=== PATIENT | male | born 1970 | race Caucasian/White ===

== ENCOUNTER 2016-03-28 13:10 | Emergency (ER) | payer SELFPAY ==
[~2016-03-28] VITALS: Ht 172.7 cm; Wt 111.6 kg
[~2016-03-28 13:10] MED LIST: AML5T; CEPH250C PO; CEPH500C PO; CEPH500T PO; CLIN-80 PO; CLIN-81 PO; CLIN150C17 PO; CLIN300C3 PO; DOXY100T2 PO; HYDR-1231 PO; HYDR-3714 PO; HYDR-3816 PO; HYDR-757 PO; HYDR1TAB PO; HYDR25TA4 PO; IBP800T PO; IBUP-30 PO; LISI20TA PO; METO25TA2 PO; METO50TA7; MINO50CA2 PO; MPR22T TOP; MPR22T TP; MUPI22OI2 TOP; NAPR500T PO; SILD100T PO; SILD50TA PO; SULF-222 PO; SULF1TAB35; SULF1TAB38 PO; SULF1TAB7 PO; TRAM50TA2 PO; VIAGRA; [UNRECOGNIZED DRUG - CODE] TP
--- OUTSIDE RECORDS SUMMARY | 2016-03-28 13:15 | XMS REPORT | Continuity of Care Document ---
Author Author [facility] Organization [facility] Address Unknown Phone Unavailable Care Team Providers Care Agricultural Engineering Technicians Name Role Phone Database, Not In PCP Unavailable Source Comments Some departments are not documenting in the electronic medical record. If you do not see the information that you expected, contact Release of Information in the Health Information Management department at [phone] for further assistance in locating additional records.[facility] Active Allergies and Adverse Reactions Not on File Current Medications Not on file Active Problems Not on file Social History Tobacco Use Types Packs/Day Years Used Date Never Assessed Plan of Care Health Maintenance Due Date Last Done Comments Physical (Comprehensive) 1977 Exam Pertussis Vaccine 1981 Tetanus Vaccine 12/28/1987 Influenza Vaccine 11/26/2014 Results from Last 3 Months Not on file
[2016-03-28] MEDS ORDERED: LORA2TAB (13:23)
[2016-03-28] MEDS ORDERED: NAPR500T PO (13:54)
--- NOTE | 2016-03-28 13:54 | ED General ---
General Chief Complaint: General Problems/Pain Stated Complaint: R SIDE JAW PAIN Nursing Triage Note: C/O PAIN BEHINDE R EAR FOR 2 DAYS Nursing Sepsis Screen: No Definite Risk History of Present Illness Time Seen by Provider: 13:45 Initial Comments Patient presents with complaints of right ear pain. Pain is actually anterior to the ear over the TMJ. Timing/Duration: 2-3 Days Modifying Factors: improves with Rest Associated Systoms: Denies Symptoms Allergies and Home Medications Allergies Coded Allergies: vancomycin (Verified Allergy, Intermediate, RASH, 07/06/15) Erythema and itching Penicillins (Unverified Allergy, Mild, 07/20/08) penicillin G (Verified Allergy, Unknown, 01/05/06) Uncoded Allergies: PCN (Allergy, Mild, 07/21/08) Home Medications Lorazepam 2 Mg Tablet #60 (Reported) Naproxen 500 Mg Tablet #30 500 MG PO BID Prescribed by: GISELL MARIO on 03/28/16 1354 Constitutional: no symptoms reported see HPI EENTM: ear pain (right) see HPINo dental problems, No eye pain, No mouth pain , No mouth swelling Respiratory: no symptoms reported see HPI Cardiovascular: no symptoms reported see HPI Gastrointestinal: no symptoms reported see HPI Genitourinary: no symptoms reported see HPI Musculoskeletal: no symptoms reported see HPI Skin: no symptoms reported see HPI Psychiatric/Neurological: No Symptoms Reported See HPI Hematologic/Lymphatic: No Symptoms Reported See HPI Immunological/Allergic: no symptoms reported see HPI All Other Systems Reviewed Negative Unless Noted: Yes Past Pcelupm-Oxyvsw-Oypcuy Hx Patient Social History Alcohol Use: Occasionally Uses Recreational Drug Use: No Smoking Status: Heavy Tobacco Smoker Type Used: Cigarettes (quit smoking for 3 years, recently resumed 2 months ago. Reports he is a chain-smoker to deal with stress) Former Smoker/When Quit: Apr 02, 2014 Recent Foreign Travel: No Contact w/Someone Who Travel: No Recent Infectious Disease Expo: No Recent Hopitalizations: No Physical Abuse Screen: No Sexual Abuse: No Immunizations Up To Date Tetanus Booster (TDap): Unknown PED Vaccines UTD: No Seasonal Allergies Seasonal Allergies: No Surgeries HX Surgeries: Yes (biopsy lymph node8 yo, Left knee surgery-meniscus tear ) Surgeries: Orthopedic, Vasectomy Respiratory Hx Respiratory Disorders: Yes (small "spot" on bottom left lung states is monitoring) Cardiovascular Hx Cardiac Disorders: Yes Cardiac Disorders: Hypertension Neurological Hx Neurological Disorders: No Reproductive System Hx Reproductive Disorders: No Sexually Transmitted Disease: No HIV/AIDS: No Genitourinary Hx Genitourinary Disorders: No Gastrointestinal Hx Gastrointestinal Disorders: No Musculoskeletal Hx Musculoskeletal Disorders: Yes Musculoskeletal Disorders: Arthritis Endocrine Hx Endocrine Disorders: No HEENT HX ENT Disorders: Yes Loss of Vision: Denies Hearing Impairment: Hard of Hearing Cancer Hx Cancer: No Psychosocial Hx Psychiatric Problems: No Integumentary HX Skin/Integumentary Disorder: Yes (recurrent MSSA abscesses) Blood Transfusions Hx Blood Disorders: No Adverse Reaction to a Blood Tr: No Reviewed Nursing Assessment Reviewed/Agree w Nursing PMH: Yes Family Medical History Significant Family History: Cancer, Hypertension Family Medial History: Alcoholism 19 FATHER G8 BROTHER Cancer 19 FATHER Cardiovascular disease 19 MOTHER Completed stroke 19 MOTHER Congestive heart failure 19 MOTHER Diabetes mellitus 19 MOTHER FH: brain aneurysm G8 SISTER, Onset:40's - 50 FHx: lung cancer 19 FATHER Family history: Allergy Family history: Arthritis 19 MOTHER Family history: Cardiovascular disease 19 MOTHER Family history: Diabetes mellitus Family history: Hypertension 19 MOTHER Headache 19 MOTHER Hearing loss 19 FATHER Heart disease 19 MOTHER History of drug abuse Myocardial infarction 19 MOTHER Myocardial infarction 19 MOTHER Stroke Visual impairment No Family History of: AIDS Abdominal aortic aneurysm Abdominal aortic aneurysm Power's disease Power's disease Aphasia Cancer of colon Cataract Cataracts Chest pain Congenital disease Congenital heart disease Congenital heart disease Coronary thrombosis Cystic fibrosis Cystic fibrosis Dementia Dementia Drug abuse Dysphagia Family history: Alzheimer's disease Family history: Asthma Family history: Breast disease Family history: Coronary thrombosis Family history: Gastrointestinal disease Family history: Glaucoma Family history: Osteoporosis Family history: Thyroid disorder Fibrocystic disease of breast Hereditary disease History of - anemia History of - disorder History of - respiratory disease Human immunodeficiency virus (HIV) seropositivity Hypercholesterolemia Infertile Kidney disease Malignant neoplasm of lung Parkinson's disease Prostate cancer Psychotic disorder Seizure disorder Tuberculosis Physical Exam Vital Signs Vital Sign - Last 12Hours 03/28/16 03/28/16 13:13 14:14 Temp 97.4 Pulse 87 Resp 18 B/P 141/100 Pulse Ox 95 O2 Delivery Room Air Capillary Refill : Less Than 3 Seconds General Appearance: No Apparent Distress WD/WN Eyes: Bilateral Eye EOMI, Bilateral Eye Normal Inspection, Bilateral Eye PERRL HEENT: PERRL/EOMI TMs Normal Normal ENT Inspection Pharynx Normal Other ( tender over the TMJ no crepitus noted) Neck: Full Range of Motion Normal Inspection Non Tender Supple Respiratory: Chest Non Tender Lungs Clear Normal Breath Sounds Cardiovascular: Regular Rate, Rhythm No Edema No Murmur Normal Peripheral Pulses Neurologic/Psychiatric: Alert Oriented x3 No Motor/Sensory Deficits Normal Mood/Affect Skin: Normal Color Warm/Dry Progress/Results/Core Measures Results/Orders My Orders Orders-GISELL MARIO Tramadol Tablet (Ultram Tablet) (03/28/16 13:51) Vital Signs/I&O Vital Sign - Last 12Hours 03/28/16 03/28/16 13:13 14:14 Temp 97.4 Pulse 87 87 Resp 18 18 B/P 141/100 Pulse Ox 95 O2 Delivery Room Air Blood Pressure Mean: 114 Progress Note : Progress Note Discussed with the patient about TMJ. He has not seen a dentist in over 10 years. With his smoking history I encouraged that he get routine dental exams and oral cancer screening. Departure Impression Impression: Primary Impression: TMJ inflammation Disposition: 01 HOME, SELF-CARE Condition: Stable Departure-Patient Inst. Referrals: [facility] (PCP/Family) Primary Care Physician Patient Instructions: Temporomandibular Joint (TMJ) Disorders (DC) Add. Discharge Instructions: All discharge instructions reviewed with patient and/or family. Voiced understanding. Warm moist compresses to area of pain. Scripts Naproxen (Naprosyn)500 Mg [id number] Mg PO BID #30 TAB Ref 1 Prov:GISELL MARIO 03/28/16 GISELL MARIO Mar 28, 2016 13:54
[2016-03-28 14:14] VITALS: BP 142/100
== END 2016-03-28 14:14 | disposition home or self-care (01) ==
LOC: EDUNIT# 13:10 → ER 13:12
DX: M26.69 Other specified disorders of temporomandibular joint (principal); F17.210 Nicotine dependence, cigarettes, uncomplicated

== ENCOUNTER 2016-04-21 07:49 | Emergency (ER) | payer SELFPAY ==
[~2016-04-21] VITALS: Ht 172.7 cm; Wt 108.9 kg
[~2016-04-21 07:49] MED LIST changes: +LORA2TAB
--- OUTSIDE RECORDS SUMMARY | 2016-04-21 07:55 | XMS REPORT | Continuity of Care Document ---
Author Author [facility] Organization [facility] Address Unknown Phone Unavailable Care Team Providers Care Organizational Development Director Name Role Phone Database, Not In PCP Unavailable Source Comments Some departments are not documenting in the electronic medical record. If you do not see the information that you expected, contact Release of Information in the Health Information Management department at [phone] for further assistance in locating additional records.[facility] Active Allergies and Adverse Reactions Not [...]
[2016-04-21] MEDS ORDERED: zoloft (08:00)
[2016-04-21] MEDS ORDERED: SCOPOLAMINE 1.5 MG (TRANSDERM-SCOP) PATCH TD ONE (08:30)
[2016-04-21] MEDS ORDERED: ONDANSETRON 4 MG (ZOFRAN) ORAL DISSOLVE TAB PO ONE (08:30)
[2016-04-21] MEDS ORDERED: MECLIZINE 25 MG (ANTIVERT) TAB PO ONE (08:30)
[2016-04-21 08:37] LABS: BASOPHILS % (AUTO) 0 % (0-10); EOSINOPHILS # (AUTO) 0.2 10^3/uL (0.0-0.3); EOSINOPHILS % (AUTO) 2 % (0-10); LYMPHOCYTES # (AUTO) 2.5 X 10^3 (1.0-4.0); LYMPHOCYTES % (AUTO) 22 % (12-44); MEAN CORPUSCULAR HEMOGLOBIN 32 PG (25-34); MEAN CORPUSCULAR HGB CONC 35 G/DL (32-36); MEAN CORPUSCULAR VOLUME 93 FL (80-99); MEAN PLATELET VOLUME 9.9 FL (7.4-10.4); MONOCYTES # (AUTO) 0.7 X 10^3 (0.0-1.0); MONOCYTES % (AUTO) 6 % (0-12); NEUTROPHILS # (AUTO) 8.1 X 10^3 (1.8-7.8); NEUTROPHILS % (AUTO) 70 % (42-75); PLATELET COUNT 310 10^3/uL (130-400); RED BLOOD COUNT 5.03 10^6/uL (4.35-5.85); RED CELL DISTRIBUTION WIDTH 13.5 % (10.0-14.5); WHITE BLOOD COUNT 11.6 10^3/uL (4.3-11.0)
--- NOTE | 2016-04-21 08:38 | ED General ---
General Chief Complaint: Dizziness/Syncope Stated Complaint: LIGHTHEADED/DIZZINESS CHEST PAIN Nursing Triage Note: AMB TO ROOM REPORTS NOT FEELING WELL REPORTS FEELING DIZZY WHEN GETTING OUT OF BED. Nursing Sepsis Screen: No Definite Risk Source of Information: Patient History of Present Illness Time Seen by Provider: 08:00 Initial Comments C/O SEVERE DIZZINESS ON WAKING THIS AM AT 0650 STATES HE FEELS OFF BALANCE AND DIZZINESS IS WORSE WITH MOVEMENTS/WALKING- STATES HE FELT LIKE HE MIGHT PASS OUT WHEN HE WAS WALKING, DUE TO DIZZINESS + NAUSEA, NO VOMITING HAS BLURRY VISION C/O SLIGHT ACHING IN LEFT SHOULDER FEELS SLIGHTLY SHORT OF BREATH LEFT HAND AND FOOT FEEL TINGLY, BUT NOT WHOLE LEFT ARM OR LEFT LEG NO MOTOR DEFICITS NO HEADACHE NO PRIOR HISTORY OF SIMILAR PT STATES SHE HAS BEEN DX WITH HTN, BUT HAS REFUSED TO TAKE MEDICATIONS. PCP: JAY-NICOLETTE, ENDER PATRICK Allergies and Home Medications Allergies Coded Allergies: vancomycin (Verified Allergy, Intermediate, RASH, 07/06/15) Erythema and itching Penicillins (Unverified Allergy, Mild, 07/20/08) penicillin G (Verified Allergy, Unknown, 01/05/06) Uncoded Allergies: PCN (Allergy, Mild, 07/21/08) Home Medications Meclizine HCl 25 Mg Tablet #30 25-50 MG PO Q6H Prescribed by: KEKE BAJWA on 04/21/16921 Ondansetron 4 Mg Tab.rapdis #10 4 MG PO Q4H Prescribed by: KEKE BAJWA on 04/21/16921 Constitutional: see HPINo chills, No diaphoresis, dizzinessNo fever EENTM: blurred vision see HPI Respiratory: see HPI short of breath Cardiovascular: no symptoms reportedNo chest pain, No edema, No palpitations, No syncope, No vascular heart diseas Gastrointestinal: see HPINo abdominal pain, nauseaNo vomiting Genitourinary: no symptoms reported Musculoskeletal: see HPI (LEFT SHOULDER PAIN ) Skin: no symptoms reported Psychiatric/Neurological: See HPIDenies Headache, Paresthesia TinglingDenies Weakness Hematologic/Lymphatic: No Symptoms Reported Immunological/Allergic: no symptoms reported Past Hjjxufz-Bncylg-Orfyih Hx Patient Social History Alcohol Use: Regular Use (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, NOW JUST DRINKS "A COUPLE OF BEERS ON THE WEEKENDS") Recreational Drug Use: No Smoking Status: Current Everyday Smoker (1 PPD) Type Used: Cigarettes Recent Foreign Travel: No Contact w/Someone Who Travel: No Recent Infectious Disease Expo: No Recent Hopitalizations: No Physical Abuse Screen: No Sexual Abuse: No Immunizations Up To Date Tetanus Booster (TDap): Unknown PED Vaccines UTD: No Seasonal Allergies Seasonal Allergies: No Surgeries HX Surgeries: Yes (biopsy lymph node8 yo, Left knee surgery-meniscus tear ) Surgeries: Orthopedic, Vasectomy Respiratory Hx Respiratory Disorders: Yes (small "spot" on bottom left lung states is monitoring) Cardiovascular Hx Cardiac Disorders: Yes (HAS REFUSED TO TAKE MEDICATIONS IN PAST) Cardiac Disorders: Hypertension Neurological Hx Neurological Disorders: No Reproductive System Hx Reproductive Disorders: No Sexually Transmitted Disease: No HIV/AIDS: No Genitourinary Hx Genitourinary Disorders: No Gastrointestinal Hx Gastrointestinal Disorders: No Musculoskeletal Hx Musculoskeletal Disorders: Yes Musculoskeletal Disorders: Arthritis Endocrine Hx Endocrine Disorders: No HEENT HX ENT Disorders: Yes Loss of Vision: Denies Hearing Impairment: Hard of Hearing Cancer Hx Cancer: No Psychosocial Hx Psychiatric Problems: Yes Behavioral Health Disorders: Anxiety, Depression Integumentary HX Skin/Integumentary Disorder: Yes (recurrent MSSA abscesses) Blood Transfusions Hx Blood Disorders: No Adverse Reaction to a Blood Tr: No Physical Exam Vital Signs Vital Sign - Last 12Hours 04/21/16 04/21/16 07:49 10:21 Temp 96.6 Pulse 88 Resp 18 B/P 158/108 Pulse Ox 96 O2 Delivery Room Air Capillary Refill : Less Than 3 Seconds General Appearance: No Apparent Distress WD/WN Other (REEKS OF CIGARETTES) HEENT: PERRL/EOMI Neck: Full Range of Motion Normal Inspection Non Tender SuppleNo Carotid Bruit , No JVD Respiratory: Normal Breath Sounds No Accessory Muscle Use No Respiratory Distress Cardiovascular: Regular Rate, Rhythm No Edema No JVD No Murmur Normal Peripheral Pulses Gastrointestinal: Normal Bowel Sounds No Organomegaly No Pulsatile Mass Non Tender Soft Back: Normal Inspection Extremity: Normal Capillary Refill Normal Inspection Normal Range of Motion Non Tender No Calf Tenderness No Pedal Edema Neurologic/Psychiatric: Alert Oriented x3 No Motor/Sensory Deficits Normal Mood/Affect air pollution compliance inspector II-XII Norm as TestedNo Abnormal Cerebellar Tests Reflexes: 2+ Bicep (R), 2+ Bicep (L), 2+ Knee (R), 2+ Knee (L) Skin: Normal Color Warm/Dry Tattoos/Piercings (MULTIPLE PIERCINGS AND TATTOOS) Progress/Results/Core Measures Results/Orders Lab Results Laboratory Tests Test 04/21/16 08:22 Range/Units Activated Partial Thromboplast Time 28 24-35 SEC Alanine Aminotransferase (ALT/SGPT) 17 0-55 U/L Albumin 4.2 3.2-4.5 G/DL Alkaline Phosphatase 67 40-136 U/L Anion Gap 11 5-14 MMOL/L Aspartate Amino Transf (AST/SGOT) 11 5-34 U/L B-Type Natriuretic Peptide < 10.0 <100.0 PG/ML BUN/Creatinine Ratio 17 Basophils # (Auto) 0.0 0.0-0.1 10^3/uL Basophils (%) (Auto) 0 0-10 % Blood Urea Nitrogen 13 7-18 MG/DL Calcium Level 9.2 8.5-10.1 MG/DL Carbon Dioxide Level 22 21-32 MMOL/L Chloride Level 107 98-107 MMOL/L Creatine Kinase MB 0.8 <6.6 NG/ML Creatinine 0.78 0.60-1.30 MG/DL Eosinophils # (Auto) 0.2 0.0-0.3 10^3/uL Eosinophils (%) (Auto) 2 0-10 % Estimat Glomerular Filtration Rate > 60 Glucose Level 98 70-105 MG/DL Hematocrit 47 40-54 % Hemoglobin 16.1 13.3-17.7 G/DL INR Comment 1.1 0.8-1.4 Lymphocytes # (Auto) 2.5 1.0-4.0 X 10^3 Lymphocytes (%) (Auto) 22 12-44 % Magnesium Level 2.1 1.8-2.4 MG/DL Mean Corpuscular Hemoglobin 32 25-34 PG Mean Corpuscular Hemoglobin Concent 35 32-36 G/DL Mean Corpuscular Volume 93 80-99 FL Mean Platelet Volume 9.9 7.4-10.4 FL Monocytes # (Auto) 0.7 0.0-1.0 X 10^3 Monocytes (%) (Auto) 6 0-12 % Neutrophils # (Auto) 8.1 H 1.8-7.8 X 10^3 Neutrophils (%) (Auto) 70 42-75 % Platelet Count 310 130-400 10^3/uL Potassium Level 3.7 3.6-5.0 MMOL/L Prothrombin Time 13.6 12.2-14.7 SEC Red Blood Count 5.03 4.35-5.85 10^6/uL Red Cell Distribution Width 13.5 10.0-14.5 % Serum Alcohol < 10 <10 MG/DL Sodium Level 140 135-145 MMOL/L TSH Parrott Testing 2.12 0.35-4.94 UIU/ML Total Bilirubin 0.5 0.1-1.0 MG/DL Total Creatine Kinase 49 30-200 U/L Total Protein 6.1 L 6.4-8.2 G/DL Troponin I < 0.30 <0.30 NG/ML White Blood Count 11.6 H 4.3-11.0 10^3/uL My Orders Orders-KEKE BAJWA DO Cbc With Automated Diff (04/21/16 08:01) Comprehensive Metabolic Panel (04/21/16 08:01) Creatine Kinase (04/21/16 08:01) Creatine Kinase Mb (04/21/16 08:01) Partial Thromboplastin Time (04/21/16 08:01) Protime With Inr (04/21/16 08:01) Troponin I (04/21/16 08:01) Chest 1 View, Ap/Pa Only (04/21/16 08:01) O2 (04/21/16 08:01) Ekg Tracing (04/21/16 08:01) BNP (04/21/16 08:01) Monitor-Rhythm Ecg Trace Only (04/21/16 08:01) Alcohol (04/21/16 08:01) Magnesium (04/21/16 08:01) Thyroid Analyzer (04/21/16 08:01) Ct Head Wo (04/21/16 08:05) Ondansetron Oral Dissolve Tab (Zofran (04/21/16 08:30) Scopolamine Patch (Transderm-Scop Patch) (04/21/16 08:30) Meclizine Tablet (Antivert Tablet) (04/21/16 08:30) Medications Given in ED Current Medications Medications Dose Ordered Sig/Ellis Route Start Time Stop Time Status Last Admin Dose Admin Meclizine HCl 50 mg ONCE ONCE PO 04/21/16 08:30 04/21/16 08:31 DC 04/21/16 08:23 50 MG Ondansetron HCl 4 mg ONCE ONCE PO 04/21/16 08:30 04/21/16 08:31 DC 04/21/16 08:23 4 MG Scopolamine 1.5 mg ONCE ONCE TD 04/21/16 08:30 04/21/16 08:31 DC 04/21/16 08:23 1.5 MG Vital Signs/I&O Vital Sign - Last 12Hours 04/21/16 04/21/16 07:49 10:21 Temp 96.6 Pulse 88 85 Resp 18 18 B/P 158/108 Pulse Ox 96 O2 Delivery Room Air Room Air Blood Pressure Mean: 125 Progress Note : Progress Note NO DIZZINESS WHILE LAYING STILL NAUSEA IMPROVED WITH MEDICATIONS PT REFUSES TO GIVE URINE SAMPLE ECG Initial ECG Impression Time: 07:57 Initial ECG Rate: 85 Initial ECG Rhythm: Normal Sinus Initial ECG Impression: Normal Initial ECG Comparisson: Unchanged Diagnostic Imaging Comments CT HEAD--NO ACUTE PROCESS CXR--NO ACUTE PROCESS PER RADIOLOGIST REPORTS @ 0853 Departure Communication Progress Notes 0915--SPOKE WITH DR. Kobe ORDOÑEZ. ADVISES TO SEND PT HOME AND THEY WILL SEE HIM TOMORROW IN CLINIC FOR FOLLOW UP. SHE IS VERY FAMILIAR WITH PT. Impression Impression: Primary Impression: Vertigo Additional Impressions: LEFT SIDED PARESTHESIAS HTN (hypertension) Disposition: 01 HOME, SELF-CARE Condition: Stable Departure-Patient Inst. Referrals: [facility] (PCP/Family) Primary Care Physician Patient Instructions: High Blood Pressure (DC), Paresthesias (DC), Vertigo (a Type of Dizziness) (DC) Add. Discharge Instructions: SLOW POSITION CHANGES LOTS OF CLEAR LIQUIDS FOLLOW UP WITH [facility], TOMORROW. SOMEONE FROM THE CLINIC WILL CALL YOU TODAY TO ARRANGE APPOINTMENT All discharge instructions reviewed with patient and/or family. Voiced understanding. Scripts Ondansetron (Zofran Odt)4 Mg Tab.rapdis4 Mg PO Q4H Nausea/Vomiting #10 TAB Prov:KEKE BAJWA DO 04/21/16 Meclizine HCl 25 Mg [id number] Mg PO Q6H Dizziness #30 TAB Prov:KEKE BAJWA DO 04/21/16 KEKE BJAWA DO Apr 21, 2016 08:38 1.5 MG Vital Signs/I&O Vital Sign - Last 12Hours 04/21/16 07:49 Temp 96.6 Pulse 88 Resp 18 B/P 158/108 O2 Delivery Room Air Blood Pressure Mean: 125 Progress Note : Progress Note NO DIZZINESS WHILE LAYING STILL ECG Initial ECG Impression Time: 07:57 Initial ECG Rate: 85 Initial ECG Rhythm: Normal Sinus Initial ECG Impression: Normal Initial ECG Comparisson: Unchanged Diagnostic Imaging Comments CT HEAD--NO ACUTE PROCESS CXR--NO ACUTE PROCESS PER RADIOLOGIST REPORTS @ 0853 Departure Communication Progress Notes 0915--SPOKE WITH DR. Kobe ORDOÑEZ. ADVISES TO SEND PT HOME AND THEY WILL SEE HIM TOMORROW IN CLINIC FOR FOLLOW UP. SHE IS VERY FAMILIAR WITH PT. Impression Impression: Primary Impression: Vertigo Additional Impressions: LEFT SIDED PARESTHESIAS HTN (hypertension) Disposition: 01 HOME, SELF-CARE Condition: Stable Departure-Patient Inst. Referrals: [facility] (PCP/Family) Primary Care Physician Patient Instructions: High Blood Pressure (DC), Paresthesias (DC), Vertigo (a Type of Dizziness) (DC) Add. Discharge Instructions: SLOW POSITION CHANGES LOTS OF CLEAR LIQUIDS FOLLOW UP WITH [facility], TOMORROW. SOMEONE FROM THE CLINIC WILL CALL YOU TODAY TO ARRANGE APPOINTMENT All discharge instructions reviewed with patient and/or family. Voiced understanding. Scripts Ondansetron (Zofran Odt)4 Mg Tab.rapdis4 Mg PO Q4H Nausea/Vomiting #10 TAB Prov:KEKE BAJWA DO 04/21/16 Meclizine HCl 25 Mg [id number] Mg PO Q6H Dizziness #30 TAB Prov:KEKE BAJWA DO 04/21/16 KEKE BAJWA DO Apr 21, 2016 08:38
--- NOTE | 2016-04-21 08:39 | Diagnostic Imaging Report ---
PROCEDURE: CT head without contrast. TECHNIQUE: Multiple contiguous axial images were obtained through the brain without the use of intravenous contrast. INDICATION: Dizziness for 2 hours The ventricles are normal in size, shape and position. There are no masses or hemorrhages. There are no extra-axial fluid collections. Impression: Negative CT head Dictated by: Dictated on workstation # [id number]
--- NOTE | 2016-04-21 08:44 | Diagnostic Imaging Report ---
INDICATION: Dizziness Exam compared with 09/13/2011. The lungs are clear. The heart and vessels normal. There is no effusion or pneumothorax. IMPRESSION: No acute appearing abnormality. Dictated by: Dictated on workstation # [id number]
[2016-04-21 08:49] LABS: INR 1.1 (0.8-1.4); PROTHROMBIN TIME PATIENT 13.6 SEC (12.2-14.7)
[2016-04-21 08:55] LABS: ALANINE AMINOTRANSFERASE 17 U/L (0-55); ALBUMIN 4.2 G/DL (3.2-4.5); ALCOHOL < 10 MG/DL (<10); ANION GAP 11 MMOL/L (5-14); ASPARTATE AMINO TRANSFERASE 11 U/L (5-34); BILIRUBIN,TOTAL 0.5 MG/DL (0.1-1.0); BLOOD UREA NITROGEN 13 MG/DL (7-18); BUN/CREATININE RATIO 17; CALCIUM 9.2 MG/DL (8.5-10.1); CARBON DIOXIDE 22 MMOL/L (21-32); CHLORIDE 107 MMOL/L (98-107); CREATINE KINASE 49 U/L (30-200); CREATININE SERUM 0.78 MG/DL (0.60-1.30); GFR ESTIMATED > 60; GLUCOSE 98 MG/DL (70-105); MAGNESIUM 2.1 MG/DL (1.8-2.4); POTASSIUM 3.7 MMOL/L (3.6-5.0); SODIUM 140 MMOL/L (135-145); TOTAL PROTEIN 6.1 G/DL (6.4-8.2)
[2016-04-21 09:14] LABS: TROPONIN I < 0.30 NG/ML (<0.30)
[2016-04-21] MEDS ORDERED: MECL-106 PO (09:22)
[2016-04-21] MEDS ORDERED: ONDA4TAB8 PO (09:22)
[2016-04-21 10:21] VITALS: BP 132/100
== END 2016-04-21 10:13 | disposition home or self-care (01) ==
LOC: EDUNIT# 07:49 → ER 07:52
DX: R42 Dizziness and giddiness (principal); R20.2 Paresthesia of skin; I10 Essential (primary) hypertension; F17.210 Nicotine dependence, cigarettes, uncomplicated
CPT/HCPCS: 36415; 70450; 71010; 80053; 80320; 82550; 82553; 83735; 83880; 84443; 84484; 85025; 85610; 85730; 93005; 93041

== ENCOUNTER 2016-09-07 06:07 | Emergency (ER) | payer SELFPAY ==
[~2016-09-07] VITALS: Ht 172.7 cm; Wt 108.9 kg
[~2016-09-07 06:07] MED LIST changes: +MECL-106 PO; +ONDA4TAB8 PO; +zoloft
[2016-09-07] MEDS ORDERED: AZIT250T5 PO (06:54)
--- NOTE | 2016-09-07 06:54 | ED General ---
General Chief Complaint: Oral/Throat Problems Stated Complaint: SOB,THROAT OBSTRUCTION,BLEEDING IN THROAT Nursing Triage Note: C/O SORE THROAT STARTING LAST NIGHT, COUGHING UP SMALL SPECS OF BLOOD. Nursing Sepsis Screen: No Definite Risk Source of Information: Patient Exam Limitations: No Limitations History of Present Illness Time Seen by Provider: 06:10 Initial Comments This 45 gentleman presents to the emergency room with a fairly intense sore throat that started last night. He rates his pain as 4 or 5 out of 10. He feels like there is something stuck in his throat but he did not consume anything that could get stuck in his throat. The last thing he ate was pizza around 18:00. He has had some flecks of blood with coughing this morning. He denies any fever. He has no other symptoms. Allergies and Home Medications Allergies Coded Allergies: vancomycin (Verified Allergy, Intermediate, RASH, 07/06/15) Erythema and itching Penicillins (Unverified Allergy, Mild, 07/20/08) penicillin G (Verified Allergy, Unknown, 01/05/06) Uncoded Allergies: PCN (Allergy, Mild, 07/21/08) Home Medications Azithromycin 250 Mg Tablet, 250 MG PO DAILY, #4 Prescribed by: YOLANDA RODRIGUEZ on 09/07/16 0654 Constitutional: no symptoms reported EENTM: see HPI Respiratory: see HPI Cardiovascular: no symptoms reported Gastrointestinal: no symptoms reported Genitourinary: no symptoms reported Musculoskeletal: no symptoms reported Skin: no symptoms reported Psychiatric/Neurological: No Symptoms Reported Hematologic/Lymphatic: No Symptoms Reported Past Diejvkp-Ysufxj-Niyvkh Hx Patient Social History Alcohol Use: Past History Recreational Drug Use: No Smoking Status: Current Everyday Smoker Type Used: Cigarettes Recent Foreign Travel: No Contact w/Someone Who Travel: No Recent Infectious Disease Expo: No Recent Hopitalizations: No Immunizations Up To Date Tetanus Booster (TDap): Unknown PED Vaccines UTD: No Seasonal Allergies Seasonal Allergies: No Surgeries HX Surgeries: Yes (biopsy lymph node8 yo, Left knee surgery-meniscus tear ) Surgeries: Orthopedic, Vasectomy Respiratory Hx Respiratory Disorders: Yes (small "spot" on bottom left lung states is monitoring, tobaccoism) Cardiovascular Hx Cardiac Disorders: Yes (HAS REFUSED TO TAKE MEDICATIONS IN PAST) Cardiac Disorders: Hypertension Neurological Hx Neurological Disorders: No Reproductive System Hx Reproductive Disorders: No Sexually Transmitted Disease: No HIV/AIDS: No Genitourinary Hx Genitourinary Disorders: No Gastrointestinal Hx Gastrointestinal Disorders: No Musculoskeletal Hx Musculoskeletal Disorders: Yes Musculoskeletal Disorders: Arthritis Endocrine Hx Endocrine Disorders: No HEENT HX ENT Disorders: Yes Loss of Vision: Denies Hearing Impairment: Hard of Hearing Cancer Hx Cancer: No Psychosocial Hx Psychiatric Problems: Yes Behavioral Health Disorders: Anxiety, Depression Integumentary HX Skin/Integumentary Disorder: Yes (recurrent MSSA abscesses) Blood Transfusions Hx Blood Disorders: No Adverse Reaction to a Blood Tr: No Family Medical History Family Medial History: Alcoholism 19 FATHER G8 BROTHER Cancer 19 FATHER Cardiovascular disease 19 MOTHER Completed stroke 19 MOTHER Congestive heart failure 19 MOTHER Diabetes mellitus 19 MOTHER FH: brain aneurysm G8 SISTER, Onset:40's - 50 FHx: lung cancer 19 FATHER Family history: Allergy Family history: Arthritis 19 MOTHER Family history: Cardiovascular disease 19 MOTHER Family history: Diabetes mellitus Family history: Hypertension 19 MOTHER Headache 19 MOTHER Hearing loss 19 FATHER Heart disease 19 MOTHER History of drug abuse Myocardial infarction 19 MOTHER Myocardial infarction 19 MOTHER Stroke Visual impairment No Family History of: AIDS Abdominal aortic aneurysm Abdominal aortic aneurysm [place]'s disease [place]'s disease Aphasia Cancer of colon Cataract Cataracts Chest pain Congenital disease Congenital heart disease Congenital heart disease Coronary thrombosis Cystic fibrosis Cystic fibrosis Dementia Dementia Drug abuse Dysphagia Family history: Alzheimer's disease Family history: Asthma Family history: Breast disease Family history: Coronary thrombosis Family history: Gastrointestinal disease Family history: Glaucoma Family history: Osteoporosis Family history: Thyroid disorder Fibrocystic disease of breast Hereditary disease History of - anemia History of - disorder History of - respiratory disease Human immunodeficiency virus (HIV) seropositivity Hypercholesterolemia Infertile Kidney disease Malignant neoplasm of lung Parkinson's disease Prostate cancer Psychotic disorder Seizure disorder Tuberculosis Physical Exam Vital Signs Vital Sign - Last 12Hours 09/07/16 06:16 Temp 97.4 Pulse 89 Resp 19 B/P (MAP) 138/97 Pulse Ox 97 O2 Delivery Room Air Capillary Refill : Less Than 3 Seconds General Appearance: No Apparent Distress, WD/WN HEENT: PERRL/EOMI, TMs Normal, Normal ENT Inspection, Pharyngeal Erythema, Other (no significant throat swelling, tonsillar enlargement, or asymmetry) Neck: Normal Inspection, Non Tender, Supple, No Lymphadenopathy (L), No Lymphadenopathy (R) Respiratory: Lungs Clear, Normal Breath Sounds, No Accessory Muscle Use, No Respiratory Distress Cardiovascular: Regular Rate, Rhythm, No Edema, No Murmur Gastrointestinal: Normal Bowel Sounds, Non Tender, Soft Extremity: Normal Inspection, No Pedal Edema Neurologic/Psychiatric: Alert, Oriented x3, No Motor/Sensory Deficits, Normal Mood/Affect, skiver uppers or linings II-XII Norm as Tested Skin: Normal Color, Warm/Dry Progress/Results/Core Measures Results/Orders Lab Results Laboratory Tests Test 09/07/16 06:18 Range/Units Group A Streptococcus Screen NEGATIVE NEGATIVE My Orders Orders - YOLANDA ARCOS MD Rapid Strep A Screen (09/07/16 06:19) Soft Tissue Neck (09/07/16 06:19) Chest Pa/Lat (2 View) (09/07/16 06:19) Azithromycin Tablet (Zithromax Tablet) (09/07/16 07:00) Medications Given in ED Current Medications Medications Dose Ordered Sig/Ellis Route Start Time Stop Time Status Last Admin Dose Admin Azithromycin 500 mg ONCE ONCE PO 09/07/16 07:00 09/07/16 07:00 DC 09/07/16 06:59 500 MG Vital Signs/I&O Vital Sign - Last 12Hours 09/07/16 09/07/16 06:16 06:58 Temp 97.4 97.4 Pulse 89 89 Resp 19 19 B/P (MAP) 138/97 Pulse Ox 97 97 O2 Delivery Room Air Blood Pressure Mean: 111 Progress Note : Progress Note First dose of azithromycin was given in the emergency room. Patient will take Tylenol and ibuprofen which he has at home. Radiographs were unremarkable. Patient was advised to reduce smoking. See discharge instructions. Diagnostic Imaging Diagonstic Imaging: Xray Plain Films/CT/US/NM/MRI: chest Comments Chest x-ray viewed by me and report reviewed. See report below: NAME: FELICIA SHEPPARD MED REC#: [id number] PT STATUS: REG ER : 1970 PHYSICIAN: YOLANDA ARCOS MD ADMIT DATE: 09/07/16/ER Signed Date of Exam:09/07/16 CHEST PA/LAT (2 VIEW) Indication: Cough. Comparison: 04/21/2016 Findings: No focal pneumonic consolidation, pleural effusion or pneumothorax. Normal heart size and pulmonary vasculature. Bilateral nipple piercings are present. Impression: No acute cardiopulmonary process. Dictated by: Dictated on workstation # [id number] Dict: 09/07/1656 Trans: 09/07/16 0656 [facility] [id number] Interpreted by: BERTHA ENGLISH MD Electronically signed by: BERTHA ENGLISH MD 09/07/1656 Diagonstic Imaging: Xray Plain Films/CT/US/NM/MRI: other (soft tissues neck) Comments Neck x-ray viewed by me and report reviewed. See report below: NAME: FELICIA SHEPPARD MED REC#: [id number] PT STATUS: REG ER : 1970 PHYSICIAN: YOLANDA ARCOS MD ADMIT DATE: 09/07/16/ER Draft Date of Exam:09/07/16 SOFT TISSUE NECK INDICATION: Cough and sore throat. COMPARISON: Chest radiograph performed concurrently. FINDINGS: No radiopaque foreign body. No prevertebral soft tissue swelling. No thickening of the epiglottis or aryepiglottic folds is identified. Airway remains widely patent. Lung apices are clear. Degenerative kyphotic curvature of the cervical spine. IMPRESSION: 1. No soft tissue swelling or thickening of the epiglottis. 2. No radiopaque foreign body. Dictated on workstation # [id number] Dict: 09/07/1655 Trans: 09/07/16 0658 [facility] [id number] Interpreted by: BERTHA ENGLISH MD Departure Impression Impression: Primary Impression: Pharyngitis Qualified Codes: J02.9 - Acute pharyngitis, unspecified Disposition: 01 HOME, SELF-CARE Condition: Improved Departure-Patient Inst. Decision time for Depature: 06:40 Referrals: [facility] (PCP/Family) Primary Care Physician Patient Instructions: Sore Throat in Adults Add. Discharge Instructions: Your rapid strep test was negative. A backup throat culture will be performed and results should be available in about 48 hours. Follow-up with your primary care provider this week. Return to the ER if symptoms worsen, especially if you are coughing up more blood. You may take ibuprofen up to 800 mg every 8 hours as needed for pain. Add Tylenol (acetaminophen) up to 1000 mg every 6 hours as needed for additional pain relief. Complete your antibiotics as prescribed. Take your next dose on September 08. All discharge instructions reviewed with patient and/or family. Voiced understanding. Scripts Azithromycin (Azithromycin) 250 Mg Tablet 250 MG PO DAILY, #4 TAB Prov: YOLANDA ARCOS MD 09/07/16 YOLANDA ARCOS MD Sep 07, 2016 06:54
[2016-09-07 06:58] VITALS: BP 138/97
--- NOTE | 2016-09-07 06:58 | Diagnostic Imaging Report ---
INDICATION: Cough and sore throat. COMPARISON: Chest radiograph performed concurrently. FINDINGS: No radiopaque foreign body. No prevertebral soft tissue swelling. No thickening of the epiglottis or aryepiglottic folds is identified. Airway remains widely patent. Lung apices are clear. Degenerative kyphotic curvature of the cervical spine. IMPRESSION: 1. No soft tissue swelling or thickening of the epiglottis. 2. No radiopaque foreign body. Dictated by: Dictated on workstation # [id number]
--- NOTE | 2016-09-07 06:59 | Diagnostic Imaging Report ---
CHEST PA/LAT (2 VIEW) Indication: Cough. Comparison: 04/21/2016 Findings: No focal pneumonic consolidation, pleural effusion or pneumothorax. Normal heart size and pulmonary vasculature. Bilateral nipple piercings are present. Impression: No acute cardiopulmonary process. Dictated by: Dictated on workstation # [id number]
[2016-09-07] MEDS ORDERED: AZITHROMYCIN 250 MG TAB (ZITHROMAX) PO ONE (07:00)
== END 2016-09-07 06:58 | disposition home or self-care (01) ==
LOC: EDUNIT# 06:07 → ER 06:10
DX: J02.9 Acute pharyngitis, unspecified (principal); I10 Essential (primary) hypertension; F17.210 Nicotine dependence, cigarettes, uncomplicated
CPT/HCPCS: 70360; 71020; 87430; 99282

== ENCOUNTER 2017-11-08 14:57 | Emergency (ER) | payer SELFPAY ==
[~2017-11-08] VITALS: Ht 172.7 cm; Wt 108.9 kg
[~2017-11-08 14:57] MED LIST changes: +AZIT250T12 PO; +HYDR-34 PO; -HYDR-3816 PO; +NAPR-1071 PO; -NAPR500T PO
[2017-11-08] MEDS ORDERED: KETOROLAC 30 MG/ML VIAL IVP STA (15:42)
[2017-11-08] MEDS ORDERED: NS IV 1000 ML 1,000 ML IV ONE ×2 (15:42→17:27)
[2017-11-08 15:47] LABS: BASOPHILS % (AUTO) 0 % (0-10); EOSINOPHILS # (AUTO) 0.3 10^3/uL (0.0-0.3); EOSINOPHILS % (AUTO) 4 % (0-10); HEMATOCRIT 44 % (40-54); HEMOGLOBIN 15.6 G/DL (13.3-17.7); LYMPHOCYTES # (AUTO) 2.3 X 10^3 (1.0-4.0); LYMPHOCYTES % (AUTO) 29 % (12-44); MEAN CORPUSCULAR HEMOGLOBIN 32 PG (25-34); MEAN CORPUSCULAR HGB CONC 35 G/DL (32-36); MEAN CORPUSCULAR VOLUME 91 FL (80-99); MONOCYTES # (AUTO) 0.6 X 10^3 (0.0-1.0); MONOCYTES % (AUTO) 8 % (0-12); NEUTROPHILS # (AUTO) 4.6 X 10^3 (1.8-7.8); NEUTROPHILS % (AUTO) 59 % (42-75); PLATELET COUNT 279 10^3/uL (130-400); RED BLOOD COUNT 4.87 10^6/uL (4.35-5.85); RED CELL DISTRIBUTION WIDTH 13.2 % (10.0-14.5); WHITE BLOOD COUNT 7.9 10^3/uL (4.3-11.0)
[2017-11-08 16:01] LABS: ALANINE AMINOTRANSFERASE 24 U/L (0-55); ALBUMIN 4.1 GM/DL (3.2-4.5); ALKALINE PHOSPHATASE 64 U/L (40-136); BILIRUBIN,TOTAL 0.4 MG/DL (0.1-1.0); BUN/CREATININE RATIO 22; CALCIUM 9.1 MG/DL (8.5-10.1); CARBON DIOXIDE 23 MMOL/L (21-32); CHLORIDE 108 MMOL/L (98-107); CREATININE SERUM 0.76 MG/DL (0.60-1.30); GFR ESTIMATED > 60; GLUCOSE 106 MG/DL (70-105); POTASSIUM 3.9 MMOL/L (3.6-5.0); SODIUM 139 MMOL/L (135-145); TOTAL PROTEIN 6.7 GM/DL (6.4-8.2)
--- NOTE | 2017-11-08 16:01 | ED Back Pain ---
General Chief Complaint: Abdominal/GI Problems Stated Complaint: R SIDE PAIN Nursing Triage Note: Pt ambulated to rm 10 w/o difficulty. Pt states he has been having R flank pain for two weeks. Pt states he goes two to three days without urinating. Pt also c/o hesitancy and states he has to strain to go. Pt c/o painful urination. Pt states color of urine is very dark orange in color. Nursing Sepsis Screen: No Definite Risk Source of Information: Patient Exam Limitations: No Limitations (YOLANDA VILLARREAL STUDENT) History of Present Illness Date Seen by Provider: Nov 08, 2017 Time Seen by Provider: 15:05 Initial Comments Patient presents with right flank and lumbar pain and decreased urinary output that began 2 weeks prior. He reports that he went out drinking with his son and woke up the next morning with significant right flank pain. He describes the pain as a constant deep ache that intensifies with movement or pressure. Denies radiation of pain. He attempted taking ibuprofen which did not lessen the pain. Thinking it may have been a kidney stone, the patient reports that he increased fluid intake considerably and the pain went away on its own for a short period. Approximately a week ago, the pain returned and he noticed that he began urinating less frequently and experienced hesitancy when he attempted to urinate. Patient reports that he had a fever last week and he had multiple days in which he did not urinate despite increasing fluid intake and drinking cranberry juice. Patient reports fatigue all weekend and that he was unable to urinate from 11/06/17-11/08/17, he admits to being able to urinate some this morning after forcing it but that the urine was dark yellow/orange in color and was low in volume. Denies nausea and vomiting and bowel or bladder changes. Location: Lumbar Spine (Right), Other (Right flank) Timing/Duration: Other (2 weeks) Severity: Moderate Pain/Injury Location: Back (Right lumbar), Other (Right flank) Method of Injury: Unknown Modifying Factors: Worse With Jarring, Worse With Movement; Improves With Rest Associated Symptoms: fever; No numbness in legs/feet, No tingling in legs/feet ; lower back pain; No loss of bladder control, No loss of bowel control; other ( YOLANDA VILLARREAL STUDENT) Associated Symptoms: No muscle spasms, No weakness (GEORGI VIGIL MD) Allergies and Home Medications Allergies Coded Allergies: vancomycin (Verified Allergy, Intermediate, RASH, 07/06/15) Erythema and itching Penicillins (Unverified Allergy, Mild, 07/20/08) penicillin G (Verified Allergy, Unknown, 01/05/06) Uncoded Allergies: PCN (Allergy, Mild, 07/21/08) Home Medications Azithromycin 250 Mg Tablet, 250 MG PO DAILY Prescribed by: YOLANDA RODRIGUEZ on 09/07/16 0654 Patient Home Medication List Home Medication List Reviewed: Yes (YOLANDA VILLARREAL) Home Medication List Reviewed: Yes (GEORGI VIGIL MD) Constitutional: see HPI, chills, fever, other (fatigue) EENTM: no symptoms reported Respiratory: no symptoms reported Cardiovascular: no symptoms reported Gastrointestinal: No abdominal pain, No constipation, No diarrhea, No loss of appetite, No nausea, No vomiting Genitourinary: decreased output; No hematuria; hesitancy; No incontinence Musculoskeletal: back pain, muscle pain, muscle stiffness, muscle cramps Skin: no symptoms reported Psychiatric/Neurological: Denies Headache, Denies Numbness, Denies Tingling ( YOLANDA VILLARREAL) Genitourinary: dysuria (GEORGI VIGIL MD) All Other Systems Reviewed Negative Unless Noted: Yes (GEORGI VIGIL MD) Past Ofvdlci-Okptmr-Skehda Hx Past Med/Social Hx: Reviewed Nursing Past Med/Soc Hx (GEORGI VIGIL MD) Patient Social History Alcohol Use: Occasionally Uses Recreational Drug Use: No Smoking Status: Current Everyday Smoker Type Used: Cigarettes Former Smoker, Quit: Apr 23, 2014 2nd Hand Smoke Exposure: Yes Recent Foreign Travel: No Contact w/Someone Who Travel: No Recent Infectious Disease Expo: No Recent Hopitalizations: No Physical Abuse: No Sexual Abuse: No (YOLANDA VILLARREAL) Immunizations Up To Date Tetanus Booster (TDap): Unknown PED Vaccines UTD: No (YOLANDA VILLARREAL) Seasonal Allergies Seasonal Allergies: No (YOLANDA VILLARREAL) Past Medical History Surgeries: Yes (biopsy lymph node8 yo, Left knee surgery-meniscus tear ) Orthopedic, Vasectomy Respiratory: Yes (small "spot" on bottom left lung states is monitoring) Currently Using CPAP: No Currently Using BIPAP: No Cardiac: Yes (HAS REFUSED TO TAKE MEDICATIONS IN PAST) Hypertension Neurological: No Reproductive Disorders: No Sexually Transmitted Disease: No HIV/AIDS: No Gastrointestinal: No Musculoskeletal: Yes Arthritis Endocrine: No Loss of Vision: Denies Hearing Impairment: Hard of Hearing Cancer: No Psychosocial: Yes Anxiety, Depression Nursing Suicide Risk Score: 0 Integumentary: Yes (recurrent MSSA abscesses) Blood Disorders: No Adverse Reaction/Blood Tranf: No (YOLANDA VILLARREAL STUDENT) Family Medical History Reviewed Nursing Family Hx (GEORGI VIGIL MD) Alcoholism 19 FATHER G8 BROTHER Cancer 19 FATHER Cardiovascular disease 19 MOTHER Completed stroke 19 MOTHER Congestive heart failure 19 MOTHER Diabetes mellitus 19 MOTHER FH: brain aneurysm G8 SISTER, Onset:40's - 50 FHx: lung cancer 19 FATHER Family history: Allergy Family history: Arthritis 19 MOTHER Family history: Cardiovascular disease 19 MOTHER Family history: Diabetes mellitus Family history: Hypertension 19 MOTHER Headache 19 MOTHER Hearing loss 19 FATHER Heart disease 19 MOTHER History of drug abuse Myocardial infarction 19 MOTHER Myocardial infarction 19 MOTHER Stroke Visual impairment No Family History of: AIDS Abdominal aortic aneurysm Abdominal aortic aneurysm Diogenes's disease [place]'s disease Aphasia Cancer of colon Cataract Cataracts Chest pain Congenital disease Congenital heart disease Congenital heart disease Coronary thrombosis Cystic fibrosis Cystic fibrosis Dementia Dementia Drug abuse Dysphagia Family history: Alzheimer's disease Family history: Asthma Family history: Breast disease Family history: Coronary thrombosis Family history: Gastrointestinal disease Family history: Glaucoma Family history: Osteoporosis Family history: Thyroid disorder Fibrocystic disease of breast Hereditary disease History of - anemia History of - disorder History of - respiratory disease Human immunodeficiency virus (HIV) seropositivity Hypercholesterolemia Infertile Kidney disease Malignant neoplasm of lung Parkinson's disease Prostate cancer Psychotic disorder Seizure disorder Tuberculosis Renal Disease (Renal calculi in son) (YOLANDA VILLARREAL STUDENT) Physical Exam Vital Signs Vital Signs - First Documented 11/08/17 15:04 Temp 97.3 Pulse 86 Resp 12 B/P (MAP) 124/103 (110) Pulse Ox 97 O2 Delivery Room Air (GEORGI VIGIL MD) Vital Signs Capillary Refill : Less Than 3 Seconds (YOLANDA VILLARREAL STUDENT) Height, Weight, BMI Height: 5'8.00" Weight: 240lbs. 1.0oz. 108.948273iu; 40.6 BMI Method:Stated General Appearance: WD/WN, Anxious, Moderate Distress, Obese HEENT: PERRL/EOMI, TMs Normal, Normal ENT Inspection, Pharynx Normal Neck: Full Range of Motion, Normal Inspection, Non Tender, Supple Cardiovascular: Regular Rate, Rhythm, No Edema, No Gallop, No JVD, No Murmur, Normal Peripheral Pulses Respiratory: Chest Non Tender, Lungs Clear, Normal Breath Sounds, No Accessory Muscle Use, No Respiratory Distress, Accessory Muscle Use Peripheral Pulses: 2+ Dorsalis Pedis (R), 2+ Left Dors-Pedis (L), 2+ Radial Pulses (R), 2+ Radial Pulses (L) Gastrointestinal: Normal Bowel Sounds, No Organomegaly, No Pulsatile Mass, Non Tender, Soft Back: Normal Inspection, No Vertebral Tenderness; No CVA Tenderness (L); CVA Tenderness (R), Other Neurologic/Psychiatric: Alert, Oriented x3, No Motor/Sensory Deficits, Normal Mood/Affect Skin: Normal Color, Warm/Dry (YOLANDA VILLARREAL MED STUDENT) General Appearance: WD/WN, Mild Distress Cardiovascular: Regular Rate, Rhythm, No Murmur Respiratory: Lungs Clear, Normal Breath Sounds Back: Normal Inspection, No Vertebral Tenderness; No CVA Tenderness (L); CVA Tenderness (R) Extremity: Normal Range of Motion, Non Tender Neurologic/Psychiatric: Alert, Oriented x3 (GEORGI VIGIL MD) Progress/Results/Core Measures Results/Orders Lab Results Laboratory Tests Test 11/08/17 15:20 11/08/17 17:17 Range/Units White Blood Count 7.9 4.3-11.0 10^3/uL Red Blood Count 4.87 4.35-5.85 10^6/uL Hemoglobin 15.6 13.3-17.7 G/DL Hematocrit 44 40-54 % Mean Corpuscular Volume 91 80-99 FL Mean Corpuscular Hemoglobin 32 25-34 PG Mean Corpuscular Hemoglobin Concent 35 32-36 G/DL Red Cell Distribution Width 13.2 10.0-14.5 % Platelet Count 279 130-400 10^3/uL Mean Platelet Volume 10.0 7.4-10.4 FL Neutrophils (%) (Auto) 59 42-75 % Lymphocytes (%) (Auto) 29 12-44 % Monocytes (%) (Auto) 8 0-12 % Eosinophils (%) (Auto) 4 0-10 % Basophils (%) (Auto) 0 0-10 % Neutrophils # (Auto) 4.6 1.8-7.8 X 10^3 Lymphocytes # (Auto) 2.3 1.0-4.0 X 10^3 Monocytes # (Auto) 0.6 0.0-1.0 X 10^3 Eosinophils # (Auto) 0.3 0.0-0.3 10^3/uL Basophils # (Auto) 0.0 0.0-0.1 10^3/uL Sodium Level 139 135-145 MMOL/L Potassium Level 3.9 3.6-5.0 MMOL/L Chloride Level 108 H 98-107 MMOL/L Carbon Dioxide Level 23 21-32 MMOL/L Anion Gap 8 5-14 MMOL/L Blood Urea Nitrogen 17 7-18 MG/DL Creatinine 0.76 0.60-1.30 MG/DL Estimat Glomerular Filtration Rate > 60 BUN/Creatinine Ratio 22 Glucose Level 106 H 70-105 MG/DL Calcium Level 9.1 8.5-10.1 MG/DL Corrected Calcium 9.0 8.5-10.1 MG/DL Total Bilirubin 0.4 0.1-1.0 MG/DL Aspartate Amino Transf (AST/SGOT) 16 5-34 U/L Alanine Aminotransferase (ALT/SGPT) 24 0-55 U/L Alkaline Phosphatase 64 40-136 U/L Total Protein 6.7 6.4-8.2 GM/DL Albumin 4.1 3.2-4.5 GM/DL Urine Color YELLOW Urine Clarity CLEAR Urine pH 6 5-9 Urine Specific [place] 1.020 1.016-1.022 Urine Protein NEGATIVE NEGATIVE Urine Glucose (UA) NEGATIVE NEGATIVE Urine Ketones NEGATIVE NEGATIVE Urine Nitrite NEGATIVE NEGATIVE Urine Bilirubin NEGATIVE NEGATIVE Urine Urobilinogen NORMAL NORMAL MG/DL Urine Leukocyte Esterase 1+ H NEGATIVE Urine RBC (Auto) 1+ H NEGATIVE Urine RBC 0-2 /HPF Urine WBC 5-10 H /HPF Urine Crystals NONE /LPF Urine Bacteria TRACE /HPF Urine Casts NONE /LPF Urine Mucus SMALL H /LPF Urine Culture Indicated YES (GEORGI VIGIL MD) My Orders Orders - GEORGI VIGIL MD Cbc With Automated Diff (11/08/17 15:42) Comprehensive Metabolic Panel (11/08/17 15:42) Ua Culture If Indicated (11/08/17 15:42) Saline Lock/Iv-Start (11/08/17 15:42) Ns Iv 1000 Ml (Sodium Chloride 0.9%) (11/08/17 15:42) Ct Abd/Pelvis Wo(Kidney Stone) (11/08/17 15:42) Ketorolac Injection (Toradol Injection) (11/08/17 15:42) Saline Lock/Iv-Start (11/08/17 17:27) Ns Iv 1000 Ml (Sodium Chloride 0.9%) (11/08/17 17:27) Azithromycin Tablet (Zithromax Tablet) (11/08/17 17:27) Ceftriaxone Injection (Rocephin Injectio (11/08/17 17:27) Neis Julian Dna Urine Test (11/08/17 17:27) Chlamydia Trachomatis Urine (11/08/17 17:27) Urine Culture (11/08/17 17:17) Ceftriaxone Injection (Rocephin Injectio (11/08/17 17:45) (GEORGI VIGIL MD) Medications Given in ED Current Medications Medications Dose Ordered Sig/Ellis Route Start Time Stop Time Status Last Admin Dose Admin Ceftriaxone Sodium 250 mg/ Sodium Chloride 50 ml @ 100 mls/hr ONCE ONCE IV 11/08/17 17:45 11/08/17 18:14 11/08/17 17:48 100 MLS/HR Sodium Chloride 1,000 ml @ 0 mls/hr Q0M ONCE IV 11/08/17 15:42 11/08/17 15:43 DC 11/08/17 15:47 1,000 MLS/HR Sodium Chloride 1,000 ml @ 0 mls/hr Q0M ONCE IV 11/08/17 17:27 11/08/17 17:31 DC 11/08/17 17:48 1,000 MLS/HR (GEORGI VIGIL MD) Vital Signs/I&O 11/08/17 15:04 Temp 97.3 Pulse 86 Resp 12 B/P (MAP) 124/103 (110) Pulse Ox 97 O2 Delivery Room Air (GEORGI VIGIL MD) Blood Pressure Mean: 110 Progress Progress Note : Progress Note Seen and evaluated the patient and agree with above except as indicated. I have directed the plan of care. Patient is here with decreased urination intermittently over the last 2 weeks and pain in the right side. States started after he had gone out with his son. He admits to me now that later that evening he actually met up with a lady and had unprotected sex and is a little bit worried about STD. Denies discharge but does have dysuria and pain. Urine chlamydia and gonorrhea testing added to other testing previously ordered. CT abdomen and pelvis kidney stone protocol had been ordered and this was reviewed. No acute findings. Normal saline 1 L bolus was given and repeated. We will give Rocephin 250 mg IV as well as Zithromax 1 g by mouth for concerns of STDs. Is a little better after Toradol given earlier. Pending UA. Monitor patient. 1809: Discharge home with return precautions. Patient verbalize understanding instructions and agreement with plan. (GEORGI VIGIL MD) Diagnostic Imaging Diagonstic Imaging: CT Plain Films/CT/US/NM/MRI: abdomen, pelvis Comments NAME: SILVERFELICIA Shawna MED REC#: [id number] PT STATUS: REG ER : 1970 PHYSICIAN: GEORGI VIGIL MD ADMIT DATE: 11/08/17/ER Signed Date of Exam: 11/08/17 CT ABD/PELVIS WO(KIDNEY STONE) PROCEDURE: CT urinary tract, rule out kidney stone. TECHNIQUE: Multiple contiguous axial images were obtained through the abdomen and pelvis without the use of intravenous contrast. INDICATION: Right flank pain for 2 weeks. Multiple days without urinating. COMPARISON: 06/18/2015 FINDINGS: The lung bases are clear. The heart is normal in size. There is no pericardial effusion. No lesions are seen in the liver or spleen. The adrenal glands are unremarkable. Multiple calcifications are seen in the pancreas. There is no hydronephrosis or obstructing renal calculi seen. There is a nonobstructing 4 mm calculus in the left kidney. There is a 3 cm fluid density lesion in the left kidney consistent with a cyst. There is also a 2.3 cm fluid density lesion in the posterior left kidney with layering milk of calcium, also consistent with a cyst. The bowel loops are nondistended without evidence of obstruction. The appendix is normal. No free fluid or free air is seen. There is diverticulosis of the colon without diverticulitis. No free fluid or free air is seen. Degenerative changes are noted in the spine. There are bilateral L5 pars defects with grade 1 anterolisthesis at L5-S1. IMPRESSION: 1. No hydronephrosis or obstructing renal calculi. There is a nonobstructing 4 mm calculus in the left kidney. 2. Thickening of the urinary bladder wall. Please correlate with urinalysis to evaluate for infection. 3. Colonic diverticulosis without diverticulitis. 4. Findings of chronic pancreatitis without acute edema seen. 5. Bilateral L5 pars defects. Dictated by: Dictated on workstation # [id number] Dict: 11/08/17 1625 Trans: 11/08/17 1642 Interpreted by: OTILIA SOLORIO MD Electronically signed by: OTILIA SOLORIO MD 11/08/17 1642 (GEORGI VIGIL MD) Departure Impression Primary Impression: Urinary tract infection Qualified Codes: N30.00 - Acute cystitis without hematuria Disposition: HOME, SELF-CARE Condition: Stable Departure-Patient Inst. Decision time for Depature: 18:11 (GEORGI VIGIL MD) [place]: [facility] [place] Primary Care Physician Patient Instructions: Low Back Pain (DC), Sexually-Transmitted Diseases (DC), Urinary Tract Infection, Adult (DC) Add. Discharge Instructions: All discharge instructions reviewed with patient and/or family. Voiced understanding. Take medications as directed. Follow-up with your Dr. in a few days for recheck. Return for worsening, fever, vomiting, weakness, breathing problems or other concerns as needed. Drink plenty of fluids. You may take ibuprofen 800 mg every 8 hours as needed for fever or pain. You may take Tylenol/ acetaminophen 1000 mg every 8 hours as needed for fever or pain. Take other medications as prescribed. Scripts Cyclobenzaprine HCl (Cyclobenzaprine HCl) 10 Mg Tablet 10 MG PO Q8H PRN for SPASMS, #15 TAB 0 Refills Prov: GEORGI VIGIL MD 11/08/17 Cephalexin (Cephalexin) 500 Mg Tablet 500 MG PO BID, #10 TAB 0 Refills Prov: GEORGI VIGIL MD 11/08/17 YOLANDA VILLARREAL MED STUDENT Nov 08, 2017 16:01 GEORGI VIGIL MD Nov 08, 2017 17:07
--- NOTE | 2017-11-08 16:34 | Diagnostic Imaging Report ---
PROCEDURE: CT urinary tract, rule out kidney stone. TECHNIQUE: Multiple contiguous axial images were obtained through the abdomen and pelvis without the use of intravenous contrast. INDICATION: Right flank pain for 2 weeks. Multiple days without urinating. COMPARISON: 06/18/2015 FINDINGS: The lung bases are clear. The heart is normal in size. There is no pericardial effusion. No lesions are seen in the liver or spleen. The adrenal glands are unremarkable. Multiple calcifications are seen in the pancreas. There is no hydronephrosis or obstructing renal calculi seen. There is a nonobstructing 4 mm calculus in the left kidney. There is a 3 cm fluid density lesion in the left kidney consistent with a cyst. There is also a 2.3 cm fluid density lesion in the posterior left kidney with layering milk of calcium, also consistent with a cyst. The bowel loops are nondistended without evidence of obstruction. The appendix is normal. No free fluid or free air is seen. There is diverticulosis of the colon without diverticulitis. No free fluid or free air is seen. Degenerative changes are noted in the spine. There are bilateral L5 pars defects with grade 1 anterolisthesis at L5-S1. IMPRESSION: 1. No hydronephrosis or obstructing renal calculi. There is a nonobstructing 4 mm calculus in the left kidney. 2. Thickening of the urinary bladder wall. Please correlate with urinalysis to evaluate for infection. 3. Colonic diverticulosis without diverticulitis. 4. Findings of chronic pancreatitis without acute edema seen. 5. Bilateral L5 pars defects. Dictated by: Dictated on workstation # [id number]
[2017-11-08] MEDS ORDERED: AZITHROMYCIN 250 MG TAB (ZITHROMAX) PO STA (17:27)
[2017-11-08 17:29] LABS: BILIRUBIN,URINE NEGATIVE (NEGATIVE); CLARITY,URINE CLEAR; COLOR,URINE YELLOW; GLUCOSE, URINE (UA) NEGATIVE (NEGATIVE); KETONES,URINE NEGATIVE (NEGATIVE); LEUKOCYTE ESTERASE ,URINE 1+ (NEGATIVE); NITRITE,URINE NEGATIVE (NEGATIVE); PH,URINE 6 (5-9); PROTEIN,URINE NEGATIVE (NEGATIVE); UROBILINOGEN,URINE NORMAL (NORMAL)
[2017-11-08 17:39] LABS: BACTERIA,URINE TRACE /HPF; RBC,URINE 0-2 /HPF
[2017-11-08] MEDS ORDERED: cefTRIAXone INJECTION 250 MG in NS (IVPB) 50 ML IV ONE (17:45)
[2017-11-08] MEDS: CEFTRIAXONE IV STA ×2 (17:49→17:51)
[2017-11-08] MEDS ORDERED: CYCL10TA9 PO (18:15)
[2017-11-08] MEDS ORDERED: CEPH500T PO (18:15)
[2017-11-08 19:03] VITALS: BP 124/103
== END 2017-11-08 19:03 | disposition home or self-care (01) ==
LOC: EDUNIT# 14:57 → ER 15:00
DX: N39.0 Urinary tract infection, site not specified (principal); I10 Essential (primary) hypertension; F41.9 Anxiety disorder, unspecified; F32.9 Major depressive disorder, single episode, unspecified; F17.210 Nicotine dependence, cigarettes, uncomplicated; Z88.1 Allergy status to other antibiotic agents; Z88.0 Allergy status to penicillin
CPT/HCPCS: 36415; 74176; 80053; 81000; 85025; 87088; 87491; 87591

== ENCOUNTER 2017-12-06 11:42 | Emergency (ER) | payer OTHER ==
[~2017-12-06] VITALS: Ht 172.7 cm; Wt 106.6 kg
[~2017-12-06 11:42] MED LIST changes: +CYCL10TA9 PO
--- OUTSIDE RECORDS SUMMARY | 2017-12-06 11:48 | XMS REPORT ---
Author Author gamalielAKOSUA COOK Organization [facility] Address [address] [place] [address] Care Team Providers Care Filing Writer Name Role Phone AKOSUA Keane Unavailable PROBLEMS Type Condition ICD9-CM Code TBE19-IY Code Onset Dates Condition Status SNOMED Code Problem Recurrent cellulitis L03.90 Active 205244065 Problem Chronic fatigue R53.82 Active 90358505 Problem Anxiety F41.9 Active 56736020 Problem Erectile dysfunction, unspecified erectile dysfunction type N52.9 Active 077182346 Problem Moderate single current episode of major depressive disorder F32.1 Active 13835559 Problem Primary insomnia F51.01 Active 6760632 Problem Severe episode of recurrent major depressive disorder, without psychotic features F33.2 Active 14596618 Problem Adjustment disorder with depressed mood F43.21 Active 50132794 Problem Major depressive disorder, recurrent episode, moderate F33.1 Active 693290219 ALLERGIES No Information ENCOUNTERS Encounter Location Date Diagnosis [facility] [id number] [place] [address]- 1992 May, Bronchitis J40 [facility] [id number] [place] [address] [id number] Apr, Chronic periodontitis, generalized K05.329 and Dental examination Z01.20 [facility] [id number] [place] [id number] Apr, [facility] [id number] [place] [address] [id number] Apr, [facility] [address] [address] Apr, Dental examination Z01.20 [facility] [address] [address]- [address] Jan, Erectile dysfunction, unspecified erectile dysfunction type N52.9 [facility] [address] [address] Oct, Erectile dysfunction, unspecified erectile dysfunction type N52.9 [facility] [address] [address] Aug, Erectile dysfunction, unspecified erectile dysfunction type N52.9 [facility] [id number] [place] [address] 421914- 8916 July, [facility] [address] [place] [address] 87131- 3344 Jun, Major depressive disorder, recurrent episode, moderate F33.1 [facility] [id number] [place] [address] 23691- 4516 May, Major depressive disorder, recurrent episode, moderate F33.1 [facility] [address] [place] [address] 70360- 0775 Apr, Major depressive disorder, recurrent episode, moderate F33.1 [facility] [address] [place] [address] 34170- 9791 Apr, Major depressive disorder, recurrent episode, moderate F33.1 [facility] [address] [address] Mar, [facility] [id number] [place] [address] 68356- 5085 Mar, Adjustment disorder with depressed mood F43.21 and Moderate single current episode of major depressive disorder F32.1 [facility] [address] [address] 79[address] Mar, [facility] [id number] [place] [address] 79251- 6000 Mar, Major depressive disorder, recurrent episode, moderate F33.1 [facility] [address] [place] [address] 35244- 3818 Mar, [facility] [id number] [place] [address] 11208- 9868 Mar, Major depressive disorder, recurrent episode, moderate F33.1 [facility] [id number] [place] [address] 25795- 2205 Mar, Anxiety F41.9 ; Severe episode of recurrent major depressive disorder, without psychotic features F33.2 and Primary insomnia F51.01 [address] [address]- [address] Mar, Anxiety F41.9 ; Screen for STD (sexually transmitted disease ) Z11.3 ; Unprotected sex Z72.51 ; Chronic fatigue R53.82 and Recurrent cellulitis L03.90 [facility] [id number] [place] [address] 07008- 9892 Feb, [address] [address] [address]- [address] Jan, Anxiety F41.9 [place] [address] [address]442- 9299 Jan, [address] [address] [address]- 3538 Jan, [facility] [id number] [place] [address] 70799- 4088 Dec, Bronchitis J40 [facility] [id number] [place] [address] 95124- 6160 Dec, [facility] [id number] [place] [address] 60532- 6047 Aug, Hidradenitis suppurativa L73.2 and Morbid obesity due to excess calories E66.01 [facility] [id number] [place] [address] 56449- 9617 16 Aug, 2015 [place] [address] 64091- 8240 13 Aug, 2015 [facility] [id number] [place] [address] 59898- 3227 Aug, [facility] [id number] [place] [address] 76643- 9303 Aug, Recurrent cellulitis L03.90 [facility] [id number] [place] [address] 04867- 2380 July, Recurrent cellulitis L03.90 [facility] [id number] [place] [address] 87252- 8015 Jun, Scrotal abscess N49.2 [place] [address] 06641- 4482 Jun, [facility] [id number] [place] [address] 54643- 2301 May, Back contusion, right, subsequent encounter S20.221D [address] [address] 56007- 4958 May, [facility] [id number] [place] [address] 32193- 2876 Apr, Hearing loss H91.90 and ED (erectile dysfunction) N52.9 [facility] [id number] [place] [address] 76555- 8604 Apr, Essential (primary) hypertension I10 [facility] [id number] [place] [address] 75440- 4243 Apr, Essential (primary) hypertension I10 [facility] [id number] [place] [address] 76271- 7083 16 Dec, 2014 Axillary abscess L02.419 and Hand pain, left M79.642 [facility] [id number] [place] [address] 26886- 2991 28 Nov, 2014 Lower back pain 724.2 and Abscess 682.9 [facility] [id number] [place] [address] 16820- 6436 Oct, Cellulitis and abscess of unspecified site 682.9 and Mononeuritis of unspecified site 355.9 [facility] [id number] [place] [address] 28556- 9301 Oct, Abscess 682.9 [facility] [id number] [place] [address] 45924- 8095 Sep, [facility] [id number] [place] [address] 15959- 9630 Sep, Sinusitis 473.9 ; Nasal congestion 478.19 and Wheezing 786.07 [facility] [facility] [id number] [place] [address] 23512- 5905 Sep, [facility] [id number] [place] [address] 91364- 9639 Sep, Cough 786.2 ; Wheezing 786.07 ; Sinusitis 473.9 and 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 [place] [address] [place] [address] 71588- 0664 Sep, Cerumen impaction 380.4 and Abscess and cellulitis 682.9 [place] [address] [place] [address] 91680- 3030 Aug, [place] [address] [place] [address] 48070- 4630 July, Blepharitis of eyelid of right eye 373.00 [address] [address] [place] [address] 29649- 0591 July, Hordeolum 373.11 [facility] [id number] [place] [address] 32435- 2363 July, [facility] [id number] [place] [address] 95330- 1028 July, Cellulitis and abscess of unspecified site 682.9 [facility] [id number] [place] [address] 25067- 0993 July, Cellulitis and abscess of unspecified site 682.9 [facility] [address] [place] 30 Jun, 2014 Cellulitis and abscess of unspecified site 682.9 and 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 [facility] [address] [address]- 9626 Jun, [facility] [address] [facility] [id number] [place] [address]- 6984 Jun, [facility] [address] [address]- 8388 May, [facility] [address] [address]- 9988 May, [facility] [address] [address]- 9387 May, [facility] [address] [address]- 6726 May, [facility] [address] [address]- 2729 Apr, [facility] [address] [address]- 8307 Apr, [facility] [address] [address]- 5484 Mar, [facility] [address] [address]- 6368 Mar, [facility] [address] [place] 3810 Mar, [facility] [address] [place] [address] [address]006 Mar, [facility] [id number] [address]- 4081 Mar, [facility] [address] [id number] [place] [address]- 4572 Mar, [facility] [place] [facility] [address] [id number] [place] [address]- 4691 Mar, [facility] [place] [facility] [address] [id number] [place] [address]- 7820 Nov, [facility] [place] [facility] [address] [id number] [place] [address]- 5049 Nov, [facility] [place] [facility] [address] [id number] [place] [address]- 4195 Sep, [facility] [place] [facility] [address] [id number] [place] [address]- 4491 Sep, [facility] [place] [facility] [address] [id number] [place] [address]- 8901 Aug, [facility] [place] [facility] [address] [id number] [place] [address]- 8756 Aug, [facility] [place] [facility] [address] [id number] [place] [address]- 5067 July, [facility] [place] [facility] [address] [id number] [place] [address]- 7771 July, [facility] [place] [facility] [address] [id number] [place] [address]- 4170 July, [facility] [place] [facility] [address] [id number] [place] [address]- 9239 July, [facility] [place] [facility] [address] [id number] [place] [address]- 9148 July, [facility] [place] [facility] [address] [id number] [place] [address] July, [facility] [place] [facility] [address] [id number] [place] [address]- 7996 Jun, [facility] [place] [facility] [address] [id number] [place] [address]- 7342 Jun, [facility] [address] [facility] [id number] [place] [address]- 1740 Mar, [facility] [address] [id number] [place] [address]- 5658 Mar, [facility] [address] [facility] [id number] [place] [address]- 5139 Oct, [facility] [address] [id number] [place] [address]- 6610 Aug, [facility] [address] [facility] [id number] [place] [address]- 2700 July, [facility] [address] [facility] [id number] [place] [address]- 8654 July, [facility] [address] [facility] [id number] [place] [address]- 9073 Jun, [facility] [address] [facility] [id number] [place] [address]- 4050 Jun, [facility] [address] [facility] [id number] [place] [address]- 2218 Jun, [facility] [address] [facility] [id number] [place] [address]- 6822 Jun, [facility] [address] [facility] [id number] [place] [address]- 9797 Sep, [facility] [address] [facility] [id number] [place] [address]- 0744 Aug, [facility] [address] [facility] [id number] [place] [address]- 6129 Aug, [facility] [address] [facility] [id number] [place] [address]- 7426 Aug, [facility] [address] [facility] [id number] [place] [address]- 4954 Jan, IMMUNIZATIONS No Known Immunizations SOCIAL HISTORY Never Assessed REASON FOR VISIT PLAN OF CARE VITAL SIGNS MEDICATIONS No Known Medications RESULTS No Results PROCEDURES No Known procedures INSTRUCTIONS MEDICATIONS ADMINISTERED No Known Medications MEDICAL (GENERAL) HISTORY Type Description Date Medical History hypertension Medical History lymphnode biopsy; right axilla as a child Medical History hypogonadism Medical History headache Medical History back pain Medical History MRSA Surgical History incision and drainage abscess Surgical History vasectomy Surgical History lymph node biopsy right axilla as a child Surgical History left knee scope Hospitalization History elevated BP, syncope 08/2011 Hospitalization History I&D, IV antibx 07/2013 Hospitalization History Sepsis, Abcess of scrotum (MRSA) 07/05/14 Hospitalization History Sepsis, Scrotal cellulitis-[facility] 09/03/15 Hospitalization History anxiety 02/03/16
--- OUTSIDE RECORDS SUMMARY | 2017-12-06 11:48 | XMS REPORT | Clinical Summary ---
Author Author [facility] Organization [facility] Address Unknown Phone Unavailable Care Team Providers Care City Superintendent Name Role Phone Database, Physician Not In PCP Unavailable Source Comments Some departments are not documenting in the electronic medical record. If you do not see the information that you expected, contact Release of Information in the Health Information Management department at [phone] for further assistance in locating additional records.[facility] Allergies Not on File Current Medications Not on file Active Problems Not on file Social History Tobacco Use Types Packs/Day Years Used Date Never Assessed Sex Assigned at Date Recorded Not on file Last Filed Vital Signs Not on file Plan of Treatment Health Maintenance Due Date Last Done Comments PHYSICAL (COMPREHENSIVE) 1977 EXAM PERTUSSIS VACCINE 1981 HIV SCREENING 1985 TETANUS VACCINE 12/28/1987 INFLUENZA VACCINE 12/26/2017 Results Not on filefrom Last 3 Months
--- OUTSIDE RECORDS SUMMARY | 2017-12-06 11:48 | XMS REPORT ---
Author Author gamalielAKOSUA COOK Organization [facility] Address [address] [place] [address] Care Team Providers Care College Coach Name Role Phone AKOSUA Keane Unavailable PROBLEMS Type Condition ICD9-CM Code WQH22-FW Code Onset Dates Condition Status SNOMED Code Problem Recurrent cellulitis L03.90 Active 288012251 Problem Chronic fatigue R53.82 Active 22818023 Problem Anxiety F41.9 Active 39877707 Problem Erectile dysfunction, unspecified erectile dysfunction type N52.9 Active 476559633 Problem Moderate single current episode of major depressive disorder F32.1 Active 48175178 Problem Primary insomnia F51.01 Active 5240357 Problem Severe episode of recurrent major depressive disorder, without psychotic features F33.2 Active 99680756 Problem Adjustment disorder with depressed mood F43.21 Active 33887703 Problem Major depressive disorder, recurrent episode, moderate F33.1 Active 699029648 ALLERGIES No Information ENCOUNTERS Encounter Location Date Diagnosis [facility] [id number] [place] [address]9093- 8581 May, Bron[address]40 [facility] [id number] [place] [address] [id number] Apr, Chronic periodontitis, generalized K05.329 and Dental examination Z01.20 [facility] [id number] [place] [id number] Apr, [facility] [id number] [place] [address] [id number] Apr, [facility] [address] [address]- [address] Apr, Dental examination Z01.20 [facility] [address] [address]- [address]89 Jan, Erectile dysfunction, unspecified erectile dysfunction type N52.9 [facility] [address] [address] Oct, Erectile dysfunction, unspecified erectile dysfunction type N52.9 [facility] [address] [address] Aug, Erectile dysfunction, unspecified erectile dysfunction type N52.9 [facility] [id number] [place] [address] 351445- 2756 July, [facility] [id number] [place] [address] 20669- 8453 Jun, Major depressive disorder, recurrent episode, moderate F33.1 [facility] [id number] [place] [address] 91337- 4276 May, Major depressive disorder, recurrent episode, moderate F33.1 [facility] [id number] [place] [address] 89012- 4178 Apr, Major depressive disorder, recurrent episode, moderate F33.1 [facility] [id number] [place] [address] 11827- 3774 Apr, Major depressive disorder, recurrent episode, moderate F33.1 [facility] [address], [place] [address] Mar, [facility] [id number] [place] [address] 82989- 9760 Mar, Adjustment disorder with depressed mood F43.21 and Moderate single current episode of major depressive disorder F32.1 [facility] [address] [address] 84[address] Mar, [facility] [id number] [place] [address] 69275- 8092 Mar, Major depressive disorder, recurrent episode, moderate F33.1 [facility] [address] [place] [address] 07269- 9529 Mar, [facility] [id number] [place] [address] 04385- 7777 Mar, Major depressive disorder, recurrent episode, moderate F33.1 [facility] [id number] [place] [address] 15901- 9933 Mar, Anxiety F41.9 ; Severe episode of recurrent major depressive disorder, without psychotic features F33.2 and Primary insomnia F51.01 [place] [address] [address]234- 9382 Mar, Anxiety F41.9 ; Screen for STD (sexually transmitted disease ) Z11.3 ; Unprotected sex Z72.51 ; Chronic fatigue R53.82 and Recurrent cellulitis L03.90 [place] [id number] [place] [address] 68153- 1633 Feb, [place] [address] 47886- 7960 Jan, Anxiety F41.9 [place] [address] 93489- 4539 Jan, [place] [address] 64911- 3392 Jan, [place] [id number] [place] [address] 63486- 6172 Dec, Bronchitis J40 [place] [id number] [place] [address] 27078- 4339 Dec, [place] [id number] [place] [address] 20085- 2341 Aug, Hidradenitis suppurativa L73.2 and Morbid obesity due to excess calories E66.01 [facility] [id number] [place] [address] 55957- 9741 16 Aug, 2015 [place] [address] 99567- 1074 13 Aug, 2015 [facility] [id number] [place] [address] 43705- 9469 Aug, [facility] [id number] [place] [address] 69658- 8063 Aug, Recurrent cellulitis L03.90 [facility] [id number] [place] [address] 94693- 1059 July, Recurrent cellulitis L03.90 [facility] [id number] [place] [address] 17487- 6439 Jun, Scrotal abscess N49.2 [place] [address] 61030- 6519 Jun, [facility] [id number] [place] [address] 84504- 0565 May, Back contusion, right, subsequent encounter S20.221D [place] [address] 83477- 0202 May, [facility] [id number] [place] [address] 99434- 4504 Apr, Hearing loss H91.90 and ED (erectile dysfunction) N52.9 [place] [id number] [place] [address] 92785- 5472 Apr, Essential (primary) hypertension I10 [place] [id number] [place] [address] 80824- 7331 Apr, Essential (primary) hypertension I10 [place] [id number] [place] [address] 12846- 5786 16 Dec, 2014 Axillary abscess L02.419 and Hand pain, left M79.642 [facility] [id number] [place] [address] 33799- 2066 28 Nov, 2014 Lower back pain 724.2 and Abscess 682.9 [place] [id number] [place] [address] 80486- 9206 Oct, Cellulitis and abscess of unspecified site 682.9 and Mononeuritis of unspecified site 355.9 [place] [id number] [place] [address] 66315- 1706 Oct, Abscess 682.9 [place] [id number] [place] [address] 76847- 9757 Sep, [place] [id number] [place] [address] 51122- 2755 Sep, Sinusitis 473.9 ; Nasal congestion 478.19 and Wheezing 786.07 [place] [id number] [place] [address] 28524- 7212 Sep, [place] [id number] [place] [address] 57070- 4515 Sep, Cough 786.2 ; Wheezing 786.07 ; Sinusitis 473.9 and 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 [place] [address] [place] [address] 49063- 6697 Sep, Cerumen impaction 380.4 and Abscess and cellulitis 682.9 [place] [address] [place] [address] 63043- 2295 Aug, [place] [address] [place] [address] 56482- 0192 July, Blepharitis of eyelid of right eye 373.00 [place] [address] [place] [address] 16037- 4240 July, Hordeolum 373.11 [place] [id number] [place] [address] 70201- 9423 July, [place] [id number] [place] [address] 55293- 2116 July, Cellulitis and abscess of unspecified site 682.9 [place] [id number] [place] [address] 73618- 9235 July, Cellulitis and abscess of unspecified site 682.9 [facility] [address] 116[address] 30 Jun, 2014 Cellulitis and abscess of unspecified site 682.9 and 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 [facility] [address], [place] [address]- 6026 Jun, [facility] [address] [facility] [id number] [address]- 4611 Jun, [facility] [address], [place] [address]- 6156 May, [facility] [address], [place] [address]- 6808 May, [facility] [address], [place] [address]- 7176 May, [facility] [address], [place] [address]- 2790 May, [facility] [address], [place] [address]- 2245 Apr, [facility] [address], [place] [address]- 4958 Apr, [facility] [address], [place] [address]- 1509 Mar, [facility] [address], [place] [address]- 9555 Mar, [facility] [address] 7247 Mar, [facility] [id number] 4718 Mar, [facility] [id number] [address]- 3307 Mar, [facility] [address] [id number] [place] [address]- 6017 Mar, [facility] [place] [facility] [address] [id number] [place] [address]- 8044 Mar, [facility] [place] [facility] [address] [id number] [place] [address]- 1240 Nov, [facility] [place] [facility] [address] [id number] [place] [address]- 9110 Nov, [facility] [place] [facility] [address] [id number] [place] [address]- 7837 Sep, [facility] [place] [facility] [address] [id number] [place] [address]- 9371 Sep, [facility] [place] [facility] [address] [id number] [place] [address]- 7888 Aug, [facility] [place] [facility] [address] [id number] [place] [address]- 5246 Aug, [facility] [place] [facility] [address] [id number] [place] [address]- 1808 July, [facility] [place] [facility] [address] [id number] [place] [address]- 3374 July, [facility] [place] [facility] [address] [id number] [place] [address]- 8863 July, [facility] [place] [facility] [address] [id number] [place] [address]- 8508 July, [facility] [place] [facility] [address] [id number] [place] [address]- 5633 July, [facility] [place] [facility] [address] [id number] [place] [address]233 July, [facility] [place] [facility] [address] [id number] [place] [address]- 3569 Jun, [facility] [place] [facility] [address] [id number] [place] [address]- 9463 Jun, [facility] [address] [id number] [place] [address]- 9928 Mar, [facility] [address] [id number] [place] [address]- 1988 Mar, [facility] [address] [facility] [id number] [place] [address]- 2245 Oct, [facility] [address] [id number], [place] [address]- 4341 Aug, [facility] [address] [id number] [place] [address]- 6647 July, [facility] [address] [facility] [id number], [place] [address]- 3020 July, [facility] [address] [facility] [id number] [place] [address]- 3482 Jun, [facility] [address] [facility] [id number], [place] [address]- 4885 Jun, [facility] [address] [facility] [id number], [place] [address]- 1704 Jun, [facility] [address] [facility] [id number], [place] [address]- 5134 Jun, [facility] [address] [facility] [id number], [place] [address]- 4713 Sep, [facility] [address] [facility] [id number], [place] [address]- 1065 Aug, [facility] [address] [facility] [id number], [place] [address]- 1924 Aug, [facility] [address] [facility] [id number], [place] [address]- 7175 Aug, [facility] [address] [facility] [id number], [place] [address]- 3739 Jan, IMMUNIZATIONS No Known Immunizations SOCIAL HISTORY Never Assessed REASON FOR VISIT Pain PLAN OF CARE VITAL SIGNS MEDICATIONS No [...]
--- OUTSIDE RECORDS SUMMARY | 2017-12-06 11:49 | XMS REPORT ---
Author Author ALEXSANDRA PATRICK Organization [facility] Address [address] [place] [address] Care Team Providers Care Drivers' Cash Clerk Name Role Phone ALEXSANDRA PATRICK Unavailable PROBLEMS Type Condition ICD9-CM Code SNB00-NL Code Onset Dates Condition Status SNOMED Code Problem Recurrent cellulitis L03.90 Active 934199497 Problem Chronic fatigue R53.82 Active 25973990 Problem Anxiety F41.9 Active 01479921 Problem Erectile dysfunction, unspecified erectile dysfunction type N52.9 Active 320021900 Problem Moderate single current episode of major depressive disorder F32.1 Active 15357195 Problem Primary insomnia F51.01 Active 0955627 Problem Severe episode of recurrent major depressive disorder, without psychotic features F33.2 Active 06085596 Problem Adjustment disorder with depressed mood F43.21 Active 30299215 Problem Major depressive disorder, recurrent episode, moderate F33.1 Active 009500344 ALLERGIES Substance Reaction Event Type Date Status Penicillin V Potassium Unknown Drug Allergy May, Active ENCOUNTERS Encounter Location Date Diagnosis [facility] [address] [address] May, Bronchitis J40 [facility] [id number] [place] [phone] Apr, Chronic periodontitis, generalized K05.329 and Dental examination Z01.20 [facility] [id number] [place] [id number] Apr, [facility] [address] [id number] Apr, [facility] [address] [address] Apr, Dental examination Z01.20 [facility] [address] [address] Jan, Erectile dysfunction, unspecified erectile dysfunction type N52.9 [facility] [address] [address] Oct, Erectile dysfunction, unspecified erectile dysfunction type N52.9 [facility] [address] [address] Aug, Erectile dysfunction, unspecified erectile dysfunction type N52.9 [facility] [id number] [place] [address] 231131- [address] July, [facility] [id number] [place] [address] [id number]- [address] Jun, Major depressive disorder, recurrent episode, moderate F33.1 [facility] [address] [place] [address]- [address] May, Major depressive disorder, recurrent episode, moderate F33.1 [facility] [id number] [place] [address]96- [address] Apr, Major depressive disorder, recurrent episode, moderate F33.1 [facility] [address] [place] [address]- [address] Apr, Major depressive disorder, recurrent episode, moderate F33.1 [facility] [address] [address] Mar, [facility] [address] [place] [address]56- [address] Mar, Adjustment disorder with depressed mood F43.21 and Moderate single current episode of major depressive disorder F32.1 [facility] [address] [place] [address] 6[address]28- 56[address] Mar, [facility] [address] [place] [address] [id number]- 6660 Mar, Major depressive disorder, recurrent episode, moderate F33.1 [facility] [id number] [place] [address] 8[address]31- 9589 Mar, [facility] [address] [place] [address] 75825- 7614 Mar, Major depressive disorder, recurrent episode, moderate F33.1 [facility] [id number] [place] [address] 11684- 06[address] Mar, Anxiety F41.9 ; Severe episode of recurrent major depressive disorder, without psychotic features F33.2 and Primary insomnia F51.01 [facility] [id number] [place] [address]- 84[address] Mar, Anxiety F41.9 ; Screen for STD (sexually transmitted disease ) Z11.3 ; Unprotected sex Z72.51 ; Chronic fatigue R53.82 and Recurrent cellulitis L03.90 [facility] [id number] [place] [address]- [address] Feb, [facility] [id number] [place] [address]01- 6[address] Jan, Anxiety F41.9 [facility] [id number] [place] [address] 06072- 3[address] Jan, [facility] [id number] [place] [address] 85256- 2925 Jan, [facility] [id number] [place] [address] 44781- 1782 Dec, Bronchitis J40 [facility] [id number] [place] [address]23- 8103 Dec, [facility] [id number] [place] [address] 75382- 2[address] Aug, Hidradenitis suppurativa L73.2 and Morbid obesity due to excess calories E66.01 [facility] [address] [place] [address] 38256- 8663 16 Aug, 2015 [facility] [id number] [place] [address] 19848- 2943 Aug, [facility] [address] [address] Aug, [facility] [id number] [place] [address] 07465- 68[address] Aug, Recurrent cellulitis L03.90 [facility] [id number] [place] [address] 88777- 4891 July, Recurrent cellulitis L03.90 [facility] [id number] [place] [address] 27204- 1286 Jun, Scrotal abscess N49.2 [facility] [address] [address] Jun, [facility] [id number] [place] [address] 75784- 49[address] May, Back contusion, right, subsequent encounter S20.221D [facility] [id number] [place] [address] 7[address]- 25[address] May, [facility] [id number] [place] [address] 26379- 1625 Apr, Hearing loss H91.90 and ED (erectile dysfunction) N52.9 [facility] [id number] [place] [address] 62616- 6294 Apr, Essential (primary) hypertension I10 [facility] [id number] [place] [address] 21700- 6849 Apr, Essential (primary) hypertension I10 [facility] [id number] [place] [address] 25361- 8970 Dec, Axillary abscess L02.419 and Hand pain, left M79.642 [facility] [id number] [place] [address] 65461- 3[address] 28 Nov, 2014 Lower back pain 724.2 and Abscess 682.9 [facility] [address] [place] [address]- [address] Oct, Cellulitis and abscess of unspecified site 682.9 and Mononeuritis of unspecified site 355.9 [facility] [id number] [place] [address] 22812- 8101 Oct, Abscess 682.9 [facility] [id number] [place] [address] 86734- 7518 Sep, [facility] [id number] [place] [address] 01954- 8149 Sep, Sinusitis 473.9 ; Nasal congestion 478.19 and Wheezing 786.07 [facility] [id number] [place] [address] 34670- 6265 Sep, [facility] [id number] [place] [address] 09327- 3768 Sep, Cough 786.2 ; Wheezing 786.07 ; Sinusitis 473.9 and 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 [facility] [id number] [place] [address] 48289- 9587 Sep, Cerumen impaction 380.4 and Abscess and cellulitis 682.9 [facility] [id number] [place] [address] 35961- 6491 Aug, [facility] [id number] [place] [address] 87023- 6746 July, Blepharitis of eyelid of right eye 373.00 [facility] [address] [place] [address] 07538- 7013 July, Hordeolum 373.11 [facility] [id number] [place] [address] 58195- 0417 July, [facility] [address] [place] [address] 46519- 2115 July, Cellulitis and abscess of unspecified site 682.9 [facility] [id number] [address]- [address] July, Cellulitis and abscess of unspecified site 682.9 [facility] [address] [address]- [address] 30 Jun, 2014 Cellulitis and abscess of unspecified site 682.9 and 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 [facility] [address] [address]- 20[address] Jun, [facility] [id number] [address]- 18[address] Jun, [facility] [address] [address]- 6[address] May, [facility] [address] [address]- [address] May, [facility] [address] [address]- 31[address] May, [facility] [address], [place] [address]- 5[address] May, [facility] [address] [address]- 4[address] Apr, [facility] [id number] [address]- 9810 Apr, [facility] [id number] [address]- [address] Mar, [facility] [id number] [address]- 1589 Mar, [facility] [id number] [address]- 0851 Mar, [facility] [id number] [address]- 1178 Mar, [facility] [id number] [address]- 8771 Mar, [facility] [place] [facility] [address] [id number] [place] [address]- 9665 Mar, [facility] [address] [id number] [place] [address]- 7926 Mar, [facility] [place] [facility] [address] [id number] [place] [address]- 2301 Nov, [facility] [place] [facility] [address] [id number] [place] [address]- 5344 Nov, [facility] [address] [id number] [place] [address]- 1199 Sep, [facility] [place] [facility] [address] [id number] [place] [address]- 5635 Sep, [facility] [address] [id number] [place] [address]- 4344 Aug, [facility] [address] [id number] [place] [address]- 8970 Aug, [facility] [address] [id number] [place] [address]- 9725 July, [facility] [address] [id number] [place] [address]- 1302 July, [facility] [place] [facility] [address] [id number] [place] [address]- 3164 July, [facility] [place] [facility] [address] [id number] [place] [address]- 4866 July, [facility] [place] [facility] [address] [id number] [place] [address]- 4799 July, [facility] [place] [facility] [address] [id number] [place] [address]- 9690 July, [facility] [place] [facility] [address] [id number] [place] [address]- 9804 Jun, [facility] [place] [facility] [address] [id number] [address]- 8759 Jun, [facility] [address] [id number] [place] [address] Mar, [facility] [address] [facility] [id number] [place] [address]- 2236 Mar, [facility] [address] [facility] [id number] [place] [address]- 1363 Oct, [facility] [address] [id number] [address]- 7124 Aug, [facility] [address] [facility] [id number] [place] [address]- 7260 July, [facility] [address] [facility] [id number] [place] [address]- 4700 July, [facility] [address] [facility] [id number] [place] [address] Jun, [facility] [address] [facility] [id number] [place] [address]- 7157 Jun, [facility] [address] [facility] [id number], [place] [address]- 2311 Jun, [facility] [address] [facility] [id number], [place] [address]- 6514 Jun, [facility] [address] [facility] [id number][place] [address]- 0797 Sep, [facility] [address] [facility] [id number] [address]- 2296 Aug, [facility] [address] [facility] [id number]- 1172 Aug, [facility] [address] [facility] [id number][place]- 8693 Aug, [facility] [address] [facility] [id number][place] [address] Jan, IMMUNIZATIONS No Known Immunizations SOCIAL HISTORY Never Assessed REASON FOR VISIT Congestion, SOB, cough with yellow phlem-Sonia CHARLES PLAN OF CARE VITAL SIGNS Height 68 in 2017-06-03 Weight 243.8 lbs 2017-06-03 Temperature 98.1 degrees Fahrenheit 2017-06-03 Heart Rate 82 bpm 2017-06-03 Respiratory Rate 20 2017-06-03 Oximetry 97 % 2017-06-03 BMI 37.07 kg/m2 2017-06-03 Blood pressure systolic 148 mmHg 2017-06-03 Blood pressure diastolic 98 mmHg 2017-06-03 MEDICATIONS Medication Instructions Dosage Frequency Start Date End Date Duration Status Metformin HCl 500 MG Orally Twice a day 1 tablet with meals 12h Aug, 30 day(s) Not-Taking Doxycycline Hyclate 100 MG Orally every 12 hrs , 17 (#28) 1 tablet Aug, Not-Taking Naproxen 500 MG Orally every 12 hrs 1 tablet as needed 12h 10 Aug, 2015 Not-Taking Sildenafil Citrate 25 MG Orally Once a day 1 tablet as needed 24h Not-Taking PredniSONE 20 mg Orally Once a day 2 tablets 24h May, May, 05 days Active Viagra 100 mg Orally Once a day 1 tablet 24h 10 Active Mupirocin 2 % Externally 2 times a day apply sparingly to affected area 1 application to affected area Aug, Not-Taking Remeron 15 MG Orally Once a day 0 5 tablet at bedtime 24h Mar, 30 days Not-Taking Ativan 2 MG Orally 2 times a day 1 tablet as needed 12h 11 Jan, 2016 Not-Taking Zoloft 50 mg Orally Once a day 1 tablet 24h 24 Mar, 2016 Not-Taking Hydrochlorothiazide 25 MG Orally Once a day 1 tablet 24h Aug, Not-Taking Excedrin Extra Strength Not-Taking Doxycycline Hyclate 100 mg Orally every 12 hrs 1 capsule 12h May, May, 10 days Active RESULTS No Results PROCEDURES No Known procedures [...]
--- OUTSIDE RECORDS SUMMARY | 2017-12-06 11:49 | XMS REPORT ---
Author Author [facility] Address [address] [place] [address] Care Team Providers Care Post Closer Name Role Phone SARAH ROSENTHALALONSO Unavailable PROBLEMS Type Condition ICD9-CM Code LPC50-LD Code Onset Dates Condition Status SNOMED Code Problem Recurrent cellulitis L03.90 Active 414987589 Problem Chronic fatigue R53.82 Active 63303297 Problem Anxiety F41.9 Active 08172649 Problem Erectile dysfunction, unspecified erectile dysfunction type N52.9 Active 026003205 Problem Moderate single current episode of major depressive disorder F32.1 Active 23179900 Problem Primary insomnia F51.01 Active 4333502 Problem Severe episode of recurrent major depressive disorder, without psychotic features F33.2 Active 92670621 Problem Adjustment disorder with depressed mood F43.21 Active 50380495 Problem Major depressive disorder, recurrent episode, moderate F33.1 Active 350668816 ALLERGIES Substance Reaction Event Type Date Status Penicillin V Potassium Unknown Drug Allergy Mar, Active SOCIAL HISTORY No smoking Hx information available PLAN OF CARE Activity Details Follow Up 4 Weeks Reason: VITAL SIGNS Height 68 in 2016-04-20 Weight 241.0 lbs 2016-04-20 Heart Rate 100 bpm 2016-04-20 Respiratory Rate 20 2016-04-20 BMI 36.64 kg/m2 2016-04-20 Blood pressure systolic 110 mmHg 2016-04-20 Blood pressure diastolic 81 mmHg 2016-04-20 MEDICATIONS Medication Instructions Dosage Frequency Start Date End Date Duration Status Zoloft 50 mg Orally Once a day 1 tablet 24h Mar, Active RESULTS No Results PROCEDURES Procedure Date Ordered Related Diagnosis Body Site MH Office Visit, Est Pt., Level 3 Apr 20, 2016 IMMUNIZATIONS No Known Immunizations
--- OUTSIDE RECORDS SUMMARY | 2017-12-06 11:49 | XMS REPORT ---
Author Author ROWAN TAHIR Organization [facility] Address [address] [place] [address] Care Team Providers Care Vehicle Damage Appraiser Name Role Phone TAHIR DONAHUE Unavailable PROBLEMS Type Condition ICD9-CM Code ZIS16-HI Code Onset Dates Condition Status SNOMED Code Problem Recurrent cellulitis L03.90 Active 470380043 Problem Chronic fatigue R53.82 Active 52081690 Problem Anxiety F41.9 Active 32988647 Problem Erectile dysfunction, unspecified erectile dysfunction type N52.9 Active 972356690 Problem Moderate single current episode of major depressive disorder F32.1 Active 09018681 Problem Primary insomnia F51.01 Active 5860762 Problem Severe episode of recurrent major depressive disorder, without psychotic features F33.2 Active 89345076 Problem Adjustment disorder with depressed mood F43.21 Active 66952589 Problem Major depressive disorder, recurrent episode, moderate F33.1 Active 054335785 ALLERGIES Substance Reaction Event Type Date Status Penicillin V Potassium Unknown Drug Allergy Mar, Active SOCIAL HISTORY No smoking Hx information available PLAN OF CARE Activity Details Follow Up 2 Weeks Reason:for [facility] emergency department intake VITAL SIGNS Height 68 in 2016-04-07 Weight 240.9 lbs 2016-04-07 Temperature 98.0 degrees Fahrenheit 2016-04-07 Heart Rate 92 bpm 2016-04-07 Respiratory Rate 20 2016-04-07 BMI 36.62 kg/m2 2016-04-07 Blood pressure systolic 148 mmHg 2016-04-07 Blood pressure diastolic 90 mmHg 2016-04-07 MEDICATIONS Medication Instructions Dosage Frequency Start Date End Date Duration Status Ativan 2 MG Orally 2 times a day 1 tablet as needed 12h Jan, Active Remeron 15 MG Orally Once a day 0 5 tablet at bedtime 24h Mar, 30 days Active RESULTS No Results PROCEDURES Procedure Date Ordered Related Diagnosis Body Site Office Visit, Est Pt., Level 3 Apr 07, 2016 IMMUNIZATIONS No Known Immunizations
--- OUTSIDE RECORDS SUMMARY | 2017-12-06 11:49 | XMS REPORT ---
Author Author ALEXSANDRA PATRICK [facility] Address [address] [place] [address] Care Team Providers Care Polyethylene Bag Machine Operator Name Role Phone DARNELL ALEXSANDRA Unavailable PROBLEMS Type Condition ICD9-CM Code COV20-IM Code Onset Dates Condition Status SNOMED Code Problem Recurrent cellulitis L03.90 Active 778724990 Problem Chronic fatigue R53.82 Active 10386500 Problem Anxiety F41.9 Active 66881712 Problem Erectile dysfunction, unspecified erectile dysfunction type N52.9 Active 097778459 Problem Moderate single current episode of major depressive disorder F32.1 Active 28059029 Problem Primary insomnia F51.01 Active 4115629 Problem Severe episode of recurrent major depressive disorder, without psychotic features F33.2 Active 29990894 Problem Adjustment disorder with depressed mood F43.21 Active 32973280 Problem Major depressive disorder, recurrent episode, moderate F33.1 Active 106795480 ALLERGIES No Information SOCIAL HISTORY Never Assessed PLAN OF CARE VITAL SIGNS MEDICATIONS Medication Instructions Dosage Frequency Start Date End Date Duration Status Viagra 100 MG Orally Once a day 1 tablet 24h 18 Active RESULTS No Results PROCEDURES No Known procedures IMMUNIZATIONS No Known Immunizations MEDICAL (GENERAL) HISTORY Type Description Date Medical [...]
--- OUTSIDE RECORDS SUMMARY | 2017-12-06 11:49 | XMS REPORT ---
Author Author BRYANNA KWONG Organization [facility] Address [address] [place] [address] Care Team Providers Care Cook Chief Name Role Phone BRYANNA KWONG Unavailable PROBLEMS Type Condition ICD9-CM Code VIN46-OL Code Onset Dates Condition Status SNOMED Code Problem Recurrent cellulitis L03.90 Active 837486925 Problem Chronic fatigue R53.82 Active 94844761 Problem Anxiety F41.9 Active 25814021 Problem Erectile dysfunction, unspecified erectile dysfunction type N52.9 Active 410277980 Problem Moderate single current episode of major depressive disorder F32.1 Active 41506794 Problem Primary insomnia F51.01 Active 4323558 Problem Severe episode of recurrent major depressive disorder, without psychotic features F33.2 Active 91041423 Problem Adjustment disorder with depressed mood F43.21 Active 17885887 Problem Major depressive disorder, recurrent episode, moderate F33.1 Active 974053359 ALLERGIES No Information SOCIAL HISTORY Never Assessed PLAN OF CARE Activity Details Follow Up Next available Reason:BH F/U VITAL SIGNS MEDICATIONS Unknown Medications RESULTS No Results PROCEDURES Procedure Date Ordered Result Body Site Psychotherapy, patient &/family, 45 minutes, established patient May 19, 2016 IMMUNIZATIONS No Known Immunizations MEDICAL (GENERAL) HISTORY [...]
--- OUTSIDE RECORDS SUMMARY | 2017-12-06 11:50 | XMS REPORT ---
Author Author BRYANNA KWONG [facility] Address [address] [place] [address] Care Team Providers Care Dramatic Art Teacher Name Role Phone BRYANNA KWONG Unavailable PROBLEMS Type Condition ICD9-CM Code ZHF35-NJ Code Onset Dates Condition Status SNOMED Code Problem Recurrent cellulitis L03.90 Active 156339796 Problem Chronic fatigue R53.82 Active 81315475 Problem Anxiety F41.9 Active 78038942 Problem Erectile dysfunction, unspecified erectile dysfunction type N52.9 Active 349553231 Problem Moderate single current episode of major depressive disorder F32.1 Active 05625904 Problem Primary insomnia F51.01 Active 2599183 Problem Severe episode of recurrent major depressive disorder, without psychotic features F33.2 Active 66329010 Problem Adjustment disorder with depressed mood F43.21 Active 50601570 Problem Major depressive disorder, recurrent episode, moderate F33.1 Active 441882211 ALLERGIES Unknown Allergies SOCIAL HISTORY No smoking Hx information available PLAN OF CARE Activity Details Follow Up 1 Week Reason:BH F/U VITAL SIGNS MEDICATIONS Unknown Medications RESULTS No Results PROCEDURES Procedure Date Ordered Related Diagnosis Body Site Psychotherapy, patient &/family, 45 minutes, established patient Apr 15, 2016 IMMUNIZATIONS No Known Immunizations
--- OUTSIDE RECORDS SUMMARY | 2017-12-06 11:50 | XMS REPORT ---
Author Author BRYANNA KWONG Organization [facility] Address [address] [place] [address] Care Team Providers Care Yeast Culture Developer Name Role Phone BRYANNA KWONG Unavailable PROBLEMS Type Condition ICD9-CM Code BIC62-LW Code Onset Dates Condition Status SNOMED Code Problem Recurrent cellulitis L03.90 Active 667362823 Problem Chronic fatigue R53.82 Active 35640273 Problem Anxiety F41.9 Active 68609844 Problem Erectile dysfunction, unspecified erectile dysfunction type N52.9 Active 520195308 Problem Moderate single current episode of major depressive disorder F32.1 Active 49573185 Problem Primary insomnia F51.01 Active 2600823 Problem Severe episode of recurrent major depressive disorder, without psychotic features F33.2 Active 76278677 Problem Adjustment disorder with depressed mood F43.21 Active 82595384 Problem Major depressive disorder, recurrent episode, moderate F33.1 Active 073760480 ALLERGIES No Information SOCIAL HISTORY Never Assessed PLAN OF CARE Activity Details Follow Up 2 Weeks Reason:BH F/U VITAL SIGNS MEDICATIONS Unknown Medications RESULTS No Results PROCEDURES Procedure Date Ordered Result Body Site Psychotherapy, patient &/family, 45 minutes, established patient June 16, 2016 IMMUNIZATIONS No Known Immunizations MEDICAL (GENERAL) [...]
--- OUTSIDE RECORDS SUMMARY | 2017-12-06 11:50 | XMS REPORT ---
Author Author ALEXSANDRA PATRICK [facility] Address [address] [place] [address] Care Team Providers Care Bow Making Machine Operator Name Role Phone ALEXSANDRA PATRICK Unavailable PROBLEMS Type Condition ICD9-CM Code [id number] Code Onset Dates Condition Status SNOMED Code Problem Recurrent cellulitis L03.90 Active 223167409 Problem Chronic fatigue R53.82 Active 98581606 Problem Anxiety F41.9 Active 66729164 Problem Erectile dysfunction, unspecified erectile dysfunction type N52.9 Active 912390300 Problem Moderate single current episode of major depressive disorder F32.1 Active 70238261 Problem Primary insomnia F51.01 Active 8775026 Problem Severe episode of recurrent major depressive disorder, without psychotic features F33.2 Active 67612914 Problem Adjustment disorder with depressed mood F43.21 Active 45140472 Problem Major depressive disorder, recurrent episode, moderate F33.1 Active 572592263 ALLERGIES Unknown Allergies SOCIAL HISTORY No smoking Hx information available PLAN OF CARE VITAL SIGNS MEDICATIONS Unknown Medications RESULTS No Results PROCEDURES No Known procedures IMMUNIZATIONS No Known Immunizations
--- OUTSIDE RECORDS SUMMARY | 2017-12-06 11:50 | XMS REPORT ---
Author Author ALEXSANDRA PATRICK [facility] Address [address] [place] [address] Care Team Providers Care Dietetic Aide Name Role Phone ALEXSANDRA PATRICK Unavailable PROBLEMS Type Condition ICD9-CM Code [id number] Code Onset Dates Condition Status SNOMED Code Problem Recurrent cellulitis L03.90 Active 051869980 Problem Chronic fatigue R53.82 Active 83773248 Problem Anxiety F41.9 Active 23520461 Problem Erectile dysfunction, unspecified erectile dysfunction type N52.9 Active 466244192 Problem Moderate single current episode of major depressive disorder F32.1 Active 39772581 Problem Primary insomnia F51.01 Active 6877909 Problem Severe episode of recurrent major depressive disorder, without psychotic features F33.2 Active 78064674 Problem Adjustment disorder with depressed mood F43.21 Active 23546701 Problem Major depressive disorder, recurrent episode, moderate F33.1 Active 015154320 ALLERGIES Substance Reaction Event Type Date Status Penicillin V Potassium Unknown Drug Allergy Mar, Active SOCIAL HISTORY No smoking Hx information available PLAN OF CARE VITAL SIGNS Height 68 in 2016-04-01 Weight 243.3 lbs 2016-04-01 Temperature 98.6 degrees Fahrenheit 2016-04-01 Heart Rate 94 bpm 2016-04-01 Respiratory Rate 20 2016-04-01 BMI 36.99 kg/m2 2016-04-01 Blood pressure systolic 162 mmHg 2016-04-01 Blood pressure diastolic 102 mmHg 2016-04-01 MEDICATIONS Medication Instructions Dosage Frequency Start Date End Date Duration Status Viagra 100 MG Orally Once a day 1 tablet 24h 18 Active Ativan 2 MG Orally 2 times a day 1 tablet as needed 12h 11 Jan, 2016 Active RESULTS Name Result Date Reference Range TESTOSTERONE, TOTAL 2016-04-01 Testosterone, Serum 153 [id number] Comment: CBC 2016-04-01 WBC 11.6 3.4-10.8 RBC 5.13 4.14-5.80 Hemoglobin 16.0 12.6-17.7 Hematocrit 47.8 37.5-51.0 MCV 93 79-97 MCH 31.2 26.6-33.0 MCHC 33.5 31.5-35.7 RDW 13.5 12.3-15.4 Platelets 319 150-379 Neutrophils 79 Lymphs 14 Monocytes 6 Eos 1 Basos 0 Neutrophils (Absolute) 9.1 1.4-7.0 Lymphs (Absolute) 1.7 0.7-3.1 Monocytes(Absolute) 0.7 0.1-0.9 Eos (Absolute) 0.1 0.0-0.4 Baso (Absolute) 0.0 0.0-0.2 Immature Granulocytes 0 Immature Grans (Abs) 0.0 0.0-0.1 CRP 2016-04-01 C-Reactive Protein, Quant 3.1 0.0-4.9 CMP 2016-04-01 Glucose, Serum 100 65-99 BUN 16 6-24 Creatinine, Serum 0.77 0.76-1.27 eGFR If NonAfricn Am 110 >59 eGFR If Africn Am 127 >59 BUN/Creatinine Ratio 21 9-20 Sodium, Serum 141 134-144 Potassium, Serum 4.3 3.5-5.2 Chloride, Serum 102 96-106 Carbon Dioxide, Total 21 18-29 Calcium, Serum 9.7 8.7-10.2 Protein, Total, Serum 6.7 6.0-8.5 Albumin, Serum 4.7 3.5-5.5 Globulin, Total 2.0 1.5-4.5 A/G Ratio 2.4 1.1-2.5 Bilirubin, Total 0.5 0.0-1.2 Alkaline Phosphatase, S 74 39-117 AST (SGOT) 12 0-40 ALT (SGPT) 18 0-44 GC/CHLAM URINE (STATE) 2016-04-01 CHLAMYDIA GC HEP C ANTIBODY (STATE) 2016-04-01 RESULTS HIV (STATE) HEP B SURFACE ANTIGEN (STATE) 2016-04-01 HEP B ANTIBODY HEP B ANTIBODY (RML) HEP B ANTIBODY (STATE) SYPHILIS (STATE) 2016-04-01 PROCEDURES Procedure Date Ordered Related Diagnosis Body Site Office Visit, Est Pt., Level 3 Apr 01, 2016 C-REACTIVE PROTEIN Apr 01, 2016 VENIPUNCT, ROUTINE* Apr 01, 2016 COMPLETE CBC W/AUTO DIFF WBC Apr 01, 2016 ASSAY OF TOTAL TESTOSTERONE Apr 01, 2016 No Charge Apr 01, 2016 COMPREHEN METABOLIC PANEL Apr 01, 2016 IMMUNIZATIONS No Known Immunizations
--- OUTSIDE RECORDS SUMMARY | 2017-12-06 11:50 | XMS REPORT ---
Author Author BRYANNA KWONG Organization [facility] Address [address] [place] [address] Care Team Providers Care Green Energy Marketing Analyst Name Role Phone BRYANNA KWONG Unavailable PROBLEMS Type Condition ICD9-CM Code [id number] Code Onset Dates Condition Status SNOMED Code Problem Recurrent cellulitis L03.90 Active 933212771 Problem Chronic fatigue R53.82 Active 04193823 Problem Anxiety F41.9 Active 95554797 Problem Erectile dysfunction, unspecified erectile dysfunction type N52.9 Active 315967918 Problem Moderate single current episode of major depressive disorder F32.1 Active 73162033 Problem Primary insomnia F51.01 Active 1291169 Problem Severe episode of recurrent major depressive disorder, without psychotic features F33.2 Active 48958427 Problem Adjustment disorder with depressed mood F43.21 Active 45533461 Problem Major depressive disorder, recurrent episode, moderate F33.1 Active 458611701 ALLERGIES No Information SOCIAL HISTORY Never Assessed PLAN OF CARE Activity Details Follow Up 1 Week Reason:BH F/U VITAL SIGNS MEDICATIONS Unknown Medications RESULTS No Results PROCEDURES Procedure Date Ordered Result Body Site Psychotherapy, patient &/family, 45 minutes, established patient May 13, 2016 IMMUNIZATIONS No Known Immunizations MEDICAL (GENERAL) [...]
--- OUTSIDE RECORDS SUMMARY | 2017-12-06 11:50 | XMS REPORT ---
Author Author ALEXSANDRA PATRICK Organization [facility] Address [address] [place] [address] Care Team Providers Care Form Maker Name Role Phone ALEXSANDRA PATRICK Unavailable PROBLEMS Type Condition ICD9-CM Code GHC28-PB Code Onset Dates Condition Status SNOMED Code Problem Recurrent cellulitis L03.90 Active 878188174 Problem Chronic fatigue R53.82 Active 70663873 Problem Anxiety F41.9 Active 27656146 Problem Erectile dysfunction, unspecified erectile dysfunction type N52.9 Active 221440446 Problem Moderate single current episode of major depressive disorder F32.1 Active 58642430 Problem Primary insomnia F51.01 Active 8709319 Problem Severe episode of recurrent major depressive disorder, without psychotic features F33.2 Active 83919858 Problem Adjustment disorder with depressed mood F43.21 Active 85890502 Problem Major depressive disorder, recurrent episode, moderate F33.1 Active 649660159 ALLERGIES No Information ENCOUNTERS Encounter Location Date Diagnosis [facility] [address] [address] May, Bronchitis J40 [facility] [id number] [place] [id number] Apr, Chronic periodontitis, generalized K05.329 and Dental examination Z01.20 [facility] [address] [id number] Apr, [facility] [id number] [place] [id number] Apr, [facility] [address] [address] Apr, Dental examination Z01.20 [facility] [address] [address] Jan, Erectile dysfunction, unspecified erectile dysfunction type N52.9 [facility] [address] [address] Oct, Erectile dysfunction, unspecified erectile dysfunction type N52.9 [facility] [address] [address] Aug, Erectile dysfunction, unspecified erectile dysfunction type N52.9 [facility] [id number] [place] [address] July, [facility] [id number] [place] [address] Jun, Major depressive disorder, recurrent episode, moderate F33.1 [facility] [id number] [place] [address] May, Major depressive disorder, recurrent episode, moderate F33.1 [facility] [address], [place] [address] Apr, Major depressive disorder, recurrent episode, moderate F33.1 [facility] [address], [place] [address] Apr, Major depressive disorder, recurrent episode, moderate F33.1 [facility] [address], [place] [address] Mar, [facility] [address] [address] Mar, Adjustment disorder with depressed mood F43.21 and Moderate single current episode of major depressive disorder F32.1 [facility] [address], [place] [address] Mar, [facility] [id number] [place] [address] Mar, Major depressive disorder, recurrent episode, moderate F33.1 [facility] [address], [place] [address] Mar, [facility] [id number] [place] [address] Mar, Major depressive disorder, recurrent episode, moderate F33.1 [facility] [id number] [place] [address] Mar, Anxiety F41.9 ; Severe episode of recurrent major depressive disorder, without psychotic features F33.2 and Primary insomnia F51.01 [facility] [address] [address] Mar, Anxiety F41.9 ; Screen for STD (sexually transmitted disease ) Z11.3 ; Unprotected sex Z72.51 ; Chronic fatigue R53.82 and Recurrent cellulitis L03.90 [facility] [id number] [place] [address] Feb, [facility] [address] [address] Jan, Anxiety F41.9 [facility] [id number] [place] [address] Jan, [facility] [address] [address] Jan, [facility] [id number] [place] [address] Dec, Bronchitis J40 [facility] [id number] [place] [address] Dec, [facility] [id number] [place] [address] Aug, Hidradenitis suppurativa L73.2 and Morbid obesity due to excess calories E66.01 [facility] [id number] [place] [address] 16 Aug, 2015 [facility] [id number] [place] [address]- [address] Aug, [facility] [id number] [place] [address]- [address] 08 Aug, 2015 [facility] [id number] [place] [address]- [address] Aug, Recurrent cellulitis L03.90 [facility] [id number] [place] [address] July, Recurrent cellulitis L03.90 [facility] [address] [address] Jun, Scrotal abscess N49.2 [facility] [address] [address] Jun, [facility] [address] [address] May, Back contusion, right, subsequent encounter S20.221D [facility] [address] [address] May, [facility] [id number] [place] [address] Apr, Hearing loss H91.90 and ED (erectile dysfunction) N52.9 [facility] [id number] [place] [address] Apr, Essential (primary) hypertension I10 [facility] [id number] [place] [address]- [address] Apr, Essential (primary) hypertension I10 [facility] [id number] [place] [address]- [address] Dec, Axillary abscess L02.419 and Hand pain, left M79.642 [facility] [id number] [place] [address] Nov, Lower back pain 724.2 and Abscess 682.9 [facility] [id number] [place] [address] Oct, Cellulitis and abscess of unspecified site 682.9 and Mononeuritis of unspecified site 355.9 [facility] [id number] [place] [address] Oct, Abscess 682.9 [facility] [id number] [place] [address]- [address] Sep, [facility] [id number] [place] [address] Sep, Sinusitis 473.9 ; Nasal congestion 478.19 and Wheezing 786.07 [facility] [id number] [place] [address]- [address] Sep, [facility] [id number] [place] [address]- 29[address] Sep, Cough 786.2 ; Wheezing 786.07 ; Sinusitis 473.9 and 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 [facility] [id number] [place] [address]- 18[address] Sep, Cerumen impaction 380.4 and Abscess and cellulitis 682.9 [facility] [address] [place] [address]- [address] Aug, [facility] [id number] [place] [address]- [address] July, Blepharitis of eyelid of right eye 373.00 [facility] [address] [place] [address]- [address] July, Hordeolum 373.11 [facility] [address] [place] [address]- [address] July, [facility] [id number] [place] [address]- [address] July, Cellulitis and abscess of unspecified site 682.9 [facility] [id number] [place] [address]- 4398 July, Cellulitis and abscess of unspecified site 682.9 [facility] [address] [facility] [id number] [address] 30 Jun, 2014 Cellulitis and abscess of unspecified site 682.9 and 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 [facility] [address] [id number], [place] [address] Jun, [facility] [address] [id number], [place] [address] Jun, [facility] [address] [id number], [place] [address] May, [facility] [address] [id number], [place] [address] May, [facility] [address] [facility] [id number], [place] [address] May, [facility] [address] [facility] [id number], [place] [address] May, [facility] [address] [facility] [id number], [place] [address]- [address] Apr, [facility] [address] [facility] [id number], [place] [address]- [address] Apr, [facility] [address] [facility] [id number], [place] [address] Mar, [facility] [address] [facility] [id number], [place] [address]- [address] Mar, [facility] [address] [id number], [place] [address]- [address] Mar, [facility] [address] [facility] [id number], [place] [address] Mar, [facility] [address] [facility] [id number] [address] Mar, [facility] [address] [id number] [place] [address] Mar, [facility] [address] [id number] [place] [address]- [address] Mar, [facility] [place] [facility] [address] [id number] [place] [address]- 0677 Nov, [facility] [place] [facility] [address] [id number] [place] [address]- 1564 Nov, [facility] [place] [facility] [address] [id number] [place] [address]- 9968 Sep, [facility] [place] [facility] [address] [id number] [place] [address]- 2692 Sep, [facility] [place] [facility] [address] [id number] [place] [address]- 2[address] Aug, [facility] [address] [id number] [place] [address]- 5847 Aug, [facility] [place] [facility] [address] [id number] [place] [address]- 2862 July, [facility] [place] [facility] [address] [id number] [place] [address]- [address] July, [facility] [place] [facility] [address] [id number] [place] [address]- 1409 July, [facility] [place] [facility] [address] [id number] [place] [address]- 3890 July, [facility] [place] [facility] [address] [id number] [place] [address]- 0463 July, [facility] [place] [facility] [address] [id number] [place] [address]- 0500 July, [facility] [place] [facility] [address] [id number] [place] [address]- 6910 Jun, [facility] [place] [facility] [address] [id number] [place] [address]- 69[address] Jun, [facility] [place] [facility] [address] [facility] [id number], [place] [address]- [address] Mar, [facility] [address] [facility] [id number], [place] [address]- [address] Mar, [facility] [address] [facility] [id number], [place] [address]- [address] Oct, [facility] [address] [facility] [id number], [place] [address]- [address] Aug, [facility] [address] [id number] [place] [address]- 34[address] July, [facility] [address] [facility] [id number] [place] [address]- 6[address] July, [facility] [address] [facility] [id number], [place] [address]- [address] Jun, [facility] [id number], [place] [address]- [address] Jun, [facility] [address] [facility] [id number], [place] [address]- [address] Jun, [facility] [address] [facility] [id number], [place] [address]- 8[address] Jun, [facility] [id number], [place] [address]- [address] Sep, [facility] [id number], [place] [address]- 1329 Aug, [facility] [address] [facility] [id number], [place] [address]- [address]27 Aug, [facility] [address] [facility] [id number], [place] [address]- [address] Aug, [facility] [address] [facility] [id number], [place] [address]- [address] Jan, IMMUNIZATIONS No Known Immunizations SOCIAL HISTORY Never Assessed REASON FOR VISIT Refill request PLAN OF CARE VITAL SIGNS MEDICATIONS Medication Instructions Dosage Frequency Start Date End Date Duration Status Viagra 100 mg Orally Once a day 1 tablet 24h Active RESULTS No Results PROCEDURES No Known [...]
--- OUTSIDE RECORDS SUMMARY | 2017-12-06 11:50 | XMS REPORT ---
Author Author ALEXSANDRA PATRICK Organization [facility] Address [address] [place] [address] Care Team Providers Care Utility Aircrewman Name Role Phone ALEXSANDRA PATRICK Unavailable PROBLEMS Type Condition ICD9-CM Code FRH62-EF Code Onset Dates Condition Status SNOMED Code Problem Recurrent cellulitis L03.90 Active 191091431 Problem Chronic fatigue R53.82 Active 19004596 Problem Anxiety F41.9 Active 67109382 Problem Erectile dysfunction, unspecified erectile dysfunction type N52.9 Active 484026287 Problem Moderate single current episode of major depressive disorder F32.1 Active 22273853 Problem Primary insomnia F51.01 Active 0420605 Problem Severe episode of recurrent major depressive disorder, without psychotic features F33.2 Active 58054574 Problem Adjustment disorder with depressed mood F43.21 Active 19772687 Problem Major depressive disorder, recurrent episode, moderate F33.1 Active 137523929 ALLERGIES No Information ENCOUNTERS Encounter Location Date Diagnosis [facility] [address] [address] May, Bronchitis J40 [facility] [id number] [place] [id number] Apr, Chronic periodontitis, generalized K05.329 and Dental examination Z01.20 [facility] [address] [id number] Apr, [facility] [id number] [place] [id number] Apr, [facility] [address] [address] Apr, Dental examination Z01.20 [facility] [address] [address] Jan, Erectile dysfunction, unspecified erectile dysfunction type N52.9 [facility] [id number] [address] Oct, Erectile dysfunction, unspecified erectile dysfunction type N52.9 [facility] [id number] [address] Aug, Erectile dysfunction, unspecified erectile dysfunction type N52.9 [facility] [id number] [place] [address] July, [facility] [id number] [place] [address] 20268- 2798 Jun, Major depressive disorder, recurrent episode, moderate F33.1 [facility] [id number] [place] [address]- [address] May, Major depressive disorder, recurrent episode, moderate F33.1 [facility] [address] [address] Apr, Major depressive disorder, recurrent episode, moderate F33.1 [facility] [address] [address] Apr, Major depressive disorder, recurrent episode, moderate F33.1 [facility] [address] [address] Mar, [facility] [address] [address] Mar, Adjustment disorder with depressed mood F43.21 and Moderate single current episode of major depressive disorder F32.1 [facility] [address] [address] Mar, [facility] [id number] [place] [address] 264[address]- 5616 Mar, Major depressive disorder, recurrent episode, moderate F33.1 [facility] [address] [address] Mar, [place] [id number] [place] [address]25- 0678 Mar, Major depressive disorder, recurrent episode, moderate F33.1 [place] [id number] [place] [address]87- 2750 Mar, Anxiety F41.9 ; Severe episode of recurrent major depressive disorder, without psychotic features F33.2 and Primary insomnia F51.01 [place] [address] [address] Mar, Anxiety F41.9 ; Screen for STD (sexually transmitted disease ) Z11.3 ; Unprotected sex Z72.51 ; Chronic fatigue R53.82 and Recurrent cellulitis L03.90 [place] [id number] [place] [address]252- 1107 Feb, [place] [address] [address] Jan, Anxiety F41.9 [place] [id number] [place] [address]17- 7695 Jan, [place] [address] [address] Jan, [place] [id number] [place] [address] 67417- 8007 Dec, Bronchitis J40 [place] [id number] [place] [address] 82556- 2970 Dec, [place] [id number] [place] [address] 95795- 9664 Aug, Hidradenitis suppurativa L73.2 and Morbid obesity due to excess calories E66.01 [place] [id number] [place] [address] 51767- 2591 16 Aug, 2015 [place] [id number] [place] [address] 47082- 4754 Aug, [place] [id number] [place] [address] 16778- 66[address] 08 Aug, 2015 [facility] [id number] [place] [address] 07466- 4631 Aug, Recurrent cellulitis L03.90 [facility] [id number] [place] [address] 39830- 3731 July, Recurrent cellulitis L03.90 [place] [address] [address]- [address] Jun, Scrotal abscess N49.2 [place] [address] [address]- [address] Jun, [place] [address] [address]- [address] May, Back contusion, right, subsequent encounter S20.221D [place] [address] [address]- [address] May, [place] [id number] [place] [address] 95487- 4292 Apr, Hearing loss H91.90 and ED (erectile dysfunction) N52.9 [place] [id number] [place] [address] 50771- 7239 Apr, Essential (primary) hypertension I10 [place] [id number] [place] [address] 80674- 5921 Apr, Essential (primary) hypertension I10 [place] [id number] [place] [address] 36033- 0377 Dec, Axillary abscess L02.419 and Hand pain, left M79.642 [place] [id number] [place] [address] 89039- 9523 Nov, Lower back pain 724.2 and Abscess 682.9 [place] [id number] [place] [address] 59068- 5096 Oct, Cellulitis and abscess of unspecified site 682.9 and Mononeuritis of unspecified site 355.9 [place] [id number] [place] [address] 64636- 4749 Oct, Abscess 682.9 [place] [id number] [place] [address] 69044- 5387 Sep, [facility] [id number] [place] [address] 03914- 5811 Sep, Sinusitis 473.9 ; Nasal congestion 478.19 and Wheezing 786.07 [place] [id number] [place] [address] 35702- 0416 Sep, [place] [id number] [place] [address] 29384- 6305 Sep, Cough 786.2 ; Wheezing 786.07 ; Sinusitis 473.9 and 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 [place] [id number] [place] [address] 37220- 7613 Sep, Cerumen impaction 380.4 and Abscess and cellulitis 682.9 [place] [id number] [place] [address] 66425- 7163 Aug, [place] [id number] [place] [address] 67819- 0816 July, Blepharitis of eyelid of right eye 373.00 [place] [id number] [place] [address] 50833- 4434 July, Hordeolum 373.11 [place] [id number] [place] [address] 77982- 2623 July, [place] [id number] [place] [address] 40518- 7308 July, Cellulitis and abscess of unspecified site 682.9 [place] [id number] [place] [address] 53599- 8644 July, Cellulitis and abscess of unspecified site 682.9 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 [address] [id number], [place] [address]- [address]10 Jun, [facility] [address] [id number], [place] [address]- 0311 Jun, [facility] [address] [id number], [place] [address]- 6204 May, [facility] [address] [id number], [place] [address]- 5443 May, [facility] [address] [facility] [id number], [place] [address]- 7653 May, [facility] [address] [facility] [id number], [place] [address]- 0876 May, [facility] [address] [facility] [id number], [place] [address]- 0052 Apr, [facility] [address] [facility] [id number], [place] [address]- 5521 Apr, [facility] [address] [facility] [id number], [place] [address]- 8776 Mar, [facility] [address] [facility] [id number][place] [address]- 9842 Mar, [facility] [address] [id number], [place] [address]- 2688 Mar, [facility] [address] [facility] [id number], [place] [address]- 9446 Mar, [facility] [address] [facility] [id number] [address] Mar, [facility] [address] [id number] [place] [address]- 6480 Mar, [facility] [address] [id number] [place] [address]- 9586 Mar, [facility] [place] [facility] [address] [id number] [place] [address]- 1208 Nov, [facility] [place] [facility] [address] [id number] [place] [address]- 8404 Nov, [facility] [place] [facility] [address] [id number] [place] [address]- 4444 Sep, [facility] [place] [facility] [address] [id number] [place] [address]- 9913 Sep, [facility] [place] [facility] [address] [id number] [place] [address]- 6081 Aug, [facility] [address] [id number] [place] [address]- 9722 Aug, [facility] [place] [facility] [address] [id number] [place] [address]- 6413 July, [facility] [place] [facility] [address] [id number] [place] [address]- 2721 July, [facility] [place] [facility] [address] [id number] [place] [address]- 2343 July, [facility] [place] [facility] [address] [id number] [place] [address]- 8475 July, [facility] [place] [facility] [address] [id number] [place] [address]- 8333 July, [facility] [place] [facility] [address] [id number] [place] [address]- 2864 July, [facility] [place] [facility] [address] [id number] [place] [address]- 9905 Jun, [facility] [place] [facility] [address] [id number] [place] [address]- 5599 Jun, [facility] [place] [facility] [address] [facility] [id number], [place] [address]- 4165 Mar, [facility] [address] [facility] [id number][place] [address]70 Mar, [facility] [address] [facility] [id number], [place] [address]- 1482 Oct, [facility] [address] [facility] [id number], [place] [address]- 2691 Aug, [facility] [address] [id number] [place] [address]- 0209 July, [facility] [address] [facility] [id number] [place] [address]- 2302 July, [facility] [address] [facility] [id number], [place] [address]- 7409 Jun, [facility] [id number], [place] [address]- 7605 Jun, [facility] [address] [facility] [id number], [place] [address]- 6172 Jun, [facility] [address] [id number], [place] [address]- 8107 Jun, [facility] [id number], [place] [address]- 2648 Sep, [facility] [address] [id number], [place] [address]- 3514 Aug, [facility] [address] [facility] [id number], [place] [address]- 4428 Aug, [facility] [address] [facility] [id number]- 9158 Aug, [facility] [address] [facility] [id number], [place] [address]- 4494 Jan, IMMUNIZATIONS No Known Immunizations SOCIAL HISTORY Never Assessed REASON FOR VISIT med refill PLAN OF CARE VITAL SIGNS MEDICATIONS Medication Instructions Dosage Frequency Start Date End Date Duration Status Viagra 100 MG Orally Once a day 1 tablet 24h 30 days Active RESULTS No Results PROCEDURES No [...]
--- OUTSIDE RECORDS SUMMARY | 2017-12-06 11:50 | XMS REPORT ---
Author Author [facility]IMO [facility]HAL [facility] Address [address] [place] [address] Care Team Providers Care Dressage Judge Name Role Phone JERONIMO ROSENTHAL Unavailable PROBLEMS Type Condition ICD9-CM Code [id number] Code Onset Dates Condition Status SNOMED Code Problem Recurrent cellulitis L03.90 Active 594783531 Problem Chronic fatigue R53.82 Active 22783128 Problem Anxiety F41.9 Active 17173400 Problem Erectile dysfunction, unspecified erectile dysfunction type N52.9 Active 611002397 Problem Moderate single current episode of major depressive disorder F32.1 Active 78733334 Problem Primary insomnia F51.01 Active 9788145 Problem Severe episode of recurrent major depressive disorder, without psychotic features F33.2 Active 14181585 Problem Adjustment disorder with depressed mood F43.21 Active 18481577 Problem Major depressive disorder, recurrent episode, moderate F33.1 Active 269362773 ALLERGIES Unknown Allergies SOCIAL HISTORY No smoking Hx information available PLAN OF CARE VITAL SIGNS MEDICATIONS Unknown Medications RESULTS No Results PROCEDURES No Known procedures IMMUNIZATIONS No Known Immunizations
--- OUTSIDE RECORDS SUMMARY | 2017-12-06 11:51 | XMS REPORT ---
Author Author ALEXSANDRA PATRICK [facility] Address [address] [place] [address] Care Team Providers Care Dye Beck Reel Operator Name Role Phone ALEXSANDRA PATRICK Unavailable PROBLEMS Type Condition ICD9-CM Code HLL64-TM Code Onset Dates Condition Status SNOMED Code Problem Recurrent cellulitis L03.90 Active 518117226 Problem Chronic fatigue R53.82 Active 03924402 Problem Anxiety F41.9 Active 92845090 Problem Erectile dysfunction, unspecified erectile dysfunction type N52.9 Active 918291688 Problem Moderate single current episode of major depressive disorder F32.1 Active 38959106 Problem Primary insomnia F51.01 Active 2073986 Problem Severe episode of recurrent major depressive disorder, without psychotic features F33.2 Active 26755250 Problem Adjustment disorder with depressed mood F43.21 Active 23185020 Problem Major depressive disorder, recurrent episode, moderate F33.1 Active 967468404 ALLERGIES Unknown Allergies SOCIAL HISTORY No smoking Hx information available PLAN OF CARE VITAL SIGNS MEDICATIONS Unknown Medications RESULTS No Results PROCEDURES No Known procedures IMMUNIZATIONS No Known Immunizations
--- OUTSIDE RECORDS SUMMARY | 2017-12-06 11:53 | XMS REPORT | Continuity of Care Document ---
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 KAYLA K 787.7 ABNORMAL FECES 04/10/2014 CARVER DO, KAYLA K 789.00 ABDOMINAL PAIN UNSPECIFIED SITE 04/10/2014 CLIFFORD SR TECHNICAL SALES CONSULTANTANA MARIAEMILE S 564.00 CONSTIPATION 04/10/2014 CLIFFORD SR TECHNICAL SALES CONSULTANT, EMILE S 787.7 ABNORMAL FECES 04/10/2014 CLIFFORD SR [employer] SAL[employer] CONSULTANTANA MARIAEMILE S 789.00 ABDOMINAL PAIN UNSPECIFIED SITE 04/10/2014 GHANSHYAM ARMSTRONGNFELTONDAVID R 564.00 CONSTIPATION 04/10/2014 GHANSHYAM SR TECHNICAL SALES CONSULTANT, DAVID R 787.7 ABNORMAL FECES 04/10/2014 GHANSHYAM ARMSTRONGNFELTONDAVID R 789.00 ABDOMINAL PAIN UNSPECIFIED SITE 04/10/2014 CARVER DO, KAYLA K 564.00 CONSTIPATION 04/10/2014 CARVER DO, KAYLA K 787.7 ABNORMAL FECES 04/10/2014 CARVER DO, KAYLA K 789.00 ABDOMINAL PAIN UNSPECIFIED SITE 04/10/2014 ALEXSANDRA PATRICK APRN 564.00 CONSTIPATION 04/10/2014 ALEXSANDRA PATRICK APRN 787.7 ABNORMAL FECES 04/10/2014 ALEXSANDRA PATRICK APRN 789.00 ABDOMINAL PAIN UNSPECIFIED SITE 04/23/2014 CARVER DO, KYALA K 704.8 OTHER SPECIFIED DISEASES OF HAIR AND HAIR FOLLICLES 04/23/2014 EMILE HORTON APRN S 704.8 OTHER SPECIFIED DISEASES OF HAIR AND HAIR FOLLICLES 04/23/2014 DAVID MORRISSEY APRN R 704.8 OTHER SPECIFIED DISEASES OF HAIR AND HAIR FOLLICLES 04/23/2014 CARVER DO, KAYLA K 704.8 OTHER SPECIFIED DISEASES OF HAIR AND HAIR FOLLICLES 04/23/2014 ALEXSANDRA PATRICK APRN 704.8 OTHER SPECIFIED DISEASES OF HAIR AND HAIR FOLLICLES 04/25/2014 CARVER DO, KAYLA K Ot 038.9 04/25/2014 CARVER DO, KAYLA K Ot 305.1 04/25/2014 CARVER DO, KAYLA K Ot 401.9 04/25/2014 CARVER DO, KAYLA K Ot 682.3 04/25/2014 KAYLA CARVER DO Ot 995.91 04/28/2014 KAYLA CARVER DO Ot 038.9 SEPTICEMIA NOS 04/28/2014 KAYLA CARVER DO Ot 041.10 BACTERIAL INFEC DUE TO UNSPEC STAPHYLOCO 04/28/2014 JULIÁN CARVER DOA K Ot 305.1 TOBACCO USE DISORDER 04/28/2014 KAYLA CARVER DO K Ot 401.9 HYPERTENSION NOS 04/28/2014 KAYLA CARVER DO Ot 682.3 CELLULITIS OF ARM 04/28/2014 WEN FITZGERALD KAYLA K Ot 705.83 HIDRADENITIS 04/28/2014 KAYLA CARVER DO K Ot 995.91 SEPSIS 06/03/2014 EIMLE HORTON APRN S 380.4 CERUMEN IMPACTION 06/03/2014 EMILE HORTON APRN S 461.9 SINUSITIS ACUTE 06/03/2014 DAVID MORRISSEY APRN R 380.4 CERUMEN IMPACTION 06/03/2014 DAVID MORRISSEY APRN R 461.9 SINUSITIS ACUTE 06/03/2014 WEN FITZGERALDKAYLA K 380.4 CERUMEN IMPACTION 06/03/2014 WEN FITZGERALDKAYLA K 461.9 SINUSITIS ACUTE 06/03/2014 ALEXSANDRA PATRICK APRN 380.4 CERUMEN IMPACTION 06/03/2014 ALEXSANDRA PATRICK APRN 461.9 SINUSITIS ACUTE 06/05/2014 EMILE HORTON APRN S 681.10 UNSPECIFIED CELLULITIS AND ABSCESS OF TOE 06/05/2014 DAVID MORRISSEY APRN R 681.10 UNSPECIFIED CELLULITIS AND ABSCESS OF TOE 06/05/2014 KAYLA CARVER DO K 681.10 UNSPECIFIED CELLULITIS AND ABSCESS OF TOE 06/05/2014 ALEXSANDRA PATRICK APRN 681.10 UNSPECIFIED CELLULITIS AND ABSCESS OF TOE 06/25/2014 DAVID MORRISSEY APRN R 724.2 LUMBAGO 06/25/2014 DAVID MORRISSEY APRN R 780.79 OTHER MALAISE AND FATIGUE 06/25/2014 JULIÁN CARVER DOA K 724.2 LUMBAGO 06/25/2014 KAYLA CARVER DO K 780.79 OTHER MALAISE AND FATIGUE 06/25/2014 ALEXSANDRA PATRICK APRN 724.2 LUMBAGO 06/25/2014 ALEXSANDRA PATRICK APRN T 780.79 OTHER MALAISE AND FATIGUE 07/13/2014 ALEXSANDRA PATRICK APRN T 257.2 HYPOGONADISM 06/18/2015 JOSSELYN AVERY, YOLANDA T Ot M43.16 SPONDYLOLISTHESIS, LUMBAR REGION 06/18/2015 JOSSELYN AVERY, YOLANDA T Ot M47.896 OTHER SPONDYLOSIS, LUMBAR REGION 06/18/2015 JOSSELYN AVERY, YOLANDA T Ot N28.1 CYST OF KIDNEY, ACQUIRED 06/18/2015 JOSSELYN AVERY, YOLANDA T Ot R91.1 SOLITARY PULMONARY NODULE 06/18/2015 JOSSELYN VAERY, YOLANDA T Ot S20.211A CONTUSION OF RIGHT FRONT WALL OF THORAX, 06/18/2015 JOSSELYN AVERY, YOLANDA T Ot S30.0XXA CONTUSION OF LOWER BACK AND PELVIS, INIT 06/18/2015 JOSSELYN AVERY, YOLANDA T Ot W10.9XXA FALL (ON) (FROM) UNSPECIFIED STAIRS AND 06/18/2015 JOSSELYN AVERY, YOLANDA T Ot Y99.8 OTHER EXTERNAL CAUSE STATUS 06/18/2015 JOSSELYN AVERY, YOLANDA T Ot M43.16 06/18/2015 JOSSELYN AVERY, YOLANDA T Ot M47.896 06/18/2015 JOSSELYN AVERY, YOLANDA T Ot N28.1 06/18/2015 JOSSELYN AVERY, YOLANDA T Ot R91.1 06/18/2015 JOSSELYN AVERY, YOLANDA T Ot S20.211A 06/18/2015 JOSSELYN AVERY, YOLANDA T Ot S30.0XXA 06/18/[address], YOLANDA T Ot W10.9XXA 06/18/2015 JOSSELYN AVERY, YOLANDA T Ot Y99.8 07/07/2015 ALLIE AVERY, GIORGIO Gudino Ot A41.9 07/07/2015 ALLIE AVERY, GIORGIO Gudino Ot I10 07/07/2015 ALLIE AVERY, GIORGIO N Ot L27.0 07/07/2015 ALLIE AVERY, GIORGIO Gudino Ot N49.2 07/07/2015 GIORGIO KELLEY MD, Ot T36.8X5A 07/07/2015 GIORGIO KELLEY MD, Ot Z87.891 07/08/2015 GIORGIO KELLEY MD, Ot A41.9 SEPSIS, UNSPECIFIED ORGANISM 07/08/2015 GIORGIO KELLEY MD, Ot I10 ESSENTIAL (PRIMARY) HYPERTENSION 07/08/2015 GIORGIO KELLEY MD, Ot K76.0 FATTY (CHANGE OF) LIVER, NOT ELSEWHERE C 07/08/2015 GIORGIO KELLEY MD, Ot L27.0 GEN SKIN ERUPTION DUE TO DRUGS AND MEDS 07/08/2015 GIORGIO KELLEY MD, Ot N49.2 INFLAMMATORY DISORDERS OF SCROTUM 07/08/2015 GIORGIO KELLEY MD, Ot T36.8X5A ADVERSE EFFECT OF OTHER SYSTEMIC ANTIBIO 07/08/2015 GIORGIO KELLEY MD, Ot Z87.891 PERSONAL HISTORY OF NICOTINE DEPENDENCE 09/05/2015 GIORGIO KELLEY MD, Ot A41.9 SEPSIS, UNSPECIFIED ORGANISM 09/05/2015 GIORGIO KELLEY MD Ot B95.61 METHICILLIN SUSCEP STAPH INFCT CAUSING D 09/05/2015 GIORGIO KELLEY MD Ot I10 ESSENTIAL (PRIMARY) HYPERTENSION 09/05/2015 GIORGIO KELLEY MD Ot N49.2 INFLAMMATORY DISORDERS OF SCROTUM 09/05/2015 GIORGIO KELLEY MD, Ot Z87.891 PERSONAL HISTORY OF NICOTINE DEPENDENCE 09/05/2015 GIORGIO KELLEY MD Ot A41.9 SEPSIS, UNSPECIFIED ORGANISM 09/05/2015 GIORGIO KELLEY MD Ot B95.61 METHICILLIN SUSCEP STAPH INFCT CAUSING D 09/05/2015 GIORGIO KELLEY MD Ot I10 ESSENTIAL (PRIMARY) HYPERTENSION 09/05/2015 GIORGIO KELLEY MD Ot N49.2 INFLAMMATORY DISORDERS OF SCROTUM 09/05/2015 GIORGIO KELLEY MD Ot Z87.891 PERSONAL HISTORY OF NICOTINE DEPENDENCE 09/21/2015 GEORGI VIGIL MD Ot K12.2 CELLULITIS AND ABSCESS OF MOUTH 09/23/2015 GEORGI VIGIL MD Ot K12.2 CELLULITIS AND ABSCESS OF MOUTH 09/27/2015 GEORGI VIGIL MD Ot K12.2 CELLULITIS AND ABSCESS OF MOUTH 01/03/2016 GEORGI VIGIL MD Ot H10.33 UNSPECIFIED ACUTE CONJUNCTIVITIS, BILATE 01/03/2016 GEORGI VIGIL MD Ot S05.02XA INJ CONJUNCTIVA AND CORNEAL ABRASION W/O 01/03/2016 GEORGI VIGIL MD Ot T15.92XA FOREIGN BODY ON EXTERNAL EYE, PART UNSP, 01/03/2016 GEORGI VIGIL MD Ot X58.XXXA EXPOSURE TO OTHER SPECIFIED FACTORS, INI 01/03/2016 GEORGI VIGIL MD Ot Y92.[address] 01/03/2016 GEORGI VIGIL MD Ot Y93.H3 ACTIVITY, BUILDING AND CONSTRUCTION 01/03/2016 GEORGI VIGIL MD Ot Y99.8 OTHER EXTERNAL CAUSE STATUS 01/03/2016 GEORGI VIGIL MD Ot Z23 ENCOUNTER FOR IMMUNIZATION 01/05/2016 GEORGI VIGIL MD Ot H10.33 UNSPECIFIED ACUTE CONJUNCTIVITIS, BILATE 01/05/2016 GEORGI VIGIL MD Ot S05.02XA INJ CONJUNCTIVA AND CORNEAL ABRASION W/O 01/05/2016 GEORGI VIGIL MD Ot T15.92XA FOREIGN BODY ON EXTERNAL EYE, PART UNSP, 01/05/2016 GEORGI VIGIL MD Ot X58.XXXA EXPOSURE TO OTHER SPECIFIED FACTORS, INI 01/05/2016 GEORGI VIGIL MD Ot Y92.[address] 01/05/2016 GEORGI VIGIL MD Ot Y93.H3 ACTIVITY, BUILDING AND CONSTRUCTION 01/05/2016 GEORGI VIGIL MD Ot Y99.8 OTHER EXTERNAL CAUSE STATUS 01/05/2016 GEORGI VIGIL MD Ot Z23 ENCOUNTER FOR IMMUNIZATION 01/08/2016 GEORGI VIGIL MD Ot H10.33 UNSPECIFIED ACUTE CONJUNCTIVITIS, BILATE 01/08/2016 GEORGI VIGIL MD Ot S05.02XA INJ CONJUNCTIVA AND CORNEAL ABRASION W/O 01/08/2016 GEORGI VIGIL MD Ot T15.92XA FOREIGN BODY ON EXTERNAL EYE, PART UNSP, 01/08/2016 GEORGI VIGLI MD Ot X58.XXXA EXPOSURE TO OTHER SPECIFIED FACTORS, INI 01/08/2016 GEORGI VIGIL MD Ot Y92.[address] 01/08/2016 GEORGI VIGIL MD Ot Y93.H3 ACTIVITY, BUILDING AND CONSTRUCTION 01/08/2016 GEORGI VIGIL MD Ot Y99.8 OTHER EXTERNAL CAUSE STATUS 01/08/2016 GEORGI VIGIL MD Ot Z23 ENCOUNTER FOR IMMUNIZATION 03/30/2016 SHELBI, GISELL PREFLIGHT MECHANIC Ot F17.210 NICOTINE DEPENDENCE, CIGARETTES, UNCOMPL 03/30/2016 SHELBI, GISELL PREFLIGHT MECHANIC Ot M26.69 OTHER SPECIFIED DISORDERS OF TEMPOROMAND 03/30/2016 SHELBI, GISELL PREFLIGHT MECHANIC Ot R68.84 JAW PAIN 04/03/2016 SHELBI, GISELL PREFLIGHT MECHANIC Ot F17.210 NICOTINE DEPENDENCE, CIGARETTES, UNCOMPL 04/03/2016 SHELBI, GISELL PREFLIGHT MECHANIC Ot M26.69 OTHER SPECIFIED DISORDERS OF TEMPOROMAND 04/03/2016 SHELBI, GISELL PREFLIGHT MECHANIC Ot R68.84 JAW PAIN 04/21/2016 SHELBI, GISELL PREFLIGHT MECHANIC Ot F17.210 NICOTINE DEPENDENCE, CIGARETTES, UNCOMPL 04/21/2016 SHELBI, GISELL PREFLIGHT MECHANIC Ot M26.69 OTHER SPECIFIED DISORDERS OF TEMPOROMAND 04/21/2016 SHELBI, GISELL PREFLIGHT MECHANIC Ot R68.84 JAW PAIN 04/21/2016 SHELBI, GISELL PREFLIGHT MECHANIC Ot F17.210 NICOTINE DEPENDENCE, CIGARETTES, UNCOMPL 04/21/2016 SHELBI, GISELL PREFLIGHT MECHANIC Ot M26.69 OTHER SPECIFIED DISORDERS OF TEMPOROMAND 04/21/2016 SHELBI, GISELL PREFLIGHT MECHANIC Ot R68.84 JAW PAIN 04/22/2016 AYDEE DO, KEKE K Ot F17.210 NICOTINE DEPENDENCE, CIGARETTES, UNCOMPL 04/22/2016 AYDEE DO KEKE K Ot I10 ESSENTIAL (PRIMARY) HYPERTENSION 04/22/2016 AYDEE DO KEKE K Ot R20.2 PARESTHESIA OF SKIN 04/22/2016 AYDEE DO KEKE K Ot R42 DIZZINESS AND GIDDINESS 04/27/2016 AYDEE DO KEKE K Ot F17.210 NICOTINE DEPENDENCE, CIGARETTES, UNCOMPL 04/27/2016 AYDEE DO KEKE K Ot I10 ESSENTIAL (PRIMARY) HYPERTENSION 04/27/2016 KEKE BAJWA DO Ot R20.2 PARESTHESIA OF SKIN 04/27/2016 KEKE BAJWA DO Ot R42 DIZZINESS AND GIDDINESS Procedures Code Description [place] [address] ROUTINE VENIPUNCTURE 07/04/2012 14371 CMP 07/04/2012 82341 VITAMIN D 25-HYDROXY (D2,D3 , TOTAL) 07/04/2012 05663 A1C (RML) 07/04/2012 09075 TESTOSTERONE FREE 07/04/2012 66518 TESTOSTERONE TOTAL 07/04/2012 06672 TSH 07/04/2012 92620 CBC 07/04/2012 64782 INFLUENZA A & B (IN-HOUSE) 04/01/2014 26816 HEMOCCULT 04/10/2014 23306 KUB 04/10/2014 86.04 OTHER SKIN SUBQ I D 04/27/2014 89196 ROUTINE VENIPUNCTURE 06/25/2014 12037 XRAY LUMBAR SPINE 2 OR 3 VIEWS 06/25/2014 91787 CBC 06/25/2014 0877214 GFR CALC (RESULT ONLY) 06/25/2014 52642 CMP 06/25/2014 96126 LIPID PANEL 06/25/2014 14008 TESTOSTERONE TOTAL- MALES 06/25/2014 24015 TSH 06/25/2014 96424 THERAPUTIC INJ SQ/IM 06/27/2014 J1070 TESTOSTERONE CYPIONAT 100 MG 06/27/2014 18856 THERAPUTIC INJ SQ/IM 06/27/2014 J1070 TESTOSTERONE CYPIONAT 100 MG 06/27/2014 96403 THERAPUTIC INJ SQ/IM 07/13/2014 J1070 testosterone cypionate 100 mg/mL oil 07/13/2014 Results Test Result Range CBC With Differential/Platelet - 04/01/16 14:49 WBC 11.6 x10E3/uL 3.4-10.8 RBC 5.13 x10E6/uL 4.14-5.80 Hemoglobin 16.0 g/dL 12.6-17.7 Hematocrit 47.8 % 37.5-51.0 MCV 93 fL 79-97 MCH 31.2 pg 26.6-33.0 MCHC 33.5 g/dL 31.5-35.7 RDW 13.5 % 12.3-15.4 Platelets 319 x10E3/uL 150-379 Neutrophils 79 % Lymphs 14 % Monocytes 6 % Eos 1 % Basos 0 % Neutrophils (Absolute) 9.1 x10E3/uL 1.4-7.0 Lymphs (Absolute) 1.7 x10E3/uL 0.7-3.1 Monocytes(Absolute) 0.7 x10E3/uL 0.1-0.9 Eos (Absolute) 0.1 x10E3/uL 0.0-0.4 Baso (Absolute) 0.0 x10E3/uL 0.0-0.2 Immature Granulocytes 0 % Immature Grans (Abs) 0.0 x10E3/uL 0.0-0.1 Comp. Metabolic Panel (14) - 04/01/16 14:49 Glucose, Serum 100 mg/dL 65-99 BUN 16 mg/dL 6-24 Creatinine, Serum 0.77 mg/dL 0.76-1.27 eGFR If NonAfricn Am 110 mL/min/1.73 >59 eGFR If Africn Am 127 mL/min/1.73 >59 BUN/Creatinine Ratio 21 9-20 Sodium, Serum 141 mmol/L 134-144 Potassium, Serum 4.3 mmol/L 3.5-5.2 Chloride, Serum 102 mmol/L 96-106 Carbon Dioxide, Total 21 mmol/L 18-29 Calcium, Serum 9.7 mg/dL 8.7-10.2 Protein, Total, Serum 6.7 g/dL 6.0-8.5 Albumin, Serum 4.7 g/dL 3.5-5.5 Globulin, Total 2.0 g/dL 1.5-4.5 A/G Ratio 2.4 1.1-2.5 Bilirubin, Total 0.5 mg/dL 0.0-1.2 Alkaline Phosphatase, S 74 IU/L 39-117 AST (SGOT) 12 IU/L 0-40 ALT (SGPT) 18 IU/L 0-44 Testosterone, Serum - 04/01/16 14:49 Testosterone, Serum 303 ng/dL [phone] Comment: Comment C-Reactive Protein, Quant - 04/01/16 14:49 C-Reactive Protein, Quant 3.1 mg/L 0.0-4.9 Complete blood count (CBC) with automated white blood cell (WBC) differential - 04/21/16 08:22 Blood leukocytes automated count (number/volume) 11.6 10*3/uL 4.3-11.0 Blood erythrocytes automated count (number/volume) 5.03 10*6/uL 4.35-5.85 Venous blood hemoglobin measurement (mass/volume) 16.1 g/dL 13.3-17.7 Blood hematocrit (volume fraction) 47 % 40-54 Automated erythrocyte mean corpuscular volume 93 [foz_us] 80-99 Automated erythrocyte mean corpuscular hemoglobin (mass per erythrocyte) 32 pg 25-34 Automated erythrocyte mean corpuscular hemoglobin concentration measurement ( mass/volume) 35 g/dL 32-36 Automated erythrocyte distribution width ratio 13.5 % 10.0-14.5 Automated blood platelet count (count/volume) 310 10*3/uL 130-400 Automated blood platelet mean volume measurement 9.9 [foz_us] 7.4-10.4 Automated blood neutrophils/100 leukocytes 70 % 42-75 Automated blood lymphocytes/100 leukocytes 22 % 12-44 Blood monocytes/100 leukocytes 6 % 0-12 Automated blood eosinophils/100 leukocytes 2 % 0-10 Automated blood basophils/100 leukocytes 0 % 0-10 Blood neutrophils automated count (number/volume) 8.1 10*3 1.8-7.8 Blood lymphocytes automated count (number/volume) 2.5 10*3 1.0-4.0 Blood monocytes automated count (number/volume) 0.7 10*3 0.0-1.0 Automated eosinophil count 0.2 10*3/uL 0.0-0.3 Automated blood basophil count (count/volume) 0.0 10*3/uL 0.0-0.1 PT panel in platelet poor plasma by coagulation assay - 04/21/16 08:22 Prothrombin time (PT) in platelet poor plasma by coagulation assay 13.6 s 12.2-14.7 INR in platelet poor plasma or blood by coagulation assay 1.1 0.8-1.4 Activated partial thromboplastin time (aPTT) in platelet poor plasma bycoagulation assay - 04/21/16 08:22 Activated partial thromboplastin time (aPTT) in platelet poor plasma bycoagulation assay 28 s 24-35 Comprehensive metabolic panel - 04/21/16 08:22 Serum or plasma sodium measurement (moles/volume) 140 mmol/L 135-145 Serum or plasma potassium measurement (moles/volume) 3.7 mmol/L 3.6-5.0 Serum or plasma chloride measurement (moles/volume) 107 mmol/L 98-107 Carbon dioxide 22 mmol/L 21-32 Serum or plasma anion gap determination (moles/volume) 11 mmol/L 5-14 Serum or plasma urea nitrogen measurement (mass/volume) 13 mg/dL 7-18 Serum or plasma creatinine measurement (mass/volume) 0.78 mg/dL 0.60-1.30 Serum or plasma urea nitrogen/creatinine mass ratio 17 NRG Serum or plasma creatinine measurement with calculation of estimated glomerular filtration rate > NRG Serum or plasma glucose measurement (mass/volume) 98 mg/dL 70-105 Serum or plasma calcium measurement (mass/volume) 9.2 mg/dL 8.5-10.1 Serum or plasma total bilirubin measurement (mass/volume) 0.5 mg/dL 0.1-1.0 Serum or plasma alkaline phosphatase measurement (enzymatic activity/volume) 67 U/L 40-136 Serum or plasma aspartate aminotransferase measurement (enzymatic activity/ volume) 11 U/L 5-34 Serum or plasma alanine aminotransferase measurement (enzymatic activity/volume ) 17 U/L 0-55 Serum or plasma protein measurement (mass/volume) 6.1 g/dL 6.4-8.2 Serum or plasma albumin measurement (mass/volume) 4.2 g/dL 3.2-4.5 Magnesium - 04/21/16 08:22 Magnesium 2.1 mg/dL 1.8-2.4 Serum or plasma creatine kinase measurement (enzymatic activity/volume) - 04/21 08:22 Serum or plasma creatine kinase measurement (enzymatic activity/volume) 49 U/L 30-200 Serum or plasma creatine kinase MB measurement (enzymatic activity/volume) - 08:22 Serum or plasma creatine kinase MB measurement (enzymatic activity/volume) 0.8 ng/mL <6.6 Serum or plasma lithium measurement (moles/volume) - 04/21/16 08:22 BNP level < pg/mL <100.0 Serum or plasma troponin i.cardiac measurement (mass/volume) - 04/21/16 08:22 Serum or plasma troponin i.cardiac measurement (mass/volume) < ng/ mL <0.30 Serum or plasma thyrotropin measurement by detection limit <=0.05 miu/l (units/ volume) - 04/21/16 08:22 Serum or plasma thyrotropin measurement by detection limit <=0.05 miu/l (units/ volume) 2.12 u[iU]/mL 0.35-4.94 Serum or plasma ethanol measurement (mass/volume) - 04/21/16 08:22 Serum or plasma ethanol measurement (mass/volume) < mg/dL <10 Bacterial throat culture - 09/07/16 06:18 Bacterial throat culture NBS NRG Encounters ACCT No. Visit Date/Time Discharge Status Pt. Type Provider Facility Loc./Unit Complaint [id number] 07/13/2014 13:53:00 07/13/2014 23:59:59 CLS Outpatient ALEXSANDRA PATRICK APRN [id number] 06/27/2014 17:49:00 06/27/2014 23:59:59 CLS Outpatient KAYLA CARVER DO [id number] 06/25/2014 10:46:00 06/25/2014 23:59:59 CLS Outpatient DAVID MORRISSEY APRN [id number] 06/05/2014 13:31:00 06/05/2014 23:59:59 CLS Outpatient EMILE HORTON APRN [id number] 05/06/2014 13:25:00 05/06/2014 23:59:59 CLS Outpatient KAYLA CARVER DO [id number] 04/10/2014 09:29:00 04/10/2014 23:59:59 CLS Outpatient KAYLA CARVER DO [id number] 04/01/2014 14:48:00 04/01/2014 23:59:59 CLS Outpatient GAYATHRI ARMSTRONGNANNA Anahi [id number] 12/19/2013 14:34:00 12/19/2013 23:59:59 CLS Outpatient ALEXSANDRA PATRICK APRN [id number] 08/31/2013 10:43:00 08/31/2013 23:59:59 CLS Outpatient ALEXSANDRA PATRICK APRN [id number] 08/17/2013 11:09:00 08/17/2013 23:59:59 CLS Outpatient ALEXSANDRA PATRICK APRN [id number] 08/15/2013 11:27:00 08/15/2013 23:59:59 CLS Outpatient ALEXSANDRA PATRICK APRN [id number] 08/13/2013 12:23:00 08/13/2013 23:59:59 CLS Outpatient KAYLA CARVER DO [id number] 07/16/2013 11:26:00 07/16/2013 23:59:59 CLS Outpatient KAYLA CARVER DO [id number] 04/13/2013 13:12:00 04/13/2013 23:59:59 CLS Outpatient KAYLA CARVER DO [id number] 07/04/2012 17:13:00 07/04/2012 23:59:59 CLS Outpatient MONALISA DEL REAL APRN [id number] 11/22/2012 15:53:00 Document Registration [id number] 09/12/2012 08:18:00 Document Registration [id number] 04/02/2016 08:06:00 Document Registration [id number] 04/21/2016 07:52:00 04/21/2016 10:13:00 DIS Outpatient KEKE BAJWA DO [facility] ER LIGHTHEADED/DIZZINESS CHEST PAIN [id number] 03/28/2016 13:12:00 03/28/2016 14:14:00 DIS Emergency GISELL MARIO [facility] ER R SIDE JAW PAIN [id number] 01/02/2016 23:47:00 01/03/2016 00:55:00 DIS Emergency GEORGI VIGIL MD [facility] ER LEFT EYE PAIN,FO, BOTHERING BOTH EYE PT STS [id number] 09/21/2015 16:26:00 09/21/2015 19:30:00 DIS Emergency GEORGI VIGIL MD [facility] ER ABCESS IN CHEEK/ PEEING BLOOD [id number] 09/03/2015 00:31:00 09/05/2015 16:00:00 DIS Inpatient GIORGIO KELLEY MD [facility] 4TH SEPSIS, SCROTAL CELLULITIS [id number] 07/06/2015 18:24:00 07/08/2015 13:49:00 DIS Inpatient GIORGIO EKLLEY MD [facility] 4TH SEPSIS,ABSCESS OF SCROTUM [id number] 06/17/2015 20:53:00 06/18/2015 02:18:00 DIS Emergency YOLANDA ARCOS MD [facility] ER RIB PAIN [id number] 04/24/2014 13:17:00 04/28/2014 13:15:00 DIS Inpatient WEN FITZGERALD KAYLA K [facility] 4TH CELLULITIS,FEVER AND CHILLS,LEUKOCYTOSIS [id number] 12/17/2013 12:11:00 12/17/2013 13:22:00 DIS Emergency GAIL JOY SR [employer]SULTANT [facility] ER POSS INSECT BITE/LYMPH NODES SWOLLEN [id number] 11/24/2013 19:54:00 11/24/2013 20:36:00 DIS Emergency SHIVANI ROSADO [facility] ER BUG BITE [id number] 08/08/2013 21:11:00 08/10/2013 14:35:00 DIS Inpatient KAYLA CARVER DO Micah [facility] 4TH ABCESS WITH CELLULITIS [id number] 08/07/2013 20:00:00 08/07/2013 20:54:00 DIS Emergency GEORGI VIGIL MD [facility] ER L LEG MRSA [id number] 08/07/2013 09:40:00 08/07/2013 11:15:00 DIS Emergency GAIL JOY SR TECHNICAL SALES CONSULTANT [facility] ER LEFT THIGH ABSCESS/INSECT BITE [id number] 07/11/2013 21:48:00 07/11/2013 22:19:00 DIS Emergency SUSAN SARMIENTO MD [facility] ER R EYE SWELLING, PAIN [id number] 09/08/2016 07:41:00 Document Registration [id number] 10/07/2015 12:10:00 Document Registration [id number] 10/07/2015 12:10:00 Document Registration [id number] 10/07/2015 12:10:00 Document Registration [id number] 10/07/2015 12:10:00 Document Registration [id number] 10/07/2015 12:10:00 Document Registration [id number] 10/07/2015 12:10:00 Document Registration [id number] 10/07/2015 12:10:00 Document Registration [id number] 10/07/2015 12:10:00 Document Registration [id number] 10/07/2015 12:10:00 Document Registration [id number] 10/07/2015 12:10:00 Document Registration [id number] 10/07/2015 12:10:00 Document Registration [id number] 05/05/2012 13:00:00 Document Registration [id number] 09/13/2011 15:44:00 Document Registration [id number] 09/22/2009 15:05:00 Document Registration [id number] 04/09/2009 00:16:00 Document Registration [id number] 06/03/2017 16:40:00 06/03/2017 23:59:59 [facility] Outpatient [facility]
[2017-12-06] MEDS ORDERED: KETOROLAC 30 MG/ML VIAL IVP ONE (12:30)
[2017-12-06 12:39] LABS: BASOPHILS % (AUTO) 0 % (0-10); EOSINOPHILS # (AUTO) 0.3 10^3/uL (0.0-0.3); EOSINOPHILS % (AUTO) 3 % (0-10); HEMATOCRIT 45 % (40-54); HEMOGLOBIN 15.5 G/DL (13.3-17.7); LYMPHOCYTES # (AUTO) 1.9 X 10^3 (1.0-4.0); LYMPHOCYTES % (AUTO) 23 % (12-44); MEAN CORPUSCULAR HEMOGLOBIN 31 PG (25-34); MEAN CORPUSCULAR HGB CONC 34 G/DL (32-36); MEAN CORPUSCULAR VOLUME 91 FL (80-99); MEAN PLATELET VOLUME 9.7 FL (7.4-10.4); MONOCYTES # (AUTO) 0.7 X 10^3 (0.0-1.0); MONOCYTES % (AUTO) 8 % (0-12); NEUTROPHILS # (AUTO) 5.3 X 10^3 (1.8-7.8); NEUTROPHILS % (AUTO) 65 % (42-75); PLATELET COUNT 310 10^3/uL (130-400); RED BLOOD COUNT 4.97 10^6/uL (4.35-5.85); RED CELL DISTRIBUTION WIDTH 13.3 % (10.0-14.5); WHITE BLOOD COUNT 8.1 10^3/uL (4.3-11.0)
[2017-12-06 12:55] LABS: ALANINE AMINOTRANSFERASE 23 U/L (0-55); ALBUMIN 4.4 GM/DL (3.2-4.5); ALKALINE PHOSPHATASE 58 U/L (40-136); BILIRUBIN,TOTAL 0.5 MG/DL (0.1-1.0); BUN/CREATININE RATIO 16; CALCIUM 9.7 MG/DL (8.5-10.1); CARBON DIOXIDE 23 MMOL/L (21-32); CHLORIDE 108 MMOL/L (98-107); CREATININE SERUM 0.74 MG/DL (0.60-1.30); GFR ESTIMATED > 60; GLUCOSE 97 MG/DL (70-105); POTASSIUM 4.2 MMOL/L (3.6-5.0); SODIUM 140 MMOL/L (135-145); TOTAL PROTEIN 6.7 GM/DL (6.4-8.2)
[2017-12-06 13:16] LABS: BILIRUBIN,URINE NEGATIVE (NEGATIVE); CLARITY,URINE SLIGHTLY CLOUDY; COLOR,URINE YELLOW; GLUCOSE, URINE (UA) NEGATIVE (NEGATIVE); KETONES,URINE NEGATIVE (NEGATIVE); LEUKOCYTE ESTERASE ,URINE 1+ (NEGATIVE); NITRITE,URINE NEGATIVE (NEGATIVE); PH,URINE 6.5 (5-9); PROTEIN,URINE NEGATIVE (NEGATIVE); UROBILINOGEN,URINE NORMAL (NORMAL)
[2017-12-06 13:28] LABS: BACTERIA,URINE TRACE /HPF
--- NOTE | 2017-12-06 14:50 | Diagnostic Imaging Report ---
PROCEDURE: CT urinary tract, rule out kidney stone. TECHNIQUE: Multiple contiguous axial images were obtained through the abdomen and pelvis without the use of intravenous contrast. INDICATION: Right flank pain. COMPARISON: 11/08/2017. FINDINGS: Included portions of the lung bases show small subpleural 4 mm micronodule within the lateral margins of the left lower lobe (image 14, series 2). This is stable compared to 3 mm on exam dated 06/18/2015. CT ABDOMEN: Small bowel loops are nondistended. Normal appendix is identified. Nonobstructive left renal calculus is noted. No renal calculi are seen on the right. No ureteral calculi are seen on either side. Additionally, there is no hydronephrosis or other evidence of obstruction. Hypodense left renal cysts are noted. There may be some mild complexity of posterior cyst on the left as there appears to be thin peripheral calcifications. Multiple scattered punctate pancreatic calcifications are noted. No focal pancreatic masses are seen on this noncontrast exam. The spleen, adrenal glands, and liver have an unremarkable noncontrast CT appearance. There is no loculated fluid collection, free fluid, or free air within the abdomen. No abnormal mesenteric or retroperitoneal adenopathy is seen. There is mild calcified aortic atherosclerosis. Bony structures show no acute abnormalities. CT PELVIS: Urinary bladder is unopacified. No calculi are seen within urinary bladder. There is no loculated fluid collection, free fluid, or free air within the pelvis. No abnormal lymph nodes are seen. IMPRESSION: 1. No acute abnormalities are seen within the abdomen or pelvis. 2. Nonobstructive left or calculus. 3. Left-sided renal cysts as described above. 4. Multiple punctate pancreatic calcifications. Findings raise suspicion for previous pancreatitis. No definite pancreatic mass is seen on this noncontrast exam. 5. Stable punctate micronodule within the included portions of the left lower lobe. Dictated by: Dictated on workstation # [id number]
--- NOTE | 2017-12-06 14:55 | Diagnostic Imaging Report ---
Supine abdomen at 3:02 Indication: Right flank pain. The prior CT abdomen/pelvis exam 11/08/2017 failed to show any sign of obstruction of either collecting system by a calculus. 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 The CT abdomen/pelvis exam performed earlier today in conjunction with this study also failed to show any sign of obstruction of either collecting system. On this study there is a small calcification inferior to the right sacroiliac joint. I suspect that this is vascular in nature. There is no other pathological calcification seen. There is gas in both large and small bowel in a nonspecific fashion. There is a fair amount of fecal material present as well. There is no evidence for bowel obstruction. There is no mass or organomegaly. The osseous structures are intact. Impression: The calcifications along the anterior margin of the right sacroiliac joint may well be vascular in nature. There is no sign of a calculus overlying the kidneys or along the expected paths of the ureters otherwise. Dictated by: Dictated on workstation # [id number]
--- NOTE | 2017-12-06 15:20 | ED Back Pain ---
General Chief Complaint: Back Problems Stated Complaint: BACK PAIN Nursing Triage Note: ARRIVED VIA AMB WITH COMPLAINTS OF LOWER BACK PAIN, NOT BEING ABLE TO PEE LIKE NORMAL, AND BEING TIRED. Nursing Sepsis Screen: No Definite Risk Source of Information: Patient Exam Limitations: No Limitations History of Present Illness Date Seen by Provider: Dec 06, 2017 Time Seen by Provider: 12:20 Initial Comments Patient is a 46 year old male who presents to the emergency room with complaints of lower back pain, urinary hesitancy, and malaise. He reports that he was recently treated for a kidney stone and urinary tract infection. Denies nausea, vomiting, diarrhea, fever. Location: Lumbar Spine Timing/Duration: 1 Week Pain/Injury Location: Back Associated Symptoms: No fever, No numbness in legs/feet, No tingling in legs/ feet; lower back pain; No loss of bladder control, No loss of bowel control Allergies and Home Medications Allergies Coded Allergies: vancomycin (Verified Allergy, Intermediate, RASH, 07/06/15) Erythema and itching Penicillins (Unverified Allergy, Mild, 07/20/08) penicillin G (Verified Allergy, Unknown, 01/05/06) Uncoded Allergies: PCN (Allergy, Mild, 07/21/08) Patient Home Medication List Home Medication List Reviewed: Yes Review of Systems Constitutional: see HPI; No chills, No fever; malaise Genitourinary: see HPI, hesitancy Musculoskeletal: see HPI, back pain Past Wkrzqqw-Sjpqyv-Jlegrk Hx Past Med/Social Hx: Reviewed Nursing Past Med/Soc Hx Patient Social History Alcohol Use: Occasionally Uses Recreational Drug Use: No Smoking Status: Current Everyday Smoker Type Used: Cigarettes Former Smoker, Quit: Apr 23, 2014 2nd Hand Smoke Exposure: Yes Recent Foreign Travel: No Contact w/Someone Who Travel: No Recent Infectious Disease Expo: No Recent Hopitalizations: No Immunizations Up To Date Tetanus Booster (TDap): Unknown PED Vaccines UTD: No Seasonal Allergies Seasonal Allergies: No Past Medical History Surgeries: Yes (biopsy lymph node8 yo, Left knee surgery-meniscus tear ) Orthopedic, Vasectomy Respiratory: Yes (small "spot" on bottom left lung states is monitoring) Currently Using CPAP: No Currently Using BIPAP: No Cardiac: Yes (HAS REFUSED TO TAKE MEDICATIONS IN PAST) Hypertension Neurological: No Reproductive Disorders: No Sexually Transmitted Disease: No HIV/AIDS: No Gastrointestinal: No Musculoskeletal: Yes Arthritis Endocrine: No Loss of Vision: Denies Hearing Impairment: Hard of Hearing Cancer: No Psychosocial: Yes Anxiety, Depression Integumentary: Yes (recurrent MSSA abscesses) Blood Disorders: No Adverse Reaction/Blood Tranf: No Family Medical History Reviewed Nursing Family Hx Alcoholism 19 FATHER G8 BROTHER Cancer 19 FATHER Cardiovascular disease 19 MOTHER Completed stroke 19 MOTHER Congestive heart failure 19 MOTHER Diabetes mellitus 19 MOTHER FH: brain aneurysm G8 SISTER, Onset:40's - 50 FHx: lung cancer 19 FATHER Family history: Allergy Family history: Arthritis 19 MOTHER Family history: Cardiovascular disease 19 MOTHER Family history: Diabetes mellitus Family history: Hypertension 19 MOTHER Headache 19 MOTHER Hearing loss 19 FATHER Heart disease 19 MOTHER History of drug abuse Myocardial infarction 19 MOTHER Myocardial infarction 19 MOTHER Stroke Visual impairment No Family History of: AIDS Abdominal aortic aneurysm Abdominal aortic aneurysm Diogenes's disease Hinsdale's disease Aphasia Cancer of colon Cataract Cataracts Chest pain Congenital disease Congenital heart disease Congenital heart disease Coronary thrombosis Cystic fibrosis Cystic fibrosis Dementia Dementia Drug abuse Dysphagia Family history: Alzheimer's disease Family history: Asthma Family history: Breast disease Family history: Coronary thrombosis Family history: Gastrointestinal disease Family history: Glaucoma Family history: Osteoporosis Family history: Thyroid disorder Fibrocystic disease of breast Hereditary disease History of - anemia History of - disorder History of - respiratory disease Human immunodeficiency virus (HIV) seropositivity Hypercholesterolemia Infertile Kidney disease Malignant neoplasm of lung Parkinson's disease Prostate cancer Psychotic disorder Seizure disorder Tuberculosis Renal Disease Physical Exam Vital Signs Vital Signs - First Documented 12/06/17 12:20 Temp 98.0 Pulse 77 Resp 16 B/P (MAP) 153/108 (123) Pulse Ox 96 O2 Delivery Room Air Capillary Refill : Less Than 3 Seconds Height, Weight, BMI Height: 5'8.00" Weight: 235lbs. 1.0oz. 106.034885gr; 40.6 BMI Method:Stated General Appearance: No Apparent Distress, WD/WN Neck: Full Range of Motion, Normal Inspection, Non Tender, Supple Cardiovascular: Regular Rate, Rhythm, No Edema, No Gallop, No JVD, No Murmur, Normal Peripheral Pulses Respiratory: Chest Non Tender, Lungs Clear, Normal Breath Sounds, No Accessory Muscle Use, No Respiratory Distress, Accessory Muscle Use Gastrointestinal: Normal Bowel Sounds, No Organomegaly, No Pulsatile Mass, Non Tender, Soft Back: Normal Inspection, CVA Tenderness (L), Vertebral Tenderness Neurologic/Psychiatric: Alert, Oriented x3, No Motor/Sensory Deficits Skin: Normal Color, Warm/Dry Progress/Results/Core Measures Results/Orders Lab Results Laboratory Tests Test 12/06/17 11:43 12/06/17 12:30 12/06/17 13:09 Range/Units Lab Scanned Report Referred Lab Report [id number] White Blood Count 8.1 4.3-11.0 10^3/uL Red Blood Count 4.97 4.35-5.85 10^6/uL Hemoglobin 15.5 13.3-17.7 G/DL Hematocrit 45 40-54 % Mean Corpuscular Volume 91 80-99 FL Mean Corpuscular Hemoglobin 31 25-34 PG Mean Corpuscular Hemoglobin Concent 34 32-36 G/DL Red Cell Distribution Width 13.3 10.0-14.5 % Platelet Count 310 130-400 10^3/uL Mean Platelet Volume 9.7 7.4-10.4 FL Neutrophils (%) (Auto) 65 42-75 % Lymphocytes (%) (Auto) 23 12-44 % Monocytes (%) (Auto) 8 0-12 % Eosinophils (%) (Auto) 3 0-10 % Basophils (%) (Auto) 0 0-10 % Neutrophils # (Auto) 5.3 1.8-7.8 X 10^3 Lymphocytes # (Auto) 1.9 1.0-4.0 X 10^3 Monocytes # (Auto) 0.7 0.0-1.0 X 10^3 Eosinophils # (Auto) 0.3 0.0-0.3 10^3/uL Basophils # (Auto) 0.0 0.0-0.1 10^3/uL Sodium Level 140 135-145 MMOL/L Potassium Level 4.2 3.6-5.0 MMOL/L Chloride Level 108 H 98-107 MMOL/L Carbon Dioxide Level 23 21-32 MMOL/L Anion Gap 9 5-14 MMOL/L Blood Urea Nitrogen 12 7-18 MG/DL Creatinine 0.74 0.60-1.30 MG/DL Estimat Glomerular Filtration Rate > 60 BUN/Creatinine Ratio 16 Glucose Level 97 70-105 MG/DL Calcium Level 9.7 8.5-10.1 MG/DL Corrected Calcium 9.4 8.5-10.1 MG/DL Total Bilirubin 0.5 0.1-1.0 MG/DL Aspartate Amino Transf (AST/SGOT) 14 5-34 U/L Alanine Aminotransferase (ALT/SGPT) 23 0-55 U/L Alkaline Phosphatase 58 40-136 U/L Total Protein 6.7 6.4-8.2 GM/DL Albumin 4.4 3.2-4.5 GM/DL Urine Color YELLOW Urine Clarity SLIGHTLY CLOUDY Urine pH 6.5 5-9 Urine Specific [place] 1.015 L 1.016-1.022 Urine Protein NEGATIVE NEGATIVE Urine Glucose (UA) NEGATIVE NEGATIVE Urine Ketones NEGATIVE NEGATIVE Urine Nitrite NEGATIVE NEGATIVE Urine Bilirubin NEGATIVE NEGATIVE Urine Urobilinogen NORMAL NORMAL MG/DL Urine Leukocyte Esterase 1+ H NEGATIVE Urine RBC (Auto) 2+ H NEGATIVE Urine RBC 5-10 H /HPF Urine WBC 2-5 /HPF Urine Squamous Epithelial Cells 2-5 /HPF Urine Crystals NONE /LPF Urine Bacteria TRACE /HPF Urine Casts NONE /LPF Urine Mucus MODERATE H /LPF Urine Culture Indicated YES Urine Chlamydia trachomatis RNA Not Detected Not Detected Urine Neisseria gonorrhoeae RNA Not Detected Not Detected Micro Results Microbiology 12/06/17 Urine Culture - Final, Complete See Comments My Orders Orders - NANCIE WRIGHT Comprehensive Metabolic Panel (12/06/17 12:21) Ua Culture If Indicated (12/06/17 12:21) Saline Lock/Iv-Start (12/06/17 12:21) Cbc With Automated Diff (12/06/17 12:21) Chlamydia Trachomatis Urine (12/06/17 12:21) Neis Julian Dna Urine Test (12/06/17 12:21) Ketorolac Injection (Toradol Injection) (12/06/17 12:30) Urine Culture (12/06/17 13:09) Ct Abd/Pelvis Wo(Kidney Stone) (12/06/17 14:10) Abdomen/Kub 1view (12/06/17 14:10) Iv Push Account Liaison Ed (12/06/17 ) Medications Given in ED Vital Signs/I&O 12/06/17 12/06/17 12:20 15:30 Temp 98.0 Pulse 77 78 Resp 16 16 B/P (MAP) 153/108 (123) 141/108 Pulse Ox 96 98 O2 Delivery Room Air Room Air Blood Pressure Mean: 123 Progress Progress Note : Time: 15:00 Progress Note I have seen and evaluated the patient. I have informed him of laboratory findings and imaging studies. His pain is improved with the toradol. He agrees with plans for discharge and return precautions were given. Diagnostic Imaging Diagonstic Imaging: Xray, CT Plain Films/CT/US/NM/MRI: abdomen, pelvis Comments NAME: FELICIA SHEPPARD MED REC#: [id number] PHYSICIAN: NANCIE WRIGHT CC: NANCIE WRIGHT; MARION GONZALEZ MD Page 2 of 2 RADIOLOGY REPORT VIA [place], [place] CC: NANCIE WRIGHT; MARION GONZALEZ MD Page 1 of 1 RADIOLOGY REPORT NAME: FELICIA SHEPPARD MED REC#: [id number] PT STATUS: DEP ER : 1970 PHYSICIAN: NANCIE WRIGHT ADMIT DATE: 12/06/17/ER Signed Date of Exam: 12/06/17 ABDOMEN/KUB 1VIEW Supine abdomen at 3:02 Indication: Right flank pain. The prior CT abdomen/pelvis exam 11/08/2017 failed to show any sign of obstruction of either collecting system by a calculus. 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 The CT abdomen/pelvis exam performed earlier today in conjunction with this study also failed to show any sign of obstruction of either collecting system. On this study there is a small calcification inferior to the right sacroiliac joint. I suspect that this is vascular in nature. There is no other pathological calcification seen. There is gas in both large and small bowel in a nonspecific fashion. There is a fair amount of fecal material present as well. There is no evidence for bowel obstruction. There is no mass or organomegaly. The osseous structures are intact. Impression: The calcifications along the anterior margin of the right sacroiliac joint may well be vascular in nature. There is no sign of a calculus overlying the kidneys or along the expected paths of the ureters otherwise. Dictated by: Dictated on workstation # [id number] Dict: 12/06/17 1444 Trans: 12/07/17 1124 Interpreted by: MARION GONZALEZ MD Electronically signed by: MARION GONZALEZ MD 12/07/17 1124 NAME: FELICIA SHEPPARD MED REC#: [id number] PHYSICIAN: NANCIE WRIGHT CC: NANCIE WRIGHT; JENNIFER THOMPSON MD Page 2 of 2 RADIOLOGY REPORT VIA [place], [place] CC: NANCIE WRIGHT; JENNIFER THOMPSON MD Page 1 of 1 RADIOLOGY REPORT NAME: FELICIA SHEPPARD MED REC#: [id number] PT STATUS: DEP ER : 1970 PHYSICIAN: NANCIE WRIGHT ADMIT DATE: 12/06/17/ER Signed Date of Exam: 12/06/17 CT ABD/PELVIS WO(KIDNEY STONE) PROCEDURE: CT urinary tract, rule out kidney stone. TECHNIQUE: Multiple contiguous axial images were obtained through the abdomen and pelvis without the use of intravenous contrast. INDICATION: Right flank pain. COMPARISON: 11/08/2017. FINDINGS: Included portions of the lung bases show small subpleural 4 mm micronodule within the lateral margins of the left lower lobe (image 14, series 2). This is stable compared to 3 mm on exam dated 06/18/2015. CT ABDOMEN: Small bowel loops are nondistended. Normal appendix is identified. Nonobstructive left renal calculus is noted. No renal calculi are seen on the right. No ureteral calculi are seen on either side. Additionally, there is no hydronephrosis or other evidence of obstruction. Hypodense left renal cysts are noted. There may be some mild complexity of posterior cyst on the left as there appears to be thin peripheral calcifications. Multiple scattered punctate pancreatic calcifications are noted. No focal pancreatic masses are seen on this noncontrast exam. The spleen, adrenal glands, and liver have an unremarkable noncontrast CT appearance. There is no loculated fluid collection, free fluid, or free air within the abdomen. No abnormal mesenteric or retroperitoneal adenopathy is seen. There is mild calcified aortic atherosclerosis. Bony structures show no acute abnormalities. CT PELVIS: Urinary bladder is unopacified. No calculi are seen within urinary bladder. There is no loculated fluid collection, free fluid, or free air within the pelvis. No abnormal lymph nodes are seen. IMPRESSION: 1. No acute abnormalities are seen within the abdomen or pelvis. 2. Nonobstructive left or calculus. 3. Left-sided renal cysts as described above. 4. Multiple punctate pancreatic calcifications. Findings raise suspicion for previous pancreatitis. No definite pancreatic mass is seen on this noncontrast exam. 5. Stable punctate micronodule within the included portions of the left lower lobe. Dictated by: Dictated on workstation # [id number] Dict: 12/06/17 1439 Trans: 12/06/171708 Interpreted by: JENNIFER THOMPSON MD Electronically signed by: JENNIFER THOMPSON MD 12/06/171708 Reviewed: Reviewed by Me Departure Impression Primary Impression: Back pain Disposition: 01 HOME, SELF-CARE Condition: Stable/Unchanged Departure-Patient Inst. Decision time for Depature: 15:17 Referrals: [facility] – [place] (PCP/Family) Primary Care Physician Patient Instructions: Low Back Pain (DC) Add. Discharge Instructions: Follow-up with Bro Dickinson within 1 week for recheck. Return back to the emergency room for any worsening symptoms or concerns as needed. Drink plenty of clear liquids. All discharge instructions reviewed with patient and/or family. Voiced understanding. NANCIE WRIGHT Dec 06, 2017 15:20
[2017-12-06 15:30] VITALS: BP 141/108
== END 2017-12-06 15:30 | disposition home or self-care (01) ==
LOC: EDUNIT# 11:42 → ER 11:43
DX: M54.5 Low back pain (principal); I10 Essential (primary) hypertension; F41.9 Anxiety disorder, unspecified; F32.9 Major depressive disorder, single episode, unspecified; Z86.14 Personal history of Methicillin resistant Staphylococcus aureus infection; Z82.49 Family history of ischemic heart disease and other diseases of the circulatory system; Z80.1 Family history of malignant neoplasm of trachea, bronchus and lung; Z87.891 Personal history of nicotine dependence; Z98.52 Vasectomy status; Z88.0 Allergy status to penicillin
CPT/HCPCS: 36415; 74018; 74176; 80053; 81000; 85025; 87088; 87491; 87591; 96374

== ENCOUNTER 2019-04-13 12:48 | Emergency (ER) | payer SELFPAY ==
[~2019-04-13] VITALS: Ht 172.7 cm; Wt 101.3 kg
--- NOTE | 2019-04-13 13:36 | ED General ---
General Chief Complaint: Cardiac/General Problems Stated Complaint: WEAK, JAW PAIN Nursing Triage Note: has c/o neck, back, shoulder, jaw pain, and general weakness Nursing Sepsis Screen: No Definite Risk Source of Information: Patient History of Present Illness Date Seen by Provider: Apr 13, 2019 Time Seen by Provider: 13:10 Initial Comments 48-year-old male presents with generalized body aches, weakness, cough, chest discomfort. He thinks he is a "dental infection because his upper gums hurt and he states he has "spitting out pus and blood" he did not have any generalized placed in his upper gums hurt. He does not complain of any fever bit does complain of chills. He reports he's had a cough for well. He denies any abdominal pain or urinary symptoms. Allergies and Home Medications Allergies Coded Allergies: vancomycin (Verified Allergy, Intermediate, RASH, 07/06/15) Erythema and itching Penicillins (Unverified Allergy, Mild, 07/20/08) penicillin G (Verified Allergy, Unknown, 01/05/06) Uncoded Allergies: PCN (Allergy, Mild, 07/21/08) Patient Home Medication List Home Medication List Reviewed: Yes Review of Systems Review of Systems Constitutional: chills; No fever; malaise EENTM: see HPI Respiratory: cough Cardiovascular: see HPI Gastrointestinal: no symptoms reported Genitourinary: no symptoms reported Musculoskeletal: see HPI Skin: no symptoms reported Psychiatric/Neurological: No Symptoms Reported Past Tincxwq-Nqiofb-Koxegq Hx Past Med/Social Hx: Reviewed Nursing Past Med/Soc Hx Patient Social History Alcohol Use: Occasionally Uses Recreational Drug Use: Yes (marijuana) Type Used: Cigarettes Former Smoker, Quit: Apr 23, 2014 2nd Hand Smoke Exposure: Yes Recent Foreign Travel: No Contact w/Someone Who Travel: No Recent Infectious Disease Expo: No Recent Hopitalizations: No Immunizations Up To Date Tetanus Booster (TDap): Unknown PED Vaccines UTD: No Seasonal Allergies Seasonal Allergies: No Past Medical History Surgeries: Yes (biopsy lymph node8 yo, Left knee surgery-meniscus tear ) Orthopedic, Vasectomy Respiratory: Yes (small "spot" on bottom left lung states is monitoring) Currently Using CPAP: No Currently Using BIPAP: No Cardiac: Yes (HAS REFUSED TO TAKE MEDICATIONS IN PAST) Hypertension Neurological: No Reproductive Disorders: No Sexually Transmitted Disease: No HIV/AIDS: No Gastrointestinal: No Musculoskeletal: Yes Arthritis Endocrine: No Loss of Vision: Denies Hearing Impairment: Hard of Hearing Cancer: No Psychosocial: Yes Anxiety, Depression Integumentary: Yes (recurrent MSSA abscesses) Blood Disorders: No Adverse Reaction/Blood Tranf: No Family Medical History Alcoholism 19 FATHER G8 BROTHER Cancer 19 FATHER Cardiovascular disease 19 MOTHER Completed stroke 19 MOTHER Congestive heart failure 19 MOTHER Diabetes mellitus 19 MOTHER FH: brain aneurysm G8 SISTER, Onset:40's - 50 FHx: lung cancer 19 FATHER Family history: Allergy Family history: Arthritis 19 MOTHER Family history: Cardiovascular disease 19 MOTHER Family history: Diabetes mellitus Family history: Hypertension 19 MOTHER Headache 19 MOTHER Hearing loss 19 FATHER Heart disease 19 MOTHER History of drug abuse Myocardial infarction 19 MOTHER Myocardial infarction 19 MOTHER Stroke Visual impairment No Family History of: AIDS Abdominal aortic aneurysm Abdominal aortic aneurysm Fountain's disease Fountain's disease Aphasia Cancer of colon Cataract Cataracts Chest pain Congenital disease Congenital heart disease Congenital heart disease Coronary thrombosis Cystic fibrosis Cystic fibrosis Dementia Dementia Drug abuse Dysphagia Family history: Alzheimer's disease Family history: Asthma Family history: Breast disease Family history: Coronary thrombosis Family history: Gastrointestinal disease Family history: Glaucoma Family history: Osteoporosis Family history: Thyroid disorder Fibrocystic disease of breast Hereditary disease History of - anemia History of - disorder History of - respiratory disease Human immunodeficiency virus (HIV) seropositivity Hypercholesterolemia Infertile Kidney disease Malignant neoplasm of lung Parkinson's disease Prostate cancer Psychotic disorder Seizure disorder Tuberculosis Renal Disease Physical Exam Vital Signs Vital Signs - First Documented 04/13/19 12:55 Temp 36.0 Pulse 81 Resp 18 B/P (MAP) 121/92 (102) Capillary Refill : Less Than 3 Seconds Height, Weight, BMI Height: 5'8.00" Weight: 235lbs. 1.0oz. 106.231782jt; 33.00 BMI Method:Stated General Appearance: No Apparent Distress, WD/WN HEENT: Other (patient was ordered" but no obvious signs of infection as upper gum or any obvious infected dental carry or dental abscess) Neck: Non Tender, Supple Respiratory: Lungs Clear, Normal Breath Sounds Cardiovascular: Regular Rate, Rhythm, No Edema Gastrointestinal: Non Tender, Soft Extremity: Normal Capillary Refill Neurologic/Psychiatric: Alert, Oriented x3, No Motor/Sensory Deficits, Normal Mood/Affect, fuselage framer II-XII Norm as Tested Skin: Normal Color, Warm/Dry Progress/Results/Core Measures Suspected Sepsis Recent Fever Within 48 Hours: No Infection Criteria Present: None New/Unexplained Altered Menta: No Sepsis Screen: No Definite Risk SIRS Temperature: Pulse: 81 Respiratory Rate: 18 Laboratory Tests 04/13/19 13:15: White Blood Count 7.7 Blood Pressure 121 /92 Mean: 102 Laboratory Tests 04/13/19 13:15: Creatinine 0.70, Platelet Count 271, Total Bilirubin 0.3 Results/Orders Lab Results Laboratory Tests Test 04/13/19 13:15 Range/Units White Blood Count 7.7 4.3-11.0 10^3/uL Red Blood Count 4.55 4.35-5.85 10^6/uL Hemoglobin 14.1 13.3-17.7 G/DL Hematocrit 42 40-54 % Mean Corpuscular Volume 91 80-99 FL Mean Corpuscular Hemoglobin 31 25-34 PG Mean Corpuscular Hemoglobin Concent 34 32-36 G/DL Red Cell Distribution Width 13.9 10.0-14.5 % Platelet Count 271 130-400 10^3/uL Mean Platelet Volume 9.7 7.4-10.4 FL Neutrophils (%) (Auto) 55 42-75 % Lymphocytes (%) (Auto) 32 12-44 % Monocytes (%) (Auto) 8 0-12 % Eosinophils (%) (Auto) 4 0-10 % Basophils (%) (Auto) 0 0-10 % Neutrophils # (Auto) 4.2 1.8-7.8 X 10^3 Lymphocytes # (Auto) 2.5 1.0-4.0 X 10^3 Monocytes # (Auto) 0.6 0.0-1.0 X 10^3 Eosinophils # (Auto) 0.3 0.0-0.3 10^3/uL Basophils # (Auto) 0.0 0.0-0.1 10^3/uL Sodium Level 139 135-145 MMOL/L Potassium Level 4.0 3.6-5.0 MMOL/L Chloride Level 108 H 98-107 MMOL/L Carbon Dioxide Level 23 21-32 MMOL/L Anion Gap 8 5-14 MMOL/L Blood Urea Nitrogen 13 7-18 MG/DL Creatinine 0.70 0.60-1.30 MG/DL Estimat Glomerular Filtration Rate > 60 BUN/Creatinine Ratio 19 Glucose Level 91 70-105 MG/DL Calcium Level 8.8 8.5-10.1 MG/DL Corrected Calcium 8.7 8.5-10.1 MG/DL Total Bilirubin 0.3 0.1-1.0 MG/DL Aspartate Amino Transf (AST/SGOT) 9 5-34 U/L Alanine Aminotransferase (ALT/SGPT) 13 0-55 U/L Alkaline Phosphatase 59 40-136 U/L Troponin I < 0.028 <0.028 NG/ML C-Reactive Protein High Sensitivity 0.16 0.00-0.50 MG/DL Total Protein 6.5 6.4-8.2 GM/DL Albumin 4.1 3.2-4.5 GM/DL My Orders Orders - JUAN GUADALUPE DO Cbc With Automated Diff (04/13/19 13:36) Comprehensive Metabolic Panel (04/13/19 13:36) Hs C Reactive Protein (04/13/19 13:36) Troponin I (04/13/19 13:36) Influenza A And B Antigens (04/13/19 13:36) Ekg Tracing (04/13/19 13:36) Chest Pa/Lat (2 View) (04/13/19 13:36) Vital Signs/I&O 04/13/19 12:55 Temp 36.0 Pulse 81 Resp 18 B/P (MAP) 121/92 (102) Capillary Refill : Less Than 3 Seconds Blood Pressure Mean: 102 Progress Note : Time: 15:04 Progress Note Patient with no acute findings on his workup. I did offer to give him a clindamycin prescription for chronic balance infections. His shoulder pain is chronic and discussing the need to follow-up with an outpatient or so or primary care provider for evaluation since this will likely require MRI and possible physical therapy. I will give him and naproxen for his chronic shoulder pain. Patient to be discharged home in stable condition and should follow-up with both his outpatient provider and a dentist as soon as possible able. Departure Impression Primary Impression: Infected dental caries Additional Impressions: Right shoulder pain Qualified Codes: M25.511 - Pain in right shoulder; G89.29 - Other chronic pain HTN (hypertension) Qualified Codes: I10 - Essential (primary) hypertension Disposition: 01 HOME, SELF-CARE Condition: Stable Departure-Patient Inst. Referrals: [facility] (PCP/Family) Primary Care Physician Patient Instructions: Dental Pain (DC), High Blood Pressure (DC), Shoulder Pain (DC) Add. Discharge Instructions: Emergency department focuses on treating and ruling out life-threatening diseases. Whenever possible, a diagnosis is given. However, most patients are given an impression based on their history, physical exam, and workup during your brief time in the ER. Information about probable diagnosis and other educational material has been provided. Please take the time to read and understand this information. It is very important that you follow up with a physician as discussed during the visit today. Failure to adhere to your follow-up instructions may lead to severe disability, injury, or so please make sure to keep your appointments or obtain one as requested. Please keep in mind the emergency department is not designed to your primary care or "family doctor" and nonurgent issues are best evaluated by an outpatient physician All discharge instructions reviewed with patient and/or family. Voiced understanding. Scripts Naproxen (Naprosyn) 500 Mg Tablet 500 MG PO BID, #30 TAB 0 Refills Prov: JUAN GUADALUPE DO 04/13/19 Clindamycin HCl (Clindamycin HCl) 300 Mg Capsule 300 MG PO TID, #30 CAP Prov: JUAN GUADALUPE DO 04/13/19 JUAN GUADALUPE DO Apr 13, 2019 13:36
[2019-04-13 13:44] LABS: BASOPHILS % (AUTO) 0 % (0-10); EOSINOPHILS # (AUTO) 0.3 10^3/uL (0.0-0.3); EOSINOPHILS % (AUTO) 4 % (0-10); HEMATOCRIT 42 % (40-54); HEMOGLOBIN 14.1 G/DL (13.3-17.7); LYMPHOCYTES # (AUTO) 2.5 X 10^3 (1.0-4.0); LYMPHOCYTES % (AUTO) 32 % (12-44); MEAN CORPUSCULAR HEMOGLOBIN 31 PG (25-34); MEAN CORPUSCULAR HGB CONC 34 G/DL (32-36); MEAN CORPUSCULAR VOLUME 91 FL (80-99); MEAN PLATELET VOLUME 9.7 FL (7.4-10.4); MONOCYTES # (AUTO) 0.6 X 10^3 (0.0-1.0); MONOCYTES % (AUTO) 8 % (0-12); NEUTROPHILS # (AUTO) 4.2 X 10^3 (1.8-7.8); NEUTROPHILS % (AUTO) 55 % (42-75); PLATELET COUNT 271 10^3/uL (130-400); RED CELL DISTRIBUTION WIDTH 13.9 % (10.0-14.5); WHITE BLOOD COUNT 7.7 10^3/uL (4.3-11.0)
[2019-04-13 13:58] LABS: ALANINE AMINOTRANSFERASE 13 U/L (0-55); ALBUMIN 4.1 GM/DL (3.2-4.5); ALKALINE PHOSPHATASE 59 U/L (40-136); BILIRUBIN,TOTAL 0.3 MG/DL (0.1-1.0); BUN/CREATININE RATIO 19; CALCIUM 8.8 MG/DL (8.5-10.1); CARBON DIOXIDE 23 MMOL/L (21-32); CHLORIDE 108 MMOL/L (98-107); GFR ESTIMATED > 60; GLUCOSE 91 MG/DL (70-105); SODIUM 139 MMOL/L (135-145); TOTAL PROTEIN 6.5 GM/DL (6.4-8.2)
[2019-04-13] MEDS ORDERED: NAPR-1071 PO (15:07)
[2019-04-13] MEDS ORDERED: CLIN300C11 PO (15:07)
--- NOTE | 2019-04-13 15:10 | Diagnostic Imaging Report ---
Indication: Back pain. Time of exam: 2:41 PM Comparison is made with prior chest from 09/07/2016. The heart size is normal. The pulmonary vascularity is unremarkable. The lungs are clear. No infiltrate, effusion or pneumothorax is detected. Impression: No acute cardiopulmonary process is detected. Dictated by: Dictated on workstation # [id number]
[2019-04-13 15:11] VITALS: BP 160/110
== END 2019-04-13 15:22 | disposition home or self-care (01) ==
LOC: EDUNIT# 12:48 → ER 12:50
DX: K02.9 Dental caries, unspecified (principal); M25.511 Pain in right shoulder; I10 Essential (primary) hypertension; F41.9 Anxiety disorder, unspecified; F32.9 Major depressive disorder, single episode, unspecified; Z88.1 Allergy status to other antibiotic agents; Z88.0 Allergy status to penicillin; Z87.891 Personal history of nicotine dependence; Z77.22 Contact with and (suspected) exposure to environmental tobacco smoke (acute) (chronic); Z82.49 Family history of ischemic heart disease and other diseases of the circulatory system; Z80.1 Family history of malignant neoplasm of trachea, bronchus and lung
CPT/HCPCS: 36415; 71046; 80053; 84484; 85025; 86141; 93005

== ENCOUNTER 2020-09-11 10:28 | Emergency (ER) | payer SELFPAY ==
[~2020-09-11] VITALS: Ht 172 cm; Wt 101.3 kg
[~2020-09-11 10:28] MED LIST changes: -CLIN150C17 PO; +CLIN150C18 PO; +CLIN300C12 PO; -MECL-106 PO; +MECL-149 PO
[2020-09-11 10:39] LABS: BASOPHILS % (AUTO) 0 % (0-10); EOSINOPHILS # (AUTO) 0.2 10^3/uL (0.0-0.3); EOSINOPHILS % (AUTO) 2 % (0-10); HEMATOCRIT 47 % (40-54); HEMOGLOBIN 15.5 g/dL (13.3-17.7); LYMPHOCYTES # (AUTO) 2.3 10^3/uL (1.0-4.0); LYMPHOCYTES % (AUTO) 26 % (12-44); MEAN CORPUSCULAR HEMOGLOBIN 31 pg (25-34); MEAN CORPUSCULAR HGB CONC 33 g/dL (32-36); MEAN CORPUSCULAR VOLUME 94 fL (80-99); MEAN PLATELET VOLUME 9.5 fL (9.0-12.2); MONOCYTES # (AUTO) 0.5 10^3/uL (0.0-1.0); MONOCYTES % (AUTO) 6 % (0-12); NEUTROPHILS # (AUTO) 5.8 10^3/uL (1.8-7.8); NEUTROPHILS % (AUTO) 65 % (42-75); PLATELET COUNT 316 10^3/uL (130-400); WHITE BLOOD COUNT 8.9 10^3/uL (4.3-11.0)
[2020-09-11 11:01] LABS: ALBUMIN 4.2 GM/DL (3.2-4.5); CHLORIDE 105 MMOL/L (98-107); POTASSIUM 4.1 MMOL/L (3.6-5.0); SODIUM 141 MMOL/L (135-145)
[2020-09-11 11:02] LABS: CALCIUM 9.8 MG/DL (8.5-10.1)
[2020-09-11 11:03] LABS: GLUCOSE 92 MG/DL (70-105); TOTAL PROTEIN 6.9 GM/DL (6.4-8.2)
[2020-09-11 11:04] LABS: CARBON DIOXIDE 26 MMOL/L (21-32)
[2020-09-11 11:05] LABS: BILIRUBIN,TOTAL 0.2 MG/DL (0.1-1.0)
[2020-09-11 11:07] LABS: ALKALINE PHOSPHATASE 75 U/L (40-136); CREATININE SERUM 0.91 MG/DL (0.60-1.30); GFR ESTIMATED > 60
[2020-09-11 11:08] LABS: BUN/CREATININE RATIO 21
--- NOTE | 2020-09-11 11:08 | Diagnostic Imaging Report ---
INDICATION: Chest pain Portable chest 10:59 AM Heart size and pulmonary vascularity are normal. Lungs are clear. There are no effusions or pneumothoraces. IMPRESSION: Negative chest. Dictated by: Dictated on workstation # [id number]
[2020-09-11 11:10] LABS: ALANINE AMINOTRANSFERASE 18 U/L (0-55)
[2020-09-11] MEDS ORDERED: LACTATED RINGERS 1,000 ML IV ONE (11:15)
--- NOTE | 2020-09-11 11:48 | ED General ---
General Chief Complaint: Dizziness/Syncope Stated Complaint: LOC Nursing Triage Note: PT PRESENTS TO ED VIA POV FROM HOME WITH COMPLAINTS OF FATIGUE, SYNCOPE, DIAPHORESIS, AND GENERALIZED MALAISE, Nursing Sepsis Screen: No Definite Risk Source of Information: Patient, EMS Notes Reviewed Exam Limitations: No Limitations History of Present Illness Date Seen by Provider: Sep 11, 2020 Time Seen by Provider: 10:30 Initial Comments 49-year-old man presents to the emergency room by private vehicle with his exsignificant other. 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 She presented to where he was working and found him lying on the ground profusely diaphoretic. She brought him by private vehicle to the emergency room. Patient is arousable by voice. He states "a little" when asked if he had any chest pain. He denies any injury. He denies hitting his head or neck when he fell out of the car. He landed on his hand. He denies any heart history that he is aware of. He denies any drug or alcohol use. His exsignificant other states he had a prior history of substance abuse but she does not know if he has used at all in the last month because they have been . EKG on initial assessment was unremarkable. She reports his respirations seemed slow and shallow when she found him. Allergies and Home Medications Allergies Coded Allergies: vancomycin (Verified Allergy, Intermediate, RASH, 07/06/15) Erythema and itching Penicillins (Unverified Allergy, Mild, 07/20/08) penicillin G (Verified Allergy, Unknown, 01/05/06) Uncoded Allergies: PCN (Allergy, Mild, 07/21/08) Home Medications Clindamycin HCl 300 Mg Capsule, 300 MG PO TID Prescribed by: JUAN GUADALUPE on 04/13/19 1500 Naproxen 500 Mg Tablet, 500 MG PO BID Prescribed by: JUAN GUADALUPE on 04/13/19 1507 Patient Home Medication List Home Medication List Reviewed: Yes Review of Systems Review of Systems Constitutional: no symptoms reported, see HPI, diaphoresis EENTM: no symptoms reported Respiratory: see HPI Cardiovascular: see HPI Gastrointestinal: no symptoms reported Genitourinary: no symptoms reported Musculoskeletal: no symptoms reported Skin: see HPI Psychiatric/Neurological: See HPI Hematologic/Lymphatic: No Symptoms Reported Immunological/Allergic: no symptoms reported Past Lgqlotc-Tqwgle-Kifwzp Hx Past Med/Social Hx: Reviewed Nursing Past Med/Soc Hx Patient Social History Alcohol Use: Occasionally Uses Drug of Choice: PAST HISTORY Smoking Status: Current Everyday Smoker Type Used: Cigarettes Former Smoker, Quit: Apr 23, 2014 2nd Hand Smoke Exposure: Yes Recent Infectious Disease Expo: No Recent Hopitalizations: No Immunizations Up To Date Tetanus Booster (TDap): Unknown PED Vaccines UTD: No Seasonal Allergies Seasonal Allergies: No Past Medical History Surgeries: Yes (biopsy lymph node8 yo, Left knee surgery-meniscus tear ) Orthopedic, Vasectomy Respiratory: Yes (small "spot" on bottom left lung states is monitoring) Currently Using CPAP: No Currently Using BIPAP: No Cardiac: Yes (HAS REFUSED TO TAKE MEDICATIONS IN PAST) Hypertension Neurological: No Reproductive Disorders: No Sexually Transmitted Disease: No HIV/AIDS: No Gastrointestinal: No Musculoskeletal: Yes Arthritis Endocrine: No Loss of Vision: Denies Hearing Impairment: Hard of Hearing Cancer: No Psychosocial: Yes Anxiety, Depression Integumentary: Yes (recurrent MSSA abscesses) Blood Disorders: No Adverse Reaction/Blood Tranf: No Family Medical History Alcoholism 19 FATHER G8 BROTHER Cancer 19 FATHER Cardiovascular disease 19 MOTHER Completed stroke 19 MOTHER Congestive heart failure 19 MOTHER Diabetes mellitus 19 MOTHER FH: brain aneurysm G8 SISTER, Onset:40's - 50 FHx: lung cancer 19 FATHER Family history: Allergy Family history: Arthritis 19 MOTHER Family history: Cardiovascular disease 19 MOTHER Family history: Diabetes mellitus Family history: Hypertension 19 MOTHER Headache 19 MOTHER Hearing loss 19 FATHER Heart disease 19 MOTHER History of drug abuse Myocardial infarction 19 MOTHER Myocardial infarction 19 MOTHER Stroke Visual impairment No Family History of: AIDS Abdominal aortic aneurysm Abdominal aortic aneurysm Swift's disease Swift's disease Aphasia Cancer of colon Cataract Cataracts Chest pain Congenital disease Congenital heart disease Congenital heart disease Coronary thrombosis Cystic fibrosis Cystic fibrosis Dementia Dementia Drug abuse Dysphagia Family history: Alzheimer's disease Family history: Asthma Family history: Breast disease Family history: Coronary thrombosis Family history: Gastrointestinal disease Family history: Glaucoma Family history: Osteoporosis Family history: Thyroid disorder Fibrocystic disease of breast Hereditary disease History of - anemia History of - disorder History of - respiratory disease Human immunodeficiency virus (HIV) seropositivity Hypercholesterolemia Infertile Kidney disease Malignant neoplasm of lung Parkinson's disease Prostate cancer Psychotic disorder Seizure disorder Tuberculosis Renal Disease Physical Exam Vital Signs Vital Signs - First Documented 09/11/20 10:36 Temp 35.9 Pulse 80 Resp 20 B/P (MAP) 161/114 (130) Pulse Ox 100 Capillary Refill : Less Than 3 Seconds Height, Weight, BMI Height: 5'8.00" Weight: 235lbs. 1.0oz. 106.826120gv; 34.00 BMI Method:Stated General Appearance: WD/WN, Other (Appears lethargic, diaphoretic) HEENT: PERRL/EOMI, Normal ENT Inspection Neck: Normal Inspection, Non Tender Respiratory: Lungs Clear, Normal Breath Sounds, No Accessory Muscle Use Cardiovascular: Regular Rate, Rhythm, No Edema, No Murmur Gastrointestinal: Non Tender, Soft; No Distended Extremity: Normal Inspection, No Pedal Edema Neurologic/Psychiatric: Other (Moves all 4 extremities, follows commands, appears generally weak, states month is September rather than August, states age is 50 instead of 49) Skin: Normal Color, Damp Focused Exam Lactate Level 09/11/20 10:40: Lactic Acid Level 1.33 Lactic Acid Level Laboratory Tests Test 09/11/20 10:40 Lactic Acid Level 1.33 MMOL/L (0.50-2.00) Progress/Results/Core Measures Suspected Sepsis Recent Fever Within 48 Hours: No Infection Criteria Present: None New/Unexplained Altered Menta: Yes Sepsis Screen: No Definite Risk SIRS Temperature: Pulse: 80 Respiratory Rate: 20 Laboratory Tests 09/11/20 10:33: White Blood Count 8.9 Blood Pressure 161 /114 Mean: 130 09/11/20 10:40: Lactic Acid Level 1.33 Laboratory Tests 09/11/20 10:33: Creatinine 0.91, Platelet Count 316, Total Bilirubin 0.2 Results/Orders Lab Results Laboratory Tests Test 09/11/20 10:33 09/11/20 10:40 09/11/20 12:30 09/11/20 13:55 Range/Units White Blood Count 8.9 4.3-11.0 10^3/uL Red Blood Count 5.04 4.30-5.52 10^6/uL Hemoglobin 15.5 13.3-17.7 g/dL Hematocrit 47 40-54 % Mean Corpuscular Volume 94 80-99 fL Mean Corpuscular Hemoglobin 31 25-34 pg Mean Corpuscular Hemoglobin Concent 33 32-36 g/dL Red Cell Distribution Width 12.5 10.0-14.5 % Platelet Count 316 130-400 10^3/uL Mean Platelet Volume 9.5 9.0-12.2 fL Immature Granulocyte % (Auto) 0 % Neutrophils (%) (Auto) 65 42-75 % Lymphocytes (%) (Auto) 26 12-44 % Monocytes (%) (Auto) 6 0-12 % Eosinophils (%) (Auto) 2 0-10 % Basophils (%) (Auto) 0 0-10 % Neutrophils # (Auto) 5.8 1.8-7.8 10^3/uL Lymphocytes # (Auto) 2.3 1.0-4.0 10^3/uL Monocytes # (Auto) 0.5 0.0-1.0 10^3/uL Eosinophils # (Auto) 0.2 0.0-0.3 10^3/uL Basophils # (Auto) 0.0 0.0-0.1 10^3/uL Immature Granulocyte # (Auto) 0.0 0.0-0.1 10^3/uL Sodium Level 141 135-145 MMOL/L Potassium Level 4.1 3.6-5.0 MMOL/L Chloride Level 105 98-107 MMOL/L Carbon Dioxide Level 26 21-32 MMOL/L Anion Gap 10 5-14 MMOL/L Blood Urea Nitrogen 19 H 7-18 MG/DL Creatinine 0.91 0.60-1.30 MG/DL Estimat Glomerular Filtration Rate > 60 BUN/Creatinine Ratio 21 Glucose Level 92 70-105 MG/DL Calcium Level 9.8 8.5-10.1 MG/DL Corrected Calcium 9.6 8.5-10.1 MG/DL Magnesium Level 2.0 1.6-2.4 MG/DL Total Bilirubin 0.2 0.1-1.0 MG/DL Aspartate Amino Transf (AST/SGOT) 13 5-34 U/L Alanine Aminotransferase (ALT/SGPT) 18 0-55 U/L Alkaline Phosphatase 75 40-136 U/L Total Creatine Kinase 68 30-200 U/L Myoglobin 45.6 10.0-92.0 NG/ML Troponin I < 0.028 < 0.028 <0.028 NG/ML C-Reactive Protein High Sensitivity 0.14 0.00-0.50 MG/DL Total Protein 6.9 6.4-8.2 GM/DL Albumin 4.2 3.2-4.5 GM/DL Serum Alcohol < 10 <10 MG/DL Lactic Acid Level 1.33 0.50-2.00 MMOL/L Urine Color YELLOW Urine Clarity CLEAR Urine pH 6.0 5-9 Urine Specific [place] 1.020 1.016-1.022 Urine Protein NEGATIVE NEGATIVE Urine Glucose (UA) NEGATIVE NEGATIVE Urine Ketones NEGATIVE NEGATIVE Urine Nitrite NEGATIVE NEGATIVE Urine Bilirubin NEGATIVE NEGATIVE Urine Urobilinogen 0.2 < = 1.0 MG/DL Urine Leukocyte Esterase TRACE H NEGATIVE Urine RBC (Auto) TRACE-I NEGATIVE Urine RBC 2-5 H /HPF Urine WBC 2-5 /HPF Urine Squamous Epithelial Cells NONE /HPF Urine Crystals NONE /LPF Urine Bacteria NEGATIVE /HPF Urine Casts NONE /LPF Urine Mucus NEGATIVE /LPF Urine Culture Indicated NO Urine Opiates Screen NEGATIVE NEGATIVE Urine Oxycodone Screen NEGATIVE NEGATIVE Urine Methadone Screen NEGATIVE NEGATIVE Urine Propoxyphene Screen NEGATIVE NEGATIVE Urine Barbiturates Screen NEGATIVE NEGATIVE Ur Tricyclic Antidepressants Screen NEGATIVE NEGATIVE Urine Phencyclidine Screen NEGATIVE NEGATIVE Urine Amphetamines Screen POSITIVE H NEGATIVE Urine Methamphetamines Screen POSITIVE H NEGATIVE Urine Benzodiazepines Screen NEGATIVE NEGATIVE Urine Cocaine Screen NEGATIVE NEGATIVE Urine Cannabinoids Screen POSITIVE H NEGATIVE My Orders Orders - YOLANDA ARCOS MD Cbc With Automated Diff (09/11/20 10:33) Magnesium (09/11/20 10:33) Chest 1 View, Ap/Pa Only (09/11/20 10:33) Ekg Tracing (09/11/20 10:33) Comprehensive Metabolic Panel (09/11/20 10:33) Myoglobin Serum (09/11/20 10:33) O2 (09/11/20 10:33) Monitor-Rhythm Ecg Trace Only (09/11/20 10:33) Ed Iv/Invasive Line Start (09/11/20 10:33) Troponin I (09/11/20 10:33) Alcohol (09/11/20 10:33) Drug Screen Stat (Urine) (09/11/20 10:33) Blood Culture (09/11/20 10:35) Urinalysis (09/11/20 10:35) Urine Culture (09/11/20 10:35) Vital Signs Adult Sepsis Patie Q15M (09/11/20 10:35) Remove Rings In Anticipation O (09/11/20 10:35) Lactic Acid Analyzer (09/11/20 10:35) Hs C Reactive Protein (09/11/20 10:35) Lactated Ringers (Lr 1000 Ml Iv Solution (09/11/20 11:15) Creatine Kinase (09/11/20 11:24) Troponin I (09/11/20 14:00) Medications Given in ED Current Medications Medications Dose Ordered Sig/Ellis Route Start Time Stop Time Status Last Admin Dose Admin Lactated Ringer's 1,000 ml @ 0 mls/hr Q0M ONCE IV 09/11/20 11:15 09/11/20 11:16 DC 09/11/20 11:23 999 MLS/HR Vital Signs/I&O 09/11/20 09/11/20 10:36 14:51 Temp 35.9 Pulse 80 90 Resp 20 18 B/P (MAP) 161/114 (130) 160/100 Pulse Ox 100 99 Capillary Refill : Less Than 3 Seconds Blood Pressure Mean: 130 Progress Note : Progress Note Patient's level of alertness was improving with time. Chest pain dissipated. I inquired again about injury. He denies any significant injury and denies hitting his head or neck. Urine drug screen did return positive for methamphetamines which patient seemed to be surprised about. Patient states he had only used marijuana in the last 2 years. Patient did receive IV fluids. Repeat troponin about 4 hours after onset of symptoms was also negative. See discharge instructions. ECG Initial ECG Impression Date: Sep 11, 2020 Initial ECG Impression Time: 10:30 Initial ECG Rate: 78 Initial ECG Rhythm: Normal Sinus Initial ECG Intervals: Normal Initial ECG Impression: Normal Comment Normal sinus rhythm with no ST elevation or depression. No abnormal intervals or axis deviation. Diagnostic Imaging Diagonstic Imaging: Xray Plain Films/CT/US/NM/MRI: chest Comments NAME: FELICIA SHEPPARD MED REC#: [id number] PT STATUS: REG ER : 1970 PHYSICIAN: YOLANDA ARCOS MD ADMIT DATE: 09/11/20/ER Signed Date of Exam:09/11/20 CHEST 1 VIEW, AP/PA ONLY INDICATION: Chest pain Portable chest 10:59 AM Heart size and pulmonary vascularity are normal. Lungs are clear. There are no effusions or pneumothoraces. IMPRESSION: Negative chest. Dictated by: Dictated on workstation # [id number] Dict: 09/11/20 1105 Trans: 09/11/20 1136 [facility] [id number] Interpreted by: GEORGI MICHELLE MD Electronically signed by: GEORGI MICHELLE MD 09/11/20 1136 Departure Impression Primary Impression: Altered mental status Qualified Codes: R41.82 - Altered mental status, unspecified Additional Impressions: Chest pain Qualified Codes: R07.9 - Chest pain, unspecified Positive urine drug screen Disposition: HOME, SELF-CARE Condition: Improved Departure-Patient Inst. Decision time for Depature: 14:44 Referrals: [facility] [place] Primary Care Physician Patient Instructions: Chest Pain Add. Discharge Instructions: Follow-up with your primary care provider soon as possible. Return to ER if you have worsening symptoms. Call with questions or concerns. All discharge instructions reviewed with patient and/or family. Voiced understanding. YOLANDA ARCOS MD Sep 11, 2020 11:48
[2020-09-11 12:41] LABS: BILIRUBIN,URINE NEGATIVE (NEGATIVE); CLARITY,URINE CLEAR; COLOR,URINE YELLOW; GLUCOSE, URINE (UA) NEGATIVE (NEGATIVE); KETONES,URINE NEGATIVE (NEGATIVE); LEUKOCYTE ESTERASE ,URINE TRACE (NEGATIVE); NITRITE,URINE NEGATIVE (NEGATIVE); PROTEIN,URINE NEGATIVE (NEGATIVE)
[2020-09-11 12:50] LABS: BACTERIA,URINE NEGATIVE /HPF
[2020-09-11 12:53] LABS: AMPHETAMINE SCREEN, URINE POSITIVE (NEGATIVE); BARBITURATE SCREEN URINE NEGATIVE (NEGATIVE); BENZODIAZEPINES SCREEN URINE NEGATIVE (NEGATIVE); CANNABINOID SCREEN, URINE POSITIVE (NEGATIVE); COCAINE SCREEN URINE NEGATIVE (NEGATIVE); METHADONE STAT NEGATIVE (NEGATIVE); METHAMPHETAMINE SCREEN URINE S POSITIVE (NEGATIVE); OPIATE SCREEN URINE NEGATIVE (NEGATIVE); OXYCODONE STAT NEGATIVE (NEGATIVE); PROPOXYPHENE STAT NEGATIVE (NEGATIVE); TRICYCLIC ANTIDEPRESSANTS SCRE NEGATIVE (NEGATIVE)
[2020-09-11 14:51] VITALS: BP 160/100
== END 2020-09-11 14:51 | disposition home or self-care (01) ==
LOC: EDUNIT# 10:28 → ER 10:30
DX: R41.82 Altered mental status, unspecified (principal); R07.9 Chest pain, unspecified; R82.998 Other abnormal findings in urine; I10 Essential (primary) hypertension; F17.210 Nicotine dependence, cigarettes, uncomplicated
CPT/HCPCS: 71045; 80053; 80306; 81000; 82550; 83605; 83735; 83874; 84484; 85025; 86141; 87040; 87088; 93005; 93041; 99284; G0480; 36415; 80320

== ENCOUNTER 2022-06-27 15:01 | Emergency (ER) | payer SELFPAY ==
[~2022-06-27] VITALS: Ht 172 cm; Wt 100.0 kg
[~2022-06-27 15:01] MED LIST changes: +CLIN-144 PO; -CLIN150C18 PO; +CLIN150C20 PO; -CLIN300C12 PO; +CYCL10TA25 PO; -CYCL10TA9 PO
--- NOTE | 2022-06-27 15:39 | ED Integumentary General ---
General Chief Complaint: Skin/Wound Problems Stated Complaint: HEADACHE - FACIAL SORE Nursing Triage Note: pt presents to ED with multiple abrasions, redness, and bilateral daxa-orbital edema as well as abrasions and redness to left arm. pt states pieces of steel that he was grinding up blew up in his face/arm 1mo ago and he's been digging the pieces out of his face/arm since. pt reports blurry vision. Source: patient Exam Limitations: no limitations History of Present Illness Date Seen by Provider: Jun 27, 2022 Time Seen by Provider: 15:23 Initial Comments 51-year-old male presents to the ED for a facial injury that occurred approximately 1 month ago. States that he was cutting steel on a grinding wheel, and the grinding wheel fell apart and pieces hit his face and his left arm. States he has been picking pieces out of his face for the last month. He presents with open wounds to face, swelling to bridge of nose, and swelling around bilateral eyes. Patient also complaining of pressure in head. Wounds on left arm do not appear infected. Reports difficulty seeing due to swollen eyes. Reports vision is slightly blurry when I hold his eyes open. States he does wear reading glasses. Eyes do not appear to be injured. He denies fevers, but was sweating during assessment, denies chest pain, shortness of breath, abdominal pain, nausea, vomiting, diarrhea. Allergies and Home Medications Allergies Coded Allergies: vancomycin (Verified Allergy, Intermediate, RASH, 07/06/15) Erythema and itching Penicillins (Unverified Allergy, Mild, 07/20/08) penicillin G (Verified Allergy, Unknown, 01/05/06) Uncoded Allergies: PCN (Allergy, Mild, 07/21/08) Patient Home Medication List Home Medication List Reviewed: Yes Clindamycin HCl (Clindamycin HCl) 300 Mg Capsule, 300 MG PO TID Prescribed by: JUAN GUADALUPE on 04/13/19 1507 Clindamycin HCl (Clindamycin HCl) 300 Mg Capsule, 300 MG PO QID Prescribed by: Tegan Antoine on 06/27/22 1714 Naproxen (Naprosyn) 500 Mg Tablet, 500 MG PO BID Prescribed by: JUAN GUADALUPE on 04/13/19 1507 Review of Systems Review of Systems Constitutional: see HPI Past Ypdiwih-Bwnrzf-Ijwosq Hx Patient Social History Tobacco Use?: Yes Tobacco type used: Cigarettes Smoking Status: Current Someday Smoker Substance use?: Yes Substance type: Marijuana Alcohol Use?: No Pt feels they are or have been: No Immunizations Up To Date Tetanus Booster (TDap): Unknown PED Vaccines UTD: No Influenza Vaccine Up-to-Date: No; Not Current Seasonal Allergies Seasonal Allergies: No Past Medical History Surgeries: Yes (biopsy lymph node8 yo, Left knee surgery-meniscus tear ) Orthopedic, Vasectomy Respiratory: Yes (small "spot" on bottom left lung states is monitoring) Currently Using CPAP: No Currently Using BIPAP: No Cardiac: Yes (HAS REFUSED TO TAKE MEDICATIONS IN PAST) Hypertension Neurological: No Reproductive Disorders: No Sexually Transmitted Disease: No HIV/AIDS: No Gastrointestinal: No Musculoskeletal: Yes Arthritis Endocrine: No Loss of Vision: Denies Hearing Impairment: Hard of Hearing Cancer: No Psychosocial: Yes Anxiety, Depression Integumentary: Yes (recurrent MSSA abscesses) Blood Disorders: No Adverse Reaction/Blood Tranf: No Family Medical History Alcoholism 19 FATHER G8 BROTHER Cancer 19 FATHER Cardiovascular disease 19 MOTHER Completed stroke 19 MOTHER Congestive heart failure 19 MOTHER Diabetes mellitus 19 MOTHER FH: brain aneurysm G8 SISTER, Onset:40's - 50 FHx: lung cancer 19 FATHER Family history: Allergy Family history: Arthritis 19 MOTHER Family history: Cardiovascular disease 19 MOTHER Family history: Diabetes mellitus Family history: Hypertension 19 MOTHER Headache 19 MOTHER Hearing loss 19 FATHER Heart disease 19 MOTHER History of drug abuse Myocardial infarction 19 MOTHER Myocardial infarction 19 MOTHER Stroke Visual impairment No Family History of: AIDS Abdominal aortic aneurysm Abdominal aortic aneurysm Erath's disease Erath's disease Aphasia Cancer of colon Cataract Cataracts Chest pain Congenital disease Congenital heart disease Congenital heart disease Coronary thrombosis Cystic fibrosis Cystic fibrosis Dementia Dementia Drug abuse Dysphagia Family history: Alzheimer's disease Family history: Asthma Family history: Breast disease Family history: Coronary thrombosis Family history: Gastrointestinal disease Family history: Glaucoma Family history: Osteoporosis Family history: Thyroid disorder Fibrocystic disease of breast Hereditary disease History of - anemia History of - disorder History of - respiratory disease Human immunodeficiency virus (HIV) seropositivity Hypercholesterolemia Infertile Kidney disease Malignant neoplasm of lung Parkinson's disease Prostate cancer Psychotic disorder Seizure disorder Tuberculosis Renal Disease Physical Exam Vital Signs Vital Signs - First Documented 06/27/22 15:06 Temp 36.5 Pulse 88 Resp 20 B/P (MAP) 137/90 (106) Pulse Ox 98 O2 Delivery Room Air Capillary Refill : Less Than 3 Seconds General Appearance: WD/WN, mild distress HEENT: PERRL/EOMI, other (Eyes do not appear injured, no redness to eyes, no drainage) Neck: supple, normal inspection Cardiovascular: regular rate, rhythm, no edema, no gallop, no JVD, no murmur Respiratory: lungs clear, normal breath sounds, no respiratory distress, no accessory muscle use Extremities: normal range of motion, normal inspection Neurologic/Psychiatric: alert, normal mood/affect Skin: normal color, warm/dry, other (Multiple wounds, swelling, erythema to face and around eyes) Progress/Results/Core Measures Results/Orders Lab Results Laboratory Tests Test 06/27/22 15:50 Range/Units White Blood Count 9.8 4.3-11.0 10^3/uL Red Blood Count 4.47 4.30-5.52 10^6/uL Hemoglobin 13.7 13.3-17.7 g/dL Hematocrit 41 40-54 % Mean Corpuscular Volume 91 80-99 fL Mean Corpuscular Hemoglobin 31 25-34 pg Mean Corpuscular Hemoglobin Concent 34 32-36 g/dL Red Cell Distribution Width 13.1 10.0-14.5 % Platelet Count 267 130-400 10^3/uL Mean Platelet Volume 9.6 9.0-12.2 fL Immature Granulocyte % (Auto) 0 % Neutrophils (%) (Auto) 75 42-75 % Lymphocytes (%) (Auto) 15 12-44 % Monocytes (%) (Auto) 8 0-12 % Eosinophils (%) (Auto) 2 0-10 % Basophils (%) (Auto) 0 0-10 % Neutrophils # (Auto) 7.3 1.8-7.8 10^3/uL Lymphocytes # (Auto) 1.5 1.0-4.0 10^3/uL Monocytes # (Auto) 0.8 0.0-1.0 10^3/uL Eosinophils # (Auto) 0.2 0.0-0.3 10^3/uL Basophils # (Auto) 0.0 0.0-0.1 10^3/uL Immature Granulocyte # (Auto) 0.0 0.0-0.1 10^3/uL Prothrombin Time 13.6 12.2-14.7 SEC INR Comment 1.0 0.8-1.4 Activated Partial Thromboplast Time 32 24-35 SEC Sodium Level 136 135-145 MMOL/L Potassium Level 3.9 3.6-5.0 MMOL/L Chloride Level 106 98-107 MMOL/L Carbon Dioxide Level 21 21-32 MMOL/L Anion Gap 9 5-14 MMOL/L Blood Urea Nitrogen 21 H 7-18 MG/DL Creatinine 0.79 0.60-1.30 MG/DL Estimat Glomerular Filtration Rate 108 BUN/Creatinine Ratio 27 Glucose Level 89 70-105 MG/DL Lactic Acid Level 0.70 0.50-2.00 MMOL/L Calcium Level 9.0 8.5-10.1 MG/DL Corrected Calcium 8.9 8.5-10.1 MG/DL Total Bilirubin 0.6 0.1-1.0 MG/DL Aspartate Amino Transf (AST/SGOT) 11 5-34 U/L Alanine Aminotransferase (ALT/SGPT) 16 0-55 U/L Alkaline Phosphatase 71 40-136 U/L C-Reactive Protein High Sensitivity 2.17 H 0.00-0.50 MG/DL Total Protein 6.6 6.4-8.2 GM/DL Albumin 4.1 3.2-4.5 GM/DL Micro Results Microbiology 06/27/22 Gram Stain - Final, Resulted 06/27/22 Wound Culture - Preliminary, Resulted Staphylococcus aureus Testing In Progress Staph, Coag Neg ([employer]) Normal skin terese No Susceptibility Performed 06/27/22 Blood Culture - Preliminary, Resulted No growth 06/27/22 Blood Culture - Preliminary, Resulted No growth My Orders Orders - TEGAN ANTOINE [employer] Cbc With Automated Diff (06/27/22 15:31) Comprehensive Metabolic Panel (06/27/22 15:31) Blood Culture (06/27/22 15:31) Protime With Inr (06/27/22 15:31) Partial Thromboplastin Time (06/27/22 15:31) Ed Iv/Invasive Line Start (06/27/22 15:31) Vital Signs Adult Sepsis Patie Q15M (06/27/22 15:31) Lactic Acid Analyzer (06/27/22 15:31) Ns Iv 1000 Ml (Sodium Chloride 0.9%) (06/27/22 15:45) Ct Maxillofacial W (06/27/22 15:31) Fentanyl Inj (Sublimaze Injection) (06/27/22 15:45) Iohexol Injection (Omnipaque 350 Mg/Ml 1 (06/27/22 15:45) Received Contrast (Hold Metformin- Contr (06/27/22 15:45) Ns (Ivpb) (Sodium Chloride 0.9% Ivpb Bag (06/27/22 15:45) Wound Culture (06/27/22 15:39) Hs C Reactive Protein (06/27/22 16:24) Ceftriaxone 1 Gm Pre-Mix (Rocephin 1 Gm (06/27/22 16:30) Clindamycin Capsule (Cleocin Capsule) (06/27/22 16:45) Medications Given in ED Vital Signs/I&O 06/27/22 06/27/22 15:06 17:15 Temp 36.5 Pulse 88 72 Resp 20 20 B/P (MAP) 137/90 (106) 128/82 Pulse Ox 98 98 O2 Delivery Room Air Room Air 06/28/22 00:00 Intake Total 1050 ml Balance 1050 ml Blood Pressure Mean: 106 Progress Progress Note : Time: 15:38 Progress Note Patient seen and evaluated, resting in bed, mild distress. Based on exam and symptoms, septic work-up initiated including CBC, CMP, lactic acid, coags, blood cultures x2, IV fluids, CT maxillofacial with contrast, wound culture, pain medicine, and visual acuity ordered. [address] reviewed. CBC grossly normal, WBC 9.8. CMP grossly normal, BUN slightly elevated 21. Lactic acid normal, 0.70. CRP slightly elevated 2.17. Coags normal. CT shows diffuse facial swelling, no abscess or gas, no osseous abnormality. Results discussed with patient. He was treated with rocephin and first dose of clindamycin. Based on VS and labs, patient does not appear to be septic. Visual acuity was 20/20 for left, right, and bilateral eyes. Will discharge with prescription for clindamycin and instructions to have wounds re-evaluated in 2 days. Discharge instructions and return precautions provided. Diagnostic Imaging Diagonstic Imaging: CT Plain Films/CT/US/NM/MRI: other (maxillofacial) Comments [facility], [place] NAME: FELICIA SHEPPARD SR MED REC#: [id number] PT STATUS: REG ER : 1970 PHYSICIAN: TEGAN ANTOINE APRN ADMIT DATE: 06/27/22/ER Signed Date of Exam:06/27/22 CT MAXILLOFACIAL W PROCEDURE: CT maxillofacial with contrast. TECHNIQUE: After intravenous administration of contrast, axial images were obtained through the face and reformatted into coronal and sagittal planes. Auto Exposure Controls were utilized during the CT exam to meet ALARA standards for radiation dose reduction. INDICATION: Facial injury with pain and swelling. COMPARISON: None. DISCUSSION: Bilateral periorbital soft tissue swelling. Additional swelling within the forehead diffusely and to a lesser degree within the bilateral cheeks. There is no underlying soft tissue fluid collection or gas identified. No radiopaque foreign body identified. The orbits appear symmetrical. The visualized intracranial contents are unremarkable. There is trace mucosal thickening within the ethmoid air cells and left maxillary sinus, chronic in appearance. No air-fluid level. The mastoid air cells are well-aerated. No acute fracture identified. IMPRESSION: Diffuse facial soft tissue swelling, as described. No acute osseous abnormality. Dictated by: Dictated on workstation # [id number] Dict: 06/27/22 1613 Trans: 06/27/22 1645 [facility] [id number] Interpreted by: HEATHER DURAN MD Electronically signed by: HEATHER DURAN MD 06/27/22 1645 Departure Impression Primary Impression: Facial cellulitis Disposition: 01 HOME, SELF-CARE Condition: Stable Departure-Patient Inst. Decision time for Depature: 16:55 Referrals: [facility] [place] Primary Care Physician Patient Instructions: Cellulitis (Skin Infection), Adult ED Add. Discharge Instructions: Complete full course of antibiotic as directed, do not stop taking even if your symptoms improves. Clindamycin can cause diarrhea, make sure you are drinking plenty of water. You may take Tylenol or ibuprofen as needed for pain. Follow-up with your primary care provider or the [facility] walk-in clinic. You should be reevaluated in a couple of days to assess for improvement. Return for worsening swelling or redness of your face, fevers, odorous drainage, worsening swelling of your eyes that causes you to be unable to open your eyes, or any other new, concerning, or worsening symptoms. All discharge instructions reviewed with patient and/or family. Voiced understanding. Scripts Clindamycin HCl (Clindamycin HCl) 300 Mg Capsule 300 MG PO QID for 7 Days, #28 CAP 0 Refills Prov: TEGAN ANTOINE APRN 06/27/22 TEGAN ANTOINE APRN Jun 27, 2022 15:39
[2022-06-27] MEDS ORDERED: fentaNYL INJ 100 MCG/2 ML AMP IVP ONE (15:45)
[2022-06-27] MEDS ORDERED: NS 100 ML (IVPB) BAG IV ONE (15:45)
[2022-06-27] MEDS ORDERED: NS IV 1000 ML 1,000 ML IV SCH (15:45)
[2022-06-27] MEDS ORDERED: IOHEXOL 350 MG/ML 100 ML (OMNIPAQUE 350) VIAL IV ONE (15:45)
[2022-06-27] MEDS ORDERED: HOLD METFORMIN - RECEIVED CONTRAST 20 ML VIAL IV SCH (15:45)
[2022-06-27 16:07] LABS: BASOPHILS % (AUTO) 0 % (0-10); EOSINOPHILS # (AUTO) 0.2 10^3/uL (0.0-0.3); EOSINOPHILS % (AUTO) 2 % (0-10); HEMATOCRIT 41 % (40-54); HEMOGLOBIN 13.7 g/dL (13.3-17.7); LYMPHOCYTES # (AUTO) 1.5 10^3/uL (1.0-4.0); LYMPHOCYTES % (AUTO) 15 % (12-44); MEAN CORPUSCULAR HEMOGLOBIN 31 pg (25-34); MEAN CORPUSCULAR HGB CONC 34 g/dL (32-36); MEAN CORPUSCULAR VOLUME 91 fL (80-99); MEAN PLATELET VOLUME 9.6 fL (9.0-12.2); MONOCYTES # (AUTO) 0.8 10^3/uL (0.0-1.0); MONOCYTES % (AUTO) 8 % (0-12); NEUTROPHILS # (AUTO) 7.3 10^3/uL (1.8-7.8); NEUTROPHILS % (AUTO) 75 % (42-75); PLATELET COUNT 267 10^3/uL (130-400); WHITE BLOOD COUNT 9.8 10^3/uL (4.3-11.0)
--- NOTE | 2022-06-27 16:21 | Diagnostic Imaging Report ---
PROCEDURE: CT maxillofacial with contrast. TECHNIQUE: After intravenous administration of contrast, axial images were obtained through the face and reformatted into coronal and sagittal planes. Auto Exposure Controls were utilized during the CT exam to meet ALARA standards for radiation dose reduction. INDICATION: Facial injury with pain and swelling. COMPARISON: None. DISCUSSION: Bilateral periorbital soft tissue swelling. Additional swelling within the forehead diffusely and to a lesser degree within the bilateral cheeks. There is no underlying soft tissue fluid collection or gas identified. No radiopaque foreign body identified. The orbits appear symmetrical. The visualized intracranial contents are unremarkable. There is trace mucosal thickening within the ethmoid air cells and left maxillary sinus, chronic in appearance. No air-fluid level. The mastoid air cells are well-aerated. No acute fracture identified. IMPRESSION: Diffuse facial soft tissue swelling, as described. No acute osseous abnormality. Dictated by: Dictated on workstation # [id number]
[2022-06-27 16:22] LABS: ALBUMIN 4.1 GM/DL (3.2-4.5); PROTHROMBIN TIME PATIENT 13.6 SEC (12.2-14.7)
[2022-06-27 16:23] LABS: POTASSIUM 3.9 MMOL/L (3.6-5.0)
[2022-06-27 16:25] LABS: TOTAL PROTEIN 6.6 GM/DL (6.4-8.2)
[2022-06-27 16:27] LABS: BILIRUBIN,TOTAL 0.6 MG/DL (0.1-1.0)
[2022-06-27 16:29] LABS: CREATININE SERUM 0.79 MG/DL (0.60-1.30)
[2022-06-27] MEDS ORDERED: cefTRIAXone 1 GM PRE-MIX 50 ML IV ONE (16:30)
[2022-06-27] MEDS ORDERED: CLINDAMYCIN 150 MG (CLEOCIN) CAP PO ONE (16:45)
[2022-06-27] MEDS ORDERED: CLIN-144 PO ×2 (17:02→17:14)
[2022-06-27 17:15] VITALS: BP 128/82
== END 2022-06-27 17:15 | disposition home or self-care (01) ==
LOC: EDUNIT# 15:01 → ER 15:03
DX: L03.211 Cellulitis of face (principal); R79.89 Other specified abnormal findings of blood chemistry; F17.210 Nicotine dependence, cigarettes, uncomplicated; Z88.1 Allergy status to other antibiotic agents; Z28.310 Unvaccinated for COVID-19
CPT/HCPCS: 36415; 70487; 80053; 83605; 85025; 85610; 85730; 86141; 87040; 87070; 87077; 87205

== ENCOUNTER 2022-06-29 16:53 | Observation (INO) | payer SELFPAY ==
[2022-06-29] VITALS (9 sets, daily range): BP systolic 129–165; BP diastolic 73–124
[~2022-06-29] VITALS: Ht 172 cm; Wt 96.2 kg
[2022-06-29] MEDS ORDERED: morphine INJ 10 MG/ML 1ML (SYR OR VIAL) IVP STA (17:28)
--- NOTE | 2022-06-29 17:37 | ED General ---
General Chief Complaint: Facial Problems Stated Complaint: ALERGIC REACTION Nursing Triage Note: PT TO TRIAGE CO OF FACIAL SWELLING, EYES VERY SWOLLEN BILATERALLY, PT HAS OPEN AREAS INBETWEEN EYES AND ON CHIN. PT WAS SEEN IN ED ON TUESDAY. PT DID NOT GET MEDS FILLED. PT STATES FEELING ALOT WORSE. Source of Information: Patient, Old Records Exam Limitations: No Limitations (YOLANDA ARCOS MD) History of Present Illness Date Seen by Provider: Jun 29, 2022 Time Seen by Provider: 17:19 Initial Comments This 51-year-old man presents to the emergency room with complaints of swelling and pain around the face. About a month ago he was grinding metal and the grinding wheel broke apart. Portions of the wheel and metal struck him in the face. He was seen in this emergency room 2 days ago. Labs were obtained including blood cultures and wound cultures. Blood cultures were negative. Wound culture is growing Staph aureus with sensitivity pending. He was prescribed clindamycin at discharge from that visit but did not fill any of his medications. He is afebrile. He reports his "head feels like it is going to explode." He has history of polysubstance abuse but denies any recent drug, alcohol, or tobacco use. He has social barriers with finances and transportation. He is relying on his children for support. Presently he has significant swelling over the bridge of the nose between the eyes with a white center. This possibly represents an abscess. He denies any drainage from that wound. The left eye is markedly swollen, and he can scarcely open it. When the swollen tissue is lifted, he denies any diplopia. Eye movements do cause pain. Primary care provider is Boaz Galdamez at [facility]. He has not seen a new provider since Mr. Galdamze moved from the [facility]. In addition to pain of the face, he complains of pain in the left anterior neck. He has been seen in this ER and admitted for various infections and sepsis in the past. All of his prior cultures were reviewed. He has history of numerous cultures positive for both MSSA and MRSA. (YOLANDA ARCOS MD) Allergies and Home Medications Allergies Coded Allergies: vancomycin (Verified Allergy, Intermediate, RASH, 07/06/15) Erythema and itching Penicillins (Unverified Allergy, Mild, 07/20/08) penicillin G (Verified Allergy, Unknown, 01/05/06) Uncoded Allergies: PCN (Allergy, Mild, 07/21/08) Patient Home Medication List Home Medication List Reviewed: Yes (YOLANDA ARCOS MD) No Active Prescriptions or Reported Meds Review of Systems Review of Systems Constitutional: no symptoms reported EENTM: see HPI Respiratory: no symptoms reported Cardiovascular: no symptoms reported Gastrointestinal: no symptoms reported Genitourinary: no symptoms reported Musculoskeletal: no symptoms reported Skin: see HPI Psychiatric/Neurological: No Symptoms Reported Hematologic/Lymphatic: No Symptoms Reported Immunological/Allergic: no symptoms reported (YOLANDA ARCOS MD) Past Etsofye-Gaxsvj-Qmillg Hx Patient Social History Tobacco Use?: No Substance use?: Yes (History of polysubstance abuse, denies current use) Alcohol Use?: No Pt feels they are or have been: No (YOLANDA ARCOS MD) Immunizations Up To Date Tetanus Booster (TDap): Unknown PED Vaccines UTD: No (YOLANDA ARCOS MD) Seasonal Allergies Seasonal Allergies: No (YOLANDA ARCOS MD) Past Medical History Surgery/Hospitalization HX: VASECTOMY, LYMPH NODE AT 8YO Surgeries: Yes (biopsy lymph node8 yo, Left knee surgery-meniscus tear ) Orthopedic, Vasectomy Respiratory: Yes (small "spot" on bottom left lung states is monitoring) Currently Using CPAP: No Currently Using BIPAP: No Cardiac: Yes (HAS REFUSED TO TAKE MEDICATIONS IN PAST) Hypertension Neurological: No Reproductive Disorders: No Sexually Transmitted Disease: No HIV/AIDS: No Gastrointestinal: No Musculoskeletal: Yes Arthritis Endocrine: No Loss of Vision: Denies Hearing Impairment: Hard of Hearing Cancer: No Psychosocial: Yes (History of polysubstance abuse with positive drug screens on file) Anxiety, Depression Integumentary: Yes (recurrent MSSA abscesses) Blood Disorders: No Adverse Reaction/Blood Tranf: No (YOLANDA ARCOS MD) Family Medical History Alcoholism 19 FATHER G8 BROTHER Cancer 19 FATHER Cardiovascular disease 19 MOTHER Completed stroke 19 MOTHER Congestive heart failure 19 MOTHER Diabetes mellitus 19 MOTHER FH: brain aneurysm G8 SISTER, Onset:40's - 50 FHx: lung cancer 19 FATHER Family history: Allergy Family history: Arthritis 19 MOTHER Family history: Cardiovascular disease 19 MOTHER Family history: Diabetes mellitus Family history: Hypertension 19 MOTHER Headache 19 MOTHER Hearing loss 19 FATHER Heart disease 19 MOTHER History of drug abuse Myocardial infarction 19 MOTHER Myocardial infarction 19 MOTHER Stroke Visual impairment No Family History of: AIDS Abdominal aortic aneurysm Abdominal aortic aneurysm Brooke's disease Brooke's disease Aphasia Cancer of colon Cataract Cataracts Chest pain Congenital disease Congenital heart disease Congenital heart disease Coronary thrombosis Cystic fibrosis Cystic fibrosis Dementia Dementia Drug abuse Dysphagia Family history: Alzheimer's disease Family history: Asthma Family history: Breast disease Family history: Coronary thrombosis Family history: Gastrointestinal disease Family history: Glaucoma Family history: Osteoporosis Family history: Thyroid disorder Fibrocystic disease of breast Hereditary disease History of - anemia History of - disorder History of - respiratory disease Human immunodeficiency virus (HIV) seropositivity Hypercholesterolemia Infertile Kidney disease Malignant neoplasm of lung Parkinson's disease Prostate cancer Psychotic disorder Seizure disorder Tuberculosis Renal Disease (YOLANDA ARCOS MD) Physical Exam Vital Signs Vital Signs - First Documented 06/29/22 17:05 Temp 36.7 Pulse 90 Resp 16 B/P (MAP) 136/91 (106) Pulse Ox 98 (AYDEE,KEKE K DO) Vital Signs Capillary Refill : Less Than 3 Seconds (YOLANDA ARCOS MD) Height, Weight, BMI Height: 5'8.00" Weight: 235lbs. 1.0oz. 106.068734me; 33.00 BMI Method:Stated General Appearance: WD/WN, Mild Distress HEENT: PERRL/EOMI, Pharynx Normal, Other (Marked facial swelling particularly over the bridge of the nose between the eyes and in the left periorbital region. There is associated erythema. There is a white center to the edema over the nose, possibly representing abscess coming to ahead. These areas are tender to the touch. He has other scattered areas of erythema with scabbed wounds over the face and extremities.) Neck: Normal Inspection, Tender Lateral (Left anterior) Respiratory: Lungs Clear, Normal Breath Sounds, No Accessory Muscle Use Cardiovascular: Regular Rate, Rhythm, No Edema, No Murmur Gastrointestinal: Non Tender, Soft Extremity: No Pedal Edema, Other (Scattered erythematous skin wounds) Neurologic/Psychiatric: Alert, Oriented x3, No Motor/Sensory Deficits, Normal Mood/Affect Skin: Warm/Dry, Other (As above) (YOALNDA ARCOS MD) Focused Exam Lactate Level 06/29/22 17:35: Lactic Acid Level 0.91 (KEKE HEBERT DO) Lactic Acid Level Laboratory Tests Test 06/29/22 17:35 Lactic Acid Level 0.91 MMOL/L (0.50-2.00) (KEKE HEBERT DO) Progress/Results/Core Measures Suspected Sepsis SIRS Temperature: Pulse: 90 Respiratory Rate: 16 Laboratory Tests 06/29/22 17:35: White Blood Count 10.0 Blood Pressure 136 /91 Mean: 106 06/29/22 17:35: Lactic Acid Level 0.91 Laboratory Tests 06/29/22 17:35: Creatinine 0.79, INR Comment 1.0, Platelet Count 325, Total Bilirubin 0.6 (YOLANDA ARCOS MD) Results/Orders Lab Results Laboratory Tests Test 06/29/22 17:35 Range/Units White Blood Count 10.0 4.3-11.0 10^3/uL Red Blood Count 4.95 4.30-5.52 10^6/uL Hemoglobin 15.1 13.3-17.7 g/dL Hematocrit 45 40-54 % Mean Corpuscular Volume 91 80-99 fL Mean Corpuscular Hemoglobin 31 25-34 pg Mean Corpuscular Hemoglobin Concent 34 32-36 g/dL Red Cell Distribution Width 12.9 10.0-14.5 % Platelet Count 325 130-400 10^3/uL Mean Platelet Volume 9.5 9.0-12.2 fL Immature Granulocyte % (Auto) 0 % Neutrophils (%) (Auto) 72 42-75 % Lymphocytes (%) (Auto) 17 12-44 % Monocytes (%) (Auto) 7 0-12 % Eosinophils (%) (Auto) 3 0-10 % Basophils (%) (Auto) 1 0-10 % Neutrophils # (Auto) 7.2 1.8-7.8 10^3/uL Lymphocytes # (Auto) 1.7 1.0-4.0 10^3/uL Monocytes # (Auto) 0.7 0.0-1.0 10^3/uL Eosinophils # (Auto) 0.3 0.0-0.3 10^3/uL Basophils # (Auto) 0.1 0.0-0.1 10^3/uL Immature Granulocyte # (Auto) 0.0 0.0-0.1 10^3/uL Prothrombin Time 13.9 12.2-14.7 SEC INR Comment 1.0 0.8-1.4 Activated Partial Thromboplast Time 32 24-35 SEC Sodium Level 139 135-145 MMOL/L Potassium Level 3.7 3.6-5.0 MMOL/L Chloride Level 105 98-107 MMOL/L Carbon Dioxide Level 23 21-32 MMOL/L Anion Gap 11 5-14 MMOL/L Blood Urea Nitrogen 12 7-18 MG/DL Creatinine 0.79 0.60-1.30 MG/DL Estimat Glomerular Filtration Rate 108 BUN/Creatinine Ratio 15 Glucose Level 100 70-105 MG/DL Lactic Acid Level 0.91 0.50-2.00 MMOL/L Calcium Level 9.7 8.5-10.1 MG/DL Corrected Calcium 9.5 8.5-10.1 MG/DL Total Bilirubin 0.6 0.1-1.0 MG/DL Aspartate Amino Transf (AST/SGOT) 9 5-34 U/L Alanine Aminotransferase (ALT/SGPT) 14 0-55 U/L Alkaline Phosphatase 77 40-136 U/L C-Reactive Protein High Sensitivity 3.30 H 0.00-0.50 MG/DL Total Protein 7.0 6.4-8.2 GM/DL Albumin 4.2 3.2-4.5 GM/DL (THOR HEBERTA Micah FITZGERALD) My Orders Orders - KEKE HEBERT DO Iohexol Injection (Omnipaque 350 Mg/Ml 1 (06/29/22 18:30) Received Contrast (Hold Metformin- Contr (06/29/22 18:30) Ns (Ivpb) (Sodium Chloride 0.9% Ivpb Bag (06/29/22 18:30) Ed Admission (Communication) (06/29/22 19:21) (KEKE HEBERT DO) Medications Given in ED Current Medications Medications Dose Ordered Sig/Ellis Route Start Time Stop Time Status Last Admin Dose Admin Clindamycin Phosphate/Dextrose 50 ml @ 100 mls/hr ONCE ONCE IV 06/29/22 18:15 06/29/22 18:44 DC 06/29/22 18:37 100 MLS/HR Iohexol 100 ml ONCE ONCE IV 06/29/22 18:30 06/29/22 18:32 DC 06/29/22 18:38 96 ML Sodium Chloride 100 ml ONCE ONCE IV 06/29/22 18:30 06/29/22 18:32 DC 06/29/22 18:38 80 ML (KEKE HEBERT DO) Vital Signs/I&O 06/29/22 17:05 Temp 36.7 Pulse 90 Resp 16 B/P (MAP) 136/91 (106) Pulse Ox 98 (KEKE HEBERT DO) Vital Signs/I&O Capillary Refill : Less Than 3 Seconds (YOLANDA ARCOS MD) Blood Pressure Mean: 106 Progress Note : Time: 18:01 Progress Note Patient has been interviewed and examined. Note from his prior ER visit was reviewed. Culture results were reviewed. History of prior admissions also reviewed. Morphine was ordered for pain control. Modified septic work-up is being obtained. Given the Staph aureus noted on the preliminary wound culture and history of staph infections of various sensitivities, Rocephin and clindamycin would seem to be an appropriate initial therapy. Patient has allergies to penicillin and vancomycin.. Maxillofacial and soft tissue neck CTs have been ordered. Results of the studies are pending. Report has been given to Dr. Hebert and care is being transitioned at this time. (YOLANDA ARCOS MD) Progress Note : Progress Note 1800--ASSUMED CARE OF PT FROM DR. ARCOS AT SHIFT CHANGE, ALL STUDIES PENDING AT THIS TIME. (KEKE HEBERT DO) Diagnostic Imaging Comments CT SCANS--PER RADIOLOGIST REPORTS AT 1915 CT MAXILLOFACIALS-- FINDINGS: There is persistent diffuse abnormal soft tissue induration and fat stranding throughout the soft tissues of the face. There is significant involvement of the forehead which has increased compared to the prior examination and there is bilateral periorbital soft tissue thickening. The most focal involvement appears to be over the nasal bridge and anterior to the maxilla. There is also some diffuse fat stranding now extending inferiorly along the anterior margins of the mandible. Despite the interval progression compared to the prior examination the features remain most suggestive of widespread cellulitis or edema with no definable focal fluid collection or drainable abscess. There is no bone resorption evident of the mandible or of the maxilla. There are no findings to suggest intraorbital post-septal involvement. There is no involvement evident within the floor of the mouth or findings of displacement of the parapharyngeal fat planes or narrowing of the airway. There is no fluid collection within the prevertebral retropharyngeal space or findings of thickening of the epiglottis. The parotid and submandibular glands appear normal. There are prominent bilateral submandibular and upper cervical lymph nodes that are likely reactive in nature. The visualized intracranial contents demonstrate patent flow within the major vasculature with no findings of mass effect or abnormal intracranial enhancement. Mastoids and middle ears are clear. There is some mild mucosal thickening in the ethmoid and maxillary sinuses. IMPRESSION: 1. Interval progression in the widespread facial soft tissue induration and skin thickening with subcutaneous fat stranding. The findings are most compatible with a facial cellulitis. There is no drainable abscess or bone destruction. 2. There is no postseptal involvement within the orbits 3. There is no mass effect exerted on the airway. 4. There are numerous prominent lymph nodes which are likely reactive in nature. CT NECK SOFT TISSUES-- FINDINGS: The prior described facial soft tissue induration and swelling is not entirely included within the [id number] on this examination. Some mild induration within the perimandibular subcutaneous fat and thickening of the platysma noted. The parotid and submandibular glands appear unremarkable. There is no fluid collection evident within the floor of the mouth. The base of the tongue is appropriate. There is no abnormal process in the prevertebral or retropharyngeal space. There is no thickening of the epiglottis. The vocal folds are symmetric. Subglottic trachea and the visualized portion of the esophagus are unremarkable. The vascular structures of the neck maintain appropriate arterial and internal jugular venous flow. There is no definable abscess. The lung apices are clear. There are prominent bilateral cervical lymph nodes which are presumably reactive in nature. There is no bone erosion or endplate irregularity within the cervical spine though there are advanced endplate changes at C4-C5, C5-C6 and C6-C7. There is reversal of the cervical lordosis. IMPRESSION: 1. Partial visualization of the facial subcutaneous soft tissue stranding and induration with thickening of the platysma and presumed reactive lymphadenopathy within the neck. The features are compatible with a probable cellulitis with no definable fluid collection or abscess. 2. No significant mass effect exerted on the airway. There is no abnormal process in the prevertebral or retropharyngeal space. 3. Advanced degenerative features within the cervical spine without findings of endplate changes or osteomyelitis. 4. Vascular structures of the neck remain patent. Reviewed: Reviewed by Me (KEKE HEBERT DO) Departure Communication (Admissions) 1917--SPOKE WITH DR. VILLARREAL, HOSPITAL[place] [facility] [place]. SHE WILL DO ADMIT ORDERS 1922--SPOKE WITH DR. SORENSEN FOR SURGERY CONSULT. (KEKE HEBERT DO) Impression Primary Impression: Facial cellulitis Disposition: ADMITTED INPATIENT Condition: Stable Admissions Decision to Admit Reason: Admit from ER (General) Decision to Admit/Date: Jun 29, 2022 Time/Decision to Admit Time: 19:20 (KEKE HEBERT DO) Departure-Patient Inst. [place]: [facility] [place] Primary Care Physician Scripts No Active Prescriptions or Reported Meds YOLANDA ARCOS MD Jun 29, 2022 17:37 KEKE HEBERT DO Jun 29, 2022 18:18
[2022-06-29 17:50] LABS: BASOPHILS # (AUTO) 0.1 10^3/uL (0.0-0.1); BASOPHILS % (AUTO) 1 % (0-10); EOSINOPHILS # (AUTO) 0.3 10^3/uL (0.0-0.3); EOSINOPHILS % (AUTO) 3 % (0-10); HEMATOCRIT 45 % (40-54); HEMOGLOBIN 15.1 g/dL (13.3-17.7); LYMPHOCYTES # (AUTO) 1.7 10^3/uL (1.0-4.0); LYMPHOCYTES % (AUTO) 17 % (12-44); MEAN CORPUSCULAR HEMOGLOBIN 31 pg (25-34); MEAN CORPUSCULAR HGB CONC 34 g/dL (32-36); MEAN CORPUSCULAR VOLUME 91 fL (80-99); MEAN PLATELET VOLUME 9.5 fL (9.0-12.2); MONOCYTES # (AUTO) 0.7 10^3/uL (0.0-1.0); MONOCYTES % (AUTO) 7 % (0-12); NEUTROPHILS # (AUTO) 7.2 10^3/uL (1.8-7.8); NEUTROPHILS % (AUTO) 72 % (42-75); PLATELET COUNT 325 10^3/uL (130-400)
[2022-06-29 17:59] LABS: ALBUMIN 4.2 GM/DL (3.2-4.5); POTASSIUM 3.7 MMOL/L (3.6-5.0)
[2022-06-29 18:00] LABS: CALCIUM 9.7 MG/DL (8.5-10.1)
[2022-06-29 18:03] LABS: BILIRUBIN,TOTAL 0.6 MG/DL (0.1-1.0)
[2022-06-29] MEDS ORDERED: cefTRIAXone PRE-MIX 50 ML IV STA (18:04)
[2022-06-29 18:05] LABS: CREATININE SERUM 0.79 MG/DL (0.60-1.30)
[2022-06-29 18:13] LABS: PROTHROMBIN TIME PATIENT 13.9 SEC (12.2-14.7)
[2022-06-29] MEDS ORDERED: CLINDAMYCIN 900 MG/50 ML IVPB 50 ML IV ONE (18:15)
[2022-06-29] MEDS ORDERED: NS 100 ML (IVPB) BAG IV ONE (18:30)
[2022-06-29] MEDS ORDERED: IOHEXOL 350 MG/ML 100 ML (OMNIPAQUE 350) VIAL IV ONE (18:30)
[2022-06-29] MEDS ORDERED: HOLD METFORMIN - RECEIVED CONTRAST 20 ML VIAL IV SCH (18:30)
--- NOTE | 2022-06-29 19:02 | Diagnostic Imaging Report ---
PROCEDURE: CT maxillofacial with contrast. TECHNIQUE: After intravenous administration of contrast, axial images were obtained through the face and reformatted into coronal and sagittal planes. Auto Exposure Controls were utilized during the CT exam to meet ALARA standards for radiation dose reduction. INDICATION: Facial infection. Facial swelling. Evaluate for abscess. Comparison is made with the prior CT of the face performed on 06/27/2022. FINDINGS: There is persistent diffuse abnormal soft tissue induration and fat stranding throughout the soft tissues of the face. There is significant involvement of the forehead which has increased compared to the prior examination and there is bilateral periorbital soft tissue thickening. The most focal involvement appears to be over the nasal bridge and anterior to the maxilla. There is also some diffuse fat stranding now extending inferiorly along the anterior margins of the mandible. Despite the interval progression compared to the prior examination the features remain most suggestive of widespread cellulitis or edema with no definable focal fluid collection or drainable abscess. There is no bone resorption evident of the mandible or of the maxilla. There are no findings to suggest intraorbital post-septal involvement. There is no involvement evident within the floor of the mouth or findings of displacement of the parapharyngeal fat planes or narrowing of the airway. There is no fluid collection within the prevertebral retropharyngeal space or findings of thickening of the epiglottis. The parotid and submandibular glands appear normal. There are prominent bilateral submandibular and upper cervical lymph nodes that are likely reactive in nature. The visualized intracranial contents demonstrate patent flow within the major vasculature with no findings of mass effect or abnormal intracranial enhancement. Mastoids and middle ears are clear. There is some mild mucosal thickening in the ethmoid and maxillary sinuses. IMPRESSION: 1. Interval progression in the widespread facial soft tissue induration and skin thickening with subcutaneous fat stranding. The findings are most compatible with a facial cellulitis. There is no drainable abscess or bone destruction. 2. There is no postseptal involvement within the orbits 3. There is no mass effect exerted on the airway. 4. There are numerous prominent lymph nodes which are likely reactive in nature. Dictated by: Dictated on workstation # [id number]
--- NOTE | 2022-06-29 19:14 | Diagnostic Imaging Report ---
PROCEDURE: CT neck soft tissue with contrast. TECHNIQUE: Multiple contiguous axial images were obtained through the neck after the administration of contrast. Auto Exposure Controls were utilized during the CT exam to meet ALARA standards for radiation dose reduction. INDICATION: Facial swelling and infection. Evaluate for abscess. CORRELATION is made with a CT of the face performed the same day. FINDINGS: The prior described facial soft tissue induration and swelling is not entirely included within the [id number] on this examination. Some mild induration within the perimandibular subcutaneous fat and thickening of the platysma noted. The parotid and submandibular glands appear unremarkable. There is no fluid collection evident within the floor of the mouth. The base of the tongue is appropriate. There is no abnormal process in the prevertebral or retropharyngeal space. There is no thickening of the epiglottis. The vocal folds are symmetric. Subglottic trachea and the visualized portion of the esophagus are unremarkable. The vascular structures of the neck maintain appropriate arterial and internal jugular venous flow. There is no definable abscess. The lung apices are clear. There are prominent bilateral cervical lymph nodes which are presumably reactive in nature. There is no bone erosion or endplate irregularity within the cervical spine though there are advanced endplate changes at C4-C5, C5-C6 and C6-C7. There is reversal of the cervical lordosis. IMPRESSION: 1. Partial visualization of the facial subcutaneous soft tissue stranding and induration with thickening of the platysma and presumed reactive lymphadenopathy within the neck. The features are compatible with a probable cellulitis with no definable fluid collection or abscess. 2. No significant mass effect exerted on the airway. There is no abnormal process in the prevertebral or retropharyngeal space. 3. Advanced degenerative features within the cervical spine without findings of endplate changes or osteomyelitis. 4. Vascular structures of the neck remain patent. Dictated by: Dictated on workstation # [id number]
[2022-06-29] MEDS ORDERED: LACTATED RINGERS 1,000 ML IV ONE (19:30)
[2022-06-29] MEDS ORDERED: NS IV 1000 ML 1,000 ML IV SCH (19:30)
[2022-06-29 20:22] LABS: AMPHETAMINE SCREEN, URINE POSITIVE (NEGATIVE); BARBITURATE SCREEN URINE NEGATIVE (NEGATIVE); BENZODIAZEPINES SCREEN URINE NEGATIVE (NEGATIVE); CANNABINOID SCREEN, URINE POSITIVE (NEGATIVE); COCAINE SCREEN URINE NEGATIVE (NEGATIVE); METHADONE STAT NEGATIVE (NEGATIVE); OPIATE SCREEN URINE POSITIVE (NEGATIVE); OXYCODONE STAT NEGATIVE (NEGATIVE); PROPOXYPHENE STAT NEGATIVE (NEGATIVE); TRICYCLIC ANTIDEPRESSANTS SCRE NEGATIVE (NEGATIVE)
[2022-06-29] MEDS ORDERED: ONDANSETRON 4 MG (ZOFRAN) ORAL DISSOLVE TAB PO PRN (20:45)
[2022-06-29] MEDS ORDERED: LORazepam INJ 2 MG/ML (ATIVAN) VIAL IVP PRN (20:45)
[2022-06-29] MEDS ORDERED: BISACODYL 10 MG SUPP (DULCOLAX) PR PRN (20:45)
[2022-06-29] MEDS ORDERED: ONDANSETRON 4 MG/2 ML (SDV) Z0FRAN IV PRN (20:45)
[2022-06-29] MEDS ORDERED: MELATONIN 3 MG TABLET PO PRN (20:45)
[2022-06-29] MEDS ORDERED: ANTACID SUSP 30 ML UDC (MYLANTA) PO PRN (20:45)
[2022-06-29] MEDS ORDERED: polyethylene glycoL POWDER 17 GM (MIRALAX) PACK PO PRN (20:45)
[2022-06-29] MEDS ORDERED: cloNIDine 0.1 MG (CATAPRES) TAB PO PRN (20:45)
[2022-06-29] MEDS ORDERED: LACTULOSE SYRUP 10GM/15ML (ENULOSE) 30ML UDC PO PRN (20:45)
[2022-06-29] MEDS ORDERED: CALCIUM CARBONATE 500 MG (TUMS) TAB.CHEW PO PRN (20:45)
[2022-06-29] MEDS ORDERED: diphenhydrAMINE 25 MG TAB (BENADRYL) PO PRN (20:45)
[2022-06-29] MEDS ORDERED: diphenhydrAMINE 50 MG/ML INJ (BENADRYL) IVP PRN (20:45)
[2022-06-29] MEDS ORDERED: MILK OF MAGNESIA 400 MG/5 ML 30 ML UDC PO PRN (20:45)
[2022-06-29] MEDS ORDERED: NS IV 1000 ML 1,000 ML ONE (21:12)
[2022-06-29] MEDS ORDERED: RT-ALBUTEROL SULF 2.5 MG/3 ML PRE-MIX VIAL INH PRN (21:30)
[2022-06-29] MEDS: NS IV 1000 ML 1,000 ML IV SCH (21:31)
[2022-06-29] MEDS: LINEZOLID IVPB 300 ML IV SCH (21:32)
[2022-06-29] MEDS: DOCUSATE SODIUM 100 MG (COLACE) CAP PO SCH (21:32)
[2022-06-29] MEDS: SENNOSIDES 8.6 MG (SENOKOT) TAB PO SCH (21:32)
--- NOTE | 2022-06-29 22:37 | Consultation - Surgery ---
[facility] 06/29/222236: History of Present Illness History of Present Illness Patient Consulted On(nacho/time) 06/29/22 22:36 Date Seen by Provider: Jun 29, 2022 Time Seen by Provider: 22:36 History of Present Illness Consult requested by Dr. Jacinto. Pt presented to ED 06/29 with swelling and pain of the face and eyes. 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 He notes trying to remove the pieces with tweezers last Tuesday, 06/25, and subsequently had increased pain and swelling. Pt was seen in the ER 06/27 where blood clx was negative, wound clx negative. He was prescribed clindamycin but did not fill the medication. At presentation 06/29 he was afebrile, noted a lot of pressure in his head. He has history of positive MSSA and MRSA cultures in the past. He has history of positive polysubstance abuse but denies any recent drug, alcohol or tobacco other than marijuana. Urine drug screen positive for methamphetamine, amphetamine and cannabinoids. CT face and neck with facial subcutaneous soft tissue stranding and induration with thickening of the platy sma and presumed reactive lymphadenopathy within the neck. Compatible with a probable cellulitis with no definable fluid collection or abscess. He was started on Rocephin and clindamycin as he reports allergies to vancomycin and PCN. Today he reports increasing pain of the eyes and face as well as increasing redness and swelling. He notes trouble with vision as he can barely open his eyes 2/2 swelling and pain. Eye pain increases with eye movement. Denies fever, SOB, CP, weakness. Allergies and Home Medications Allergies Coded Allergies: vancomycin (Verified Allergy, Intermediate, RASH, 07/06/15) Erythema and itching Penicillins (Unverified Allergy, Mild, 07/20/08) penicillin G (Verified Allergy, Unknown, 01/05/06) Uncoded Allergies: PCN (Allergy, Mild, 07/21/08) Patient Home Medication List Home Medication List Reviewed: Yes No Active Prescriptions or Reported Meds Past Nobnfkx-Jcwqpl-Elozjo Hx Patient Social History Drug of Choice: PAST HISTORY Smoking Status: Former Smoker Former Smoker, Quit: Apr 23, 2014 Type Used: Cigarettes 2nd Hand Smoke Exposure: Yes Recent Hopitalizations: No Alcohol Use?: Yes Substance type: Marijuana Have you traveled recently?: No Immunizations Up To Date Tetanus Booster (TDap): Unknown PED Vaccines UTD: No Seasonal Allergies Seasonal Allergies: No Surgeries History of Surgeries: Yes (biopsy lymph node8 yo, Left knee surgery-meniscus tear ) Surgeries: Vasectomy Respiratory History of Respiratory Disorde: Yes (small "spot" on bottom left lung states is monitoring) Cardiovascular History of Cardiac Disorders: Yes (HAS REFUSED TO TAKE MEDICATIONS IN PAST) Cardiac Disorders: Hypertension Neurological History of Neurological Disord: No Reproductive System Hx Reproductive Disorders: No Sexually Transmitted Disease: No HIV/AIDS: No Gastrointestinal History of Gastrointestinal Di: No Musculoskeletal History of Musculoskeletal Dis: Yes Musculoskeletal Disorders: Arthritis Endocrine History of Endocrine Disorders: No HEENT Loss of Vision: Denies Hearing Impairment: Hard of Hearing Cancer History of Cancer: No Psychosocial History of Psychiatric Problem: Yes (History of polysubstance abuse with positive drug screens on file) Behavioral Health Disorders: Anxiety, Depression Integumentary History of Skin or Integumenta: Yes (recurrent MSSA abscesses) Blood Transfusions History of Blood Disorders: No Adverse Reaction to a Blood Tr: No Family Medical History Significant Family History: Diabetes, Renal Disease Family Medial History: Alcoholism 19 FATHER G8 BROTHER Cancer 19 FATHER Cardiovascular disease 19 MOTHER Completed stroke 19 MOTHER Congestive heart failure 19 MOTHER Diabetes mellitus 19 MOTHER FH: brain aneurysm G8 SISTER, Onset:40's - 50 FHx: lung cancer 19 FATHER Family history: Allergy Family history: Arthritis 19 MOTHER Family history: Cardiovascular disease 19 MOTHER Family history: Diabetes mellitus Family history: Hypertension 19 MOTHER Headache 19 MOTHER Hearing loss 19 FATHER Heart disease 19 MOTHER History of drug abuse Myocardial infarction 19 MOTHER Myocardial infarction 19 MOTHER Stroke Visual impairment No Family History of: AIDS Abdominal aortic aneurysm Abdominal aortic aneurysm Malone's disease Malone's disease Aphasia Cancer of colon Cataract Cataracts Chest pain Congenital disease Congenital heart disease Congenital heart disease Coronary thrombosis Cystic fibrosis Cystic fibrosis Dementia Dementia Drug abuse Dysphagia Family history: Alzheimer's disease Family history: Asthma Family history: Breast disease Family history: Coronary thrombosis Family history: Gastrointestinal disease Family history: Glaucoma Family history: Osteoporosis Family history: Thyroid disorder Fibrocystic disease of breast Hereditary disease History of - anemia History of - disorder History of - respiratory disease Human immunodeficiency virus (HIV) seropositivity Hypercholesterolemia Infertile Kidney disease Malignant neoplasm of lung Parkinson's disease Prostate cancer Psychotic disorder Seizure disorder Tuberculosis Review of Systems-General Constitutional: No chills, No fever, No weakness EENTM: hearing loss (chronic "hard of hearing"), blurred vision, eye pain Respiratory: No cough, No short of breath Cardiovascular: No chest pain, No palpitations Gastrointestinal: No abdominal pain, No nausea, No vomiting Genitourinary: No decreased output, No frequency Musculoskeletal: No back pain; neck pain (anterior neck) Skin: lesions (scattered on arms and face); No lumps Psychiatric/Neurological: Anxiety, Depressed All Other Systems Reviewed Negative Unless Noted: Yes (Negative excepted noted.) Physical Exam-General Problems Physical Exam Vital Signs Vital Signs - First Documented 06/29/22 06/29/22 06/29/22 17:05 20:38 21:19 Temp 36.7 Pulse 90 Resp 16 B/P (MAP) 136/91 (106) Pulse Ox 98 O2 Delivery Room Air FiO2 21 Capillary Refill : Less Than 3 Seconds General Appearance: WD/WN, no apparent distress HEENT: pharynx normal, photophobia, other (vision limited 2/2 pain and swelling) Neck: full range of motion, other (scattered lesions anteriorly) Respiratory: chest non-tender, no respiratory distress, no accessory muscle use Cardiovascular: normal peripheral pulses, no edema Gastrointestinal: non tender, soft Back: normal inspection, no vertebral tenderness Extremities: normal range of motion, other (scattered scabbed wounds on b/l arms) Neurologic/Psychiatric: alert, normal mood/affect, oriented x 3 Skin: other (Facial swelling over the bridge of the nose and marked periorbital swelling of b/l eyes with associated erythema and tenderness. Scattered scabbed lesions of face, particularly bridge of nose and chin. ) Lymphatic: no adenopathy Data Review Labs Laboratory Tests 06/29/22 17:35: White Blood Count 10.0, Red Blood Count 4.95, Hemoglobin 15.1, Hematocrit 45, Mean Corpuscular Volume 91, Mean Corpuscular Hemoglobin 31, Mean Corpuscular Hemoglobin Concent 34, Red Cell Distribution Width 12.9, Platelet Count 325, Mean Platelet Volume 9.5, Immature Granulocyte % (Auto) 0, Neutrophils (%) (Auto) 72, Lymphocytes (%) (Auto) 17, Monocytes (%) (Auto) 7, Eosinophils (%) (Auto) 3, Basophils (%) (Auto) 1, Neutrophils # (Auto) 7.2, Lymphocytes # (Auto) 1.7, Monocytes # (Auto) 0.7, Eosinophils # (Auto) 0.3, Basophils # (Auto) 0.1, Immature Granulocyte # (Auto) 0.0, Prothrombin Time 13.9, INR Comment 1.0, Activated Partial Thromboplast Time 32, Sodium Level 139, Potassium Level 3.7, Chloride Level 105, Carbon Dioxide Level 23, Anion Gap 11, Blood Urea Nitrogen 12, Creatinine 0.79, Estimat Glomerular Filtration Rate 108, BUN/Creatinine Ratio 15, Glucose Level 100, Lactic Acid Level 0.91, Calcium Level 9.7, Corrected Calcium 9.5, Total Bilirubin 0.6, Aspartate Amino Transf (AST/SGOT) 9, Alanine Aminotransferase (ALT/SGPT) 14, Alkaline Phosphatase 77, C-Reactive Protein High Sensitivity 3.30H, Total Protein 7.0, Albumin 4.2 06/29/22 19:54: Urine Opiates Screen POSITIVEH, Urine Oxycodone Screen NEGATIVE, Urine Methadone Screen NEGATIVE, Urine Propoxyphene Screen NEGATIVE, Urine Barbiturates Screen NEGATIVE, Ur Tricyclic Antidepressants Screen NEGATIVE, Urine Phencyclidine Screen NEGATIVE, Urine Amphetamines Screen POSITIVEH, Urine Methamphetamines Screen POSITIVEH, Urine Benzodiazepines Screen NEGATIVE, Urine Cocaine Screen NEGATIVE, Urine Cannabinoids Screen POSITIVEH Assessment/Plan Assessment/Plan Assessment/Plan Cellulitis of face Periorbital swelling Scattered skin lesions face and extremities History polysubstance abuse Positive methamphetamine on UDS CT face and neck with subcutaneous soft tissue stranding, presumed reactive lymphadenopathy within the neck without definable fluid collection or abscess Continue antibiotics Monitor labs and vision FEI COLE DO 06/30/221907: History of Present Illness History of Present Illness History of Present Illness Consult requested by Dr. Jacinto for facial cellulitis. 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 He recently had a carbon wheel of bearing grinder break and had shrapnel hit him. This occured about 1 month ago. He has still been pulling shrapnel out and was using tweezers to pull some out last Ad. Started having significant swelling, erythema and pain. Caused eyelids to swell up and make it difficult to see. He was given antibiotics 06/27 but did not pick them up.. Areas of erythema worsening. so adina back to ED. No drainage from the areas of ertyema. Ct scans of face and neck are consistent with celllulitis, no drainable fluid collecdtions. Denies n/v fever sweats chills shortness of breath or chest pain. Allergies and Home Medications Allergies Coded Allergies: vancomycin (Verified Allergy, Intermediate, RASH, 07/06/15) Erythema and itching Penicillins (Unverified Allergy, Mild, 07/20/08) penicillin G (Verified Allergy, Unknown, 01/05/06) Uncoded Allergies: PCN (Allergy, Mild, 07/21/08) Patient Home Medication List Home Medication List Reviewed: Yes No Active Prescriptions or Reported Meds Past Fatakcc-Ybtxzf-Vsmamb Hx Reviewed Nursing Assessment Reviewed/Agree w Nursing PMH: Yes Family Medical History Significant Family History: Diabetes, Renal Disease Family Medial History: Alcoholism 19 FATHER G8 BROTHER Cancer 19 FATHER Cardiovascular disease 19 MOTHER Completed stroke 19 MOTHER Congestive heart failure 19 MOTHER Diabetes mellitus 19 MOTHER FH: brain aneurysm G8 SISTER, Onset:40's - 50 FHx: lung cancer 19 FATHER Family history: Allergy Family history: Arthritis 19 MOTHER Family history: Cardiovascular disease 19 MOTHER Family history: Diabetes mellitus Family history: Hypertension 19 MOTHER Headache 19 MOTHER Hearing loss 19 FATHER Heart disease 19 MOTHER History of drug abuse Myocardial infarction 19 MOTHER Myocardial infarction 19 MOTHER Stroke Visual impairment No Family History of: AIDS Abdominal aortic aneurysm Abdominal aortic aneurysm Diogenes's disease Diogenes's disease Aphasia Cancer of colon Cataract Cataracts Chest pain Congenital disease Congenital heart disease Congenital heart disease Coronary thrombosis Cystic fibrosis Cystic fibrosis Dementia Dementia Drug abuse Dysphagia Family history: Alzheimer's disease Family history: Asthma Family history: Breast disease Family history: Coronary thrombosis Family history: Gastrointestinal disease Family history: Glaucoma Family history: Osteoporosis Family history: Thyroid disorder Fibrocystic disease of breast Hereditary disease History of - anemia History of - disorder History of - respiratory disease Human immunodeficiency virus (HIV) seropositivity Hypercholesterolemia Infertile Kidney disease Malignant neoplasm of lung Parkinson's disease Prostate cancer Psychotic disorder Seizure disorder Tuberculosis Review of Systems-General Constitutional: No chills, No fever, No weakness EENTM: hearing loss (chronic "hard of hearing"), blurred vision, eye pain Respiratory: No cough, No short of breath Cardiovascular: No see HPI, No chest pain, No palpitations Gastrointestinal: No abdominal pain, No vomiting Genitourinary: No decreased output, No frequency Musculoskeletal: No back pain; neck pain (anterior neck) Skin: lesions (scattered on arms and face) Psychiatric/Neurological: Anxiety, Depressed All Other Systems Reviewed Negative Unless Noted: Yes (Negative excepted noted.) Physical Exam-General Problems Physical Exam General Appearance: WD/WN, no apparent distress HEENT: other (patient with 2-3 mm pupils, reactive, eyelids swollen, difficult for him to open) Neck: full range of motion, other (scattered lesions anteriorly/erythema) Respiratory: chest non-tender, no respiratory distress, no accessory muscle use Cardiovascular: normal peripheral pulses, no edema Gastrointestinal: non tender, soft Rectal: deferred Genital/Rectal: normal rectal exam Back: normal inspection, no vertebral tenderness Extremities: normal range of motion, non-tender Neurologic/Psychiatric: no motor/sensory deficits, alert, normal mood/affect, oriented x 3 Skin: warm/dry, other (Facial swelling over the bridge of the nose and marked periorbital swelling of b/l eyes with associated erythema and tenderness. Scattered scabbed lesions of face, particularly bridge of nose and chin. ) Lymphatic: no adenopathy Assessment/Plan Assessment/Plan Assessment/Plan Cellulitis of face Periorbital swelling Scattered skin lesions face and extremities History polysubstance abuse Positive methamphetamine on UDS CT face and neck with subcutaneous soft tissue stranding/cellulitis, presumed reactive lymphadenopathy within the neck without definable fluid collection or abscess warm compresses Continue antibiotics Monitor labs and vision Supervisory-Addendum Brief Verification & Attestation Participated in pt care: history, MDM, physical Personally performed: exam, history, MDM, supervision of care Care discussed with: Medical Student Procedures: n/a Results interpretation: Verified all documentation Verification and Attestation of Medical Student E/M Service A medical student performed and documented this service in my presence. I reviewed and verified all information documented by the medical student and made modifications to such information, when appropriate. I personally performed the physical exam and medical decision making. Fei Cole, Jun 29, 2022,23:14 HALEY CASH Jun 29, 2022 22:37 FEI COLE DO Jun 30, 2022 19:08
[2022-06-30] MEDS: CLINDAMYCIN 600 MG/50 ML IVPB 50 ML IV SCH ×3 (02:08→17:19)
[2022-06-30 03:30] VITALS: BP 143/80
[2022-06-30 05:49] LABS: BASOPHILS % (AUTO) 1 % (0-10); EOSINOPHILS # (AUTO) 0.4 10^3/uL (0.0-0.3); EOSINOPHILS % (AUTO) 5 % (0-10); HEMATOCRIT 40 % (40-54); HEMOGLOBIN 13.4 g/dL (13.3-17.7); LYMPHOCYTES # (AUTO) 2.6 10^3/uL (1.0-4.0); LYMPHOCYTES % (AUTO) 32 % (12-44); MEAN CORPUSCULAR HEMOGLOBIN 31 pg (25-34); MEAN CORPUSCULAR HGB CONC 34 g/dL (32-36); MEAN CORPUSCULAR VOLUME 91 fL (80-99); MONOCYTES # (AUTO) 0.7 10^3/uL (0.0-1.0); MONOCYTES % (AUTO) 9 % (0-12); NEUTROPHILS # (AUTO) 4.3 10^3/uL (1.8-7.8); NEUTROPHILS % (AUTO) 54 % (42-75); PLATELET COUNT 313 10^3/uL (130-400)
[2022-06-30 06:09] LABS: ALBUMIN 3.6 GM/DL (3.2-4.5)
[2022-06-30 06:11] LABS: CALCIUM 8.8 MG/DL (8.5-10.1)
[2022-06-30 06:12] LABS: TOTAL PROTEIN 5.8 GM/DL (6.4-8.2)
[2022-06-30 06:14] LABS: BILIRUBIN,TOTAL 0.2 MG/DL (0.1-1.0)
[2022-06-30 06:16] LABS: CREATININE SERUM 0.77 MG/DL (0.60-1.30)
[2022-06-30 07:43] VITALS: BP 133/85
--- NOTE | 2022-06-30 08:24 | Progress Note - Surgery ---
[facility] 06/30/22 0824: Subjective Date Seen by a Provider: Jun 30, 2022 Time Seen by a Provider: 08:19 Subjective/Events-last exam Today patient reports his pain is improved, especially with using warm compresses. Still with left anterior pain in the neck close to jaw line mostly with palpation. He is able to open his eyes more today and see though his eyes are still swollen half shut. Still having photophobia and face is tender. Denies CP, abdominal pain, SOB, fever/chills. Review of Systems General: No Chills, No Night Sweats HEENT: No Head Aches; Visual Changes (improved sight), Eye Pain Pulmonary: No Dyspnea, No Cough Cardiovascular: No: Chest Pain, Palpitations Gastrointestinal: No: Nausea, Vomiting, Abdominal Pain Genitourinary: No Dysuria, No Frequency Musculoskeletal: neck pain (left anterior); No: shoulder pain Neurological: No: Weakness, Numbness Focused Exam Lactate Level 06/29/22 17:35: Lactic Acid Level 0.91 Objective Exam Vital Signs Date Time Temp Pulse Resp B/P (MAP) Pulse Ox O2 Delivery O2 Flow Rate FiO2 06/30/22 07:43 36.6 69 18 133/85 (101) 97 Room Air 06/30/22 03:30 36.7 84 18 143/80 (101) 98 06/29/22 23:20 36.6 88 18 144/84 (104) 99 Room Air 06/29/22 22:29 37.4 93 19 129/73 (91) 97 Room Air 06/29/22 21:55 36.8 99 18 145/85 (105) 100 Room Air 06/29/22 21:28 36.4 75 18 144/93 (110) 100 Room Air 06/29/22 21:19 36.4 81 97 21 06/29/22 21:14 36.6 82 18 145/91 (109) 100 Room Air 06/29/22 21:02 36.4 81 18 148/81 (103) 97 Room Air 06/29/22 20:55 36.1 78 18 155/98 (117) 100 Room Air 06/29/22 20:40 100 Room Air 06/29/22 20:38 36.3 78 19 158/119 (132) 100 Room Air 06/29/22 20:29 36.3 86 16 148/93 98 Room Air 06/29/22 17:05 36.7 90 16 136/91 (106) 98 I & O 06/30/22 07:00 Intake Total 3582 ml Output Total 1150 ml Balance 2432 ml Capillary Refill : Less Than 3 Seconds General Appearance: No Apparent Distress, WD/WN HEENT: PERRL/EOMI, Pharynx Normal, Photophobia, Other (Facial swelling over the bridge of the nose and periorbital swelling of b/l eyes with associated erythema, warmth and tenderness. Scattered scabbed lesions of face, particularly bridge of nose and chin. Erythema improving, less tender. ) Neck: Normal Inspection, Tender Lateral (Left anterior) Respiratory: Chest Non Tender, Lungs Clear, Normal Breath Sounds, No Accessory Muscle Use, No Respiratory Distress Cardiovascular: Regular Rate, Rhythm, No Edema, No Murmur, Normal Peripheral Pulses Peripheral Pulses: 2+ Radial Pulses (R), 2+ Radial Pulses (L) Gastrointestinal: non tender, soft Extremity: Non Tender, No Pedal Edema, Other (Scattered scabbed skin wounds) Neurologic/Psychiatric: Alert, Oriented x3, No Motor/Sensory Deficits, Normal Mood/Affect Skin: Warm/Dry, Other (As above) Lymphatic: No Adenopathy Results Lab Laboratory Tests 06/29/22 17:35: White Blood Count 10.0, Red Blood Count 4.95, Hemoglobin 15.1, Hematocrit 45, M isabella Corpuscular Volume 91, Mean Corpuscular Hemoglobin 31, Mean Corpuscular Hemoglobin Concent 34, Red Cell Distribution Width 12.9, Platelet Count 325, Mean Platelet Volume 9.5, Immature Granulocyte % (Auto) 0, Neutrophils (%) (Auto) 72, Lymphocytes (%) (Auto) 17, Monocytes (%) (Auto) 7, Eosinophils (%) (Auto) 3, Basophils (%) (Auto) 1, Neutrophils # (Auto) 7.2, Lymphocytes # (Auto) 1.7, Monocytes # (Auto) 0.7, Eosinophils # (Auto) 0.3, Basophils # (Auto) 0.1, Immature Granulocyte # (Auto) 0.0, Prothrombin Time 13.9, INR Comment 1.0, Activated Partial Thromboplast Time 32, Sodium Level 139, Potassium Level 3.7, Chloride Level 105, Carbon Dioxide Level 23, Anion Gap 11, Blood Urea Nitrogen 12, Creatinine 0.79, Estimat Glomerular Filtration Rate 108, BUN/Creatinine Ratio 15, Glucose Level 100, Lactic Acid Level 0.91, Calcium Level 9.7, Corrected Calcium 9.5, Total Bilirubin 0.6, Aspartate Amino Transf (AST/SGOT) 9, Alanine Aminotransferase (ALT/SGPT) 14, Alkaline Phosphatase 77, C-Reactive Protein High Sensitivity 3.30H, Total Protein 7.0, Albumin 4.2 06/29/22 19:54: Urine Opiates Screen POSITIVEH, Urine Oxycodone Screen NEGATIVE, Urine Methadone Screen NEGATIVE, Urine Propoxyphene Screen NEGATIVE, Urine Barbiturates Screen NEGATIVE, Ur Tricyclic Antidepressants Screen NEGATIVE, Urine Phencyclidine Screen NEGATIVE, Urine Amphetamines Screen POSITIVEH, Urine Methamphetamines Screen POSITIVEH, Urine Benzodiazepines Screen NEGATIVE, Urine Cocaine Screen NEGATIVE, Urine Cannabinoids Screen POSITIVEH 06/30/22 05:24: White Blood Count 8.0, Red Blood Count 4.35, Hemoglobin 13.4, Hematocrit 40, Mean Corpuscular Volume 91, Mean Corpuscular Hemoglobin 31, Mean Corpuscular Hemoglobin Concent 34, Red Cell Distribution Width 12.5, Platelet Count 313, Mean Platelet Volume 10.0, Immature Granulocyte % (Auto) 0, Neutrophils (%) (Auto) 54, Lymphocytes (%) (Auto) 32, Monocytes (%) (Auto) 9, Eosinophils (%) (Auto) 5, Basophils (%) (Auto) 1, Neutrophils # (Auto) 4.3, Lymphocytes # (Auto) 2.6, Monocytes # (Auto) 0.7, Eosinophils # (Auto) 0.4H, Basophils # (Auto) 0.0, Immature Granulocyte # (Auto) 0.0, Sodium Level 140, Potassium Level 4.0, Chloride Level 106, Carbon Dioxide Level 23, Anion Gap 11, Blood Urea Nitrogen 15, Creatinine 0.77, Estimat Glomerular Filtration Rate 108, BUN/Creatinine Ratio 19, Glucose Level 88, Calcium Level 8.8, Corrected Calcium 9.1, Total Bilirubin 0.2, Aspartate Amino Transf (AST/SGOT) 8, Alanine Aminotransferase (ALT/SGPT) 9, Alkaline Phosphatase 69, Total Protein 5.8L, Albumin 3.6 Assessment/Plan Assessment/Plan Assessment/Plan Cellulitis of face Periorbital swelling Scattered skin lesions face and extremities History polysubstance abuse Positive methamphetamine on UDS CT face and neck with subcutaneous soft tissue stranding, presumed reactive lymphadenopathy within the neck without definable fluid collection or abscess Continue antibiotics Monitor labs and vision Nothing to drain at this time FEI COLE DO 06/30/221919: Subjective Subjective/Events-last exam Facial swelling has improved. No drainage. Pain improving. States able to open eyes better. No new complaints. Vision improving. Denies n/v fever sweats chills shortness of breath or chest pain. Objective Exam General Appearance: No Apparent Distress, WD/WN HEENT: PERRL/EOMI, Photophobia, Other (Facial swelling over the bridge of the nose and periorbital swelling of b/l eyes with associated erythema, warmth and tenderness. Scattered scabbed lesions of face, particularly bridge of nose and chin. Erythema improving, less tender, no fluctuance) Neck: Normal Inspection, Non Tender Respiratory: Chest Non Tender, No Accessory Muscle Use, No Respiratory Distress Cardiovascular: Regular Rate, Rhythm, No JVD Gastrointestinal: non tender, soft Extremity: Non Tender, Other (Scattered scabbed skin wounds) Neurologic/Psychiatric: Alert, Oriented x3, No Motor/Sensory Deficits, Normal M ood/Affect, spool carrier II-XII Norm as Tested Skin: Warm/Dry (erythema to face improving) Lymphatic: No Adenopathy Assessment/Plan Assessment/Plan Assessment/Plan Cellulitis of face Periorbital swelling Scattered skin lesions face and extremities History polysubstance abuse Positive methamphetamine on UDS CT face and neck with subcutaneous soft tissue stranding, presumed reactive lymphadenopathy within the neck without definable fluid collection or abscess Still no drainable collection of fluid by exam Continue warm compresses. Continue antibiotics Monitor labs and vision Supervisory-Addendum Brief Verification & Attestation Participated in pt care: history, MDM, physical Personally performed: exam, history, MDM, supervision of care Care discussed with: Medical Student Procedures: n/a Results interpretation: Verified all documentation Verification and Attestation of Medical Student E/M Service A medical student performed and documented this service in my presence. I reviewed and verified all information documented by the medical student and made modifications to such information, when appropriate. I personally performed the physical exam and medical decision making. Fei Cole, Jun 30, 2022,19:24 HALEY CASH Jun 30, 2022 08:24 FEI COLE DO Jun 30, 2022 19:20
[2022-06-30] MEDS: LINEZOLID IVPB 300 ML IV SCH ×2 (09:50→20:29)
[2022-06-30] MEDS: DOCUSATE SODIUM 100 MG (COLACE) CAP PO SCH ×2 (09:51→21:14)
[2022-06-30] MEDS: SENNOSIDES 8.6 MG (SENOKOT) TAB PO SCH ×2 (09:51→21:14)
[2022-06-30 11:22] VITALS: BP 131/65
[2022-06-30] MEDS: NS IV 1000 ML 1,000 ML IV SCH ×2 (12:40→23:10)
[2022-06-30] MEDS: HYDROmorphone 2 MG/ML VIAL (DILAUDID) IV PRN ×2 (12:41→17:19)
--- NOTE | 2022-06-30 13:23 | History & Physical-Hospitalist ---
FLYNN GLASER 06/30/22 1323: History of Present Illness HPI/Chief Complaint Mr. Platt is a 51 yo male with pmhx of hx of recurrent accesses, polysubstance abuse and HTN. He presented to the ED 06/29 with swelling and pain of the face and eyes. 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 He removed those pieces last Sunday 06/25 which caused subsequent pain and swelling and was seen in the ER on 06/27 for same cc. Pts blood culture and wound culture was negative and patient was prescribed clindamycin but did not fill the prescription. At present patient reports that he is still having pain of the eyes as face. He says he is still having trouble with vision since his eyes are too swollen to open his eyes. He says warm compresses has helped some with the swelling. He notes HART and lightheadedness. Denies any N/V. CP, SOB, or weakness. CT face and neck with facial subcutaneous soft tissue stranding and induration with thickening of the platysma and presumed reactive lymphadenopathy within the neck. Compatible with a probable cellulitis with no definable fluid collection or abscess. Date Seen 06/30/22 Time Seen by a Provider: 09:30 Attending Physician [place] PCP Admitting Physician: Maria Esther Villarreal DO Attending Physician: Maria Esther Villarreal DO Referring Physician Date of Admission Jun 29, 2022 at 20:23 Home Medications & Allergies Home Medications Reviewed patient Home Medication Reconciliation performed by pharmacy medication reconciliations public address technician and/or nursing. Patients Allergies have been reviewed. Allergies Allergies Coded Allergies vancomycin (Verified Allergy, Intermediate, RASH, 07/06/15) Erythema and itching Penicillins (Unverified Allergy, Mild, 07/20/08) penicillin G (Verified Allergy, Unknown, 01/05/06) Uncoded Allergies PCN ( Allergy, Mild, 07/21/08) Past Dqnhpbi-Kenbcq-Jruwfw Hx Patient Social History Tobacco Use?: No Smoking Status: Former Smoker Use of E-Cig and/or Vaping dev: No Substance use?: No Substance type: Marijuana Alcohol Use?: Yes Pt feels they are or have been: No Immunizations Up To Date Tetanus Booster (TDap): Unknown Hepatitis A: No Hepatitis B: No PED Vaccines UTD: No Seasonal Allergies Seasonal Allergies: No Current Status Advance Directives: No Communicates: Verbally Primary Language: Slovenian Preferred Spoken Language: Slovenian Is interpretation needed?: No Implanted or Applied Medical D: None Past Medical History Surgeries: Vasectomy Currently Using CPAP: No Currently Using BIPAP: No Hypertension Sexually Transmitted Disease: No HIV/AIDS: No Arthritis Loss of Vision: Denies Hearing Impairment: Hard of Hearing Anxiety, Depression Blood Disorders: No Adverse Reaction/Blood Tranf: No Past Medical History 1. 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 - Most recent cultures are staph sensitive to everything except EES 2. Tobaccoism 3. ED 4. History of MRSA 2009 5. Fatty liver 6. HTN Past Surgical History 1. Rt. Axilla lymph node bx at age 8 2. Pilonidal cyst 3. Knee surgery 4. Vasectomy 5. I&D and packing LLE abscess 6. I&D right axillary abscesses 9-14 ER Family Medical History Alcoholism 19 FATHER G8 BROTHER Cancer 19 FATHER Cardiovascular disease 19 MOTHER Completed stroke 19 MOTHER Congestive heart failure 19 MOTHER Diabetes mellitus 19 MOTHER FH: brain aneurysm G8 SISTER, Onset:40's - 50 FHx: lung cancer 19 FATHER Family history: Allergy Family history: Arthritis 19 MOTHER Family history: Cardiovascular disease 19 MOTHER Family history: Diabetes mellitus Family history: Hypertension 19 MOTHER Headache 19 MOTHER Hearing loss 19 FATHER Heart disease 19 MOTHER History of drug abuse Myocardial infarction 19 MOTHER Myocardial infarction 19 MOTHER Stroke Visual impairment No Family History of: AIDS Abdominal aortic aneurysm Abdominal aortic aneurysm Diogenes's disease Diogenes's disease Aphasia Cancer of colon Cataract Cataracts Chest pain Congenital disease Congenital heart disease Congenital heart disease Coronary thrombosis Cystic fibrosis Cystic fibrosis Dementia Dementia Drug abuse Dysphagia Family history: Alzheimer's disease Family history: Asthma Family history: Breast disease Family history: Coronary thrombosis Family history: Gastrointestinal disease Family history: Glaucoma Family history: Osteoporosis Family history: Thyroid disorder Fibrocystic disease of breast Hereditary disease History of - anemia History of - disorder History of - respiratory disease Human immunodeficiency virus (HIV) seropositivity Hypercholesterolemia Infertile Kidney disease Malignant neoplasm of lung Parkinson's disease Prostate cancer Psychotic disorder Seizure disorder Tuberculosis Diabetes, Renal Disease Review of Systems Constitutional: No chills; dizziness; No fever EENTM: eye pain, vision loss (secondary to periobital edema ); No blurred vision, No double vision Respiratory: No short of breath Cardiovascular: No chest pain, No palpitations Gastrointestinal: No nausea, No vomiting Genitourinary: no symptoms reported Musculoskeletal: no symptoms reported Skin: other (erythema and edema of face and periorbital region ) Psychiatric/Neurological: No Symptoms Reported All Other Systems Reviewed Negative Unless Noted: Yes Physical Exam Physical Exam Vital Signs Vital Signs - First Documented 06/29/22 06/29/22 06/29/22 17:05 20:29 21:19 Temp 36.7 Pulse 90 Resp 16 B/P (MAP) 136/91 (106) Pulse Ox 98 O2 Delivery Room Air FiO2 21 Capillary Refill : Less Than 3 Seconds Height, Weight, BMI Height: 5'8.00" Weight: 235lbs. 1.0oz. 106.797296ia; 32.51 BMI Method:Stated General Appearance: No Apparent Distress, WD/WN HEENT: PERRL/EOMI Neck: Normal Inspection, Non Tender, Supple Respiratory: Chest Non Tender, Lungs Clear, Normal Breath Sounds, No Accessory Muscle Use Cardiovascular: Regular Rate, Rhythm, No Edema, No Murmur Gastrointestinal: Normal Bowel Sounds, Non Tender, Soft Neurologic/Psychiatric: Alert, Oriented x3 Skin: Other (erythema and edema of periorbital region ) Lymphatic: No Adenopathy Results Results/Procedures Labs Laboratory Tests 06/29/22 17:35 06/30/22 05:24 Patient resulted labs reviewed. Imaging: Reviewed Imaging Report Assessment/Plan Admission Diagnosis Cellulitisof the face Admission Status: Inpatient Order (span 2 midnights) Reason for Inpatient Admission: Noncompliance with outpatient antibiotics Assessment and Plan Cellulitis of face Periorbital swelling Scattered skin lesions face and extremities Linezolid Clindamycin bag 04/11 History polysubstance abuse Positive methamphetamine on UDS MARIA ESTHER VILLARREAL DO 07/01/22 0535: Past Cunrlll-Kprcgh-Jijaep Hx Family Medical History Alcoholism 19 FATHER G8 BROTHER Cancer 19 FATHER Cardiovascular disease 19 MOTHER Completed stroke 19 MOTHER Congestive heart failure 19 MOTHER Diabetes mellitus 19 MOTHER FH: brain aneurysm G8 SISTER, Onset:40's - 50 FHx: lung cancer 19 FATHER Family history: Allergy Family history: Arthritis 19 MOTHER Family history: Cardiovascular disease 19 MOTHER Family history: Diabetes mellitus Family history: Hypertension 19 MOTHER Headache 19 MOTHER Hearing loss 19 FATHER Heart disease 19 MOTHER History of drug abuse Myocardial infarction 19 MOTHER Myocardial infarction 19 MOTHER Stroke Visual impairment No Family History of: AIDS Abdominal aortic aneurysm Abdominal aortic aneurysm Diogenes's disease [place]'s disease Aphasia Cancer of colon Cataract Cataracts Chest pain Congenital disease Congenital heart disease Congenital heart disease Coronary thrombosis Cystic fibrosis Cystic fibrosis Dementia Dementia Drug abuse Dysphagia Family history: Alzheimer's disease Family history: Asthma Family history: Breast disease Family history: Coronary thrombosis Family history: Gastrointestinal disease Family history: Glaucoma Family history: Osteoporosis Family history: Thyroid disorder Fibrocystic disease of breast Hereditary disease History of - anemia History of - disorder History of - respiratory disease Human immunodeficiency virus (HIV) seropositivity Hypercholesterolemia Infertile Kidney disease Malignant neoplasm of lung Parkinson's disease Prostate cancer Psychotic disorder Seizure disorder Tuberculosis Supervisory-Addendum Brief Verification & Attestation Participated in pt care: history, MDM, physical Personally performed: exam, history, MDM, supervision of care Care discussed with: Medical Student Procedures: n/a Results interpretation: Verified all documentation Verification and Attestation of Medical Student E/M Service A medical student performed and documented this service in my presence. I reviewed and verified all information documented by the medical student and made modifications to such information, when appropriate. I personally performed the physical exam and medical decision making. Maria Esther Villarreal, Jul 01, 2022,05:34 FLYNN GLASER Jun 30, 2022 13:23 MARIA ESTHER VILLARREAL DO Jul 01, 2022 05:35
[2022-06-30 15:42] VITALS: BP 123/90
[2022-06-30 20:10] VITALS: BP 121/65
[2022-06-30] MEDS: LORazepam 0.5 MG (ATIVAN) TABLET PO PRN (21:12)
[2022-06-30] MEDS: ACETAMINOPHEN 325 MG TABLET PO PRN (21:13)
[2022-06-30 23:08] VITALS: BP 123/77
[2022-07-01] MEDS: CLINDAMYCIN 600 MG/50 ML IVPB 50 ML IV SCH ×3 (01:26→17:12)
[2022-07-01] MEDS: LORazepam 0.5 MG (ATIVAN) TABLET PO PRN (01:56)
[2022-07-01] MEDS: ACETAMINOPHEN 325 MG TABLET PO PRN ×3 (01:57→15:27)
[2022-07-01 03:05] VITALS: BP 135/94
[2022-07-01 05:41] LABS: BASOPHILS % (AUTO) 1 % (0-10); EOSINOPHILS # (AUTO) 0.4 10^3/uL (0.0-0.3); EOSINOPHILS % (AUTO) 6 % (0-10); HEMATOCRIT 39 % (40-54); HEMOGLOBIN 13.2 g/dL (13.3-17.7); LYMPHOCYTES # (AUTO) 2.1 10^3/uL (1.0-4.0); LYMPHOCYTES % (AUTO) 33 % (12-44); MEAN CORPUSCULAR HEMOGLOBIN 31 pg (25-34); MEAN CORPUSCULAR HGB CONC 34 g/dL (32-36); MEAN CORPUSCULAR VOLUME 92 fL (80-99); MEAN PLATELET VOLUME 9.8 fL (9.0-12.2); MONOCYTES # (AUTO) 0.5 10^3/uL (0.0-1.0); MONOCYTES % (AUTO) 8 % (0-12); NEUTROPHILS # (AUTO) 3.4 10^3/uL (1.8-7.8); NEUTROPHILS % (AUTO) 52 % (42-75); PLATELET COUNT 293 10^3/uL (130-400); WHITE BLOOD COUNT 6.4 10^3/uL (4.3-11.0)
[2022-07-01 05:44] LABS: ALBUMIN 3.5 GM/DL (3.2-4.5); POTASSIUM 4.4 MMOL/L (3.6-5.0)
[2022-07-01 05:46] LABS: TOTAL PROTEIN 5.8 GM/DL (6.4-8.2)
[2022-07-01 05:48] LABS: BILIRUBIN,TOTAL 0.2 MG/DL (0.1-1.0)
[2022-07-01 05:50] LABS: CREATININE SERUM 0.87 MG/DL (0.60-1.30)
[2022-07-01 07:16] VITALS: BP 147/103
--- NOTE | 2022-07-01 07:23 | Progress Note - Surgery ---
SHAILESHHALEY 07/01/2223: Subjective Date Seen by a Provider: Jul 01, 2022 Time Seen by a Provider: 07:18 Subjective/Events-last exam Today pt reports his facial pain is much improved, no longer pain in anterior neck. Vision also improved and he is able to open his eyes about [address] Still with photophobia. Notes the scab fell off the wound on the bridge of his nose and it has been draining. Last BM yesterday, formed. Tolerating diet well. Denies n/v, fevers/chills, SOB, CP, abdominal pain. Review of Systems General: No Chills, No Night Sweats HEENT: No Head Aches; Visual Changes (improved vision), Eye Pain (improved) Pulmonary: No Dyspnea, No Cough Cardiovascular: No: Chest Pain, Palpitations Gastrointestinal: No: Nausea, Vomiting, Abdominal Pain Genitourinary: No Dysuria, No Frequency Musculoskeletal: No: neck pain, shoulder pain Neurological: No: Weakness, Numbness Focused Exam Lactate Level 06/29/22 17:35: Lactic Acid Level 0.91 Objective Exam Vital Signs Date Time Temp Pulse Resp B/P (MAP) Pulse Ox O2 Delivery O2 Flow Rate FiO2 07/01/22 03:05 36.1 72 18 135/94 (108) 98 Room Air 06/30/22 23:08 36.4 69 18 123/77 (92) 100 Room Air 06/30/22 20:30 Room Air 06/30/22 20:10 36.8 79 16 121/65 (83) 98 Room Air 06/30/22 15:42 36.2 74 18 123/90 (101) 99 Room Air 06/30/22 11:22 35.4 67 20 131/65 (87) 98 Room Air 06/30/22 07:43 36.6 69 18 133/85 (101) 97 Room Air I & O 07/01/22 07:00 Intake Total 2810 ml Output Total 650 ml Balance 2160 ml Capillary Refill : Less Than 3 Seconds General Appearance: No Apparent Distress, WD/WN HEENT: PERRL/EOMI, Photophobia, Other (Facial swelling over the bridge of the nose and periorbital swelling of b/l eyes with associated erythema, warmth and tenderness. Scattered scabbed lesions of face, particularly bridge of nose and chin. Erythema improving, less tender, no fluctuance. Bridge of nose has open wound with minimal purulence) Neck: Normal Inspection, Non Tender Respiratory: Chest Non Tender, No Accessory Muscle Use, No Respiratory Distress Cardiovascular: Regular Rate, Rhythm, No Edema, No JVD Peripheral Pulses: 2+ Radial Pulses (R), 2+ Radial Pulses (L) Gastrointestinal: non tender, soft Extremity: Non Tender, Other (Scattered scabbed skin wounds) Neurologic/Psychiatric: Alert, Oriented x3, No Motor/Sensory Deficits, Normal Mood/Affect Skin: Warm/Dry (erythema to face improving) Lymphatic: No Adenopathy Results Lab Laboratory Tests 07/01/22 05:05: White Blood Count 6.4, Red Blood Count 4.27L, Hemoglobin 13.2L, Hematocrit 39L, Mean Corpuscular Volume 92, Mean Corpuscular Hemoglobin 31, Mean Corpuscular Hemoglobin Concent 34, Red Cell Distribution Width 12.6, Platelet Count 293, Mean Platelet Volume 9.8, Immature Granulocyte % (Auto) 0, Neutrophils (%) (Auto) 52, Lymphocytes (%) (Auto) 33, Monocytes (%) (Auto) 8, Eosinophils (%) (Auto) 6, Basophils (%) (Auto) 1, Neutrophils # (Auto) 3.4, Lymphocytes # (Auto) 2.1, Monocytes # (Auto) 0.5, Eosinophils # (Auto) 0.4H, Basophils # (Auto) 0.0, Immature Granulocyte # (Auto) 0.0, Sodium Level 140, Potassium Level 4.4, Chloride Level 107, Carbon Dioxide Level 23, Anion Gap 10, Blood Urea Nitrogen 19H, Creatinine 0.87, Estimat Glomerular Filtration Rate 104, BUN/Creatinine Ratio 22, Glucose Level 105, Calcium Level 9.0, Corrected Calcium 9.4, Total Bilirubin 0.2, Aspartate Amino Transf (AST/SGOT) 10, Alanine Aminotransferase (ALT/SGPT) 10, Alkaline Phosphatase 68, Total Protein 5.8L, Albumin 3.5 Microbiology 06/29/22 Blood Culture - Preliminary, Resulted No growth Assessment/Plan Assessment/Plan Assessment/Plan Cellulitis of face Periorbital swelling- much improved Scattered skin lesions face and extremities History polysubstance abuse Positive methamphetamine on UDS CT face and neck with subcutaneous soft tissue stranding, presumed reactive lymphadenopathy within the neck without definable fluid collection or abscess Still no drainable collection of fluid by exam Continue warm compresses Continue antibiotics Pain control Monitor labs and vision FEI COLE DO 07/01/22 1103: Subjective Subjective/Events-last exam Significantly improving. Less erythema/swelling. Better vision. Scant drainage. No fluctuance. Denies n/v fever sweats chills shortness of breath or chest pain. Objective Exam General Appearance: No Apparent Distress, WD/WN HEENT: PERRL/EOMI, Other (Facial swelling over the bridge of the nose and periorbital swelling of b/l eyes with associated erythema, warmth and tenderness. Scattered scabbed lesions of face, particularly bridge of nose and chin. Erythema improving, less tender, no fluctuance. Bridge of nose has open wound with scant purulence) Neck: Normal Inspection, Non Tender Respiratory: Chest Non Tender, No Accessory Muscle Use, No Respiratory Distress Cardiovascular: Regular Rate, Rhythm, No JVD Gastrointestinal: non tender, soft Extremity: Non Tender, Other (Scattered scabbed skin wounds) Neurologic/Psychiatric: Alert, Oriented x3, Normal Mood/Affect Skin: Warm/Dry (erythema to face improving) Lymphatic: No Adenopathy Assessment/Plan Assessment/Plan Assessment/Plan Cellulitis of face Periorbital swelling- much improved Scattered skin lesions face and extremities History polysubstance abuse Positive methamphetamine on UDS CT face and neck with subcutaneous soft tissue stranding, presumed reactive lymphadenopathy within the neck without definable fluid collection or abscess Still no drainable collection of fluid by exam Continue warm compresses Continue antibiotics Pain control Supervisory-Addendum Brief Verification & Attestation Participated in pt care: history, MDM, physical Personally performed: exam, history, MDM, supervision of care Care discussed with: Medical Student Procedures: n/a Results interpretation: Verified all documentation Verification and Attestation of Medical Student E/M Service A medical student performed and documented this service in my presence. I reviewed and verified all information documented by the medical student and made modifications to such information, when appropriate. I personally performed the physical exam and medical decision making. Fei Cole, Jul 01, 2022,11:03 HALEY CASH Jul 01, 2022 07:23 FEI COLE DO Jul 01, 2022 11:03
--- NOTE | 2022-07-01 07:27 | Progress Note - Hospitalist ---
FLYNN GLASER 07/01/22 0727: Subjective HPI/CC On Admission Date Seen by Provider: Jul 01, 2022 Time Seen by Provider: 07:27 Mr. Platt is a 51 yo male with pmhx of hx of recurrent accesses, polysubstance abuse and HTN. F/u on cellulitis of the face and periorbital edema. Pt is laying comfortably at bedside. Today he reports that his vision has improved since his eyes are less swollen. Reports that the eye and face pain has improved as well as anterior neck pain. He notes he is still having throbbing headaches. Denies any CP, SOB, dizziness, lightheadedness, or weakness. Denies any new or worsening sx. No other complaints. CT face and neck with facial subcutaneous soft tissue stranding and induration with thickening of the platysma and presumed reactive lymphadenopathy within the neck. Compatible with a probable cellulitis with no definable fluid collection or abscess. Focused Exam Lactate Level 06/29/22 17:35: Lactic Acid Level 0.91 Objective Exam Vital Signs Vital Signs Date Time Temp Pulse Resp B/P (MAP) Pulse Ox O2 Delivery O2 Flow Rate FiO2 07/01/22 07:16 36.2 72 20 147/103 (118) 99 Room Air 06/29/22 21:19 21 Capillary Refill : Less Than 3 Seconds General Appearance: No Apparent Distress, WD/WN HEENT: PERRL/EOMI Neck: Full Range of Motion, Normal Inspection, Non Tender Respiratory: Chest Non Tender, Lungs Clear, Normal Breath Sounds, No Accessory Muscle Use, No Respiratory Distress Cardiovascular: Regular Rate, Rhythm, No Edema, No Murmur, Normal Peripheral Pulses Gastrointestinal: Normal Bowel Sounds, Non Tender, Soft Extremity: Normal Capillary Refill, Normal Inspection, No Pedal Edema Neurologic/Psychiatric: Alert, Oriented x3 Skin: Normal Color, Warm/Dry Lymphatic: No Adenopathy Results/Procedures Lab Laboratory Tests 07/01/22 05:05 Patient resulted labs reviewed. Imaging: Reviewed Imaging Report Assessment/Plan Assessment and Plan Assess & Plan/Chief Complaint Cellulitis of face Periorbital swelling - improved Scattered skin lesions face and extremities Linezolid Clindamycin bag 07/10 Continue warm compresses Pain meds prn HTN Continue BP medications as indicated History polysubstance abuse Positive methamphetamine on UDS MARIA ESTHER VILLARREAL DO 07/02/22 0451: Supervisory-Addendum Brief Verification & Attestation Participated in pt care: history, MDM, physical Personally performed: exam, history, MDM, supervision of care Care discussed with: Medical Student Procedures: n/a Results interpretation: Verified all documentation Verification and Attestation of Medical Student E/M Service A medical student performed and documented this service in my presence. I reviewed and verified all information documented by the medical student and made modifications to such information, when appropriate. I personally performed the physical exam and medical decision making. Maria Esther Villarreal, Jul 02, 2022,04:51 FLYNN GLASER Jul 01, 2022 07:27 MARIA ESTHER VILLARREAL DO Jul 02, 2022 04:51
[2022-07-01] MEDS: LINEZOLID IVPB 300 ML IV SCH ×2 (08:42→20:40)
[2022-07-01] MEDS: DOCUSATE SODIUM 100 MG (COLACE) CAP PO SCH ×2 (08:47→20:42)
[2022-07-01] MEDS: SENNOSIDES 8.6 MG (SENOKOT) TAB PO SCH ×2 (08:47→20:42)
[2022-07-01 11:39] VITALS: BP 138/104
[2022-07-01 16:23] VITALS: BP 159/88
[2022-07-01 20:13] VITALS: BP 159/94
[2022-07-01 23:30] VITALS: BP 155/90
[2022-07-02] MEDS: LORazepam 0.5 MG (ATIVAN) TABLET PO PRN (00:44)
[2022-07-02] MEDS: ACETAMINOPHEN 325 MG TABLET PO PRN (00:44)
[2022-07-02] MEDS: CLINDAMYCIN 600 MG/50 ML IVPB 50 ML IV SCH ×2 (00:44→09:38)
[2022-07-02 03:40] VITALS: BP 136/89
[2022-07-02 05:57] LABS: BASOPHILS % (AUTO) 1 % (0-10); EOSINOPHILS # (AUTO) 0.3 10^3/uL (0.0-0.3); EOSINOPHILS % (AUTO) 5 % (0-10); HEMATOCRIT 41 % (40-54); HEMOGLOBIN 13.9 g/dL (13.3-17.7); LYMPHOCYTES % (AUTO) 31 % (12-44); MEAN CORPUSCULAR HEMOGLOBIN 30 pg (25-34); MEAN CORPUSCULAR HGB CONC 34 g/dL (32-36); MEAN CORPUSCULAR VOLUME 90 fL (80-99); MEAN PLATELET VOLUME 9.8 fL (9.0-12.2); MONOCYTES # (AUTO) 0.4 10^3/uL (0.0-1.0); MONOCYTES % (AUTO) 7 % (0-12); NEUTROPHILS # (AUTO) 3.6 10^3/uL (1.8-7.8); NEUTROPHILS % (AUTO) 56 % (42-75); PLATELET COUNT 325 10^3/uL (130-400); WHITE BLOOD COUNT 6.4 10^3/uL (4.3-11.0)
[2022-07-02 06:14] LABS: ALBUMIN 3.9 GM/DL (3.2-4.5)
[2022-07-02 06:15] LABS: POTASSIUM 4.2 MMOL/L (3.6-5.0)
[2022-07-02 06:16] LABS: CALCIUM 9.1 MG/DL (8.5-10.1)
[2022-07-02 06:17] LABS: TOTAL PROTEIN 6.4 GM/DL (6.4-8.2)
[2022-07-02 06:19] LABS: BILIRUBIN,TOTAL 0.2 MG/DL (0.1-1.0)
[2022-07-02 06:21] LABS: CREATININE SERUM 0.81 MG/DL (0.60-1.30)
--- NOTE | 2022-07-02 07:40 | Progress Note - Surgery ---
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 Still with some tenderness in the left anterior neck though imp roved. Vision is improving and he is able to open his eyes fully today. BM yesterday and urinating without issue. Tolerating diet well. Denies CP, SOB, nausea, vomiting, fever, abdominal pain. Review of Systems General: No Chills, No Night Sweats HEENT: Visual Changes (improved), Eye Pain (improved) Pulmonary: No Dyspnea, No Cough Cardiovascular: No: Chest Pain, Palpitations Gastrointestinal: No: Nausea, Vomiting, Abdominal Pain Genitourinary: No Dysuria, No Frequency Musculoskeletal: neck pain (left anterior); No: leg pain Neurological: No: Weakness, Numbness Focused Exam Lactate Level 06/29/22 17:35: Lactic Acid Level 0.91 Objective Exam Vital Signs Date Time Temp Pulse Resp B/P (MAP) Pulse Ox O2 Delivery O2 Flow Rate FiO2 07/02/22 03:40 36.0 75 16 136/89 (105) 97 Room Air 07/01/22 23:30 36.2 82 16 155/90 (111) 99 Room Air 07/01/22 20:40 Room Air 07/01/22 20:13 37.6 89 16 159/94 (115) 99 Room Air 07/01/22 16:23 36.3 84 18 159/88 (111) 100 Room Air 07/01/22 11:39 36.5 65 20 138/104 (115) 98 Room Air 07/01/22 08:00 Room Air I & O 07/02/22 07:00 Intake Total 3660 ml Output Total 2250 ml Balance 1410 ml Capillary Refill : Less Than 3 Seconds General Appearance: No Apparent Distress, WD/WN HEENT: PERRL/EOMI, Other (Facial swelling over the bridge of the nose and periorbital swelling of b/l eyes with associated erythema, warmth and tenderness. Scattered scabbed lesions of face, particularly bridge of nose and chin. Erythema improving, less tender, no fluctuance. Bridge of nose wound with scab) Neck: Normal Inspection, Tender Lateral (left anterior tenderness, no appreciable lymph node) Respiratory: Chest Non Tender, No Accessory Muscle Use, No Respiratory Distress Cardiovascular: Regular Rate, Rhythm, No JVD Peripheral Pulses: 2+ Radial Pulses (R), 2+ Radial Pulses (L) Gastrointestinal: non tender, soft Extremity: Non Tender, Other (Scattered scabbed skin wounds) Neurologic/Psychiatric: Alert, Oriented x3, Normal Mood/Affect Skin: Warm/Dry, Other (erythema to face improving) Lymphatic: No Adenopathy Results Lab Laboratory Tests 07/02/22 05:12: White Blood Count 6.4, Red Blood Count 4.58, Hemoglobin 13.9, Hematocrit 41, Mean Corpuscular Volume 90, Mean Corpuscular Hemoglobin 30, Mean Corpuscular Hemoglobin Concent 34, Red Cell Distribution Width 12.2, Platelet Count 325, Mean Platelet Volume 9.8, Immature Granulocyte % (Auto) 0, Neutrophils (%) (Auto) 56, Lymphocytes (%) (Auto) 31, Monocytes (%) (Auto) 7, Eosinophils (%) (Auto) 5, Basophils (%) (Auto) 1, Neutrophils # (Auto) 3.6, Lymphocytes # (Auto) 2.0, Monocytes # (Auto) 0.4, Eosinophils # (Auto) 0.3, Basophils # (Auto) 0.0, Immature Granulocyte # (Auto) 0.0, Sodium Level 138, Potassium Level 4.2, Chlo ride Level 106, Carbon Dioxide Level 21, Anion Gap 11, Blood Urea Nitrogen 21H, Creatinine 0.81, Estimat Glomerular Filtration Rate 107, BUN/Creatinine Ratio 26, Glucose Level 88, Calcium Level 9.1, Corrected Calcium 9.2, Total Bilirubin 0.2, Aspartate Amino Transf (AST/SGOT) 12, Alanine Aminotransferase (ALT/SGPT) 14, Alkaline Phosphatase 67, Total Protein 6.4, Albumin 3.9 Microbiology 06/29/22 Blood Culture - Preliminary, Resulted No growth Assessment/Plan Assessment/Plan Assessment/Plan Cellulitis of face Periorbital swelling- much improved Scattered skin lesions face and extremities History polysubstance abuse Positive methamphetamine on UDS CT face and neck with subcutaneous soft tissue stranding, presumed reactive lymphadenopathy within the neck without definable fluid collection or abscess Still no drainable collection of fluid by exam Continue antibiotics Pain control FEI COLE DO 07/02/222115: Subjective Subjective/Events-last exam Patient is feeling better. Less tender. Erythema and swelling signficantly decreasing. No new complaints. Vision improved. Denies n/v fever sweats chills shortness of breath or chest pain. Objective Exam General Appearance: No Apparent Distress, WD/WN HEENT: PERRL/EOMI, Other (Facial swelling over the bridge of the nose and periorbital swelling of b/l eyes with associated erythema, warmth and tenderness. Scattered scabbed lesions of face, particularly bridge of nose and chin. Erythema improving, less tender, no fluctuance. Bridge of nose wound with scab) Neck: Normal Inspection, Non Tender Respiratory: Chest Non Tender, No Accessory Muscle Use, No Respiratory Distress Cardiovascular: Regular Rate, Rhythm, No JVD Gastrointestinal: non tender, soft Extremity: Non Tender, Other (Scattered scabbed skin wounds) Neurologic/Psychiatric: Alert, Oriented x3, Normal Mood/Affect Skin: Warm/Dry, Other (erythema to face improving) Lymphatic: No Adenopathy Assessment/Plan Assessment/Plan Assessment/Plan Cellulitis of face Periorbital swelling- much improved Scattered skin lesions face and extremities History polysubstance abuse Positive methamphetamine on UDS CT face and neck with subcutaneous soft tissue stranding, presumed reactive lymphadenopathy within the neck without definable fluid collection or abscess Still no drainable collection of fluid by exam Continue antibiotics Supervisory-Addendum Brief Verification & Attestation Participated in pt care: history, MDM, physical Personally performed: exam, history, MDM, supervision of care Care discussed with: Medical Student Procedures: n/a Results interpretation: Verified all documentation Verification and Attestation of Medical Student E/M Service A medical student performed and documented this service in my presence. I reviewed and verified all information documented by the medical student and made modifications to such information, when appropriate. I personally performed the physical exam and medical decision making. Fei Cole, Jul 02, 2022,21:16 HALEY CASH Jul 02, 2022 07:39 FEI COLE DO Jul 02, 2022 21:16
[2022-07-02 08:00] VITALS: BP 123/75
[2022-07-02] MEDS: SENNOSIDES 8.6 MG (SENOKOT) TAB PO SCH (09:20)
[2022-07-02] MEDS: DOCUSATE SODIUM 100 MG (COLACE) CAP PO SCH (09:20)
[2022-07-02] MEDS: LINEZOLID IVPB 300 ML IV SCH (09:20)
[2022-07-02 11:45] VITALS: BP 143/99
[2022-07-02] MEDS ORDERED: CLIN-144 PO (12:45)
[2022-07-02] MEDS ORDERED: OXC5T PO (12:45)
--- NOTE | 2022-07-02 12:50 | Discharge Summary ---
Discharge Summary Hospital Course Was the Problem List Reviewed?: Yes Problems/Dx: (1) Cellulitis and abscess of head Status: Resolved Hospital Course Date of Admission: Jun 29, 2022 at 20:23 Admission Diagnosis : Family Physician/Provider: [facility] Date of Discharge: 07/02/22 Discharge Diagnosis: [ ] Hospital Course: Short uneventful course after he was admitted for cellulitis and sepsis from facial cellulitis and non-compliance with outpatient po abx placed on IV abx and labs improved and overall improved enough to DC home on PO abx. Labs and Pending Lab Test: Laboratory Tests 07/02/22 05:12: White Blood Count 6.4, Red Blood Count 4.58, Hemoglobin 13.9, Hematocrit 41, Mean Corpuscular Volume 90, Mean Corpuscular Hemoglobin 30, Mean Corpuscular Hemoglobin Concent 34, Red Cell Distribution Width 12.2, Platelet Count 325, Mean Platelet Volume 9.8, Immature Granulocyte % (Auto) 0, Neutrophils (%) (Aut o) 56, Lymphocytes (%) (Auto) 31, Monocytes (%) (Auto) 7, Eosinophils (%) (Auto) 5, Basophils (%) (Auto) 1, Neutrophils # (Auto) 3.6, Lymphocytes # (Auto) 2.0, Monocytes # (Auto) 0.4, Eosinophils # (Auto) 0.3, Basophils # (Auto) 0.0, Immature Granulocyte # (Auto) 0.0, Sodium Level 138, Potassium Level 4.2, Chloride Level 106, Carbon Dioxide Level 21, Anion Gap 11, Blood Urea Nitrogen 21H, Creatinine 0.81, Estimat Glomerular Filtration Rate 107, BUN/Creatinine Ratio 26, Glucose Level 88, Calcium Level 9.1, Corrected Calcium 9.2, Total Bilirubin 0.2, Aspartate Amino Transf (AST/SGOT) 12, Alanine Aminotransferase ( ALT/SGPT) 14, Alkaline Phosphatase 67, Total Protein 6.4, Albumin 3.9 Microbiology 06/29/22 Blood Culture - Preliminary, Resulted No growth Home Meds Active Oxyir Tablet (Oxycodone HCl) 5 Mg Tab 5 Mg PO Q6H Clindamycin HCl 300 Mg Capsule 300 Mg PO TID Assessment/Pt Instructions PCP 1 week Discharge Planning: <30 minutes discharge planning Discharge Instructions Discharge Diet: No Restrictions Discharge Physical Examination Vital Signs Vital Signs Date Time Temp Pulse Resp B/P (MAP) Pulse Ox O2 Delivery O2 Flow Rate FiO2 07/02/22 11:45 36.5 69 20 143/99 (114) 99 Room Air 06/29/22 21:19 21 General Appearance: No Apparent Distress, WD/WN Skin: Other (improved erythema and edema mid nasal region) Allergies: Coded Allergies: vancomycin (Verified Allergy, Intermediate, RASH, 07/06/15) Erythema and itching Penicillins (Unverified Allergy, Mild, 07/20/08) penicillin G (Verified Allergy, Unknown, 01/05/06) Uncoded Allergies: PCN (Allergy, Mild, 07/21/08) Discharge Summary Date of Admission Jun 29, 2022 at 20:23 Date of Discharge Discharge Date: Jul 02, 2022 Admission Diagnosis Cellulitisof the face MARIELLA VILLARREAL DO Jul 02, 2022 12:50
[2022-07-02 13:02] VITALS: BP 143/99
== END 2022-07-02 12:43 | disposition home or self-care (01) ==
LOC: EDUNIT# 16:53 → ER 16:57 → INTOOBSV 20:23 → UNDOADMOB 20:23 → 4TH 20:23 → UNDODISOB 07-02 12:43
PROVIDERS: ADMIT Internal Medicine; ATTEND Internal Medicine
DX: A41.9 Sepsis, unspecified organism (principal); L03.213 Periorbital cellulitis; J34.0 Abscess, furuncle and carbuncle of nose; L03.221 Cellulitis of neck; Z91.148 Patient's other noncompliance with medication regimen for other reason; Z59.6 Low income; Z59.82 Transportation insecurity; F15.10 Other stimulant abuse, uncomplicated; F12.10 Cannabis abuse, uncomplicated; Z87.891 Personal history of nicotine dependence; Z88.1 Allergy status to other antibiotic agents; Z88.0 Allergy status to penicillin
CPT/HCPCS: 70487; 70491; 80053 ×4; 80306; 83605; 85025 ×4; 85610; 85730; 86141; 87040; 96361 ×2; 96365; 96366 ×2; 96375 ×3; 96376 ×3; 99284; G0378; 36415

== ENCOUNTER 2022-07-16 19:12 | Observation (INO) | payer SELFPAY ==
[~2022-07-16] VITALS: Ht 172 cm; Wt 95.0 kg
[~2022-07-16 19:12] MED LIST changes: +OXC5T PO
--- NOTE | 2022-07-16 19:39 | ED General ---
General Chief Complaint: General Problems/Pain Stated Complaint: KNEES SWOLLEN/RED Nursing Triage Note: PT TO ED W/ C/O BILAT KNEE PAIN ET SWELLING. REPORTS WAS SEEN X2 WKS AGO FOR FACIAL INJURY/INFECTION, WAS PRESCRIBED ABX BUT THINKS INFECTION HAS MOVED TO JOINTS. Source of Information: Patient Exam Limitations: No Limitations History of Present Illness Date Seen by Provider: Jul 16, 2022 Time Seen by Provider: 19:22 Initial Comments 51-year-old male presents for bilateral knee pain, swelling and fear of possible septic type infection. His nephew is here and tells me he is homeless. He is diabetic but does not take any medications for this. He was admitted to our facility a couple of weeks ago for a left facial infection and they fear that this infection has spread to his knees. His nephew tells me he found him passed out a couple of times today and he has been confused most of the day. The patient himself can provide little history. He does not know if he has had a fever. He states he aches all over. He does complain of swelling and redness in his right knee particularly. He has some nausea without any vomiting. He thinks he may have had C. difficile from the clindamycin which she finished 1 week ago as he had some loose stools that are now starting to form. He denies any abdominal pain. No changes in bladder habits. No cough or URI type symptoms. All other systems reviewed and negative except documented per HPI. Voice recognition software was used to help create this chart Allergies and Home Medications Allergies Coded Allergies: vancomycin (Verified Allergy, Intermediate, RASH, 07/06/15) Erythema and itching Penicillins (Unverified Allergy, Mild, 07/20/08) penicillin G (Verified Allergy, Unknown, 01/05/06) Uncoded Allergies: PCN (Allergy, Mild, 07/21/08) Patient Home Medication List Home Medication List Reviewed: Yes Clindamycin HCl (Clindamycin HCl) 300 Mg Capsule, 300 MG PO TID Prescribed by: MARIELLA VILLARREAL on 07/02/22 1245 Oxycodone Hcl (Oxyir Tablet) 5 Mg Tab, 5 MG PO Q6H Prescribed by: MARIELLA VILLARREAL on 07/02/22 1246 Review of Systems Review of Systems Constitutional: see HPI Past Nlihawq-Hqsgtc-Rdekat Hx Patient Social History Tobacco Use?: No Use of E-Cig and/or Vaping dev: No Substance use?: No Alcohol Use?: No Pt feels they are or have been: No Immunizations Up To Date Tetanus Booster (TDap): Unknown PED Vaccines UTD: No Seasonal Allergies Seasonal Allergies: No Past Medical History Surgery/Hospitalization HX: Diabetes mellitus Surgeries: Yes (biopsy lymph node8 yo, Left knee surgery-meniscus tear ) Vasectomy Respiratory: Yes (small "spot" on bottom left lung states is monitoring) Currently Using CPAP: No Currently Using BIPAP: No Cardiac: Yes (HAS REFUSED TO TAKE MEDICATIONS IN PAST) Hypertension Neurological: No Reproductive Disorders: No Sexually Transmitted Disease: No HIV/AIDS: No Gastrointestinal: No Musculoskeletal: Yes Arthritis Endocrine: No Loss of Vision: Denies Hearing Impairment: Hard of Hearing Cancer: No Psychosocial: Yes (History of polysubstance abuse with positive drug screens on file) Anxiety, Depression Integumentary: Yes (recurrent MSSA abscesses) Blood Disorders: No Adverse Reaction/Blood Tranf: No Family Medical History Alcoholism 19 FATHER G8 BROTHER Cancer 19 FATHER Cardiovascular disease 19 MOTHER Completed stroke 19 MOTHER Congestive heart failure 19 MOTHER Diabetes mellitus 19 MOTHER FH: brain aneurysm G8 SISTER, Onset:40's - 50 FHx: lung cancer 19 FATHER Family history: Allergy Family history: Arthritis 19 MOTHER Family history: Cardiovascular disease 19 MOTHER Family history: Diabetes mellitus Family history: Hypertension 19 MOTHER Headache 19 MOTHER Hearing loss 19 FATHER Heart disease 19 MOTHER History of drug abuse Myocardial infarction 19 MOTHER Myocardial infarction 19 MOTHER Stroke Visual impairment No Family History of: AIDS Abdominal aortic aneurysm Abdominal aortic aneurysm [place]'s disease Diogenes's disease Aphasia Cancer of colon Cataract Cataracts Chest pain Congenital disease Congenital heart disease Congenital heart disease Coronary thrombosis Cystic fibrosis Cystic fibrosis Dementia Dementia Drug abuse Dysphagia Family history: Alzheimer's disease Family history: Asthma Family history: Breast disease Family history: Coronary thrombosis Family history: Gastrointestinal disease Family history: Glaucoma Family history: Osteoporosis Family history: Thyroid disorder Fibrocystic disease of breast Hereditary disease History of - anemia History of - disorder History of - respiratory disease Human immunodeficiency virus (HIV) seropositivity Hypercholesterolemia Infertile Kidney disease Malignant neoplasm of lung Parkinson's disease Prostate cancer Psychotic disorder Seizure disorder Tuberculosis Diabetes, Renal Disease Physical Exam Vital Signs Vital Signs - First Documented 07/16/22 19:20 Temp 36.2 Pulse 102 Resp 20 B/P (MAP) 142/105 (117) Pulse Ox 98 O2 Delivery Room Air Capillary Refill : Less Than 3 Seconds Height, Weight, BMI Height: 5'8.00" Weight: 235lbs. 1.0oz. 106.538137lo; 32.00 BMI Method:Stated General Appearance: No Apparent Distress, Other (Somnolent but easily arousable telemetry poor historian) HEENT: Normal ENT Inspection, Pharynx Normal Neck: Normal Inspection, Non Tender, Supple Respiratory: Chest Non Tender, Lungs Clear, Normal Breath Sounds, No Accessory Muscle Use Cardiovascular: No Edema, No Murmur, Normal Peripheral Pulses, Tachycardia Gastrointestinal: Normal Bowel Sounds, No Organomegaly, No Pulsatile Mass, Non Tender, Soft Extremity: Other (There is swelling at the location of a central excoriated area just superior to the knee and not including the joint on the right side. There is erythema surrounding this and streaking through his medial thigh to the midportion of his thigh on the right side. Neurovascular motor and sensory intact. Left knee is slightly swollen, no erythema. There is no pain with range of motion of the joint. No evidence for intra-articular infection.) Neurologic/Psychiatric: Alert, Oriented x3, No Motor/Sensory Deficits Skin: Other (As described above) Focused Exam Lactate Level 07/16/22 19:38: Lactic Acid Level 1.43 Lactic Acid Level Laboratory Tests Test 07/16/22 19:38 Lactic Acid Level 1.43 MMOL/L (0.50-2.00) Progress/Results/Core Measures Suspected Sepsis SIRS Temperature: Pulse: 102 Respiratory Rate: 20 Laboratory Tests 07/16/22 19:38: White Blood Count 16.3H Blood Pressure 142 /105 Mean: 117 07/16/22 19:38: Lactic Acid Level 1.43 Laboratory Tests 07/16/22 19:38: Creatinine 0.86, Platelet Count 360, Total Bilirubin 0.5 Results/Orders Lab Results Laboratory Tests Test 07/16/22 19:38 Range/Units White Blood Count 16.3 H 4.3-11.0 10^3/uL Red Blood Count 4.68 4.30-5.52 10^6/uL Hemoglobin 14.4 13.3-17.7 g/dL Hematocrit 43 40-54 % Mean Corpuscular Volume 91 80-99 fL Mean Corpuscular Hemoglobin 31 25-34 pg Mean Corpuscular Hemoglobin Concent 34 32-36 g/dL Red Cell Distribution Width 12.9 10.0-14.5 % Platelet Count 360 130-400 10^3/uL Mean Platelet Volume 9.4 9.0-12.2 fL Immature Granulocyte % (Auto) 0 % Neutrophils (%) (Auto) 83 H 42-75 % Lymphocytes (%) (Auto) 10 L 12-44 % Monocytes (%) (Auto) 5 0-12 % Eosinophils (%) (Auto) 1 0-10 % Basophils (%) (Auto) 0 0-10 % Neutrophils # (Auto) 13.5 H 1.8-7.8 10^3/uL Lymphocytes # (Auto) 1.7 1.0-4.0 10^3/uL Monocytes # (Auto) 0.9 0.0-1.0 10^3/uL Eosinophils # (Auto) 0.2 0.0-0.3 10^3/uL Basophils # (Auto) 0.1 0.0-0.1 10^3/uL Immature Granulocyte # (Auto) 0.1 0.0-0.1 10^3/uL Neutrophils % (Manual) 80 % Lymphocytes % (Manual) 12 % Monocytes % (Manual) 3 % Eosinophils % (Manual) 2 % Reactive Lymphocytes 3 % Sodium Level 138 135-145 MMOL/L Potassium Level 3.6 3.6-5.0 MMOL/L Chloride Level 102 98-107 MMOL/L Carbon Dioxide Level 24 21-32 MMOL/L Anion Gap 12 5-14 MMOL/L Blood Urea Nitrogen 13 7-18 MG/DL Creatinine 0.86 0.60-1.30 MG/DL Estimat Glomerular Filtration Rate 105 BUN/Creatinine Ratio 15 Glucose Level 119 H 70-105 MG/DL Lactic Acid Level 1.43 0.50-2.00 MMOL/L Calcium Level 9.7 8.5-10.1 MG/DL Corrected Calcium 9.6 8.5-10.1 MG/DL Total Bilirubin 0.5 0.1-1.0 MG/DL Aspartate Amino Transf (AST/SGOT) 15 5-34 U/L Alanine Aminotransferase (ALT/SGPT) 14 0-55 U/L Alkaline Phosphatase 86 40-136 U/L Total Protein 7.0 6.4-8.2 GM/DL Albumin 4.1 3.2-4.5 GM/DL My Orders Orders - JACOBBRANDY DO Cbc With Automated Diff (07/16/22 19:32) Comprehensive Metabolic Panel (07/16/22 19:32) Blood Culture (07/16/22 19:32) Urinalysis (07/16/22 19:32) Urine Culture (07/16/22 19:32) Chest 1 View, Ap/Pa Only (07/16/22 19:32) Ed Iv/Invasive Line Start (07/16/22 19:32) Vital Signs Adult Sepsis Patie Q15M (07/16/22 19:32) Lactic Acid Analyzer (07/16/22 19:32) Piperacillin Sodium/Tazobactam (Zosyn Vi (07/16/22 19:45) Meropenem (Merrem 1000 Mg) (07/16/22 19:45) Ns Iv 1000 Ml (Sodium Chloride 0.9%) (07/16/22 19:45) Manual Differential (07/16/22 19:38) Ed Admission (Communication) (07/16/22 20:35) Ketorolac Injection (Toradol Injection) (07/16/22 22:00) Medications Given in ED Current Medications Medications Dose Ordered Sig/Ellis Route Start Time Stop Time Status Last Admin Dose Admin Ketorolac Tromethamine 15 mg ONCE ONCE IVP 07/16/22 22:00 07/16/22 22:01 DC 07/16/22 21:57 15 MG Meropenem 1000 mg/ Sodium Chloride 100 ml @ 200 mls/hr ONCE ONCE IV 07/16/22 19:45 07/16/22 20:14 DC 07/16/22 20:35 200 MLS/HR Piperacillin Sod/ Tazobactam Sod 4.5 gm/Sodium Chloride 100 ml @ 200 mls/hr ONCE ONCE IV 07/16/22 19:45 07/16/22 20:14 DC 07/16/22 19:55 200 MLS/HR Vital Signs/I&O 07/16/22 19:20 Temp 36.2 Pulse 102 Resp 20 B/P (MAP) 142/105 (117) Pulse Ox 98 O2 Delivery Room Air Capillary Refill : Less Than 3 Seconds Blood Pressure Mean: 117 Departure Communication (Admissions) Patient is hemodynamically stable. He does have significant cellulitis superior to his right knee and into his right thigh area. Given the fact that he is homeless, diabetic I think he is a poor candidate for discharge. He also has a history of medication noncompliance. With that given IV antibiotics here. I spoke with Dr. Mariano who accepts the patient admission. I did give him IV meropenem here as he has an allergy to penicillin and vancomycin. 2030: Spoke to Dr Villarreal. Admit obs 4th floor. Impression Primary Impression: Cellulitis Qualified Codes: L03.115 - Cellulitis of right lower limb Disposition: ADMITTED INPATIENT Condition: Stable Departure-Patient Inst. Referrals: NO,LOCAL PHYSICIAN (PCP/Family) Primary Care Physician BRANDY JAMES DO Jul 16, 2022 19:39
[2022-07-16] MEDS ORDERED: PIPERACILLIN SODIUM/TAZOBACTAM 4.5 GM in NS (IVPB) 100 ML IV ONE (19:45)
[2022-07-16] MEDS ORDERED: MEROPENEM 1,000 MG in NS (IVPB) 100 ML IV ONE (19:45)
[2022-07-16 19:49] LABS: BASOPHILS # (AUTO) 0.1 10^3/uL (0.0-0.1); BASOPHILS % (AUTO) 0 % (0-10); EOSINOPHILS # (AUTO) 0.2 10^3/uL (0.0-0.3); EOSINOPHILS % (AUTO) 1 % (0-10); HEMATOCRIT 43 % (40-54); HEMOGLOBIN 14.4 g/dL (13.3-17.7); LYMPHOCYTES # (AUTO) 1.7 10^3/uL (1.0-4.0); LYMPHOCYTES % (AUTO) 10 % (12-44); MEAN CORPUSCULAR HEMOGLOBIN 31 pg (25-34); MEAN CORPUSCULAR HGB CONC 34 g/dL (32-36); MEAN CORPUSCULAR VOLUME 91 fL (80-99); MEAN PLATELET VOLUME 9.4 fL (9.0-12.2); MONOCYTES # (AUTO) 0.9 10^3/uL (0.0-1.0); MONOCYTES % (AUTO) 5 % (0-12); NEUTROPHILS # (AUTO) 13.5 10^3/uL (1.8-7.8); NEUTROPHILS % (AUTO) 83 % (42-75); PLATELET COUNT 360 10^3/uL (130-400); WHITE BLOOD COUNT 16.3 10^3/uL (4.3-11.0)
[2022-07-16] MEDS: NS IV 1000 ML 1,000 ML IV SCH ×3 (19:55→22:29)
--- NOTE | 2022-07-16 19:55 | Diagnostic Imaging Report ---
INDICATION: dyspnea COMPARISON: 09/11/2020 FINDINGS: Single frontal view of the chest demonstrates normal heart size and pulmonary vascularity. The lungs are well aerated and clear. No large pleural effusion or pneumothorax is seen. The visualized osseous structures show no acute abnormalities. IMPRESSION: 1. No acute cardiopulmonary process. Dictated by: Dictated on workstation # [id number]
[2022-07-16 20:08] LABS: ALBUMIN 4.1 GM/DL (3.2-4.5); BILIRUBIN,TOTAL 0.5 MG/DL (0.1-1.0); CALCIUM 9.7 MG/DL (8.5-10.1); CREATININE SERUM 0.86 MG/DL (0.60-1.30); POTASSIUM 3.6 MMOL/L (3.6-5.0)
[2022-07-16 20:17] LABS: EOSINOPHILS % (MANUAL) 2 %; LYMPHOCYTES % (MANUAL) 12 %; MONOCYTES % (MANUAL) 3 %; NEUTROPHILS % (MANUAL) 80 %
[2022-07-16 20:18] LABS: REACTIVE LYMPHOCYTES 3 %
[2022-07-16] MEDS ORDERED: KETOROLAC 15 MG/ML VIAL IVP ONE (22:00)
[2022-07-16 22:08] VITALS: BP 150/104
[2022-07-16] MEDS ORDERED: LORazepam 0.5 MG (ATIVAN) TABLET ONE (22:24)
[2022-07-16] MEDS ORDERED: ONDANSETRON 4 MG/2 ML (SDV) Z0FRAN IV PRN (22:30)
[2022-07-16] MEDS ORDERED: MEROPENEM 1,000 MG in NS (IVPB) 100 ML IV SCH (22:30)
[2022-07-16] MEDS ORDERED: MILK OF MAGNESIA 400 MG/5 ML 30 ML UDC PO PRN (22:30)
[2022-07-16] MEDS ORDERED: LORazepam 0.5 MG (ATIVAN) TABLET PO PRN (22:30)
[2022-07-16] MEDS ORDERED: ANTACID SUSP 30 ML UDC (MYLANTA) PO PRN (22:30)
[2022-07-16] MEDS ORDERED: CALCIUM CARBONATE 500 MG (TUMS) TAB.CHEW PO PRN (22:30)
[2022-07-16] MEDS ORDERED: diphenhydrAMINE 25 MG TAB (BENADRYL) PO PRN (22:30)
[2022-07-16] MEDS ORDERED: ONDANSETRON 4 MG (ZOFRAN) ORAL DISSOLVE TAB PO PRN (22:30)
[2022-07-16] MEDS ORDERED: BISACODYL 10 MG SUPP (DULCOLAX) PR PRN (22:30)
[2022-07-16] MEDS ORDERED: LORazepam INJ 2 MG/ML (ATIVAN) VIAL IVP PRN (22:30)
[2022-07-16] MEDS ORDERED: diphenhydrAMINE 50 MG/ML INJ (BENADRYL) IVP PRN (22:30)
[2022-07-16] MEDS ORDERED: LACTULOSE SYRUP 10GM/15ML (ENULOSE) 30ML UDC PO PRN (22:30)
[2022-07-16] MEDS ORDERED: polyethylene glycoL POWDER 17 GM (MIRALAX) PACK PO PRN (22:30)
[2022-07-16] MEDS: ENOXAPARIN 40 MG/0.4 ML (LOVENOX) SYR SC SCH (22:39)
[2022-07-16] MEDS: LINEZOLID IVPB 300 ML IV SCH (22:39)
[2022-07-16 23:05] VITALS: BP 150/104
[2022-07-16] MEDS ORDERED: RT-ALBUTEROL SULF 2.5 MG/3 ML PRE-MIX VIAL INH PRN (23:15)
[2022-07-16 23:18] VITALS: BP 130/89
[2022-07-17 03:33] VITALS: BP 121/77
[2022-07-17] MEDS: MEROPENEM 500 MG/NS 100 ML IVPB IV SCH ×8 (03:44→20:40)
[2022-07-17 04:59] LABS: BILIRUBIN,URINE NEGATIVE (NEGATIVE); CLARITY,URINE CLEAR; COLOR,URINE YELLOW; GLUCOSE, URINE (UA) NEGATIVE (NEGATIVE); KETONES,URINE TRACE (NEGATIVE); LEUKOCYTE ESTERASE ,URINE NEGATIVE (NEGATIVE); NITRITE,URINE NEGATIVE (NEGATIVE); PH,URINE 6.5 (5-9); PROTEIN,URINE NEGATIVE (NEGATIVE)
[2022-07-17 05:06] LABS: BACTERIA,URINE TRACE /HPF; RBC,URINE RARE /HPF; WBC,URINE RARE /HPF
[2022-07-17] MEDS: inSUlin ASPART (NovoLOG) 1 UNIT/0.01 ML (CHARGE PER UNIT) SC SCH ×4 (05:53→20:29)
[2022-07-17 05:59] LABS: BASOPHILS % (AUTO) 0 % (0-10); EOSINOPHILS # (AUTO) 0.3 10^3/uL (0.0-0.3); EOSINOPHILS % (AUTO) 2 % (0-10); HEMATOCRIT 40 % (40-54); HEMOGLOBIN 13.2 g/dL (13.3-17.7); LYMPHOCYTES % (AUTO) 14 % (12-44); MEAN CORPUSCULAR HEMOGLOBIN 31 pg (25-34); MEAN CORPUSCULAR HGB CONC 33 g/dL (32-36); MEAN CORPUSCULAR VOLUME 93 fL (80-99); MEAN PLATELET VOLUME 9.5 fL (9.0-12.2); MONOCYTES % (AUTO) 7 % (0-12); NEUTROPHILS # (AUTO) 11.3 10^3/uL (1.8-7.8); NEUTROPHILS % (AUTO) 77 % (42-75); PLATELET COUNT 346 10^3/uL (130-400); WHITE BLOOD COUNT 14.7 10^3/uL (4.3-11.0)
--- NOTE | 2022-07-17 06:05 | History & Physical-Hospitalist ---
History of Present Illness HPI/Chief Complaint CC: Right leg cellulitis with severe debility HPI: This is a 51yoWM clinic patient of [facility] who was just admitted 2 weeks ago for cellulitis of his nasal bridge who presented to the ER with weakness and right leg cellulitis. Due to recent broad spectrum abx he will need Meropenem and Zyvox since he is allergic to Vanc. Patient is unable to care for himself and is homeless and his nephew is at the bedside. Source: patient, family Date Seen 07/17/22 Time Seen by a Provider: 11:00 Attending Physician No,Local Physician PCP Admitting Physician: Maria Esther Jacinto DO Attending Physician: Maria Esther Jacinto DO Referring Physician Date of Admission Jul 16, 2022 at 22:05 Home Medications & Allergies Home Medications Reviewed patient Home Medication Reconciliation performed by pharmacy medication reconciliations business systems technician and/or nursing. Patients Allergies have been reviewed. Allergies Allergies Coded Allergies vancomycin (Verified Allergy, Intermediate, RASH, 07/06/15) Erythema and itching Penicillins (Unverified Allergy, Mild, 07/20/08) penicillin G (Verified Allergy, Unknown, 01/05/06) Uncoded Allergies PCN ( Allergy, Mild, 07/21/08) Past Rgvofuv-Bypmgs-Njqzyn Hx Patient Social History Marrital Status: single Employed/Student: unemployed Tobacco Use?: No Smoking Status: Current Everyday Smoker Use of E-Cig and/or Vaping dev: No Substance use?: No Alcohol Use?: No Pt feels they are or have been: No Immunizations Up To Date Tetanus Booster (TDap): Unknown Hepatitis A: No Hepatitis B: No PED Vaccines UTD: No Seasonal Allergies Seasonal Allergies: No Current Status Advance Directives: No Communicates: Verbally Primary Language: Slovenian Preferred Spoken Language: Slovenian Is interpretation needed?: No Implanted or Applied Medical D: None Past Medical History Surgeries: Vasectomy Currently Using CPAP: No Currently Using BIPAP: No Hypertension Sexually Transmitted Disease: No HIV/AIDS: No Arthritis Loss of Vision: Denies Hearing Impairment: Hard of Hearing Anxiety, Depression Blood Disorders: No Adverse Reaction/Blood Tranf: No Past Medical History 1. 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 - Most recent cultures are staph sensitive to everything except EES 2. Tobaccoism 3. ED 4. History of MRSA 2009 5. Fatty liver 6. HTN Past Surgical History 1. Rt. Axilla lymph node bx at age 8 2. Pilonidal cyst 3. Knee surgery 4. Vasectomy 5. I&D and packing LLE abscess 6. I&D right axillary abscesses 9-14 ER Family Medical History Alcoholism 19 FATHER G8 BROTHER Cancer 19 FATHER Cardiovascular disease 19 MOTHER Completed stroke 19 MOTHER Congestive heart failure 19 MOTHER Diabetes mellitus 19 MOTHER FH: brain aneurysm G8 SISTER, Onset:40's - 50 FHx: lung cancer 19 FATHER Family history: Allergy Family history: Arthritis 19 MOTHER Family history: Cardiovascular disease 19 MOTHER Family history: Diabetes mellitus Family history: Hypertension 19 MOTHER Headache 19 MOTHER Hearing loss 19 FATHER Heart disease 19 MOTHER History of drug abuse Myocardial infarction 19 MOTHER Myocardial infarction 19 MOTHER Stroke Visual impairment No Family History of: AIDS Abdominal aortic aneurysm Abdominal aortic aneurysm Diogenes's disease Ross's disease Aphasia Cancer of colon Cataract Cataracts Chest pain Congenital disease Congenital heart disease Congenital heart disease Coronary thrombosis Cystic fibrosis Cystic fibrosis Dementia Dementia Drug abuse Dysphagia Family history: Alzheimer's disease Family history: Asthma Family history: Breast disease Family history: Coronary thrombosis Family history: Gastrointestinal disease Family history: Glaucoma Family history: Osteoporosis Family history: Thyroid disorder Fibrocystic disease of breast Hereditary disease History of - anemia History of - disorder History of - respiratory disease Human immunodeficiency virus (HIV) seropositivity Hypercholesterolemia Infertile Kidney disease Malignant neoplasm of lung Parkinson's disease Prostate cancer Psychotic disorder Seizure disorder Tuberculosis Diabetes, Renal Disease Review of Systems Constitutional: see HPI, malaise, weakness EENTM: no symptoms reported Respiratory: no symptoms reported Cardiovascular: no symptoms reported Gastrointestinal: no symptoms reported Genitourinary: no symptoms reported Musculoskeletal: no symptoms reported Skin: see HPI Psychiatric/Neurological: No Symptoms Reported All Other Systems Reviewed Negative Unless Noted: Yes Physical Exam Physical Exam Vital Signs Vital Signs - First Documented 07/16/22 07/16/22 19:20 23:05 Temp 36.2 Pulse 102 Resp 20 B/P (MAP) 142/105 (117) Pulse Ox 98 O2 Delivery Room Air FiO2 21 Capillary Refill : Less Than 3 Seconds Height, Weight, BMI Height: 5'8.00" Weight: 235lbs. 1.0oz. [id number]; 32.11 BMI Method:Stated General Appearance: No Apparent Distress, Chronically ill Eyes: Right Eye Normal Inspection, Right Eye PERRL HEENT: PERRL/EOMI, Normal ENT Inspection, Pharynx Normal, Moist Mucous Membranes Neck: Full Range of Motion, Normal Inspection, Non Tender Respiratory: Chest Non Tender, Lungs Clear, Normal Breath Sounds, No Accessory Muscle Use, No Respiratory Distress Cardiovascular: Regular Rate, Rhythm, No Edema, No Gallop, No JVD, No Murmur, Normal Peripheral Pulses Gastrointestinal: Normal Bowel Sounds, No Organomegaly, No Pulsatile Mass, Non Tender, Soft Back: Normal Inspection, No CVA Tenderness, No Vertebral Tenderness Extremity: Normal Capillary Refill, Normal Inspection, Normal Range of Motion, Non Tender, No Calf Tenderness, No Pedal Edema Neurologic/Psychiatric: Alert, Oriented x3, No Motor/Sensory Deficits, Depressed Affect Skin: Normal Color, Warm/Dry, Rash (right leg cellulitis) Lymphatic: No Adenopathy Results Results/Procedures Labs Laboratory Tests 07/16/22 19:38 07/17/22 05:37 Patient resulted labs reviewed. Assessment/Plan Admission Diagnosis Assessment: Right leg cellulitis with recent broad spectrum abx for nasal bridge cellulitis Unable to care for self Homelessness Plan: IV abx HLIVF Lovenox Admission Status: Observation MARIA ESTHER JACINTO DO Jul 17, 2022 06:05
[2022-07-17 06:19] LABS: ALBUMIN 3.5 GM/DL (3.2-4.5)
[2022-07-17 06:20] LABS: CALCIUM 8.5 MG/DL (8.5-10.1)
[2022-07-17 06:23] LABS: BILIRUBIN,TOTAL 0.3 MG/DL (0.1-1.0)
[2022-07-17 06:25] LABS: CREATININE SERUM 0.87 MG/DL (0.60-1.30)
[2022-07-17] MEDS: LORazepam 0.5 MG (ATIVAN) TABLET PO PRN (08:36)
[2022-07-17] MEDS: SENNOSIDES 8.6 MG (SENOKOT) TAB PO SCH ×2 (08:36→20:49)
[2022-07-17] MEDS: DOCUSATE SODIUM 100 MG (COLACE) CAP PO SCH ×2 (08:42→20:49)
[2022-07-17 08:43] VITALS: BP 124/85
[2022-07-17] MEDS: LINEZOLID IVPB 300 ML IV SCH ×2 (10:57→22:07)
[2022-07-17] MEDS: NS IV 1000 ML 1,000 ML IV SCH ×2 (10:58→17:45)
[2022-07-17 12:08] VITALS: BP 146/67
[2022-07-17 15:58] VITALS: BP 135/84
[2022-07-17 19:49] VITALS: BP 148/95
[2022-07-17] MEDS: HYDROmorphone 2 MG/ML VIAL (DILAUDID) IV PRN (20:40)
[2022-07-17] MEDS: ENOXAPARIN 40 MG/0.4 ML (LOVENOX) SYR SC SCH (22:07)
[2022-07-18 00:37] VITALS: BP 146/93
[2022-07-18] MEDS: ACETAMINOPHEN 325 MG TABLET PO PRN ×2 (00:42→12:46)
[2022-07-18] MEDS: NS IV 1000 ML 1,000 ML IV SCH ×3 (01:59→22:18)
[2022-07-18] MEDS: MEROPENEM 500 MG/NS 100 ML IVPB IV SCH ×8 (02:33→19:50)
[2022-07-18 04:06] VITALS: BP 126/86
[2022-07-18 05:44] LABS: BASOPHILS % (AUTO) 0 % (0-10); EOSINOPHILS # (AUTO) 0.2 10^3/uL (0.0-0.3); EOSINOPHILS % (AUTO) 2 % (0-10); HEMATOCRIT 39 % (40-54); HEMOGLOBIN 12.8 g/dL (13.3-17.7); LYMPHOCYTES # (AUTO) 1.7 10^3/uL (1.0-4.0); LYMPHOCYTES % (AUTO) 11 % (12-44); MEAN CORPUSCULAR HEMOGLOBIN 31 pg (25-34); MEAN CORPUSCULAR HGB CONC 33 g/dL (32-36); MEAN CORPUSCULAR VOLUME 92 fL (80-99); MEAN PLATELET VOLUME 9.8 fL (9.0-12.2); MONOCYTES # (AUTO) 1.1 10^3/uL (0.0-1.0); MONOCYTES % (AUTO) 7 % (0-12); NEUTROPHILS # (AUTO) 12.1 10^3/uL (1.8-7.8); NEUTROPHILS % (AUTO) 80 % (42-75); PLATELET COUNT 311 10^3/uL (130-400); WHITE BLOOD COUNT 15.2 10^3/uL (4.3-11.0)
[2022-07-18] MEDS: inSUlin ASPART (NovoLOG) 1 UNIT/0.01 ML (CHARGE PER UNIT) SC SCH ×4 (05:49→20:48)
[2022-07-18 06:02] LABS: ALBUMIN 3.5 GM/DL (3.2-4.5)
[2022-07-18 06:03] LABS: POTASSIUM 4.3 MMOL/L (3.6-5.0)
[2022-07-18 06:04] LABS: CALCIUM 8.7 MG/DL (8.5-10.1)
[2022-07-18 06:05] LABS: TOTAL PROTEIN 6.1 GM/DL (6.4-8.2)
[2022-07-18 06:07] LABS: BILIRUBIN,TOTAL 0.5 MG/DL (0.1-1.0)
[2022-07-18 06:09] LABS: CREATININE SERUM 0.73 MG/DL (0.60-1.30)
--- NOTE | 2022-07-18 06:31 | Progress Note - Hospitalist ---
Subjective HPI/CC On Admission Date Seen by Provider: Jul 18, 2022 Time Seen by Provider: 11:30 CC: Right leg cellulitis with severe debility HPI: This is a 51yoWM clinic patient of [facility] who was just admitted 2 weeks ago fo r cellulitis of his nasal bridge who presented to the ER with weakness and right leg cellulitis. Due to recent broad spectrum abx he will need Meropenem and Zyvox since he is allergic to Vanc. Patient is unable to care for himself and is homeless and his nephew is at the bedside. Subjective/Events-last exam No new issues Refuses to walk and get OOB Right leg improved erythema Review of Systems General: Fatigue, Malaise Focused Exam Lactate Level 07/16/22 19:38: Lactic Acid Level 1.43 Objective Exam Vital Signs Vital Signs Date Time Temp Pulse Resp B/P (MAP) Pulse Ox O2 Delivery O2 Flow Rate FiO2 07/18/22 12:59 36.5 75 18 121/82 (95) 99 Room Air 07/16/22 23:05 21 Capillary Refill : Less Than 3 Seconds General Appearance: No Apparent Distress, WD/WN, Chronically ill Respiratory: Lungs Clear Cardiovascular: Regular Rate, Rhythm Neurologic/Psychiatric: Alert, Oriented x3, Depressed Affect Results/Procedures Lab Laboratory Tests 07/18/22 05:20 Patient resulted labs reviewed. Assessment/Plan Assessment and Plan Assess & Plan/Chief Complaint Assessment: Right leg cellulitis with recent broad spectrum abx for nasal bridge cellulitis Unable to care for self Homelessness Plan: IV abx HLIVF Lovenox MARIELLA VILLARREAL DO Jul 18, 2022 06:31
[2022-07-18 08:26] VITALS: BP 126/84
[2022-07-18] MEDS: LINEZOLID IVPB 300 ML IV SCH ×2 (09:19→22:18)
[2022-07-18] MEDS: SENNOSIDES 8.6 MG (SENOKOT) TAB PO SCH ×2 (09:19→20:47)
[2022-07-18] MEDS: DOCUSATE SODIUM 100 MG (COLACE) CAP PO SCH ×2 (09:20→20:47)
[2022-07-18 12:59] VITALS: BP 121/82
[2022-07-18 15:53] VITALS: BP 122/85
[2022-07-18 20:05] VITALS: BP 137/82
[2022-07-18] MEDS: ENOXAPARIN 40 MG/0.4 ML (LOVENOX) SYR SC SCH (22:18)
[2022-07-19] VITALS (8 sets, daily range): BP systolic 102–141; BP diastolic 55–96
[2022-07-19] MEDS: LORazepam 0.5 MG (ATIVAN) TABLET PO PRN ×2 (01:00→23:05)
[2022-07-19] MEDS: MEROPENEM 500 MG/NS 100 ML IVPB IV SCH ×8 (02:44→22:13)
[2022-07-19 05:51] LABS: BASOPHILS % (AUTO) 0 % (0-10); EOSINOPHILS # (AUTO) 0.4 10^3/uL (0.0-0.3); EOSINOPHILS % (AUTO) 3 % (0-10); HEMATOCRIT 38 % (40-54); HEMOGLOBIN 12.5 g/dL (13.3-17.7); LYMPHOCYTES # (AUTO) 2.3 10^3/uL (1.0-4.0); LYMPHOCYTES % (AUTO) 16 % (12-44); MEAN CORPUSCULAR HEMOGLOBIN 30 pg (25-34); MEAN CORPUSCULAR HGB CONC 33 g/dL (32-36); MEAN CORPUSCULAR VOLUME 92 fL (80-99); MEAN PLATELET VOLUME 9.6 fL (9.0-12.2); MONOCYTES # (AUTO) 1.2 10^3/uL (0.0-1.0); MONOCYTES % (AUTO) 8 % (0-12); NEUTROPHILS # (AUTO) 10.3 10^3/uL (1.8-7.8); NEUTROPHILS % (AUTO) 73 % (42-75); PLATELET COUNT 315 10^3/uL (130-400); WHITE BLOOD COUNT 14.2 10^3/uL (4.3-11.0)
[2022-07-19] MEDS: inSUlin ASPART (NovoLOG) 1 UNIT/0.01 ML (CHARGE PER UNIT) SC SCH ×4 (06:07→22:06)
[2022-07-19 06:10] LABS: ALBUMIN 3.5 GM/DL (3.2-4.5); BILIRUBIN,TOTAL 0.2 MG/DL (0.1-1.0); CALCIUM 8.4 MG/DL (8.5-10.1); CREATININE SERUM 0.8 MG/DL (0.60-1.30); POTASSIUM 4.2 MMOL/L (3.6-5.0); TOTAL PROTEIN 6.3 GM/DL (6.4-8.2)
[2022-07-19] MEDS: NS IV 1000 ML 1,000 ML IV SCH ×3 (06:43→22:05)
[2022-07-19] MEDS: DOCUSATE SODIUM 100 MG (COLACE) CAP PO SCH ×2 (09:35→22:06)
[2022-07-19] MEDS: SENNOSIDES 8.6 MG (SENOKOT) TAB PO SCH ×2 (09:35→22:06)
[2022-07-19] MEDS: LINEZOLID IVPB 300 ML IV SCH ×2 (10:14→23:05)
--- NOTE | 2022-07-19 10:28 | Physical Therapy Progress Note ---
Therapy Progress Note After multiple attempts, patient has declined PT. This PT did observe patient moving independently in bed but continued to decline OOB activity. PT will attempt tomorrow. 1 ref x 5 SHABBIR MCFADDEN PT Jul 19, 2022 10:28
--- NOTE | 2022-07-19 11:09 | Progress Note ---
Subjective Subjective/Events-last exam Complaining of left ear hurting, headache, knee hurts, feels like crap in general. He says his leg has opened up and is draining and needs surgery. Focused Exam Lactate Level 07/16/22 19:38: Lactic Acid Level 1.43 Objective Exam Last Set of Vital Signs Vital Signs Date Time Temp Pulse Resp B/P (MAP) Pulse Ox O2 Delivery O2 Flow Rate FiO2 07/19/22 08:31 37.0 93 98 21 07/19/22 08:13 19 122/80 (94) Room Air 07/19/22 08:07 0.00 Capillary Refill : Less Than 3 Seconds I&O Intake and Output 07/19/22 00:00 Intake Total 4120 ml Output Total 2950 ml Balance 1170 ml Intake Oral 2620 ml IV Total 1500 ml Output Urine Total 2950 ml General: Other (irritable) Lungs: Clear to Auscultation, Normal Air Movement Heart: Regular Rate Abdomen: Normal Bowel Sounds, Soft Extremities: Other (erythema of right anterior thigh down to level of just above knee, area of ulceration about 1 cm in diameter a little proximal to knee with yellow crusting) Neuro: Normal Speech Results/Procedures Lab Laboratory Tests 07/18/22 12:06: Glucometer 99 07/18/22 15:56: Glucometer 89 07/18/22 20:11: Glucometer 91 07/19/22 03:54: Glucometer 107 07/19/22 05:27: White Blood Count 14.2H, Red Blood Count 4.11L, Hemoglobin 12.5L, Hematocrit 38L , Mean Corpuscular Volume 92, Mean Corpuscular Hemoglobin 30, Mean Corpuscular Hemoglobin Concent 33, Red Cell Distribution Width 12.5, Platelet Count 315, Mean Platelet Volume 9.6, Immature Granulocyte % (Auto) 0, Neutrophils (%) (Auto) 73, Lymphocytes (%) (Auto) 16, Monocytes (%) (Auto) 8, Eosinophils (%) (Auto) 3, Basophils (%) (Auto) 0, Neutrophils # (Auto) 10.3H, Lymphocytes # (Auto) 2.3, Monocytes # (Auto) 1.2H, Eosinophils # (Auto) 0.4H, Basophils # (Auto) 0.0, Immature Granulocyte # (Auto) 0.1, Sodium Level 135, Potassium Level 4.2, Chloride Level 104, Carbon Dioxide Level 22, Anion Gap 9, Blood Urea Nitrogen 16, Creatinine 0.80, Estimat Glomerular Filtration Rate 107, BUN/Creatinine Ratio 20, Glucose Level 106H, Calcium Level 8.4L, Corrected Calcium 8.8, Total Bilirubin 0.2, Aspartate Amino Transf (AST/SGOT) 12, Alanine Aminotransferase (ALT/SGPT) 14, Alkaline Phosphatase 61, Total Protein 6.3L, Albumin 3.5 07/19/22 05:46: Glucometer 91 Microbiology 07/17/22 Urine Culture - Final, Complete NO GROWTH 07/16/22 Blood Culture - Preliminary, Resulted No growth Assessment/Plan Assessment/Plan (1) Sepsis Status: Acute Assessment & Plan: Suspect secondary to cellulitis, blood culture no growth Qualifiers: (2) Cellulitis Status: Acute Assessment & Plan: Right thigh, will obtain US to eval for underlying absc ess/need for drainage On meropenem and linezolid due to history of recurrent cellulitis Qualifiers: Qualified Codes: L03.115 - Cellulitis of right lower limb (3) Hypertension Status: Chronic Qualifiers: Qualified Codes: I10 - Essential (primary) hypertension (4) DVT prophylaxis Status: Acute Assessment & Plan: Enoxaparin GIORGIO KELLEY MD Jul 19, 2022 11:09
--- NOTE | 2022-07-19 18:23 | Diagnostic Imaging Report ---
INDICATION: Cellulitis. FINDINGS: Subcutaneous edema as well as a deep subcutaneous area of fluid or fluid collection 3.2 x 0.8 x 2.4 cm. This does show some peripheral hypervascularity, and an evolving abscess could not be excluded. No other focal abnormality. IMPRESSION: Regional cellulitis with deep subcutaneous fluid versus evolving and developing true fluid collection, focus showing some peripheral hypervascularity, and its sterility could not be confirmed. Dictated by: Dictated on workstation # [id number]
[2022-07-19] MEDS: HYDROmorphone 2 MG/ML VIAL (DILAUDID) IV PRN (22:05)
[2022-07-19] MEDS: MELATONIN 3 MG TABLET PO PRN (22:05)
[2022-07-19] MEDS: ENOXAPARIN 40 MG/0.4 ML (LOVENOX) SYR SC SCH (22:31)
[2022-07-20] MEDS: MEROPENEM 500 MG/NS 100 ML IVPB IV SCH ×8 (02:42→21:11)
[2022-07-20 03:34] VITALS: BP 111/70
[2022-07-20 05:32] LABS: BASOPHILS # (AUTO) 0.1 10^3/uL (0.0-0.1); BASOPHILS % (AUTO) 0 % (0-10); EOSINOPHILS # (AUTO) 0.5 10^3/uL (0.0-0.3); EOSINOPHILS % (AUTO) 4 % (0-10); HEMATOCRIT 38 % (40-54); HEMOGLOBIN 12.4 g/dL (13.3-17.7); LYMPHOCYTES # (AUTO) 1.9 10^3/uL (1.0-4.0); LYMPHOCYTES % (AUTO) 16 % (12-44); MEAN CORPUSCULAR HEMOGLOBIN 31 pg (25-34); MEAN CORPUSCULAR HGB CONC 33 g/dL (32-36); MEAN CORPUSCULAR VOLUME 92 fL (80-99); MEAN PLATELET VOLUME 9.4 fL (9.0-12.2); MONOCYTES # (AUTO) 0.9 10^3/uL (0.0-1.0); MONOCYTES % (AUTO) 8 % (0-12); NEUTROPHILS # (AUTO) 8.2 10^3/uL (1.8-7.8); NEUTROPHILS % (AUTO) 72 % (42-75); PLATELET COUNT 314 10^3/uL (130-400); WHITE BLOOD COUNT 11.5 10^3/uL (4.3-11.0)
[2022-07-20 05:52] LABS: ALBUMIN 3.3 GM/DL (3.2-4.5); BILIRUBIN,TOTAL 0.2 MG/DL (0.1-1.0); CALCIUM 8.8 MG/DL (8.5-10.1); CREATININE SERUM 0.76 MG/DL (0.60-1.30); POTASSIUM 4.3 MMOL/L (3.6-5.0); TOTAL PROTEIN 6.2 GM/DL (6.4-8.2)
[2022-07-20] MEDS: inSUlin ASPART (NovoLOG) 1 UNIT/0.01 ML (CHARGE PER UNIT) SC SCH ×4 (06:10→21:05)
[2022-07-20 07:19] VITALS: BP 120/76
[2022-07-20] MEDS: SENNOSIDES 8.6 MG (SENOKOT) TAB PO SCH ×2 (09:17→21:21)
[2022-07-20] MEDS: DOCUSATE SODIUM 100 MG (COLACE) CAP PO SCH ×2 (09:17→21:21)
--- NOTE | 2022-07-20 09:57 | Physical Therapy Progress Note ---
Therapy Progress Note Patient continues to declined OOB activity. Will attempt tomorrow and if patient does not agrees to skilled PT, PT will remove patient from services. Patient does display independent bed mobility without difficulty. Clinical judgment is he is independent with OOB activity as well. 1 ref SHABBIR MCFADDEN PT Jul 20, 2022 09:57
--- NOTE | 2022-07-20 10:12 | Progress Note ---
Subjective Subjective/Events-last exam States redness on leg has spread some proximal. Objective Exam Last Set of Vital Signs Vital Signs Date Time Temp Pulse Resp B/P (MAP) Pulse Ox O2 Delivery O2 Flow Rate FiO2 07/20/22 07:41 100 Room Air 0.00 07/20/22 07:19 36.2 84 18 120/76 (91) 07/19/22 08:31 21 Capillary Refill : Less Than 3 Seconds I&O Intake and Output 07/20/22 00:00 Intake Total 3310 ml Output Total 3075 ml Balance 235 ml Intake Oral 2210 ml IV Total 1100 ml Output Urine Total 3075 ml General: Alert, No Acute Distress Lungs: Clear to Auscultation, Normal Air Movement Skin: Other (erythema of right anterior thigh with small ulcerated area above knee with no active drainage) Results/Procedures Lab Laboratory Tests 07/19/22 11:15: Glucometer 124H 07/19/22 15:27: Glucometer 95 07/19/22 20:05: Glucometer 146H 07/20/22 05:00: White Blood Count 11.5H, Red Blood Count 4.06L, Hemoglobin 12.4L, Hematocrit 38L , Mean Corpuscular Volume 92, Mean Corpuscular Hemoglobin 31, Mean Corpuscular Hemoglobin Concent 33, Red Cell Distribution Width 12.5, Platelet Count 314, Mean Platelet Volume 9.4, Immature Granulocyte % (Auto) 0, Neutrophils (%) (Auto) 72, Lymphocytes (%) (Auto) 16, Monocytes (%) (Auto) 8, Eosinophils (%) (Auto) 4, Basophils (%) (Auto) 0, Neutrophils # (Auto) 8.2H, Lymphocytes # (Auto) 1.9, Monocytes # (Auto) 0.9, Eosinophils # (Auto) 0.5H, Basophils # (A uto) 0.1, Immature Granulocyte # (Auto) 0.1, Sodium Level 137, Potassium Level 4.3, Chloride Level 104, Carbon Dioxide Level 23, Anion Gap 10, Blood Urea Nitrogen 15, Creatinine 0.76, Estimat Glomerular Filtration Rate 109, BUN/Creatinine Ratio 20, Glucose Level 102, Calcium Level 8.8, Corrected Calcium 9.4, Total Bilirubin 0.2, Aspartate Amino Transf (AST/SGOT) 14, Alanine Aminotr ansferase (ALT/SGPT) 21, Alkaline Phosphatase 56, Total Protein 6.2L, Albumin 3.3 07/20/22 05:21: Glucometer 99 Microbiology 07/17/22 Urine Culture - Final, Complete NO GROWTH 07/16/22 Blood Culture - Preliminary, Resulted No growth Assessment/Plan Assessment/Plan (1) Sepsis Status: Acute Assessment & Plan: Suspect secondary to cellulitis, blood culture no growth Qualifiers: (2) Cellulitis Status: Acute Assessment & Plan: Right thigh, will obtain US to eval for underlying abscess/need for drainage On meropenem and linezolid due to history of recurrent cellulitis 07/20 US showed "Regional cellulitis with deep subcutaneous fluid versus evolving and developing true fluid collection", will consult Surgery for opinion Qualifiers: Qualified Codes: L03.115 - Cellulitis of right lower limb (3) Hypertension Status: Chronic Qualifiers: Qualified Codes: I10 - Essential (primary) hypertension (4) DVT prophylaxis Status: Acute Assessment & Plan: Enoxaparin GIORGIO KELLEY MD Jul 20, 2022 10:12
[2022-07-20 11:03] VITALS: BP 125/77
[2022-07-20] MEDS: LINEZOLID IVPB 300 ML IV SCH ×2 (11:20→22:06)
[2022-07-20] MEDS: NS IV 1000 ML 1,000 ML IV SCH ×2 (11:23→23:55)
[2022-07-20 16:05] VITALS: BP 109/73
[2022-07-20 20:42] VITALS: BP 135/80
[2022-07-20] MEDS: LORazepam 0.5 MG (ATIVAN) TABLET PO PRN (21:25)
[2022-07-20] MEDS: MELATONIN 3 MG TABLET PO PRN (21:25)
[2022-07-20] MEDS: ENOXAPARIN 40 MG/0.4 ML (LOVENOX) SYR SC SCH (22:07)
--- NOTE | 2022-07-20 22:28 | Consultation - Surgery ---
History of Present Illness History of Present Illness Patient Consulted On(nacho/time) 07/20/22 22:20 Date Seen by Provider: Jul 20, 2022 Time Seen by Provider: 17:00 History of Present Illness Consult requested by Dr. Florentino for right leg cellulitis/abscess. Patient is a 51 year old male who had recent cellulitis of face. He states he completed all the antibiotics from that admission. For 1 week now he has had pain in right leg and redness. It has continued to worse. Has severe throbbing type pain without radiation of pain. Nothing makes better or worse. Had U/s showing finding suggestive of possible early abscess. He did have a little drainage from it. Denies n/v fever sweats chills shorntess of breath or chest pain at this time. Allergies and Home Medications Allergies Coded Allergies: vancomycin (Verified Allergy, Intermediate, RASH, 07/06/15) Erythema and itching Penicillins (Unverified Allergy, Mild, 07/20/08) penicillin G (Verified Allergy, Unknown, 01/05/06) Uncoded Allergies: PCN (Allergy, Mild, 07/21/08) Patient Home Medication List Home Medication List Reviewed: Yes No Active Prescriptions or Reported Meds Past Jslwqul-Pethbv-Veujaw Hx Patient Social History Drug of Choice: PAST HISTORY Smoking Status: Current Everyday Smoker Former Smoker, Quit: Apr 23, 2014 Type Used: Cigarettes 2nd Hand Smoke Exposure: Yes Recent Hopitalizations: No Alcohol Use?: No Have you traveled recently?: No Immunizations Up To Date Tetanus Booster (TDap): Unknown PED Vaccines UTD: No Seasonal Allergies Seasonal Allergies: No Surgeries History of Surgeries: Yes (biopsy lymph node8 yo, Left knee surgery-meniscus tear ) Surgeries: Vasectomy Respiratory History of Respiratory Disorde: Yes (small "spot" on bottom left lung states is monitoring) Cardiovascular History of Cardiac Disorders: Yes (HAS REFUSED TO TAKE MEDICATIONS IN PAST) Cardiac Disorders: Hypertension Neurological History of Neurological Disord: No Reproductive System Hx Reproductive Disorders: No Sexually Transmitted Disease: No HIV/AIDS: No Gastrointestinal History of Gastrointestinal Di: No Musculoskeletal History of Musculoskeletal Dis: Yes Musculoskeletal Disorders: Arthritis Endocrine History of Endocrine Disorders: No HEENT Loss of Vision: Denies Hearing Impairment: Hard of Hearing Cancer History of Cancer: No Psychosocial History of Psychiatric Problem: Yes (History of polysubstance abuse with positive drug screens on file) Behavioral Health Disorders: Anxiety, Depression Integumentary History of Skin or Integumenta: Yes (recurrent MSSA abscesses) Blood Transfusions History of Blood Disorders: No Adverse Reaction to a Blood Tr: No Reviewed Nursing Assessment Reviewed/Agree w Nursing PMH: Yes Family Medical History Significant Family History: Diabetes, Renal Disease Family Medial History: Alcoholism 19 FATHER G8 BROTHER Cancer 19 FATHER Cardiovascular disease 19 MOTHER Completed stroke 19 MOTHER Congestive heart failure 19 MOTHER Diabetes mellitus 19 MOTHER FH: brain aneurysm G8 SISTER, Onset:40's - 50 FHx: lung cancer 19 FATHER Family history: Allergy Family history: Arthritis 19 MOTHER Family history: Cardiovascular disease 19 MOTHER Family history: Diabetes mellitus Family history: Hypertension 19 MOTHER Headache 19 MOTHER Hearing loss 19 FATHER Heart disease 19 MOTHER History of drug abuse Myocardial infarction 19 MOTHER Myocardial infarction 19 MOTHER Stroke Visual impairment No Family History of: AIDS Abdominal aortic aneurysm Abdominal aortic aneurysm Diogenes's disease [place]'s disease Aphasia Cancer of colon Cataract Cataracts Chest pain Congenital disease Congenital heart disease Congenital heart disease Coronary thrombosis Cystic fibrosis Cystic fibrosis Dementia Dementia Drug abuse Dysphagia Family history: Alzheimer's disease Family history: Asthma Family history: Breast disease Family history: Coronary thrombosis Family history: Gastrointestinal disease Family history: Glaucoma Family history: Osteoporosis Family history: Thyroid disorder Fibrocystic disease of breast Hereditary disease History of - anemia History of - disorder History of - respiratory disease Human immunodeficiency virus (HIV) seropositivity Hypercholesterolemia Infertile Kidney disease Malignant neoplasm of lung Parkinson's disease Prostate cancer Psychotic disorder Seizure disorder Tuberculosis Review of Systems-General Constitutional: No chills, No diaphoresis EENTM: No blurred vision, No double vision Respiratory: No cough, No dyspnea on exertion Cardiovascular: No chest pain, No palpitations Gastrointestinal: No dysphagia, No hematemesis Genitourinary: No decreased output, No discharge Musculoskeletal: No back pain, No joint pain Skin: change in color (right leg/thigh) Psychiatric/Neurological: Denies Anxiety, Denies Depressed, Denies Emotional Problems All Other Systems Reviewed Negative Unless Noted: Yes (Negative excepted noted.) Physical Exam-General Problems Physical Exam Vital Signs Vital Signs - First Documented 07/16/22 07/16/22 07/19/22 19:20 23:05 08:07 Temp 36.2 Pulse 102 Resp 20 B/P (MAP) 142/105 (117) Pulse Ox 98 O2 Delivery Room Air O2 Flow Rate 0.00 FiO2 21 Capillary Refill : Less Than 3 Seconds General Appearance: WD/WN, no apparent distress HEENT: PERRL/EOMI, normal ENT inspection Neck: non-tender, full range of motion Respiratory: chest non-tender, no respiratory distress, no accessory muscle use Cardiovascular: regular rate, rhythm, no JVD Gastrointestinal: non tender, soft Rectal: deferred Back: normal inspection, no CVA tenderness Extremities: inflammation ( area of fluctuance right thigh with cellulitic changes), swelling Neurologic/Psychiatric: alert, normal mood/affect, oriented x 3 Skin: warm/dry, other (erythema right thgih) Lymphatic: no adenopathy Data Review Labs Laboratory Tests 07/20/22 05:00: White Blood Count 11.5H, Red Blood Count 4.06L, Hemoglobin 12.4L, Hematocrit 38L , Mean Corpuscular Volume 92, Mean Corpuscular Hemoglobin 31, Mean Corpuscular Hemoglobin Concent 33, Red Cell Distribution Width 12.5, Platelet Count 314, Mean Platelet Volume 9.4, Immature Granulocyte % (Auto) 0, Neutrophils (%) (Auto) 72, Lymphocytes (%) (Auto) 16, Monocytes (%) (Auto) 8, Eosinophils (%) (Auto) 4, Basophils (%) (Auto) 0, Neutrophils # (Auto) 8.2H, Lymphocytes # (Auto) 1.9, Monocytes # (Auto) 0.9, Eosinophils # (Auto) 0.5H, Basophils # (Auto) 0.1, Immature Granulocyte # (Auto) 0.1, Sodium Level 137, Potassium Level 4.3, Chloride Level 104, Carbon Dioxide Level 23, Anion Gap 10, Blood Urea Nitrogen 15, Creatinine 0.76, Estimat Glomerular Filtration Rate 109, BUN/Creatinine Ratio 20, Glucose Level 102, Calcium Level 8.8, Corrected Calcium 9.4, Total Bilirubin 0.2, Aspartate Amino Transf (AST/SGOT) 14, Alanine Aminotransferase (ALT/SGPT) 21, Alkaline Phosphatase 56, Total Protein 6.2L, Albumin 3.3 07/20/22 05:21: Glucometer 99 07/20/22 11:01: Glucometer 86 07/20/22 15:59: Glucometer 96 07/20/22 20:54: Glucometer 129H Microbiology 07/17/22 Urine Culture - Final, Complete NO GROWTH 07/16/22 Blood Culture - Preliminary, Resulted No growth Assessment/Plan Assessment/Plan Assessment/Plan right leg/thigh cellulitis abscess of right thigh right thigh pain. patient with cellultiis and right thigh abscess. The area has minimal drainage at this time we discussed risks and benefits of incision and drainage of right leg abscess he understands and wishes to proceed. continue abx consent npo after midnight. FEI SORENSEN DO Jul 20, 2022 22:28
[2022-07-21] VITALS (14 sets, daily range): BP systolic 96–155; BP diastolic 60–88
[2022-07-21] MEDS: HYDROmorphone 2 MG/ML VIAL (DILAUDID) IV PRN (06:10)
[2022-07-21] MEDS: NS IV 1000 ML 1,000 ML IV SCH ×2 (06:12→12:36)
[2022-07-21] MEDS: inSUlin ASPART (NovoLOG) 1 UNIT/0.01 ML (CHARGE PER UNIT) SC SCH ×4 (06:14→21:01)
[2022-07-21 06:31] LABS: BASOPHILS % (AUTO) 0 % (0-10); EOSINOPHILS # (AUTO) 0.6 10^3/uL (0.0-0.3); EOSINOPHILS % (AUTO) 6 % (0-10); HEMATOCRIT 37 % (40-54); HEMOGLOBIN 12.2 g/dL (13.3-17.7); LYMPHOCYTES # (AUTO) 1.8 10^3/uL (1.0-4.0); LYMPHOCYTES % (AUTO) 19 % (12-44); MEAN CORPUSCULAR HEMOGLOBIN 30 pg (25-34); MEAN CORPUSCULAR HGB CONC 33 g/dL (32-36); MEAN CORPUSCULAR VOLUME 92 fL (80-99); MEAN PLATELET VOLUME 9.2 fL (9.0-12.2); MONOCYTES # (AUTO) 0.8 10^3/uL (0.0-1.0); MONOCYTES % (AUTO) 9 % (0-12); NEUTROPHILS # (AUTO) 5.9 10^3/uL (1.8-7.8); NEUTROPHILS % (AUTO) 65 % (42-75); PLATELET COUNT 355 10^3/uL (130-400); WHITE BLOOD COUNT 9.1 10^3/uL (4.3-11.0)
[2022-07-21 06:43] LABS: ALBUMIN 3.3 GM/DL (3.2-4.5); POTASSIUM 4.4 MMOL/L (3.6-5.0)
[2022-07-21 06:44] LABS: CALCIUM 9.1 MG/DL (8.5-10.1)
[2022-07-21 06:46] LABS: TOTAL PROTEIN 6.1 GM/DL (6.4-8.2)
[2022-07-21 06:47] LABS: BILIRUBIN,TOTAL 0.2 MG/DL (0.1-1.0)
[2022-07-21 06:49] LABS: CREATININE SERUM 0.69 MG/DL (0.60-1.30)
--- NOTE | 2022-07-21 07:24 | Progress Note - Surgery ---
[facility] 07/21/2223: Subjective Date Seen by a Provider: Jul 21, 2022 Time Seen by a Provider: 07:18 Subjective/Events-last exam Today patient reports he is having pain, swelling and warmth of the right upper thigh that goes from top of knee into groin with pain in the scrotal and per ineal regions. Notes the pain has improved somewhat since being in the hospital. He has not had anything to eat or drink since last night. Last Lovenox was given 07/20 at 2207. He states he would like to proceed with surgical intervention. Denies CP, SOB, n/v. Review of Systems General: No Chills, No Night Sweats HEENT: No Head Aches, No Visual Changes Pulmonary: No Dyspnea, No Cough Cardiovascular: No: Chest Pain, Palpitations Gastrointestinal: No: Nausea, Vomiting Genitourinary: No Dysuria; Frequency (attributes to IV fluids) Musculoskeletal: leg pain (right thigh); No: neck pain Neurological: No: Weakness, Numbness Objective Exam Vital Signs Date Time Temp Pulse Resp B/P (MAP) Pulse Ox O2 Delivery O2 Flow Rate FiO2 07/21/22 03:53 37.1 95 20 127/80 (96) 98 Room Air 07/21/22 00:00 37.4 99 16 123/60 (81) 95 Room Air 07/20/22 20:42 36.5 97 18 135/80 (98) 97 Room Air 07/20/22 20:00 Room Air 07/20/22 16:05 36.7 83 16 109/73 (85) 100 Room Air 07/20/22 11:03 36.0 79 18 125/77 (93) 99 Room Air 07/20/22 08:00 Room Air 07/20/22 07:41 100 Room Air 0.00 07/20/22 07:19 36.2 84 18 120/76 (91) 96 Room Air I & O 07/21/22 07:00 Intake Total 2980 ml Output Total 3925 ml Balance -945 ml Capillary Refill : Less Than 3 Seconds General Appearance: No Apparent Distress, WD/WN HEENT: PERRL/EOMI, Normal ENT Inspection, Pharynx Normal, Moist Mucous Membranes Neck: Full Range of Motion, Normal Inspection, Non Tender Respiratory: Chest Non Tender, No Accessory Muscle Use, No Respiratory Distress Cardiovascular: No Edema, No JVD, Normal Peripheral Pulses Peripheral Pulses: 2+ Dorsalis Pedis (R), 2+ Left Dors-Pedis (L), 2+ Radial Pulses (R), 2+ Radial Pulses (L) Gastrointestinal: non tender, soft Extremity: Normal Range of Motion, No Calf Tenderness, No Pedal Edema Neurologic/Psychiatric: Alert, Oriented x3 Skin: Warm/Dry, Rash (right leg cellulitis) Lymphatic: No Adenopathy Results Lab Laboratory Tests 07/20/22 11:01: Glucometer 86 07/20/22 15:59: Glucometer 96 07/20/22 20:54: Glucometer 129H 07/21/22 05:42: Glucometer 104 07/21/22 06:05: White Blood Count 9.1, Red Blood Count 4.06L, Hemoglobin 12.2L, Hematocrit 37L, Mean Corpuscular Volume 92, Mean Corpuscular Hemoglobin 30, Mean Corpuscular He moglobin Concent 33, Red Cell Distribution Width 12.5, Platelet Count 355, Mean Platelet Volume 9.2, Immature Granulocyte % (Auto) 1, Neutrophils (%) (Auto) 65, Lymphocytes (%) (Auto) 19, Monocytes (%) (Auto) 9, Eosinophils (%) (Auto) 6, Basophils (%) (Auto) 0, Neutrophils # (Auto) 5.9, Lymphocytes # (Auto) 1.8, Monocytes # (Auto) 0.8, Eosinophils # (Auto) 0.6H, Basophils # (Auto) 0.0, Immature Granulocyte # (Auto) 0.1, Sodium Level 138, Potassium Level 4.4, Chloride Level 105, Carbon Dioxide Level 22, Anion Gap 11, Blood Urea Nitrogen 20H, Creatinine 0.69, Estimat Glomerular Filtration Rate 112, BUN/Creatinine Ratio 29, Glucose Level 101, Calcium Level 9.1, Corrected Calcium 9.7, Total Bilirubin 0.2, Aspartate Amino Transf (AST/SGOT) 17, Alanine Aminotransferase (ALT/SGPT) 29, Alkaline Phosphatase 65, Total Protein 6.1L, Albumin 3.3 Microbiology 07/17/22 Urine Culture - Final, Complete NO GROWTH 07/16/22 Blood Culture - Preliminary, Resulted No growth Assessment/Plan Assessment/Plan Assessment/Plan right leg/thigh cellulitis abscess of right thigh right thigh pain. patient with cellultiis and right thigh abscess. the area has minimal drainage at this time discussed risks and benefits of incision and drainage of right leg abscess he understands and wishes to proceed. continue abx I&D today FEI COLE DO 07/21/22 0844: Subjective Subjective/Events-last exam Still with pain to right leg upper thigh. Erythema same. Scant drainage. denies n/v fever sweats chills shortness of breath or chest pain at this time. Objective Exam General Appearance: No Apparent Distress, WD/WN HEENT: PERRL/EOMI, Normal ENT Inspection Neck: Normal Inspection, Non Tender Respiratory: Chest Non Tender, No Accessory Muscle Use, No Respiratory Distress Cardiovascular: Regular Rate, Rhythm, No JVD Gastrointestinal: non tender, soft Extremity: Normal Range of Motion, No Calf Tenderness Neurologic/Psychiatric: Alert, Oriented x3 Skin: Normal Color, Warm/Dry, Erythema (right thigh with slight fluctuance, scant drainage) Lymphatic: No Adenopathy Assessment/Plan Assessment/Plan Assessment/Plan right leg/thigh cellulitis abscess of right thigh right thigh pain. patient with cellulitis and right thigh abscess. the area has minimal drainage at this time discussed risks and benefits of incision and drainage of right leg abscess he understands and wishes to proceed. continue abx I&D today Supervisory-Addendum Brief Verification & Attestation Participated in pt care: history, MDM, physical Personally performed: exam, history, MDM, supervision of care Care discussed with: Medical Student Procedures: n/a Results interpretation: Verified all documentation Verification and Attestation of Medical Student E/M Service A medical student performed and documented this service in my presence. I reviewed and verified all information documented by the medical student and made modifications to such information, when appropriate. I personally performed the physical exam and medical decision making. Fei Cole, Jul 21, 2022,08:49 Verification and Attestation of Medical Student E/M Service A medical student performed and documented this service in my presence. I reviewed and verified all information documented by the medical student and made modifications to such information, when appropriate. I personally performed the physical exam and medical decision making. Fei Cole, Jul 21, 2022,08:49 HALEY CASH Jul 21, 2022 07:23 FEI COLE DO Jul 21, 2022 08:44
[2022-07-21] MEDS: SENNOSIDES 8.6 MG (SENOKOT) TAB PO SCH ×2 (07:30→20:28)
[2022-07-21] MEDS: DOCUSATE SODIUM 100 MG (COLACE) CAP PO SCH ×2 (07:30→20:28)
--- NOTE | 2022-07-21 08:58 | Physical Therapy Progress Note ---
Therapy Progress Note Attempted to see patient for PT initial evaluation. He reports he is scheduled for surgery later today. Will attempt evaluation again tomorrow if updated orders received. JASON CARABALLO PT Jul 21, 2022 08:58
[2022-07-21] MEDS ORDERED: proPOfol 200 MG/20 ML (DIPRIVAN) VIAL IV ONE ×2 (10:24→11:10)
[2022-07-21] MEDS ORDERED: ONDANSETRON 4 MG/2 ML (SDV) Z0FRAN ONE (10:24)
[2022-07-21] MEDS ORDERED: LIDOCAINE PF 2% 5 ML (XYLOCAINE) VIAL ONE (10:24)
[2022-07-21] MEDS ORDERED: MIDAZOLAM 2 MG/2 ML (VERSED) VIAL ONE (10:25)
[2022-07-21] MEDS ORDERED: fentaNYL INJ 100 MCG/2 ML AMP ONE (10:25)
[2022-07-21] MEDS ORDERED: LACTATED RINGERS 1,000 ML IV PRN (10:45)
[2022-07-21] MEDS ORDERED: PHENYLEPHRINE 100 MCG/ML 10 ML (ANESTHESIA) SYR ONE (10:53)
[2022-07-21] MEDS ORDERED: SEVOFLURANE (ULTANE) 15 ML INHAL SOLN ONE (11:10)
--- NOTE | 2022-07-21 11:10 | Progress Note-Post Operative ---
Post-Operative Progess Note Surgeon (s)/Quality Rn (s) Surgeon FEI SORENSEN DO Quality Rn: na Pre-Operative Diagnosis right thigh/leg abscess Post-Operative Diagnosis same Procedure & Operative Findings Date of Procedure 07/21/22 Procedure Performed/Findings incision and drainage 4x2 cm right thigh Anesthesia Type general Estimated Blood Loss Estimated blood loss (mL): minimal Specimens/Packing Specimens Removed culture Packing: [email or web address] gauze FEI SORENSEN DO Jul 21, 2022 11:10
[2022-07-21] MEDS ORDERED: ONDANSETRON 4 MG/2 ML (SDV) Z0FRAN IVP PRN (11:30)
[2022-07-21] MEDS ORDERED: morphine INJ 10 MG/ML 1ML (SYR OR VIAL) IVP ONE (11:30)
[2022-07-21] MEDS ORDERED: morphine INJ 10 MG/ML 1ML (SYR OR VIAL) ONE (11:52)
[2022-07-21] MEDS: LINEZOLID IVPB 300 ML IV SCH ×2 (12:32→22:11)
--- NOTE | 2022-07-21 13:07 | Anesthesia-General Post-Op ---
General Patient Condition Mental Status/LOC: Same as Preop Cardiovascular: Satisfactory Nausea/Vomiting: Absent Respiratory: Satisfactory Pain: Controlled Complications: Absent Post Op Complications Complications None Follow Up Care/Instructions Patient Instructions None needed. Anesthesia/Patient Condition Patient Condition Patient was doing well in PACU with no complaints, stable vital signs, no apparent adverse anesthesia problems. No complications reported per nursing. ZAK STEPHEN DO Jul 21, 2022 13:07
[2022-07-21] MEDS: MEROPENEM 500 MG/NS 100 ML IVPB IV SCH ×6 (13:59→23:42)
--- NOTE | 2022-07-21 18:28 | Progress Note ---
Subjective Subjective/Events-last exam Pt seen about 1240, just after return from OR, still drowsy and unable to answer questions at this time. Objective Exam Last Set of Vital Signs Vital Signs Date Time Temp Pulse Resp B/P (MAP) Pulse Ox O2 Delivery O2 Flow Rate FiO2 07/21/22 15:39 36.4 93 19 155/88 (110) 98 Room Air 07/21/22 11:20 10.00 07/19/22 08:31 21 Capillary Refill : Less Than 3 Seconds I&O Intake and Output 07/21/22 00:00 Intake Total 3080 ml Output Total 4475 ml Balance -1395 ml Intake Oral 3080 ml Output Urine Total 4475 ml General: Other (somnolent) Lungs: Clear to Auscultation, Normal Air Movement Heart: Regular Rate, No Murmurs Skin: Other (mild erythema of right anterior thigh, dressing in place to distal right anterior thigh) Results/Procedures Lab Laboratory Tests 07/20/22 20:54: Glucometer 129H 07/21/22 05:42: Glucometer 104 07/21/22 06:05: White Blood Count 9.1, Red Blood Count 4.06L, Hemoglobin 12.2L, Hematocrit 37L, Mean Corpuscular Volume 92, Mean Corpuscular Hemoglobin 30, Mean Corpuscular Hemoglobin Concent 33, Red Cell Distribution Width 12.5, Platelet Count 355, Mean Platelet Volume 9.2, Immature Granulocyte % (Auto) 1, Neutrophils (%) (Auto) 65, Lymphocytes (%) (Auto) 19, Monocytes (%) (Auto) 9, Eosinophils (%) (Auto) 6, Basophils (%) (Auto) 0, Neutrophils # (Auto) 5.9, Lymphocytes # (Auto) 1.8, Monocytes # (Auto) 0.8, Eosinophils # (Auto) 0.6H, Basophils # (Auto) 0.0, Immature Granulocyte # (Auto) 0.1, Sodium Level 138, Potassium Level 4.4, Chloride Level 105, Carbon Dioxide Level 22, Anion Gap 11, Blood Urea Nitrogen 20H, Creatinine 0.69, Estimat Glomerular Filtration Rate 112, BUN/Creatinine Ratio 29, Glucose Level 101, Calcium Level 9.1, Corrected Calcium 9.7, Total Bilirubin 0.2, Aspartate Amino Transf (AST/SGOT) 17, Alanine Aminotransferase (ALT/SGPT) 29, Alkaline Phosphatase 65, Total Protein 6.1L, Albumin 3.3 07/21/22 12:36: Glucometer 99 07/21/22 15:43: Glucometer 210H Microbiology 07/20/22 MRSA Screen - Final, Complete MRSA not isolated 07/17/22 Urine Culture - Final, Complete NO GROWTH 07/16/22 Blood Culture - Preliminary, Resulted No growth Assessment/Plan Assessment/Plan (1) Sepsis Status: Acute Assessment & Plan: Suspect secondary to cellulitis, blood culture no growth Qualifiers: (2) Cellulitis Status: Acute Assessment & Plan: Right thigh, will obtain US to eval for underlying abscess/need for drainage On meropenem and linezolid due to history of recurrent cellulitis 07/20 US showed "Regional cellulitis with deep subcutaneous fluid versus evolving and developing true fluid collection", will consult Surgery for opinion 07/21 s/p I and D in OR Qualifiers: Qualified Codes: L03.115 - Cellulitis of right lower limb (3) Hypertension Status: Chronic Qualifiers: Qualified Codes: I10 - Essential (primary) hypertension (4) DVT prophylaxis Status: Acute Assessment & Plan: Enoxaparin GIORGIO KELLEY MD Jul 21, 2022 18:28
[2022-07-21] MEDS: MELATONIN 3 MG TABLET PO PRN (20:27)
[2022-07-21] MEDS: LORazepam 0.5 MG (ATIVAN) TABLET PO PRN (20:27)
--- NOTE | 2022-07-21 23:57 | OPERATIVE REPORT ---
DATE OF SERVICE: 07/21/2022 PREOPERATIVE DIAGNOSIS: Right thigh and leg abscess. POSTOPERATIVE DIAGNOSIS: Right thigh and leg abscess. PROCEDURE: Incision and drainage of right thigh abscess, 4 x 2 cm. SURGEON: Fei Cole DO ANESTHESIA: General. ESTIMATED BLOOD LOSS: Minimal. COMPLICATIONS: None. INDICATIONS: The patient is a 51-year-old male with a right thigh abscess, cellulitis. He understands risks and benefits of procedure and wished to proceed. Consent was signed in chart. DESCRIPTION OF PROCEDURE: The patient was taken to the operating suite, prepped and draped in sterile fashion. Timeout was performed. A #15 blade scalpel was used to make incision over the area of fluctuance. Slight amount of purulent material erupted, culture was obtained. The overall dimensions of the wound were 4 x 2 cm. The wound was then irrigated with copious amounts of irrigation. Hemostasis was achieved. This was in the subcutaneous tissue layer. The wound was then packed with iodoform and sterile bandage was applied. The patient tolerated the procedure well without complications, taken to recovery room in stable condition. Job ID: [id number] DocumentID: [id number] Dictated Date: 07/21/2022 15:44:01 Pre Kindergarten Teacher Date: 07/21/2022 23:24:00 Dictated By: FEI COLE DO [facility]
[2022-07-22] VITALS (7 sets, daily range): BP systolic 116–152; BP diastolic 63–99
[2022-07-22] MEDS: ENOXAPARIN 40 MG/0.4 ML (LOVENOX) SYR SC SCH ×2 (00:54→22:10)
[2022-07-22] MEDS: NS IV 1000 ML 1,000 ML IV SCH ×2 (03:12→17:58)
[2022-07-22] MEDS: MEROPENEM 500 MG/NS 100 ML IVPB IV SCH ×8 (05:40→23:37)
[2022-07-22 05:52] LABS: BASOPHILS % (AUTO) 0 % (0-10); EOSINOPHILS % (AUTO) 0 % (0-10); HEMATOCRIT 36 % (40-54); HEMOGLOBIN 11.8 g/dL (13.3-17.7); LYMPHOCYTES # (AUTO) 1.2 10^3/uL (1.0-4.0); LYMPHOCYTES % (AUTO) 9 % (12-44); MEAN CORPUSCULAR HEMOGLOBIN 30 pg (25-34); MEAN CORPUSCULAR HGB CONC 33 g/dL (32-36); MEAN CORPUSCULAR VOLUME 92 fL (80-99); MEAN PLATELET VOLUME 8.9 fL (9.0-12.2); MONOCYTES % (AUTO) 7 % (0-12); NEUTROPHILS # (AUTO) 11.9 10^3/uL (1.8-7.8); NEUTROPHILS % (AUTO) 83 % (42-75); PLATELET COUNT 378 10^3/uL (130-400); WHITE BLOOD COUNT 14.3 10^3/uL (4.3-11.0)
[2022-07-22 06:09] LABS: ALBUMIN 3.4 GM/DL (3.2-4.5); POTASSIUM 4.7 MMOL/L (3.6-5.0)
[2022-07-22 06:10] LABS: CALCIUM 9.2 MG/DL (8.5-10.1)
[2022-07-22 06:12] LABS: TOTAL PROTEIN 6.2 GM/DL (6.4-8.2)
[2022-07-22 06:13] LABS: BILIRUBIN,TOTAL 0.1 MG/DL (0.1-1.0)
[2022-07-22 06:15] LABS: CREATININE SERUM 0.7 MG/DL (0.60-1.30)
[2022-07-22] MEDS: inSUlin ASPART (NovoLOG) 1 UNIT/0.01 ML (CHARGE PER UNIT) SC SCH ×4 (06:18→21:01)
[2022-07-22 06:29] LABS: BASOPHILS % (MANUAL) 1 %; LYMPHOCYTES % (MANUAL) 7 %; MONOCYTES % (MANUAL) 6 %; NEUTROPHILS % (MANUAL) 86 %
[2022-07-22 06:30] LABS: RBC MORPH NORMAL
--- NOTE | 2022-07-22 07:32 | Progress Note - Surgery ---
AUGUSTINA BARFIELD 07/22/22 0731: Subjective Date Seen by a Provider: Jul 22, 2022 Time Seen by a Provider: 07:11 Subjective/Events-last exam Patient is still in pain today rated 7/10 but better than yesterday. He said the pain is better than before his surgery. He has been ambulating, voiding and having BMs with no difficulty. Erythema is decreased. Review of Systems General: No Chills, No Night Sweats HEENT: No Head Aches, No Visual Changes Pulmonary: No Dyspnea, No Cough Cardiovascular: No: Chest Pain, Palpitations, Lt Headedness Gastrointestinal: No: Nausea, Vomiting, Abdominal Pain Genitourinary: No Dysuria; Frequency; No Hematuria Musculoskeletal: leg pain; No: neck pain, shoulder pain Neurological: No: Weakness, Numbness Objective Exam Vital Signs Date Time Temp Pulse Resp B/P (MAP) Pulse Ox O2 Delivery O2 Flow Rate FiO2 07/22/22 03:15 36.2 94 20 116/74 (88) 97 Room Air 07/21/22 23:05 36.2 101 19 134/75 (94) 97 Room Air 07/21/22 20:30 Room Air 07/21/22 19:25 36.5 95 19 153/88 (109) 97 Room Air 07/21/22 15:39 36.4 93 19 155/88 (110) 98 Room Air 07/21/22 12:41 35.7 71 18 129/87 (101) 96 Room Air 07/21/22 12:15 Room Air 07/21/22 12:10 36.1 18 107/77 (87) 98 Room Air 07/21/22 12:00 14 96/70 (79) 100 Room Air 07/21/22 12:00 Room Air 07/21/22 11:50 20 125/79 (94) 99 Room Air 07/21/22 11:45 Room Air 07/21/22 11:40 14 115/73 (87) 99 Room Air 07/21/22 11:30 Room Air 07/21/22 11:30 14 121/75 (90) 100 Room Air 07/21/22 11:20 16 100/64 (76) 99 Face Tent 10.00 07/21/22 11:17 Face Tent 10.00 07/21/22 11:17 36.2 16 96/69 (78) 98 Face Tent 10.00 07/21/22 08:00 Room Air 07/21/22 07:51 36.1 77 18 108/70 (83) 98 Room Air I & O 07/22/22 06:59 Intake Total 6290 ml Output Total 750 ml Balance 5540 ml Capillary Refill : Less Than 3 Seconds General Appearance: No Apparent Distress, Chronically ill HEENT: PERRL/EOMI, Moist Mucous Membranes Neck: Non Tender, Supple Respiratory: No Accessory Muscle Use, No Respiratory Distress Cardiovascular: Regular Rate, Rhythm, No Murmur, Normal Peripheral Pulses Peripheral Pulses: 2+ Dorsalis Pedis (R), 2+ Left Dors-Pedis (L), 2+ Radial Pulses (R), 2+ Radial Pulses (L) Gastrointestinal: non tender, soft Extremity: Non Tender, No Calf Tenderness, No Pedal Edema, Other Neurologic/Psychiatric: Alert, Oriented x3 Skin: Normal Color, Warm/Dry, Other (dressing still in place on right thigh, has not been changed, erythema nearly resolved on the superior right thigh) Lymphatic: No Adenopathy Results Lab Laboratory Tests 07/21/22 12:36: Glucometer 99 07/21/22 15:43: Glucometer 210H 07/21/22 20:33: Glucometer 253H 07/22/22 05:41: White Blood Count 14.3H, Red Blood Count 3.88L, Hemoglobin 11.8L, Hematocrit 36L , Mean Corpuscular Volume 92, Mean Corpuscular Hemoglobin 30, Mean Corpuscular Hemoglobin Concent 33, Red Cell Distribution Width 12.3, Platelet Count 378, Mean Platelet Volume 8.9L, Immature Granulocyte % (Auto) 1, Neutrophils (%) (Auto) 83H, Lymphocytes (%) (Auto) 9L, Monocytes (%) (Auto) 7, Eosinophils (%) (Auto) 0, Basophils (%) (Auto) 0, Neutrophils # (Auto) 11.9H, Lymphocytes # (Auto) 1.2, Monocytes # (Auto) 1.0, Eosinophils # (Auto) 0.0, Basophils # (Auto) 0.0, Immature Granulocyte # (Auto) 0.1, Neutrophils % (Manual) 86, Lymphocytes % (Manual) 7, Monocytes % (Manual) 6, Basophils % (Manual) 1, Blood Morphology Comment NORMAL, Sodium Level 140, Potassium Level 4.7, Chloride Level 107, Carbon Dioxide Level 23, Anion Gap 10, Blood Urea Nitrogen 23H, Creatinine 0.70, Estimat Glomerular Filtration Rate 112, BUN/Creatinine Ratio 33, Glucose Level 125H, Calcium Level 9.2, Corrected Calcium 9.7, Total Bilirubin 0.1, Aspartate Amino Transf (AST/SGOT) 14, Alanine Aminotransferase (ALT/SGPT) 28, Alkaline Phosphatase 58, Total Protein 6.2L, Albumin 3.4 Microbiology 07/20/22 MRSA Screen - Final, Complete MRSA not isolated 07/17/22 Urine Culture - Final, Complete NO GROWTH 07/16/22 Blood Culture - Preliminary, Resulted No growth Assessment/Plan Assessment/Plan Assessment/Plan S/p right leg/thigh I&D for cellulitis/abscess right thigh pain Wound culture done yesterday, preliminary report indicates S. aureus, probable MRSA Patient feeling better Dressing still in place Plan to change dressing tomorrow, provide instructions for wound care WBC elevated, will monitor with AM labs Pain control continue abx Ambulation and lovenox for DVT prophylaxis FEI COLE DO 07/23/222132: Subjective Subjective/Events-last exam Still with pain but better. Redness decreasing. Tolerating diet. No new complaints. Denies n/v fever sweats chills shortness of breath or chest pain at this time. Objective Exam General Appearance: No Apparent Distress, Chronically ill HEENT: PERRL/EOMI, Moist Mucous Membranes Neck: Non Tender, Supple Respiratory: Chest Non Tender, No Accessory Muscle Use, No Respiratory Distress Cardiovascular: Regular Rate, Rhythm, No JVD Gastrointestinal: non tender, soft Extremity: No Calf Tenderness, Other (right thigh medial aspect with decreasing erythema and induration) Neurologic/Psychiatric: Alert, Oriented x3 Skin: Warm/Dry, Other (erythema nearly resolved on the superior right thigh, wound minimal drainage) Lymphatic: No Adenopathy Assessment/Plan Assessment/Plan Assessment/Plan S/p right leg/thigh I&D for cellulitis/abscess right thigh pain Wound culture done yesterday, preliminary report indicates S. aureus, probable MRSA Patient feeling better Dressing changed Plan to change dressing tomorrow, provide instructions for wound care WBC elevated, will monitor with AM labs Pain control continue abx Ambulation and lovenox for DVT prophylaxis Supervisory-Addendum Brief Verification & Attestation Participated in pt care: history, MDM, physical Personally performed: exam, history, MDM, supervision of care Care discussed with: Medical Student Procedures: n/a Results interpretation: Verified all documentation Verification and Attestation of Medical Student E/M Service A medical student performed and documented this service in my presence. I reviewed and verified all information documented by the medical student and made modifications to such information, when appropriate. I personally performed the physical exam and medical decision making. Fei Cole, Jul 22, 2022,21:33 AUGUSTINA BARFIELD Jul 22, 2022 07:31 FEI COLE DO Jul 23, 2022 21:33
[2022-07-22] MEDS: SENNOSIDES 8.6 MG (SENOKOT) TAB PO SCH ×3 (08:16→19:59)
[2022-07-22] MEDS: DOCUSATE SODIUM 100 MG (COLACE) CAP PO SCH ×4 (08:16→20:06)
[2022-07-22] MEDS: LINEZOLID IVPB 300 ML IV SCH ×2 (10:29→22:10)
--- NOTE | 2022-07-22 10:33 | Physical Therapy Progress Note ---
Therapy Progress Note Patient declined PT intervention after multiple attempts this week. Physician notified. PT to remove patient from services at this time. SHABBIR MCFADDEN PT Jul 22, 2022 10:33
--- NOTE | 2022-07-22 11:57 | Progress Note ---
Subjective Subjective/Events-last exam Pt states his leg hurts, but he feels like the infection is gone. He says he will have somewhere to stay tomorrow. Objective Exam Last Set of Vital Signs Vital Signs Date Time Temp Pulse Resp B/P (MAP) Pulse Ox O2 Delivery O2 Flow Rate FiO2 07/22/22 11:06 36.6 89 20 136/63 (87) 95 Room Air 07/21/22 11:20 10.00 07/19/22 08:31 21 Capillary Refill : Less Than 3 Seconds I&O Intake and Output 07/22/22 00:00 Intake Total 4640 ml Output Total 1450 ml Balance 3190 ml Intake Oral 2740 ml IV Total 1900 ml Output Urine Total 1450 ml # Voids 4 # Bowel Movements 1 General: Alert, No Acute Distress Lungs: Clear to Auscultation, Normal Air Movement Heart: Regular Rate, No Murmurs Skin: Other (dressing in place to just above right knee, mild patchy erythema of anterior right thigh) Psych/Mental Status: Other (irritable) Results/Procedures Lab Laboratory Tests 07/21/22 12:36: Glucometer 99 07/21/22 15:43: Glucometer 210H 07/21/22 20:33: Glucometer 253H 07/22/22 05:41: White Blood Count 14.3H, Red Blood Count 3.88L, Hemoglobin 11.8L, Hematocrit 36L , Mean Corpuscular Volume 92, Mean Corpuscular Hemoglobin 30, Mean Corpuscular Hemoglobin Concent 33, Red Cell Distribution Width 12.3, Platelet Count 378, Mean Platelet Volume 8.9L, Immature Granulocyte % (Auto) 1, Neutrophils (%) (Auto) 83H, Lymphocytes (%) (Auto) 9L, Monocytes (%) (Auto) 7, Eosinophils (%) (Auto) 0, Basophils (%) (Auto) 0, Neutrophils # (Auto) 11.9H, Lymphocytes # (Auto) 1.2, Monocytes # (Auto) 1.0, Eosinophils # (Auto) 0.0, Basophils # (Auto) 0.0, Immature Granulocyte # (Auto) 0.1, Neutrophils % (Manual) 86, Lymphocytes % (Manual) 7, Monocytes % (Manual) 6, Basophils % (Manual) 1, Blood Morphology Comment NORMAL, Sodium Level 140, Potassium Level 4.7, Chloride Level 107, Carbon Dioxide Level 23, Anion Gap 10, Blood Urea Nitrogen 23H, Creatinine 0.70, Estimat Glomerular Filtration Rate 112, BUN/Creatinine Ratio 33, Glucose Level 125H, Calcium Level 9.2, Corrected Calcium 9.7, Total Bilirubin 0.1, Aspartate Amino Transf (AST/SGOT) 14, Alanine Aminotransferase (ALT/SGPT) 28, Alkaline Phosphatase 58, Total Protein 6.2L, Albumin 3.4 07/22/22 11:03: Glucometer 148H Microbiology 07/21/22 Gram Stain - Final, Resulted 07/21/22 Anaerobic Culture, Resulted Pending 07/21/22 Surgical Culture - Preliminary, Resulted Staphylococcus aureus 07/20/22 MRSA Screen - Final, Complete MRSA not isolated 07/17/22 Urine Culture - Final, Complete NO GROWTH 07/16/22 Blood Culture - Preliminary, Resulted No growth Assessment/Plan Assessment/Plan (1) Sepsis Status: Resolved Assessment & Plan: Suspect secondary to cellulitis, blood culture no growth Qualifiers: (2) Cellulitis Status: Acute Assessment & Plan: Right thigh, will obtain US to eval for underlying ab scess/need for drainage On meropenem and linezolid due to history of recurrent cellulitis 07/20 US showed "Regional cellulitis with deep subcutaneous fluid versus evolving and developing true fluid collection", will consult Surgery for opinion 07/21 s/p I and D in OR 07/22 anticipate d/c tomorrow if stable and able to manage outpatient wound care. On meropenem and linezolid since admit, follow up surgical cultures. Qualifiers: Qualified Codes: L03.115 - Cellulitis of right lower limb (3) Hypertension Status: Chronic Qualifiers: Qualified Codes: I10 - Essential (primary) hypertension (4) DVT prophylaxis Status: Acute Assessment & Plan: Enoxaparin GIORGIO KELLEY MD Jul 22, 2022 11:57
[2022-07-22] MEDS: LORazepam 0.5 MG (ATIVAN) TABLET PO PRN ×2 (14:18→19:58)
[2022-07-22] MEDS: MELATONIN 3 MG TABLET PO PRN (19:58)
[2022-07-23] MEDS: NS IV 1000 ML 1,000 ML IV SCH ×2 (01:53→07:38)
[2022-07-23] MEDS: MEROPENEM 500 MG/NS 100 ML IVPB IV SCH ×4 (05:30→12:37)
[2022-07-23 06:03] LABS: BASOPHILS % (AUTO) 0 % (0-10); EOSINOPHILS # (AUTO) 0.7 10^3/uL (0.0-0.3); EOSINOPHILS % (AUTO) 7 % (0-10); HEMATOCRIT 34 % (40-54); HEMOGLOBIN 11.4 g/dL (13.3-17.7); LYMPHOCYTES # (AUTO) 2.8 10^3/uL (1.0-4.0); LYMPHOCYTES % (AUTO) 28 % (12-44); MEAN CORPUSCULAR HEMOGLOBIN 31 pg (25-34); MEAN CORPUSCULAR HGB CONC 33 g/dL (32-36); MEAN CORPUSCULAR VOLUME 93 fL (80-99); MONOCYTES # (AUTO) 0.6 10^3/uL (0.0-1.0); MONOCYTES % (AUTO) 6 % (0-12); NEUTROPHILS # (AUTO) 5.7 10^3/uL (1.8-7.8); NEUTROPHILS % (AUTO) 58 % (42-75); PLATELET COUNT 325 10^3/uL (130-400); WHITE BLOOD COUNT 9.9 10^3/uL (4.3-11.0)
[2022-07-23 06:26] LABS: ALBUMIN 3.1 GM/DL (3.2-4.5); BILIRUBIN,TOTAL 0.1 MG/DL (0.1-1.0); CALCIUM 8.3 MG/DL (8.5-10.1); CREATININE SERUM 0.72 MG/DL (0.60-1.30); POTASSIUM 4.4 MMOL/L (3.6-5.0); TOTAL PROTEIN 5.5 GM/DL (6.4-8.2)
[2022-07-23] MEDS: inSUlin ASPART (NovoLOG) 1 UNIT/0.01 ML (CHARGE PER UNIT) SC SCH ×2 (06:28→12:08)
[2022-07-23 08:00] VITALS: BP 123/76
[2022-07-23] MEDS: DOCUSATE SODIUM 100 MG (COLACE) CAP PO SCH (09:17)
[2022-07-23] MEDS: SENNOSIDES 8.6 MG (SENOKOT) TAB PO SCH (10:07)
[2022-07-23] MEDS: LINEZOLID IVPB 300 ML IV SCH (10:07)
[2022-07-23] MEDS: LORazepam 0.5 MG (ATIVAN) TABLET PO PRN (12:53)
[2022-07-23] MEDS ORDERED: HYPOCHLOROUS ACID/NaCl (VASHE) 250 ML IR PRN (13:00)
[2022-07-23] MEDS ORDERED: SULF-221 PO (13:12)
[2022-07-23] MEDS ORDERED: ACHD5005 PO (13:13)
--- NOTE | 2022-07-23 13:17 | Discharge Summary ---
Discharge Summary Hospital Course Problems/Diagnosis: (1) Sepsis Status: Resolved Resolution Date/Time: 07/22/22 @ 11:56 Assessment & Plan: Suspect secondary to cellulitis, blood culture no growth Qualifiers: Qualified Codes: A41.02 - Sepsis due to methicillin resistant Staphylococcus aureus (2) Cellulitis Status: Acute Assessment & Plan: Right thigh On meropenem and linezolid initially due to history of recurrent cellulitis 07/20 US showed "Regional cellulitis with deep subcutaneous fluid versus evolving and developing true fluid collection", s/p I and D in OR, culture with MRSA, changed to Bactrim for d/c. Daily dressing changes per Surgery. Qualifiers: Qualified Codes: L03.115 - Cellulitis of right lower limb Hospital Course Date of Admission: Jul 16, 2022 at 22:05 Admission Diagnosis : Family Physician/Provider: Yaneli,Local Physician Date of Discharge: 07/23/22 Discharge Diagnosis: See problem list Hospital Course: See problem list Labs and Pending Lab Test: Laboratory Tests 07/22/22 16:00: Glucometer 113H 07/22/22 20:56: Glucometer 86 07/23/22 05:35: White Blood Count 9.9, Red Blood Count 3.68L, Hemoglobin 11.4L, Hematocrit 34L, Mean Corpuscular Volume 93, Mean Corpuscular Hemoglobin 31, Mean Corpuscular Hemoglobin Concent 33, Red Cell Distribution Width 12.5, Platelet Count 325, Mean Platelet Volume 9.0, Immature Granulocyte % (Auto) 1, Neutrophils (%) (Auto) 58, Lymphocytes (%) (Auto) 28, Monocytes (%) (Auto) 6, Eosinophils (%) (Auto) 7, Basophils (%) (Auto) 0, Neutrophils # (Auto) 5.7, Lymphocytes # (Auto) 2.8, Monocytes # (Auto) 0.6, Eosinophils # (Auto) 0.7H, Basophils # (Auto) 0.0, Immature Granulocyte # (Auto) 0.1, Sodium Level 139, Potassium Level 4.4, Chloride Level 108H, Carbon Dioxide Level 25, Anion Gap 6, Blood Urea Nitrogen 20H, Creatinine 0.72, Estimat Glomerular Filtration Rate 111, BUN/Creatinine Ratio 28, Glucose Level 86, Calcium Level 8.3L, Corrected Calcium 9.0, Total Bilirubin 0.1, Aspartate Amino Transf (AST/SGOT) 26, Alanine Aminotransferase (ALT/SGPT) 51, Alkaline Phosphatase 56, Total Protein 5.5L, Albumin 3.1L 07/23/22 10:50: Glucometer 107 Microbiology 07/21/22 Gram Stain - Final, Resulted 07/21/22 Anaerobic Culture, Resulted Pending 07/21/22 Surgical Culture - Preliminary, Resulted Staphylococcus aureus 07/20/22 MRSA Screen - Final, Complete MRSA not isolated 07/17/22 Urine Culture - Final, Complete NO GROWTH 07/16/22 Blood Culture - Preliminary, Resulted No growth Home Meds Active Bactrim Ds Tablet (Sulfamethoxazole/Trimethoprim) 800 Mg-160 Mg Tablet 1 Each PO BID Assessment/Pt DC Instructions Follow up with Surgery as directed. Follow up with primary provider within a week. Discharge Diet: Regular Diet Activity as Tolerated: Yes Discharge Physical Examination Allergies: Coded Allergies: vancomycin (Verified Allergy, Intermediate, RASH, 07/06/15) Erythema and itching Penicillins (Unverified Allergy, Mild, 07/20/08) penicillin G (Verified Allergy, Unknown, 01/05/06) Uncoded Allergies: PCN (Allergy, Mild, 07/21/08) General Appearance: No Apparent Distress Respiratory: Lungs Clear, Normal Breath Sounds Cardiovascular: Regular Rate, Rhythm Skin: Other (dressing in place to just above right knee, resolving erythema remainder of anterior right thigh) Neurologic/Psychiatric: Alert, Other (irritable affect) GIORGIO KELLEY MD Jul 23, 2022 13:17
[2022-07-23 14:31] VITALS: BP 123/76
--- NOTE | 2022-07-23 21:39 | Progress Note - Surgery ---
Subjective Date Seen by a Provider: Jul 23, 2022 Time Seen by a Provider: 12:00 Subjective/Events-last exam Pain slowly improving. Erythema minimal, but still concerned more abscess there. Induration less. Tolerating diet. Denies n/v fever sweats chills shortness of breath or chest pain. Objective Exam Vital Signs Date Time Temp Pulse Resp B/P (MAP) Pulse Ox O2 Delivery O2 Flow Rate FiO2 07/23/22 14:31 36.4 72 14 123/76 14 Room Air 07/23/22 08:20 Room Air 07/23/22 08:00 36.4 72 14 123/76 (92) 14 Room Air 07/23/22 00:10 Room Air 0.00 07/22/22 23:00 36.4 82 18 127/90 (102) 96 Room Air I & O 07/23/22 07:00 Intake Total 4450 ml Output Total 1875 ml Balance 2575 ml Capillary Refill : Less Than 3 Seconds General Appearance: No Apparent Distress, Chronically ill HEENT: PERRL/EOMI, Moist Mucous Membranes Neck: Non Tender, Supple Respiratory: Chest Non Tender, No Accessory Muscle Use, No Respiratory Distress Cardiovascular: Regular Rate, Rhythm, No JVD Peripheral Pulses: 2+ Dorsalis Pedis (R), 2+ Left Dors-Pedis (L), 2+ Radial Pulses (R), 2+ Radial Pulses (L) Gastrointestinal: non tender, soft Extremity: No Calf Tenderness, Other (right thigh medial aspect with minimal erythema and induration) Neurologic/Psychiatric: Alert, Oriented x3 Skin: Warm/Dry, Other (erythema nearly resolved on the superior right thigh, wound scant drainage) Lymphatic: No Adenopathy Results Lab Laboratory Tests 07/23/22 05:35: White Blood Count 9.9, Red Blood Count 3.68L, Hemoglobin 11.4L, Hematocrit 34L, Mean Corpuscular Volume 93, Mean Corpuscular Hemoglobin 31, Mean Corpuscular Hemoglobin Concent 33, Red Cell Distribution Width 12.5, Platelet Count 325, Mean Platelet Volume 9.0, Immature Granulocyte % (Auto) 1, Neutrophils (%) (Auto) 58, Lymphocytes (%) (Auto) 28, Monocytes (%) (Auto) 6, Eosinophils (%) (Auto) 7, Basophils (%) (Auto) 0, Neutrophils # (Auto) 5.7, Lymphocytes # (Auto) 2.8, Monocytes # (Auto) 0.6, Eosinophils # (Auto) 0.7H, Basophils # (Auto) 0.0, Immature Granulocyte # (Auto) 0.1, Sodium Level 139, Potassium Level 4.4, Chloride Level 108H, Carbon Dioxide Level 25, Anion Gap 6, Blood Urea Nitrogen 20H, Creatinine 0.72, Estimat Glomerular Filtration Rate 111, BUN/Creatinine R atio 28, Glucose Level 86, Calcium Level 8.3L, Corrected Calcium 9.0, Total Bilirubin 0.1, Aspartate Amino Transf (AST/SGOT) 26, Alanine Aminotransferase (ALT/SGPT) 51, Alkaline Phosphatase 56, Total Protein 5.5L, Albumin 3.1L 07/23/22 10:50: Glucometer 107 Microbiology 07/21/22 Gram Stain - Final, Resulted 07/21/22 Anaerobic Culture, Resulted Pending 07/21/22 Surgical Culture - Preliminary, Resulted Staphylococcus aureus 07/20/22 MRSA Screen - Final, Complete MRSA not isolated 07/17/22 Urine Culture - Final, Complete NO GROWTH 07/16/22 Blood Culture - Preliminary, Resulted No growth Assessment/Plan Assessment/Plan Assessment/Plan S/p right leg/thigh I&D for cellulitis/abscess right thigh pain Patient feeling better Dressing changed wound care WBC improved Pain control continue abx Ambulation and lovenox for DVT prophylaxis Okay to in home, instructed on wound care. can follow up with me in 2 weeks or earlier if needed. Patient states hes going to [place], instructed if staying there he should have follow up within the next couple weeks and if any worsening be evaluated at that time. FEI SORENSEN DO Jul 23, 2022 21:39
== END 2022-07-23 13:10 | disposition home or self-care (01) ==
LOC: EDUNIT# 19:12 → ER 19:14 → 4TH 22:05
PROVIDERS: ADMIT Internal Medicine; ATTEND Family Medicine
DX: A41.01 Sepsis due to Methicillin susceptible Staphylococcus aureus (principal); L03.115 Cellulitis of right lower limb; L02.415 Cutaneous abscess of right lower limb; L97.119 Non-pressure chronic ulcer of right thigh with unspecified severity; I10 Essential (primary) hypertension; E11.9 Type 2 diabetes mellitus without complications; F17.210 Nicotine dependence, cigarettes, uncomplicated; Z59.00 Homelessness unspecified; Z79.891 Long term (current) use of opiate analgesic; Z88.1 Allergy status to other antibiotic agents; Z88.0 Allergy status to penicillin
CPT/HCPCS: 10060; 71045; 76881; 80053 ×8; 81000; 82947 ×7; 83605; 85007 ×2; 85025 ×6; 85027 ×2; 87040; 87070; 87075; 87077; 87081; 87088; 87186; 87205; 94760 ×3; 96361 ×3; 96365; 96366 ×7; 96367; 96372 ×7; 96375 ×3; 96376 ×7; 99284; G0378; 36415